=== PATIENT | female | born 1935 | race Caucasian/White ===

== ENCOUNTER 2016-06-20 13:16 | Outpatient (CLI) | payer MEDICARE, OTHER | END 2016-06-20 13:17 | disposition home or self-care (01) | DX: M35.3 Polymyalgia rheumatica (principal); E55.9 Vitamin D deficiency, unspecified; Z79.52 Long term (current) use of systemic steroids ==

== ENCOUNTER 2016-06-20 14:15 | Outpatient (CLI) | payer MEDICARE, OTHER | END 2016-06-20 23:59 | DX: N39.0 Urinary tract infection, site not specified (principal) ==

== ENCOUNTER 2016-06-21 16:12 | Emergency (ER) | payer MEDICARE, OTHER ==
[2016-06-21] MEDS ORDERED: SODIUM CHLORIDE 0.9% 1,000 ML IV ONE (16:48)
[2016-06-21] MEDS ORDERED: MORPHINE 2 MG/ML SYRINGE IVP STA (16:49)
[2016-06-21] MEDS ORDERED: ONDANSETRON 4 MG/2 ML VIAL IVP STA (16:51)
[2016-06-21] MEDS ORDERED: ONDANSETRON 4 MG/2 ML VIAL ONE (16:55)
[2016-06-21] MEDS ORDERED: MORPHINE 2 MG/ML SYRINGE ONE (16:55)
[2016-06-21] MEDS ORDERED: cefTRIAXone 1 GM in SODIUM CHLORIDE 0.9% MINIBAG 100 ML IV STA (17:58)
[2016-06-21] MEDS ORDERED: cefTRIAXone 1 GM VIAL ONE (18:02)
== END 2016-06-21 18:46 | disposition home or self-care (01) ==
DX: N30.00 Acute cystitis without hematuria (principal); I10 Essential (primary) hypertension; E78.00 Pure hypercholesterolemia, unspecified; I48.91 Unspecified atrial fibrillation; Z79.01 Long term (current) use of anticoagulants; K21.9 Gastro-esophageal reflux disease without esophagitis; Z86.73 Personal history of transient ischemic attack (TIA), and cerebral infarction without residual deficits

== ENCOUNTER 2016-06-23 07:17 | Emergency (ER) | payer MEDICARE, OTHER ==
[2016-06-23] MEDS ORDERED: ONDANSETRON 4 MG/2 ML VIAL IVP STA (07:49)
[2016-06-23] MEDS ORDERED: SODIUM CHLORIDE 0.9% 1,000 ML IV ONE ×2 (07:49→07:50)
[2016-06-23] MEDS ORDERED: MORPHINE 2 MG/ML SYRINGE IVP STA (07:49)
[2016-06-23] MEDS ORDERED: MORPHINE 2 MG/ML SYRINGE ONE (07:50)
[2016-06-23] MEDS ORDERED: ONDANSETRON 4 MG/2 ML VIAL ONE (07:50)
[2016-06-23] MEDS ORDERED: IOPAMIDOL-300 100 ML VIAL IVP ONE (08:42)
[2016-06-23] MEDS ORDERED: oxyCODONE 5 MG TABLET PO STA (10:35)
[2016-06-23] MEDS ORDERED: oxyCODONE 5 MG TABLET ONE (10:42)
[2016-06-23] MEDS ORDERED: POTASSIUM CHLORIDE 20 MEQ TABLET PO STA (11:07)
[2016-06-23] MEDS ORDERED: ONDANSETRON ODT 4 MG TABLET TL STA (11:09)
[2016-06-23] MEDS ORDERED: POTASSIUM CHLORIDE 20 MEQ TABLET PO ONE (11:11)
[2016-06-23] MEDS ORDERED: ONDANSETRON ODT 4 MG TABLET ONE (11:11)
== END 2016-06-23 12:03 | disposition home or self-care (01) ==
DX: N39.0 Urinary tract infection, site not specified (principal); R10.32 Left lower quadrant pain; I10 Essential (primary) hypertension; I48.91 Unspecified atrial fibrillation; Z79.01 Long term (current) use of anticoagulants; R94.31 Abnormal electrocardiogram [ECG] [EKG]; E78.00 Pure hypercholesterolemia, unspecified; G62.9 Polyneuropathy, unspecified; M79.1 Myalgia; D50.9 Iron deficiency anemia, unspecified; K21.9 Gastro-esophageal reflux disease without esophagitis; Z86.73 Personal history of transient ischemic attack (TIA), and cerebral infarction without residual deficits
CPT/HCPCS: 36415; 74174; 80053; 81001; 83690; 84484; 85025; 85610; 93005; 93010; 96361; 96374; 96375; 99284; 99285; A9270; Q0162; Q9967

== ENCOUNTER 2016-09-02 15:00 | Outpatient (CLI) | payer MEDICARE, OTHER | END 2016-09-02 15:01 | disposition home or self-care (01) | DX: N39.0 Urinary tract infection, site not specified (principal) ==

== ENCOUNTER 2016-09-19 20:15 | Outpatient (CLI) | payer MEDICARE, OTHER | END 2016-09-19 23:59 | disposition critical access hospital (66) | DX: R42 Dizziness and giddiness (principal); R53.1 Weakness | CPT/HCPCS: A0425; A0427 ==

== ENCOUNTER 2016-09-19 20:40 | Observation (INO) | payer MEDICARE, OTHER ==
[2016-09-19] MEDS ORDERED: ACETAMINOPHEN 325 MG TABLET PO PRN (22:10)
[2016-09-19] MEDS ORDERED: ONDANSETRON 4 MG/2 ML VIAL IVP PRN (22:10)
[2016-09-19] MEDS ORDERED: SODIUM CHLORIDE FLUSH 0.9% 10 ML SYRINGE IVP PRN (22:10)
[2016-09-19] MEDS ORDERED: ZOLPIDEM 5 MG TABLET PO PRN (22:10)
[2016-09-19] MEDS ORDERED: HYDROcod/ACETAM 10 MG/325 MG TABLET PO PRN (22:10)
[2016-09-19] MEDS ORDERED: WARFARIN 5 MG TABLET PO SCH (23:00)
[2016-09-20] MEDS: SODIUM CHLORIDE 0.9% 1,000 ML IV SCH ×3 (00:20→21:24)
[2016-09-20] MEDS: cefTRIAXone 1 GM in SODIUM CHLORIDE 0.9% MINIBAG 100 ML IV SCH (01:02)
[2016-09-20] MEDS: PANTOPRAZOLE 40 MG TABLET PO SCH (06:17)
[2016-09-20] MEDS: SODIUM CHLORIDE FLUSH 0.9% 10 ML SYRINGE IVP SCH ×2 (06:26→20:12)
[2016-09-20] MEDS ORDERED: predniSONE 1 MG TABLET PO SCH (09:00)
[2016-09-20] MEDS ORDERED: METOPROLOL TARTRATE 50 MG TABLET PO SCH ×3 (09:00→14:19)
[2016-09-20] MEDS ORDERED: LOSARTAN 50 MG TABLET PO SCH ×4 (09:00→14:15)
[2016-09-20] MEDS ORDERED: predniSONE 10 MG TABLET PO SCH ×2 (09:00→14:23)
[2016-09-20] MEDS ORDERED: GABAPENTIN 300 MG CAPSULE PO SCH (09:00)
[2016-09-20] MEDS ORDERED: MECLIZINE 12.5 MG TABLET PO PRN (11:14)
[2016-09-20] MEDS: POLYETHYLENE GLYCOL 3350 17 GM PACKET PO SCH (15:09)
[2016-09-20] MEDS ORDERED: SCOPOLAMINE PATCH TOP SCH (17:00)
[2016-09-20] MEDS: GABAPENTIN 300 MG CAPSULE PO SCH ×2 (20:12→20:21)
[2016-09-20] MEDS: WARFARIN 2.5 MG TABLET PO SCH ×2 (20:12→20:21)
[2016-09-20] MEDS ORDERED: METOPROLOL TARTRATE 25 MG TABLET PO SCH (21:00)
[2016-09-21] MEDS: cefTRIAXone 1 GM in SODIUM CHLORIDE 0.9% MINIBAG 100 ML IV SCH (00:27)
[2016-09-21] MEDS: SODIUM CHLORIDE FLUSH 0.9% 10 ML SYRINGE IVP SCH ×3 (00:27→13:42)
[2016-09-21] MEDS: PANTOPRAZOLE 40 MG TABLET PO SCH (06:30)
[2016-09-21] MEDS: SODIUM CHLORIDE 0.9% 1,000 ML IV SCH (06:31)
[2016-09-21] MEDS: POLYETHYLENE GLYCOL 3350 17 GM PACKET PO SCH (08:10)
[2016-09-21] MEDS ORDERED: WARFARIN 5 MG TABLET PO SCH (21:00)
== END 2016-09-21 14:22 | disposition short-term general hospital (02) ==
DX: R42 Dizziness and giddiness (principal); R55 Syncope and collapse; N39.0 Urinary tract infection, site not specified; I10 Essential (primary) hypertension; M31.6 Other giant cell arteritis; I48.91 Unspecified atrial fibrillation; M35.3 Polymyalgia rheumatica; Z86.73 Personal history of transient ischemic attack (TIA), and cerebral infarction without residual deficits; K21.9 Gastro-esophageal reflux disease without esophagitis; D50.9 Iron deficiency anemia, unspecified; Z79.01 Long term (current) use of anticoagulants; Z79.899 Other long term (current) drug therapy; Z79.52 Long term (current) use of systemic steroids
CPT/HCPCS: 36415; 70450; 70551; 80053; 81001; 83690; 83735; 83880; 84100; 84443; 84484; 85025; 85610; 85730; 87086; 93005; 93010; 93306; 93880; 96365; 96366; 99284; 99285; A9270; G0378; J3490

== ENCOUNTER 2016-10-28 11:16 | Outpatient (CLI) | payer MEDICARE, OTHER ==
[2016-10-28 18:04] LABS: BASOPHILS % (AUTO) 0.3 %; EOSINOPHILS % (AUTO) 0.1 %; HCT - HEMATOCRIT 38.4 % (37.0-47.0); HGB - HEMOGLOBIN 12.7 g/dL (12.0-16.0); LYMPHOCYTES # (AUTO) 0.7 10^3/uL (1.5-3.5); LYMPHOCYTES % (AUTO) 6.2 %; MEAN CORPUSCULAR HEMOGLOBIN 32.8 pg (27.0-31.0); MEAN CORPUSCULAR HGB CONC 33.2 g/dL (32.0-36.0); MEAN CORPUSCULAR VOLUME 98.8 fL (81.0-99.0); MEAN PLATELET VOLUME 8.7 fL (7.9-10.8); MONOCYTES # (AUTO) 0.5 10^3/uL (0.0-1.0); MONOCYTES % (AUTO) 4.3 %; NEUTROPHILS # (AUTO) 9.6 10^3/uL (1.5-6.6); NEUTROPHILS % (AUTO) 89.1 %; RED BLOOD COUNT 3.88 10^6/uL (4.20-5.40); RED CELL DISTRIBUTION WIDTH 14.5 % (12.0-15.0); UNCORRECTED WHITE BLOOD COUNT 10.8 x10^3/uL; WHITE BLOOD COUNT 10.8 x10^3/uL (4.8-10.8)
[2016-10-28 18:41] LABS: ALBUMIN/GLOBULIN RATIO 1.3 (1.0-2.2); BILIRUBIN,TOTAL 0.7 mg/dL (0.2-1.0); BUN - BLOOD UREA NITROGEN 18 mg/dL (6-20); CALCIUM 9.5 mg/dL (8.5-10.3); CARBON DIOXIDE - CO2 27 mmol/L (21-32); CHLORIDE 102 mmol/L (101-111); CREATININE 0.9 mg/dL (0.4-1.0); GFR - MDRD 60 (>89); GLUCOSE 90 mg/dL (70-100); POTASSIUM 3.7 mmol/L (3.5-5.0); SODIUM 137 mmol/L (135-145); TOTAL PROTEIN 7.1 g/dL (6.7-8.2)
== END 2016-10-28 11:17 | disposition home or self-care (01) ==
LOC: LAB.F 11:16
PROVIDERS: ATTEND Internal Medicine Rheumatology
DX: Z79.01 Long term (current) use of anticoagulants (principal); R42 Dizziness and giddiness; Z79.52 Long term (current) use of systemic steroids; G62.9 Polyneuropathy, unspecified; M35.3 Polymyalgia rheumatica
CPT/HCPCS: 36415; 80053; 85025; 85610; 85651; 86140

== ENCOUNTER 2016-11-01 05:46 | Emergency (ER) | payer MEDICARE, OTHER ==
[2016-11-01] MEDS ORDERED: LIDOCAINE 1%-EPI 1:100000 20 ML MDV ONE (05:55)
--- NOTE | 2016-11-01 07:00 | XRAY Preliminary Report ---
Exam: XR Chest 1 View IMPRESSION: No acute cardiopulmonary abnormality demonstrated. [facility] SITE ID: [id number]
--- NOTE | 2016-11-01 07:03 | XRAY Report ---
EXAM: CHEST RADIOGRAPHY EXAM DATE: 11/01/2016 06:45 AM. CLINICAL HISTORY: Fall, left anterior rib pain. COMPARISON: 01/26/2014 TECHNIQUE: 1 view. FINDINGS: Lungs/Pleura: No focal opacities evident. No pleural effusion. No pneumothorax. Mediastinum: Within exam limitations, cardiomediastinal contour is normal. Other: None. IMPRESSION: No acute cardiopulmonary abnormality demonstrated. [facility] Referring Provider Line: [phone] SITE ID: [id number]
--- NOTE | 2016-11-01 07:30 | ED Physician Documentation ---
PD HPI LOWER EXT INJURY - Stated complaint Stated Complaint: FALL,LAC ON LEG - Chief complaint Chief Complaint: Laceration - History obtained from History obtained from: Patient, Family - History of Present Illness PD HPI LOW EXT INJURY LOCATION: Left, Lower leg Type of injury: Laceration Where injury occurred: Home Timing - onset: How many minutes ago (30) Timing - details: Abrupt onset Worsened by: Moving, Palpating Contributing factors: Anticoagulated Similar symptoms before: Has not had sx before Recently seen: Clinic - Additional information Additional information: Patient is an 81 year old female presenting to the emergency department for a leg laceration. Patient states that she was getting out of bed she slipped and cut her leg on her walker. Patient denies any loc, headache, nausea, vomiting at this time. Review of Systems Constitutional: denies: Myalgias Eyes: denies: Loss of vision, Photophobia Ears: denies: Ear pain, Drainage/discharge Nose: denies: Epistaxis Throat: denies: Dental pain / toothache Cardiac: denies: Chest pain / pressure, Palpitations Respiratory: denies: Cough, Wheezing GI: denies: Nausea, Vomiting Skin: reports: Laceration (s) Musculoskeletal: reports: Extremity pain Neurologic: denies: Generalized weakness, Focal weakness, Numbness Immunocompromised: denies: Immunocompromised PD PAST MEDICAL HISTORY - Past Medical History Cardiovascular: Hypertension, High cholesterol, Atrial fibrillation, Other Respiratory: None Neuro: CVA, Other Endocrine/Autoimmune: Other GI: GERD, Other : Frequency HEENT: None Psych: None Musculoskeletal: Other Derm: None - Past Surgical History Past Surgical History: Yes General: Other Ortho: Other - Present Medications Home Medications: Ambulatory Orders Medication Instructions Recorded Confirmed Gabapentin 300 mg PO QPM 03/02/13 11/01/16 Losartan [Cozaar] 100 mg PO DAILY 03/02/13 11/01/16 Omeprazole [PriLOSEC] 20 mg PO BID 03/02/13 11/01/16 predniSONE [Deltasone] 10 mg PO DAILY 03/02/13 11/01/16 Metoprolol Tartrate 50 mg PO DAILY 12/27/14 11/01/16 Warfarin [Coumadin] 5 mg PO SUMOWESA@2100 12/27/14 11/01/16 Acetaminophen 650 mg PO Q6HR PRN 11/01/16 11/01/16 Meclizine HCl 1 tab PO TID PRN 11/01/16 11/01/16 - Allergies Allergies/Adverse Reactions: Allergies Allergy/AdvReac Type Severity Reaction Status Date / Time Penicillins Allergy Unknown UNKNOWN Verified 11/01/16 05:57 - Social History Does the pt smoke?: No Smoking Status: Never smoker Does the pt drink ETOH?: No Does the pt have substance abuse?: No - Immunizations Immunizations are current?: Yes - POLST Patient has POLST: No PD ED PE NORMAL - Vitals Vital signs reviewed: Yes - General General: Alert and oriented X 3, No acute distress, Well developed/nourished - HEENT HEENT: PERRL, Moist mucous membranes, Pharynx benign - Neck Neck: Supple, no meningeal sign, No bony TTP - Cardiac Cardiac: RRR, No murmur - Respiratory Respiratory: No respiratory distress, Clear bilaterally - Abdomen Abdomen: Soft, Non tender, Non distended - Neuro Neuro: Alert and oriented X 3, No motor deficit, No sensory deficit, Normal speech - Psych Psych: Normal mood, Normal affect PD ED PE EXPANDED - HEENT HEENT: Head injury (small area of ecchymosis on right chin) - Extremities Extremities: Left leg (10 cm laceration, avulsion and skin tear on left lower extremity, no active bleeding, irregular in shape, good peripheral perfusion) Results - Vitals Vitals: Vital Signs - 24 hr 11/01/16 11/01/16 11/01/16 05:53 07:02 07:51 Temperature 36.8 C Heart Rate 70 79 75 Respiratory 18 18 16 Rate Blood Pressure 200/96 H 177/113 H 179/84 H O2 Saturation 98 97 95 Oxygen O2 Source Room air - Rads (name of study) chest x-ray Radiology: Final report received (no acute fracture or dislocation) Procedures - Laceration (location) right leg Length in cm: 10 Wound type: Irregular, Flap, Into subcut fat Neurovascular status: Sensory intact, Vascular intact Anesthesia: Lidocaine 2% with epi Wound Preparation: Chlorhexadine, Irrigated copiously NS Deep layer closure: Chromic, size #-0 - enter number (4), # sutures - enter number (5) Skin layer closure: Nylon, Steri strips, Interrupted, Size #-0 - enter number (4 ), Sutures - enter # (20) Other: Patient tolerated well, Neurovascular intact, Dressing applied, Tetanus UTD Complexity: Complex PD MEDICAL DECISION MAKING - ED course Complexity details: reviewed old records, reviewed results, re-evaluated patient , considered differential, d/w patient, d/w family ED course: Patient was seen and examined at bedside. Patient had a large open wound on her lower leg, but was awake and alert. Patient's wound was described as above. patient tolerated the treatment well and was stable for discharge with close outpatient follow up. Departure - Departure Disposition: 01 Home, Self Care Clinical Impression: Laceration Condition: Good Instructions: ED Laceration All Follow-Up: Tanner Sheridan MD [Primary Care Provider] - Within 1 week (please follow up early next week for a wound check) Comments: You had a significant laceration to your lower leg. You can expect it to be more painful over the next couple of days. You should keep the dressing on for the next 48hours. After that you should keep the area clean and dry. You should follow up with your doctor on friday or friday for a wound check. You can take motrin or tylenol as needed for pain. You may return to the emergency department at any time for new, worsening or uncontrollable symptoms. Discharge Date/Time: 11/01/16 07:50
[2016-11-01 07:51] VITALS: BP 179/84
== END 2016-11-01 07:50 | disposition home or self-care (01) ==
LOC: ED 05:46
DX: S81.812A Laceration without foreign body, left lower leg, initial encounter (principal); S00.83XA Contusion of other part of head, initial encounter; W01.198A Fall on same level from slipping, tripping and stumbling with subsequent striking against other object, initial encounter; Y93.89 Activity, other specified; Y92.003 Bedroom of unspecified non-institutional (private) residence as the place of occurrence of the external cause; I10 Essential (primary) hypertension; I48.91 Unspecified atrial fibrillation; Z79.01 Long term (current) use of anticoagulants
CPT/HCPCS: 12034; 13121; 13122; 71010; 99283

== ENCOUNTER 2016-11-12 11:15 | Outpatient (CLI) | payer MEDICARE, OTHER | END 2016-11-12 11:16 | disposition home or self-care (01) | LOC: LAB.WCP 11:15 | PROVIDERS: ATTEND Family Medicine | DX: S81.822S Laceration with foreign body, left lower leg, sequela (principal); Z48.00 Encounter for change or removal of nonsurgical wound dressing | CPT/HCPCS: 87070; 87205 ==

== ENCOUNTER 2016-11-15 16:26 | Emergency (ER) | payer MEDICARE, OTHER ==
--- NOTE | 2016-11-15 16:51 | ED Physician Documentation ---
PD HPI WOUND RECHECK - Stated complaint Stated Complaint: LT LE INFECTION - Chief complaint Chief Complaint: Ext Problem - Histroy obtained from History obtained from: Patient, Family - History of Present Illness Location: Left Lower Extremity Timing - onset: How many weeks ago (2) Pain level max: 4 Pain level now: 4 Associated symptoms: Redness, Swelling, Drainage. No: Fever Similar symptoms before: Diagnosis (cellulitis) Recently seen: Other (sent from wound care for possible infection) Review of Systems Constitutional: denies: Fever, Chills Cardiac: denies: Chest pain / pressure Respiratory: denies: Cough GI: denies: Abdominal Pain, Nausea, Vomiting, Diarrhea Skin: denies: Rash Musculoskeletal: denies: Neck pain, Back pain Neurologic: denies: Focal weakness, Numbness, Headache PD PAST MEDICAL HISTORY - Past Medical History Past Medical History: Yes Cardiovascular: Hypertension, High cholesterol, Atrial fibrillation, Other Respiratory: None Neuro: CVA, Motion sickness, Other Endocrine/Autoimmune: Other GI: GERD, Other : Frequency HEENT: None Psych: None Musculoskeletal: Other Derm: None - Past Surgical History Past Surgical History: Yes General: Other Ortho: Other - Present Medications Home Medications: Ambulatory Orders Medication Instructions Recorded Confirmed Gabapentin 300 mg PO QPM 03/02/13 11/15/16 Losartan [Cozaar] 25 mg PO DAILY 03/02/13 11/15/16 Omeprazole [PriLOSEC] 20 mg PO DAILY 03/02/13 11/15/16 predniSONE [Deltasone] 20 mg PO DAILY 03/02/13 11/15/16 Warfarin [Coumadin] 5 mg PO [place]A@2100 12/27/14 11/15/16 Acetaminophen 650 mg PO Q6HR PRN 11/01/16 11/15/16 Clindamycin HCl 300 mg PO Q6H 7 Days 11/15/16 Metoprolol Succinate 25 mg PO DAILY 11/15/16 11/15/16 - Allergies Allergies/Adverse Reactions: Allergies Allergy/AdvReac Type Severity Reaction Status Date / Time Penicillins Allergy Unknown UNKNOWN Verified 11/15/16 16:44 - Social History Does the pt smoke?: No Smoking Status: Never smoker Does the pt drink ETOH?: No Does the pt have substance abuse?: No - Immunizations Immunizations are current?: Yes - POLST Patient has POLST: No PD ED PE NORMAL - Vitals Vital signs reviewed: Yes - General General: Alert and oriented X 3, No acute distress - HEENT HEENT: Moist mucous membranes - Neck Neck: Supple, no meningeal sign - Cardiac Cardiac: RRR - Respiratory Respiratory: No respiratory distress, Clear bilaterally - Derm Derm: Warm and dry - Extremities Extremities: Other (LLE 5cm, open wound, granulation tissue present. 2cm surrounding erythema and drainage. NVI. ) - Neuro Neuro: Alert and oriented X 3 - Psych Psych: Normal mood, Normal affect Results - Vitals Vitals: Vital Signs - 24 hr 11/15/16 11/15/16 16:39 18:12 Temperature 36.3 C L 36.5 C Heart Rate 66 56 L Respiratory 16 15 Rate Blood Pressure 153/65 H 161/90 H O2 Saturation 98 97 Oxygen O2 Source Room air - Labs Labs: Laboratory Tests 11/15/16 11/15/16 11/15/16 16:53 16:53 16:53 WBC 7.8 RBC 3.82 L Hgb 12.3 Hct 37.0 MCV 97.0 MCH 32.1 H MCHC 33.1 RDW 13.9 Plt Count 232 MPV 8.0 Neut # 6.8 H Lymph # 0.7 L [place] # 0.2 Eos # 0.0 Baso # 0.0 Absolute Nucleated RBC 0.00 Nucleated RBCs 0.0 ESR 65 H Whole Blood INR Sodium 137 Potassium 4.1 Chloride 101 Carbon Dioxide 26 Anion Gap 10.0 BUN 19 Creatinine 0.9 Estimated GFR (MDRD) 60 L Glucose 128 H Calcium 9.2 C-Reactive Protein < 1.0 11/15/16 17:42 WBC RBC Hgb Hct MCV MCH MCHC RDW Plt Count MPV Neut # Lymph # [place] # Eos # Baso # Absolute Nucleated RBC Nucleated RBCs ESR Whole Blood INR 3.4 H Sodium Potassium Chloride Carbon Dioxide Anion Gap BUN Creatinine Estimated GFR (MDRD) Glucose Calcium C-Reactive Protein - Rads (name of study) L tib/fib xray Radiology: Prelim report reviewed, EMP read contemporaneously, See rad report ( Normal tibia/fibula radiography. ) PD MEDICAL DECISION MAKING - ED course Complexity details: reviewed old records, reviewed results, re-evaluated patient , considered differential, d/w patient, d/w family ED course: Patient is an 81-year-old female who presents to the emergency department with an apparent infection of her left lower extremity laceration that she sustained 2 weeks ago. Wound culture performed. Will start on antibiotics. She is well- appearing, nontoxic. Afebrile. No evidence of osteomyelitis or fracture on x- ray. Wound was cleansed and bandaged. We will have her follow-up closely with her primary care provider and wound care. Patient counseled regarding signs and symptoms for which I believe and urgent re-evaluation would be necessary. Patient with good understanding of and agreement to plan and is comfortable going home at this time This document was made in part using voice recognition software. While efforts are made to proofread this document, sound alike and grammatical errors may occur. Departure - Departure Disposition: Home, Self Care Clinical Impression: Cellulitis Qualifiers: Site of cellulitis: extremity Site of cellulitis of extremity: lower extremity Laterality: left Qualified Code(s): L03.116 - Cellulitis of left lower limb Condition: Good Instructions: ED Infec Skin Cellulitis Follow-Up: Paola Long MD [Primary Care Provider] - Within 3 Days (for wound check) Prescriptions: Clindamycin HCl 300 mg PO Q6H 7 Days Comments: Take all antibiotics until gone. You should notice improvement in the next 24 hours. Return if you worsen. Keep the wound clean and dry Discharge Date/Time: 11/15/16 18:38
[2016-11-15 17:01] LABS: BASOPHILS % (AUTO) 0.5 %; EOSINOPHILS % (AUTO) 0.1 %; HGB - HEMOGLOBIN 12.3 g/dL (12.0-16.0); LYMPHOCYTES # (AUTO) 0.7 10^3/uL (1.5-3.5); LYMPHOCYTES % (AUTO) 9.4 %; MEAN CORPUSCULAR HEMOGLOBIN 32.1 pg (27.0-31.0); MEAN CORPUSCULAR HGB CONC 33.1 g/dL (32.0-36.0); MONOCYTES # (AUTO) 0.2 10^3/uL (0.0-1.0); MONOCYTES % (AUTO) 2.8 %; NEUTROPHILS # (AUTO) 6.8 10^3/uL (1.5-6.6); NEUTROPHILS % (AUTO) 87.2 %; RED BLOOD COUNT 3.82 10^6/uL (4.20-5.40); RED CELL DISTRIBUTION WIDTH 13.9 % (12.0-15.0); UNCORRECTED WHITE BLOOD COUNT 7.8 x10^3/uL; WHITE BLOOD COUNT 7.8 x10^3/uL (4.8-10.8)
[2016-11-15 17:18] LABS: BUN - BLOOD UREA NITROGEN 19 mg/dL (6-20); CALCIUM 9.2 mg/dL (8.5-10.3); CARBON DIOXIDE - CO2 26 mmol/L (21-32); CHLORIDE 101 mmol/L (101-111); CREATININE 0.9 mg/dL (0.4-1.0); GFR - MDRD 60 (>89); GLUCOSE 128 mg/dL (70-100); POTASSIUM 4.1 mmol/L (3.5-5.0); SODIUM 137 mmol/L (135-145)
[2016-11-15] MEDS ORDERED: CLINDAMYCIN 150 MG CAPSULE PO STA (17:30)
[2016-11-15] MEDS ORDERED: CLINDAMYCIN 150 MG CAPSULE PO ONE (17:39)
--- NOTE | 2016-11-15 18:05 | XRAY Preliminary Report ---
Exam: XR Tib/Fib LT IMPRESSION: Normal tibia/fibula radiography. [facility] SITE ID: [id number]
--- NOTE | 2016-11-15 18:07 | XRAY Report ---
EXAM: LEFT TIBIA/FIBULA RADIOGRAPHY EXAM DATE: 11/15/2016 05:17 PM. CLINICAL HISTORY: Left tib/fib pain after a fall. COMPARISON: None. TECHNIQUE: 2 views. FINDINGS: Bones: Normal. No fracture or bone lesion. Joints: The visualized knee and ankle joints are normal. No effusions. Soft Tissues: Normal. No soft tissue swelling. IMPRESSION: Normal tibia/fibula radiography. [facility] Referring Provider Line: [phone] SITE ID: [id number]
[2016-11-15 18:12] VITALS: BP 161/90
== END 2016-11-15 18:38 | disposition home or self-care (01) ==
LOC: ED 16:26
DX: L03.116 Cellulitis of left lower limb (principal); I10 Essential (primary) hypertension; I48.91 Unspecified atrial fibrillation; Z79.01 Long term (current) use of anticoagulants
CPT/HCPCS: 36415; 73590; 80048; 85025; 85610; 85651; 86140; 87070; 87077; 87181; 87205; 99283; 99284; A9270; 99211

== ENCOUNTER 2016-11-23 15:59 | Emergency (ER) | payer MEDICARE, OTHER ==
[2016-11-23 16:19] VITALS: BP 168/80
[2016-11-23] MEDS ORDERED: cefTRIAXone 1 GM VIAL IM STA (16:32)
--- NOTE | 2016-11-23 16:35 | ED Physician Documentation ---
PD HPI WOUND RECHECK - Stated complaint Stated Complaint: LT LE WOUND - Chief complaint Chief Complaint: Wound - Histroy obtained from History obtained from: Patient, Family - History of Present Illness Location: Right Lower Extremity Timing - onset: How many weeks ago (3) Associated symptoms: Redness, Pain Similar symptoms before: Diagnosis (wound infection) Recently seen: Emergency Dept - Additional information Additional information: 78-year-old female with a history of atrial fibrillation on Coumadin has a laceration to her right anterior calf that was sutured about 3 weeks ago. This was a deep wound and required deep closure as well as superficial closure and the wound has become infected. She has been on clindamycin for the past week and the wound was doing better and then this morning there is more pain and redness is extending at the base of the wound.She has been into see people at the wound clinic and she recently had a dressing applied which she has now removed.In addition she has been on clindamycin for the past week and has now developed diarrhea about 3 times per day. Review of Systems Constitutional: reports: Fatigue. denies: Fever Eyes: denies: Decreased vision Ears: denies: Ear pain Nose: denies: Reviewed and negative Respiratory: denies: Dyspnea, Cough GI: reports: Diarrhea. denies: Abdominal Pain, Nausea, Vomiting : denies: Dysuria, Frequency Musculoskeletal: reports: Extremity pain. denies: Neck pain, Back pain Neurologic: denies: Generalized weakness, Focal weakness, Numbness PD PAST MEDICAL HISTORY - Past Medical History Cardiovascular: Hypertension, High cholesterol, Atrial fibrillation, Other Respiratory: None Neuro: CVA, Motion sickness, Other Endocrine/Autoimmune: Other GI: GERD, Other : Frequency HEENT: None Psych: None Musculoskeletal: Other Derm: None - Past Surgical History Past Surgical History: Yes General: Other Ortho: Other - Present Medications Home Medications: Ambulatory Orders Medication Instructions Recorded Confirmed Gabapentin 300 mg PO QPM 03/02/13 11/20/16 Losartan [Cozaar] 25 mg PO DAILY 03/02/13 11/20/16 Omeprazole [PriLOSEC] 20 mg PO DAILY 03/02/13 11/20/16 predniSONE [Deltasone] 20 mg PO DAILY 03/02/13 11/20/16 Warfarin [Coumadin] 5 mg PO SUM[place]ESA@2100 12/27/14 11/20/16 Acetaminophen 650 mg PO Q6HR PRN 11/01/16 11/20/16 Clindamycin HCl 300 mg PO Q6H 7 Days 11/15/16 11/20/16 Metoprolol Succinate 25 mg PO DAILY 11/15/16 11/20/16 Cephalexin [Keflex] 500 mg PO QID #20 capsule 11/23/16 HYDROcod/ACETAM 5/325 [[place] 5/325] 1 - 2 ea PO Q6H PRN #15 tablet 11/23/16 Sulfamethoxazole/Trimethoprim 1 each PO BID #14 tablet 11/23/16 [Sulfamethoxazole-Tmp Ds Tablet] - Allergies Allergies/Adverse Reactions: Allergies Allergy/AdvReac Type Severity Reaction Status Date / Time Penicillins Allergy Unknown UNKNOWN Verified 11/15/16 16:44 - Social History Does the pt smoke?: No Smoking Status: Never smoker Does the pt drink ETOH?: No Does the pt have substance abuse?: No - Immunizations Immunizations are current?: Yes - POLST Patient has POLST: No PD ED PE NORMAL - Vitals Vital signs reviewed: Yes (hypertensive ) - General General: Alert and oriented X 3, No acute distress, Well developed/nourished - HEENT HEENT: Atraumatic, PERRL - Respiratory Respiratory: No respiratory distress - Derm Derm: Normal color, Warm and dry, No rash - Extremities Extremities: Other (over the right anterior calf is a 10cm wound that is healing and there is evidence of infection to the medial inferior aspect of the wound. The distal N/V is intact. ) - Neuro Neuro: Alert and oriented X 3, No motor deficit, No sensory deficit, Normal speech - Psych Psych: Normal mood, Normal affect Results - Vitals Vitals: Vital Signs - 24 hr 11/23/16 16:00 Temperature 37 C Heart Rate 100 Respiratory 18 Rate Blood Pressure 168/80 H O2 Saturation 97 Oxygen O2 Source Room air - Labs Labs: Laboratory Tests 11/23/16 16:44 PT 48.0 H INR 4.2 H PD MEDICAL DECISION MAKING - ED course Complexity details: reviewed old records, reviewed results, re-evaluated patient , considered differential, d/w patient, d/w family ED course: 81 y/o female with a slowly healing anterior calf wound with infection has been on clindamycin and the wound has a segment of increased infection despite the clinda and she has developed diarrhea. We will take her off of the clinda and start keflex and septra and she will follow up with Dr. Sheridan on Friday as planned. INR was received after the patient left the hospital and I called the patient at her home and she will not take her coumadin tonight and she will follow up with Dr. Sheridan on Friday. Departure - Departure Disposition: Home, Self Care Clinical Impression: Infected wound Condition: Stable Instructions: ED Staph Infec Abx Tx Only, ED Wound Care Follow-Up: JUANIS SHERIDAN MD [Physician No Access] - Prescriptions: Cephalexin [Keflex] 500 mg PO QID #20 capsule HYDROcod/ACETAM 5/325 [[place] 5/325] 1 - 2 ea PO Q6H PRN #15 tablet PRN Reason: Pain Sulfamethoxazole/Trimethoprim [Sulfamethoxazole-Tmp Ds Tablet] 1 each PO BID # 14 tablet Discharge Date/Time: 11/23/16 17:05
[2016-11-23] MEDS ORDERED: cefTRIAXone 1 GM VIAL ONE (16:41)
[2016-11-23 17:34] LABS: INR 4.2 (0.8-1.2)
== END 2016-11-23 17:05 | disposition home or self-care (01) ==
LOC: ED 15:59
DX: S81.811A Laceration without foreign body, right lower leg, initial encounter (principal); L08.9 Local infection of the skin and subcutaneous tissue, unspecified; X58.XXXA Exposure to other specified factors, initial encounter; I48.91 Unspecified atrial fibrillation; I10 Essential (primary) hypertension; Z79.01 Long term (current) use of anticoagulants; Z86.73 Personal history of transient ischemic attack (TIA), and cerebral infarction without residual deficits
CPT/HCPCS: 36415; 85610; 96372; 99283; 99284

== ENCOUNTER 2016-12-06 08:00 | Outpatient (CLI) | payer MEDICARE, OTHER | END 2016-12-06 08:01 | disposition home or self-care (01) | LOC: LAB.F 08:00 | PROVIDERS: ATTEND Family Medicine | DX: R19.7 Diarrhea, unspecified (principal) | CPT/HCPCS: 87493 ==

== ENCOUNTER 2016-12-10 11:06 | Inpatient (IN) | payer MEDICARE, OTHER ==
[2016-12-10 11:38] LABS: BILIRUBIN,URINE NEGATIVE (NEGATIVE); PH,URINE 5.5 PH (5.0-7.5)
[2016-12-10 11:48] LABS: UA w/ MICROSCOPIC CHARGE YES
[2016-12-10 11:49] LABS: UR CULTURE IF IND INDICATED
[2016-12-10] MEDS ORDERED: ONDANSETRON 4 MG/2 ML VIAL IVP STA (13:20)
[2016-12-10] MEDS ORDERED: MORPHINE 2 MG/ML SYRINGE IVP STA (13:20)
--- NOTE | 2016-12-10 13:20 | ED Physician Documentation ---
PD HPI ABD PAIN - Stated complaint Stated Complaint: BACK PX - Chief complaint Chief Complaint: Back Pain - History obtained from History obtained from: Patient, Family - History of Present Illness Timing - onset: Other (81-year-old woman with history of atrial fibrillation on warfarin was sutured for skin tear on the left leg, developed a wound infection with Staphylococcus simulans and coag negative staph and most recently was on Keflex and Bactrim which she stopped. She has multiple complaints today including 3 weeks of increasing low back pain like a band across the back, urinary frequency, and redness around her wound. There is no associated fever.) Review of Systems Ten Systems: 10 systems reviewed and negative Constitutional: denies: Fever, Chills Respiratory: denies: Dyspnea, Cough GI: reports: Abdominal Pain, Diarrhea (A couple in the morning, , Then none throughout the day). denies: Nausea, Vomiting : reports: Dysuria, Frequency Musculoskeletal: reports: Back pain PD PAST MEDICAL HISTORY - Past Medical History Cardiovascular: Hypertension, High cholesterol, Atrial fibrillation, Other Respiratory: None Neuro: CVA, Motion sickness, Other Endocrine/Autoimmune: Other GI: GERD, Other : Frequency HEENT: None Psych: None Musculoskeletal: Other Derm: None Other Past Medical History: recent leg wound - was taking antibiotics but stopped recently - Past Surgical History Past Surgical History: Yes General: Other Ortho: Other - Present Medications Home Medications: Ambulatory Orders Medication Instructions Recorded Confirmed Gabapentin 300 mg PO QPM 03/02/13 12/10/16 Losartan [Cozaar] 25 mg PO DAILY 03/02/13 12/10/16 Omeprazole [PriLOSEC] 20 mg PO DAILY 03/02/13 12/10/16 predniSONE [Deltasone] 20 mg PO DAILY 03/02/13 12/10/16 Warfarin [Coumadin] 5 mg PO [place]A@2100 12/27/14 12/10/16 Acetaminophen 650 mg PO Q6HR PRN 11/01/16 12/10/16 Metoprolol Succinate 25 mg PO DAILY 11/15/16 12/10/16 - Allergies Allergies/Adverse Reactions: Allergies Allergy/AdvReac Type Severity Reaction Status Date / Time Penicillins Allergy Unknown UNKNOWN Verified 11/15/16 16:44 - Social History Does the pt smoke?: No Smoking Status: Never smoker Does the pt drink ETOH?: No Does the pt have substance abuse?: No - Family History Family history: reports: Non contributory - Immunizations Immunizations are current?: Yes - POLST Patient has POLST: No PD ED PE NORMAL - Vitals Vital signs reviewed: Yes - General General: Alert and oriented X 3, No acute distress - HEENT HEENT: PERRL, EOMI - Neck Neck: Supple, no meningeal sign, No bony TTP - Cardiac Cardiac: RRR, No murmur - Respiratory Respiratory: No respiratory distress, Clear bilaterally - Abdomen Abdomen: Soft, Other (Mild low abdominal tenderness) - Back Back: Other (Tenderness of the paralumbar musculature of the low back) - Derm Derm: Normal color, Warm and dry - Extremities Extremities: Other (Bandaged wound which she refused to let me look at, on the medial left calf, there is cellulitis distal to this.) - Neuro Neuro: Alert and oriented X 3, Normal speech - Psych Psych: Normal mood, Normal affect Results - Vitals Vitals: Vital Signs - 24 hr 12/10/16 12/10/16 12/10/16 11:12 13:39 14:30 Temperature 35.8 C L Heart Rate 111 H 97 73 Respiratory 18 18 18 Rate Blood Pressure 150/81 H 123/67 126/74 O2 Saturation 100 98 93 Oxygen O2 Source Room air - Labs Labs: Laboratory Tests 12/10/16 12/10/16 12/10/16 11:30 13:17 13:30 WBC 8.3 RBC 3.79 L Hgb 12.5 Hct 36.6 L MCV 96.4 MCH 33.1 H MCHC 34.3 RDW 14.6 Plt Count 258 MPV 8.1 Neut # 7.4 H Lymph # 0.5 L [place] # 0.3 Eos # 0.0 Baso # 0.0 Absolute Nucleated RBC 0.00 Nucleated RBCs 0.0 ESR PT INR Sodium Potassium Chloride Carbon Dioxide Anion Gap BUN Creatinine Estimated GFR (MDRD) Glucose Lactic Acid 2.1 Calcium Total Bilirubin AST ALT Alkaline Phosphatase C-Reactive Protein Total Protein Albumin Globulin Albumin/Globulin Ratio Lipase Urine Color YELLOW Urine Clarity SL. CLOUDY Urine pH 5.5 Ur Specific [place] 1.025 Urine Protein TRACE Urine Glucose (UA) NEGATIVE Urine Ketones NEGATIVE Urine Occult Blood SMALL H Urine Nitrite POSITIVE H Urine Bilirubin NEGATIVE Urine Urobilinogen 0.2 (NORMAL) Ur Leukocyte Esterase SMALL H Urine RBC 6-10 H Urine WBC 11-25 H Ur Squamous Epith Cells NONE SEEN Urine Bacteria Moderate H Ur Microscopic Review INDICATED Urine Culture Comments INDICATED 12/10/16 12/10/16 12/10/16 13:30 13:30 13:30 WBC RBC Hgb Hct MCV MCH MCHC RDW Plt Count MPV Neut # Lymph # [place] # Eos # Baso # Absolute Nucleated RBC Nucleated RBCs ESR 62 H PT 13.6 H INR 1.2 Sodium 137 Potassium 3.9 Chloride 103 Carbon Dioxide 27 Anion Gap 7.0 BUN 13 Creatinine 0.9 Estimated GFR (MDRD) 60 L Glucose 164 H Lactic Acid Calcium 9.2 Total Bilirubin 0.7 AST 19 ALT 16 Alkaline Phosphatase 65 C-Reactive Protein 1.2 H Total Protein 6.9 Albumin 3.7 Globulin 3.2 Albumin/Globulin Ratio 1.2 Lipase 19 L Urine Color Urine Clarity Urine pH Ur Specific [place] Urine Protein Urine Glucose (UA) Urine Ketones Urine Occult Blood Urine Nitrite Urine Bilirubin Urine Urobilinogen Ur Leukocyte Esterase Urine RBC Urine WBC Ur Squamous Epith Cells Urine Bacteria Ur Microscopic Review Urine Culture Comments - Rads (name of study) Ct A/P Radiology: EMP read contemporaneously (New T12 and L3 compression fractures) PD MEDICAL DECISION MAKING - ED course ED course: 81-year-old woman presents with multiple complaints, including but not limited to cellulitis on the left leg due to wound that has failed outpatient treatment , UTI, and back pain, found to have lumbar compression fractures requiring narcotic analgesia. Spoke with Dr. Ryan for admission at 3:45 PM, agreed on Ancef. Departure - Departure Disposition: [facility] DC/Xfer Clinical Impression: Compression fracture of body of thoracic vertebra, Dizziness, nonspecific Compression fx, lumbar spine Qualifiers: Encounter type: initial encounter Fracture type: closed Qualified Code(s): S32.000A - Wedge compression fracture of unspecified lumbar vertebra, initial encounter for closed fracture Urinary tract infection Qualifiers: Urinary tract infection type: site unspecified Hematuria presence: without hematuria Qualified Code(s): N39.0 - Urinary tract infection, site not specified Cellulitis Qualifiers: Site of cellulitis: extremity Site of cellulitis of extremity: lower extremity Laterality: left Qualified Code(s): L03.116 - Cellulitis of left lower limb Condition: Stable
[2016-12-10 13:41] LABS: BASOPHILS % (AUTO) 0.4 %; HCT - HEMATOCRIT 36.6 % (37.0-47.0); HGB - HEMOGLOBIN 12.5 g/dL (12.0-16.0); LYMPHOCYTES # (AUTO) 0.5 10^3/uL (1.5-3.5); LYMPHOCYTES % (AUTO) 6.2 %; MEAN CORPUSCULAR HEMOGLOBIN 33.1 pg (27.0-31.0); MEAN CORPUSCULAR HGB CONC 34.3 g/dL (32.0-36.0); MEAN CORPUSCULAR VOLUME 96.4 fL (81.0-99.0); MEAN PLATELET VOLUME 8.1 fL (7.9-10.8); MONOCYTES # (AUTO) 0.3 10^3/uL (0.0-1.0); MONOCYTES % (AUTO) 3.8 %; NEUTROPHILS # (AUTO) 7.4 10^3/uL (1.5-6.6); NEUTROPHILS % (AUTO) 89.6 %; RED BLOOD COUNT 3.79 10^6/uL (4.20-5.40); RED CELL DISTRIBUTION WIDTH 14.6 % (12.0-15.0); UNCORRECTED WHITE BLOOD COUNT 8.3 x10^3/uL; WHITE BLOOD COUNT 8.3 x10^3/uL (4.8-10.8)
[2016-12-10 13:54] LABS: INR 1.2 (0.8-1.2); PT - PROTHROMBIN TIME 13.6 secs (9.9-12.6)
[2016-12-10] MEDS ORDERED: MORPHINE 2 MG/ML SYRINGE ONE (13:55)
[2016-12-10] MEDS ORDERED: ONDANSETRON 4 MG/2 ML VIAL ONE (13:55)
[2016-12-10 14:17] LABS: ALBUMIN/GLOBULIN RATIO 1.2 (1.0-2.2); BILIRUBIN,TOTAL 0.7 mg/dL (0.2-1.0); CALCIUM 9.2 mg/dL (8.5-10.3); CREATININE 0.9 mg/dL (0.4-1.0); POTASSIUM 3.9 mmol/L (3.5-5.0); TOTAL PROTEIN 6.9 g/dL (6.7-8.2)
[2016-12-10] MEDS ORDERED: IOPAMIDOL-300 100 ML VIAL IVP ONE (15:23)
--- NOTE | 2016-12-10 15:40 | CT Preliminary Report ---
Exam: CT Abdomen/Pelvis W/ IMPRESSION: 1. Acute or early subacute mild compression fractures T12 and L3 without significant compromise of th e adjacent central spinal canal. 2. Colonic diverticulosis. 3. Appendix not visualized. 4. Chronic lung disease. RADIA The above findings were discussed with by Dr. Bernadette Vickers at 15:39 hrs on 12/10/16. SITE ID: [id number]
[2016-12-10] MEDS ORDERED: ceFAZolin 1 GM in SODIUM CHLORIDE 0.9% MINIBAG 100 ML IV ONE (15:44)
--- NOTE | 2016-12-10 15:55 | CT Report ---
EXAM: CT ABDOMEN AND PELVIS EXAM DATE: 12/10/2016 03:06 PM. CLINICAL HISTORY: Abdominal and back pain. COMPARISONS: 04/06/2011. TECHNIQUE: Routine helical CT imaging was performed through the abdomen and pelvis. IV contrast: 100 mL Isovue-300. Enteric contrast: No. Reconstructions: Coronal and sagittal. In accordance with CT protocol optimization, one or more of the following dose reduction techniques w ere utilized for this exam: automated exposure control, adjustment of mA and/or KV based on patient s ize, or use of iterative reconstructive technique. FINDINGS: Lung Bases: Chronic lung disease. Liver: Normal. No masses. Gallbladder/Bile Ducts: Unremarkable. Spleen: Normal. Pancreas: Normal. Adrenal Glands: Normal. Kidneys: Normal. No masses or hydronephrosis. Peritoneal Cavity/Bowel: Diverticula off the colon. No free fluid, free air or adenopathy. No masses or acute inflammatory process. Appendix not seen. Pelvic Organs: Normal. The bladder and visualized pelvic organs are within normal limits. Vasculature: No aneurysms or other significant abnormality. Bones: Acute or early subacute mild compression fracture involving the superior and inferior endplate s of T12 with slight posterior bulging of the T12 vertebral body cortex without significant compromis e of the central spinal canal. Small amount of adjacent edema. Acute or early subacute mild compression fracture of L3 involving the superior endplate. 4 mm retropu lsed bone fragment without significant compromise of the central spinal canal. Adjacent edema. Multilevel marked degenerative changes throughout the spine. Other: None. IMPRESSION: 1. Acute or early subacute mild compression fractures T12 and L3 without significant compromise of th e adjacent central spinal canal. 2. Colonic diverticulosis. 3. Appendix not visualized. 4. Chronic lung disease. RADIA The above findings were discussed with Dr. Everett by Dr. Bernadette Vickers at 15:39 hrs on 12/10/16. Referring Provider Line: [phone] SITE ID: [id number]
[2016-12-10] MEDS ORDERED: SODIUM CHLORIDE FLUSH 0.9% 10 ML SYRINGE IVP PRN (16:03)
[2016-12-10] MEDS ORDERED: ONDANSETRON 4 MG/2 ML VIAL IVP PRN (16:03)
[2016-12-10] MEDS: HYDROcod/ACETAM 5/325 MG TABLET PO PRN ×2 (17:56→22:14)
[2016-12-10] MEDS: SODIUM CHLORIDE 0.9% 1,000 ML IV SCH (17:57)
[2016-12-10] MEDS ORDERED: cefTRIAXone 2 GM in SODIUM CHLORIDE 0.9% MINIBAG 100 ML IV SCH (22:00)
[2016-12-10] MEDS: GABAPENTIN 300 MG CAPSULE PO SCH (22:14)
[2016-12-10] MEDS: SODIUM CHLORIDE FLUSH 0.9% 10 ML SYRINGE IVP SCH (23:00)
[2016-12-11] MEDS: PANTOPRAZOLE 40 MG TABLET PO SCH (06:19)
[2016-12-11] MEDS: SODIUM CHLORIDE FLUSH 0.9% 10 ML SYRINGE IVP SCH ×3 (07:03→12:48)
[2016-12-11] MEDS: SODIUM CHLORIDE 0.9% 1,000 ML IV SCH (08:00)
[2016-12-11] MEDS: cefTRIAXone 2 GM in SODIUM CHLORIDE 0.9% MINIBAG 100 ML IV SCH (08:36)
[2016-12-11] MEDS: LOSARTAN 50 MG TABLET PO SCH (08:39)
[2016-12-11] MEDS: METOPROLOL SUCCINATE 25 MG TABLET PO SCH (08:39)
[2016-12-11] MEDS: HYDROcod/ACETAM 5/325 MG TABLET PO PRN ×2 (08:39→17:05)
[2016-12-11] MEDS: POLYETHYLENE GLYCOL 3350 17 GM PACKET PO SCH (08:40)
[2016-12-11] MEDS: predniSONE 20 MG TABLET PO SCH (08:40)
[2016-12-11] MEDS: ACETAMINOPHEN 325 MG TABLET PO PRN (12:48)
[2016-12-11] MEDS: WARFARIN 5 MG TABLET PO SCH (13:47)
--- NOTE | 2016-12-11 17:35 | PROVIDER PROGRESS NOTE ---
Assessment/Plan - Problem List (1) Compression fx, lumbar spine Qualifiers: Encounter type: initial encounter Fracture type: closed Qualified Code(s) : S32.000A - Wedge compression fracture of unspecified lumbar vertebra, initial encounter for closed fracture Assessment/Plan: She had this three weeks ago. She says it is not any better She has T-3 frx also (2) Urinary tract infection Qualifiers: Urinary tract infection type: site unspecified Hematuria presence: without hematuria Qualified Code(s): N39.0 - Urinary tract infection, site not specified Assessment/Plan: She is growing Gm Neg. ID tomorrow. Will change antibx if needed. - Current Meds Current Meds: Current Medications Generic Name Dose Route Start Last Admin Trade Name Freq PRN Reason Stop Dose Admin Acetaminophen 650 mg 12/10/16 16:03 12/11/16 12:48 Tylenol PO 650 mg Q4HR PRN Administration Pain 1 to 4 Acetaminophen/Hydrocodone Bitart 1 tab 12/10/16 16:03 12/11/16 17:05 [place] 5/325 PO 1 tab Q4HR PRN Administration Pain 5 to 7 Gabapentin 300 mg 12/10/16 21:00 12/10/16 22:14 Neurontin PO 300 mg QPM CHARLEEN Administration Sodium Chloride 1,000 mls @ 70 mls/hr 12/10/16 17:00 12/11/16 08:00 Normal Saline 0.9% IV 70 mls/hr .[id number] CHARLEEN Administration Ceftriaxone Sodium 2 gm/ 100 mls @ 200 mls/hr 12/11/16 09:00 12/11/16 08:36 Sodium Chloride IV 200 mls/hr DAILY CHARLEEN Administration Losartan Potassium 25 mg 12/11/16 09:00 12/11/16 08:39 Cozaar PO 25 mg DAILY CHARLEEN Administration Metoprolol Succinate 25 mg 12/11/16 09:00 12/11/16 08:39 Toprol Xl PO 25 mg DAILY CHARLEEN Administration Pantoprazole Sodium 40 mg 12/11/16 07:00 12/11/16 06:19 Protonix PO 40 mg QDAC CHARLEEN Administration Polyethylene Glycol 17 gm 12/11/16 09:00 12/11/16 08:40 Miralax PO Not Given DAILY CHARLEEN Prednisone 20 mg 12/11/16 09:00 12/11/16 08:40 Deltasone PO 20 mg DAILY CHARLEEN Administration Sodium Chloride 10 ml 12/10/16 22:00 12/11/16 12:48 Normal Saline Flush 0.9% IVP 20 ml Q8HR CHARLEEN Administration Warfarin Sodium 5 mg 12/11/16 14:00 12/11/16 13:47 Coumadin PO 5 mg QDWARFARIN CHARLEEN Administration - Lab Result Fish Bone Diagrams: 12/10/16 13:30 12/10/16 13:30 - Additional Planning My Orders: My Active Orders 12/12/16 14:00 Warfarin [Coumadin] 2.5 mg PO [facility]@1400 Subjective - Subjective Patient Reports: Feeling Better, Resting Comfortably, Pain Nursing Reports: Pain Objective Vital Signs: Vital Signs - 24 hr 12/11/16 12/11/16 12/11/16 00:28 08:33 11:40 Temperature 36.6 C 36.4 C L Heart Rate [ 73 106 H Brachial] Heart Rate [ 69 Supine] Respiratory 17 18 Rate Blood Pressure 130/66 125/70 [Left Brachial artery] Blood Pressure 150/66 H [Supine] O2 Saturation 96 96 12/11/16 16:02 Temperature 36.7 C Heart Rate [ 60 Brachial] Heart Rate [ Supine] Respiratory 18 Rate Blood Pressure 122/66 [Left Brachial artery] Blood Pressure [Supine] O2 Saturation 97 Oxygen O2 Source Room air I&O (Last 24 Hrs): Intake and Output Totals x24h 12/09/16 12/10/16 12/11/16 23:59 23:59 23:59 Intake Total 790 2053 Output Total 150 Balance 790 1903 General: Alert, Cooperative HEENT: PERRLA, EOMI Neck: No JVD, No thyromegaly Neuro: Alert, Oriented Times 3 Cardiovascular: Regular rate, No murmurs Respiratory: Chest non-tender, No respiratory distress, Breath sounds nml Abdomen: Normal bowel sounds, Soft, No tenderness Skin: No rashes, No breakdown - Results Results: Laboratory Results WBC 8.3 x10^3/uL (4.8-10.8) 12/10/16 13:30 RBC 3.79 10^6/uL (4.20-5.40) L 12/10/16 13:30 Hgb 12.5 g/dL (12.0-16.0) 12/10/16 13:30 Hct 36.6 % (37.0-47.0) L 12/10/16 13:30 MCV 96.4 fL (81.0-99.0) 12/10/16 13:30 MCH 33.1 pg (27.0-31.0) H 12/10/16 13:30 MCHC 34.3 g/dL (32.0-36.0) 12/10/16 13:30 RDW 14.6 % (12.0-15.0) 12/10/16 13:30 Plt Count 258 10^3/uL (130-450) 12/10/16 13:30 MPV 8.1 fL (7.9-10.8) 12/10/16 13:30 Neut # 7.4 10^3/uL (1.5-6.6) H 12/10/16 13:30 Lymph # 0.5 10^3/uL (1.5-3.5) L 12/10/16 13:30 [place] # 0.3 10^3/uL (0.0-1.0) 12/10/16 13:30 Eos # 0.0 10^3/uL (0.0-0.7) 12/10/16 13:30 Baso # 0.0 10^3/uL (0.0-0.1) 12/10/16 13:30 Absolute Nucleated RBC 0.00 x10^3/uL 12/10/16 13:30 Nucleated RBCs 0.0 /100WBC 12/10/16 13:30 ESR 62 mm/Hr (0-30) H 12/10/16 13:30 PT 13.6 secs (9.9-12.6) H 12/10/16 13:30 INR 1.2 (0.8-1.2) 12/10/16 13:30 Sodium 137 mmol/L (135-145) 12/10/16 13:30 Potassium 3.9 mmol/L (3.5-5.0) 12/10/16 13:30 Chloride 103 mmol/L (101-111) 12/10/16 13:30 Carbon Dioxide 27 mmol/L (21-32) 12/10/16 13:30 Anion Gap 7.0 (6-13) 12/10/16 13:30 BUN 13 mg/dL (6-20) 12/10/16 13:30 Creatinine 0.9 mg/dL (0.4-1.0) 12/10/16 13:30 Estimated GFR (MDRD) 60 (>89) L 12/10/16 13:30 Glucose 164 mg/dL (70-100) H 12/10/16 13:30 Lactic Acid 2.1 mmol/L (0.5-2.2) 12/10/16 13:17 Calcium 9.2 mg/dL (8.5-10.3) 12/10/16 13:30 Total Bilirubin 0.7 mg/dL (0.2-1.0) 12/10/16 13:30 AST 19 IU/L (10-42) 12/10/16 13:30 ALT 16 IU/L (10-60) 12/10/16 13:30 Alkaline Phosphatase 65 IU/L (42-121) 12/10/16 13:30 C-Reactive Protein 1.2 mg/dL (0-1.0) H 12/10/16 13:30 Total Protein 6.9 g/dL (6.7-8.2) 12/10/16 13:30 Albumin 3.7 g/dL (3.2-5.5) 12/10/16 13:30 Globulin 3.2 g/dL (2.1-4.2) 12/10/16 13:30 Albumin/Globulin Ratio 1.2 (1.0-2.2) 12/10/16 13:30 Lipase 19 U/L (22-51) L 12/10/16 13:30 Urine Color YELLOW 12/10/16 11:30 Urine Clarity SL. CLOUDY (CLEAR) 12/10/16 11:30 Urine pH 5.5 PH (5.0-7.5) 12/10/16 11:30 Ur Specific [place] 1.025 (1.002-1.030) 12/10/16 11:30 Urine Protein TRACE mg/dL (NEGATIVE) 12/10/16 11:30 Urine Glucose (UA) NEGATIVE mg/dL (NEGATIVE) 12/10/16 11:30 Urine Ketones NEGATIVE mg/dL (NEGATIVE) 12/10/16 11:30 Urine Occult Blood SMALL (NEGATIVE) H 12/10/16 11:30 Urine Nitrite POSITIVE (NEGATIVE) H 12/10/16 11:30 Urine Bilirubin NEGATIVE (NEGATIVE) 12/10/16 11:30 Urine Urobilinogen 0.2 (NORMAL) E.U./dL (NORMAL) 12/10/16 11:30 Ur Leukocyte Esterase SMALL (NEGATIVE) H 12/10/16 11:30 Urine RBC 6-10 /HPF (0-5) H 12/10/16 11:30 Urine WBC 11-25 /HPF (0-5) H 12/10/16 11:30 Ur Squamous Epith Cells NONE SEEN (<= Few) 12/10/16 11:30 Urine Bacteria Moderate /HPF (None Seen) H 12/10/16 11:30 Ur Microscopic Review INDICATED 12/10/16 11:30 Urine Culture Comments INDICATED 12/10/16 11:30
[2016-12-11] MEDS: GABAPENTIN 300 MG CAPSULE PO SCH (21:10)
--- NOTE | 2016-12-11 22:14 | HISTORY & PHYSICAL EXAMINATION ---
DATE OF ADMISSION: 12/10/2016 PCP: Dr. Sheridan. CHIEF COMPLAINT: Pain in her back. IDENTIFYING INFORMATION: The patient is the primary source of history and appears cogent, consistent and thorough. Additional information is obtained in handoff from Dr. Everett the emergency department physician. I also personally reviewed his past medical records and data collected in this visit. All were used in addition to her examination in the evaluation of this person in preparation of this document. HISTORY OF PRESENT ILLNESS: The patient had fall and laceration. She developed infection in the left leg and has been on antibiotics. Grew out a type of staph non MRSA, been on oral antibiotics. She is seeing wound care for this. She had the back pain. She has been getting weaker, having difficulty. Saw her PCP who felt that it was from her not being active and lying around with this wound and subsequent infection. The patient, however, was seen in the emergency department and diagnosed with compression fractures in the lumbar spine. REVIEW OF SYSTEMS The patient denies any fever or chills. She has no urinary incontinence. She has had some nausea. There has been no vomiting, no diarrhea. The patient's rest of the complete review of systems is negative as queried. PAST MEDICAL HISTORY 1. CVA February 2010. 2. Atrial fibrillation on medications and Warfarin. 3. GERD. 4. Iron deficiency anemia. 5. Vertigo. 6. Polymyalgia rheumatica. 7. osteoarthritis. 8. Hypertension. 9. Colonic polyps. PAST SURGICAL HISTORY: 1. Hernia repair. 2. Torn meniscus in the right knee. ALLERGIES: PENICILLIN. MEDICATIONS: 1. Gabapentin 300 mg at night. 2. Losartan 25 mg a day. 3. Omeprazole 20 mg a day. 4. Prednisone 20 mg a day. 5. Coumadin 5 mg Friday, Friday, Friday, and Friday. 6. Tylenol 650 mg a day. 7. Metoprolol 25 mg once a day. PERSONAL SOCIAL HISTORY: The patient is , lives with her , lives in [facility] last 16 years. She has 4 children, 16 grandchildren, and 7 great grandchildren. The patient has never smoked, never drank alcohol, no illicit drugs. FAMILY HISTORY: Positive for aortic aneurysm and coronary artery disease. Mother had emphysema and was a smoker. There is no family history of diabetes or cancer. PHYSICAL EXAMINATION VITAL SIGNS: 35.8, 111, 18, 150/81, 100% oxygen saturation on room air. GENERAL: Patient elderly female appears stated age. EYES: EOMs within normal limits. PERRL. Nonicteric. ENT: The patient's mouth and throat with moist mucous membranes. No other pathology of mouth or pharynx. NECK: Supple. No lymphadenopathy, no thyromegaly, no tracheal deviation. No JVD and no bruits. CHEST: Chest wall nontender and symmetric. No breast exam done. HEART: Irregular irregular rhythm; no significant murmurs appreciated. LUNGS: Clear. Good air movement bilaterally. The patient has pain in the T spine and L spine. No andie CVA tenderness. ABDOMEN: Soft, nontender, normal bowel sounds, no hepatosplenomegaly. RECTAL: No rectal or genital exam done. EXTREMITIES: The patient's left leg has dressings from wound care and a stocking over that. The patient has quite a bit of tenderness. She has erythema around the wounds as well, the wounds that are dressed underneath the stockinette. The patient is unclear if this is new or not. LABORATORY DATA: She has a white count of 8.3, hemoglobin 12, hematocrit 36, platelet count 258. The patient's urine is cloudy, pH is 5.5, specific gravity 1.025. She has some positive nitrites and a small esterase. She has 6-10 RBCs, 11-25 WBCs, no squams seen. Urine moderate bacturia and cultures pending. The patient has an INR of 1.2. ESR of 62. The patient's sodium is 137, potassium 3.9 , chloride 103, CO2 of 27, BUN 13, creatinine 0.9, glucose 164, 9.2 is her calcium, and liver enzymes were normal. The patient's C reactive protein 1.2, alkaline phos is 65, albumin 3.7. The patient's radiology studies show new T12 and L3 compression fractures. SUMMARY: This is a very pleasant 81-year-old female with extensive past medical history including hypertension, CVA, atrial fibrillation on Coumadin and beta shashi as well as GERD, iron deficiency anemia, PMR and osteoarthritis on prednisone. She presented to the emergency department because of back pain yielding a diagnoses of UTI, compression fractures and infected left leg. DIAGNOSES: 1. Compression fractures of T spine and L spine. 2. Urinary tract infection. 3. Cellulitis and wound infection of left leg. 4. Polymyalgia rheumatica. 5. Hypertension. 6. Gastroesophageal reflux disease. DISCUSSION AND DECISION MAKIN. The compression fractures will be treated with pain relief. Will try lidocaine patch as well as Tylenol and for more severe pain hydrocodone. 2. Urinary tract infection. She has had the culture, which is processing and has been started on Ancef. 3. Cellulitis. Will continue wound care and dressing changes and reevaluation for possible interventions. The patient will be on the Ancef as noted above. No cultures sent at this time. 4. PMR. She will be continued on prednisone. Her sed rate is high for the amount of prednisone she is on. May need to be adjusted but probably as an outpatient. 5. Hypertension. Will be monitored and her usual medicines will be continued in the emergency department. 6. GERD. Will be treated with her home medication or equivalent. HOSPITAL ISSUES: 1. CODE STATUS, CONTINUED FULL CODE. 2. VTE. Her Coumadin will be continued but she also needs SCDs until she is therapeutic. 3. Diet, which will be a regular diet. 4. Activity, which will be as tolerated. Will consider PT as well. 5. Hospital status: given her multiple medical problems and advanced age with 2 serious infections will need 2 nights at least therapy of inpatient to determine if she is safe for discharge. 6.Expected length of stay 2 nights. 7..Disposition home with her who is also presently in the hospital. JOB #: [id number] EXT JOB #:[id number] BAR
[2016-12-12] MEDS: HYDROcod/ACETAM 5/325 MG TABLET PO PRN ×4 (00:28→21:42)
[2016-12-12] MEDS: SODIUM CHLORIDE 0.9% 1,000 ML IV SCH ×2 (00:28→13:36)
[2016-12-12] MEDS: PANTOPRAZOLE 40 MG TABLET PO SCH (06:31)
[2016-12-12] MEDS: SODIUM CHLORIDE FLUSH 0.9% 10 ML SYRINGE IVP SCH ×3 (06:58→21:43)
[2016-12-12] MEDS: POLYETHYLENE GLYCOL 3350 17 GM PACKET PO SCH (10:26)
[2016-12-12] MEDS: predniSONE 20 MG TABLET PO SCH (10:27)
[2016-12-12] MEDS: METOPROLOL SUCCINATE 25 MG TABLET PO SCH (10:27)
[2016-12-12] MEDS: cefTRIAXone 2 GM in SODIUM CHLORIDE 0.9% MINIBAG 100 ML IV SCH (10:28)
[2016-12-12] MEDS: LOSARTAN 50 MG TABLET PO SCH (10:28)
[2016-12-12] MEDS ORDERED: LIDOCAINE PATCH 5% TOP PRN (13:12)
--- NOTE | 2016-12-12 13:27 | PROVIDER PROGRESS NOTE ---
Assessment/Plan - Problem List (1) Compression fx, lumbar spine Qualifiers: Encounter type: initial encounter Fracture type: closed Qualified Code(s) : S32.000A - Wedge compression fracture of unspecified lumbar vertebra, initial encounter for closed fracture Assessment/Plan: still having a lot of pain. Will add Lidocaine topical (2) Urinary tract infection Qualifiers: Urinary tract infection type: site unspecified Hematuria presence: without hematuria Qualified Code(s): N39.0 - Urinary tract infection, site not specified Assessment/Plan: She has a gm (-) simone sens pending. Will continue antibx - Current Meds Current Meds: Current Medications Generic Name Dose Route Start Last Admin Trade Name Freq PRN Reason Stop Dose Admin Acetaminophen 650 mg 12/10/16 16:03 12/11/16 12:48 Tylenol PO 650 mg Q4HR PRN Administration Pain 1 to 4 Acetaminophen/Hydrocodone Bitart 1 tab 12/10/16 16:03 12/12/16 10:27 [place] 5/325 PO 1 tab Q4HR PRN Administration Pain 5 to 7 Gabapentin 300 mg 12/10/16 21:00 12/11/16 21:10 Neurontin PO 300 mg QPM CHARLEEN Administration Sodium Chloride 1,000 mls @ 70 mls/hr 12/10/16 17:00 12/12/16 00:28 Normal Saline 0.9% IV 70 mls/hr .[id number] CHARLEEN Administration Ceftriaxone Sodium 2 gm/ 100 mls @ 200 mls/hr 12/11/16 09:00 12/12/16 10:28 Sodium Chloride IV 200 mls/hr DAILY CHARLEEN Administration Losartan Potassium 25 mg 12/11/16 09:00 12/12/16 10:28 Cozaar PO 25 mg DAILY CHARLEEN Administration Metoprolol Succinate 25 mg 12/11/16 09:00 12/12/16 10:27 Toprol Xl PO 25 mg DAILY CHARLEEN Administration Pantoprazole Sodium 40 mg 12/11/16 07:00 12/12/16 06:31 Protonix PO 40 mg QDAC CHARLEEN Administration Polyethylene Glycol 17 gm 12/11/16 09:00 12/12/16 10:26 Miralax PO 17 gm DAILY CHARLEEN Administration Prednisone 20 mg 12/11/16 09:00 12/12/16 10:27 Deltasone PO 20 mg DAILY CHARLEEN Administration Sodium Chloride 10 ml 12/10/16 22:00 12/12/16 13:07 Normal Saline Flush 0.9% IVP Not Given Q8HR [facility] Warfarin Sodium 5 mg 12/11/16 14:00 12/11/16 13:47 Coumadin PO 5 mg QDWARFARIN [facility] Administration - Lab Result Fish Bone Diagrams: 12/10/16 13:30 12/10/16 13:30 - Additional Planning My Orders: My Active Orders 12/12/16 13:12 Lidocaine Patch 5% [Lidoderm Patch] 1 patch TOP DAILY PRN 12/12/16 14:00 Warfarin [Coumadin] 2.5 mg PO [facility]@1400 Warfarin [Coumadin] 7.5 mg PO TUTH Subjective - Subjective Patient Reports: Feeling Better, Back Pain Objective Vital Signs: Vital Signs - 24 hr 12/11/16 12/11/16 12/12/16 16:02 21:53 01:41 Temperature 36.7 C 36.4 C L 36.6 C Heart Rate [ 60 63 75 Brachial] Respiratory 18 18 18 Rate Blood Pressure 122/66 130/65 155/64 H [Left Brachial artery] O2 Saturation 97 98 100 12/12/16 08:20 Temperature 36.5 C Heart Rate [ 81 Brachial] Respiratory 16 Rate Blood Pressure 166/74 H [Left Brachial artery] O2 Saturation 98 Oxygen O2 Source Room air I&O (Last 24 Hrs): Intake and Output Totals x24h 12/10/16 12/11/16 12/12/16 23:59 23:59 23:59 Intake Total 790 2053 729 Output Total 150 Balance 790 1903 729 General: Alert, Oriented x3, Mild distress HEENT: PERRLA, EOMI Neck: No JVD, No thyromegaly Neuro: Alert, Non Focal Cardiovascular: Regular rate, Other Respiratory: Chest non-tender, Other Abdomen: Normal bowel sounds, Soft, No tenderness - Results Results: Laboratory Results WBC 8.3 x10^3/uL (4.8-10.8) 12/10/16 13:30 RBC 3.79 10^6/uL (4.20-5.40) L 12/10/16 13:30 Hgb 12.5 g/dL (12.0-16.0) 12/10/16 13:30 Hct 36.6 % (37.0-47.0) L 12/10/16 13:30 MCV 96.4 fL (81.0-99.0) 12/10/16 13:30 MCH 33.1 pg (27.0-31.0) H 12/10/16 13:30 MCHC 34.3 g/dL (32.0-36.0) 12/10/16 13:30 RDW 14.6 % (12.0-15.0) 12/10/16 13:30 Plt Count 258 10^3/uL (130-450) 12/10/16 13:30 MPV 8.1 fL (7.9-10.8) 12/10/16 13:30 Neut # 7.4 10^3/uL (1.5-6.6) H 12/10/16 13:30 Lymph # 0.5 10^3/uL (1.5-3.5) L 12/10/16 13:30 Clinch # 0.3 10^3/uL (0.0-1.0) 12/10/16 13:30 Eos # 0.0 10^3/uL (0.0-0.7) 12/10/16 13:30 Baso # 0.0 10^3/uL (0.0-0.1) 12/10/16 13:30 Absolute Nucleated RBC 0.00 x10^3/uL 12/10/16 13:30 Nucleated RBCs 0.0 /100WBC 12/10/16 13:30 ESR 62 mm/Hr (0-30) H 12/10/16 13:30 PT 13.6 secs (9.9-12.6) H 12/10/16 13:30 INR 1.2 (0.8-1.2) 12/10/16 13:30 Sodium 137 mmol/L (135-145) 12/10/16 13:30 Potassium 3.9 mmol/L (3.5-5.0) 12/10/16 13:30 Chloride 103 mmol/L (101-111) 12/10/16 13:30 Carbon Dioxide 27 mmol/L (21-32) 12/10/16 13:30 Anion Gap 7.0 (6-13) 12/10/16 13:30 BUN 13 mg/dL (6-20) 12/10/16 13:30 Creatinine 0.9 mg/dL (0.4-1.0) 12/10/16 13:30 Estimated GFR (MDRD) 60 (>89) L 12/10/16 13:30 Glucose 164 mg/dL (70-100) H 12/10/16 13:30 Lactic Acid 2.1 mmol/L (0.5-2.2) 12/10/16 13:17 Calcium 9.2 mg/dL (8.5-10.3) 12/10/16 13:30 Total Bilirubin 0.7 mg/dL (0.2-1.0) 12/10/16 13:30 AST 19 IU/L (10-42) 12/10/16 13:30 ALT 16 IU/L (10-60) 12/10/16 13:30 Alkaline Phosphatase 65 IU/L (42-121) 12/10/16 13:30 C-Reactive Protein 1.2 mg/dL (0-1.0) H 12/10/16 13:30 Total Protein 6.9 g/dL (6.7-8.2) 12/10/16 13:30 Albumin 3.7 g/dL (3.2-5.5) 12/10/16 13:30 Globulin 3.2 g/dL (2.1-4.2) 12/10/16 13:30 Albumin/Globulin Ratio 1.2 (1.0-2.2) 12/10/16 13:30 Lipase 19 U/L (22-51) L 12/10/16 13:30 Urine Color YELLOW 12/10/16 11:30 Urine Clarity SL. CLOUDY (CLEAR) 12/10/16 11:30 Urine pH 5.5 PH (5.0-7.5) 12/10/16 11:30 Ur Specific [place] 1.025 (1.002-1.030) 12/10/16 11:30 Urine Protein TRACE mg/dL (NEGATIVE) 12/10/16 11:30 Urine Glucose (UA) NEGATIVE mg/dL (NEGATIVE) 12/10/16 11:30 Urine Ketones NEGATIVE mg/dL (NEGATIVE) 12/10/16 11:30 Urine Occult Blood SMALL (NEGATIVE) H 12/10/16 11:30 Urine Nitrite POSITIVE (NEGATIVE) H 12/10/16 11:30 Urine Bilirubin NEGATIVE (NEGATIVE) 12/10/16 11:30 Urine Urobilinogen 0.2 (NORMAL) E.U./dL (NORMAL) 12/10/16 11:30 Ur Leukocyte Esterase SMALL (NEGATIVE) H 12/10/16 11:30 Urine RBC 6-10 /HPF (0-5) H 12/10/16 11:30 Urine WBC 11-25 /HPF (0-5) H 12/10/16 11:30 Ur Squamous Epith Cells NONE SEEN (<= Few) 12/10/16 11:30 Urine Bacteria Moderate /HPF (None Seen) H 12/10/16 11:30 Ur Microscopic Review INDICATED 12/10/16 11:30 Urine Culture Comments INDICATED 12/10/16 11:30
[2016-12-12] MEDS: WARFARIN 5 MG TABLET PO SCH (13:31)
[2016-12-12] MEDS ORDERED: WARFARIN 5 MG TABLET PO SCH (14:00)
[2016-12-12] MEDS ORDERED: WARFARIN 2.5 MG TABLET PO SCH (14:00)
[2016-12-12] MEDS: GABAPENTIN 300 MG CAPSULE PO SCH (21:42)
[2016-12-13] MEDS: SODIUM CHLORIDE 0.9% 1,000 ML IV SCH ×2 (02:07→12:21)
[2016-12-13] MEDS: SODIUM CHLORIDE FLUSH 0.9% 10 ML SYRINGE IVP SCH ×3 (06:20→20:43)
[2016-12-13] MEDS: PANTOPRAZOLE 40 MG TABLET PO SCH (06:30)
[2016-12-13] MEDS: HYDROcod/ACETAM 5/325 MG TABLET PO PRN ×2 (06:36→13:58)
[2016-12-13] MEDS: cefTRIAXone 2 GM in SODIUM CHLORIDE 0.9% MINIBAG 100 ML IV SCH (09:16)
[2016-12-13] MEDS: METOPROLOL SUCCINATE 25 MG TABLET PO SCH (09:16)
[2016-12-13] MEDS: predniSONE 20 MG TABLET PO SCH (09:16)
[2016-12-13] MEDS: LOSARTAN 50 MG TABLET PO SCH (09:17)
[2016-12-13] MEDS: POLYETHYLENE GLYCOL 3350 17 GM PACKET PO SCH (09:18)
[2016-12-13] MEDS: DOCUSATE SODIUM 250 MG CAPSULE PO SCH (09:18)
[2016-12-13] MEDS: SENNA 8.6 MG TABLET PO SCH (09:18)
--- NOTE | 2016-12-13 13:43 | PROVIDER PROGRESS NOTE ---
Assessment/Plan - Problem List (1) Compression fx, lumbar spine Qualifiers: Encounter type: initial encounter Fracture type: closed Qualified Code(s) : S32.000A - Wedge compression fracture of unspecified lumbar vertebra, initial encounter for closed fracture Assessment/Plan: She got relief with lidocaine patch. She still has pin with walking etc. will continue to encourage movement. (2) Urinary tract infection Qualifiers: Urinary tract infection type: site unspecified Hematuria presence: without hematuria Qualified Code(s): N39.0 - Urinary tract infection, site not specified Assessment/Plan: She is on Rocephin which covers the Klebsiella. She will be transitions to oral meds for total of 10 days Encouraged to drink more fluids - Current Meds Current Meds: Current Medications Generic Name Dose Route Start Last Admin Trade Name Freq PRN Reason Stop Dose Admin Acetaminophen 650 mg 12/10/16 16:03 12/11/16 12:48 Tylenol PO 650 mg Q4HR PRN Administration Pain 1 to 4 Acetaminophen/Hydrocodone Bitart 1 tab 12/10/16 16:03 12/13/16 06:36 [place] 5/325 PO 1 tab Q4HR PRN Administration Pain 5 to 7 Docusate Sodium 250 - 500 mg 12/13/16 09:00 12/13/16 09:18 Colace 250mg Capsule PO Not Given DAILY CHARLEEN Gabapentin 300 mg 12/10/16 21:00 12/12/16 21:42 Neurontin PO 300 mg QPM CHARLEEN Administration Sodium Chloride 1,000 mls @ 70 mls/hr 12/10/16 17:00 12/13/16 12:21 Normal Saline 0.9% IV 70 mls/hr .[id number] CHARLEEN Administration Ceftriaxone Sodium 2 gm/ 100 mls @ 200 mls/hr 12/11/16 09:00 12/13/16 09:16 Sodium Chloride IV 200 mls/hr DAILY CHARLEEN Administration Lidocaine 1 patch 12/12/16 13:12 12/12/16 13:28 Lidoderm Patch TOP 1 patch DAILY PRN Administration PAIN Losartan Potassium 25 mg 12/11/16 09:00 12/13/16 09:17 Cozaar PO 25 mg DAILY CHARLEEN Administration Metoprolol Succinate 25 mg 12/11/16 09:00 12/13/16 09:16 Toprol Xl PO 25 mg DAILY CHARLEEN Administration Pantoprazole Sodium 40 mg 12/11/16 07:00 12/13/16 06:30 Protonix PO 40 mg QDAC CHARLEEN Administration Polyethylene Glycol 17 gm 12/11/16 09:00 12/13/16 09:18 Miralax PO Not Given DAILY [facility] Prednisone 20 mg 12/11/16 09:00 12/13/16 09:16 Deltasone PO 20 mg DAILY CHARLEEN Administration Senna 8.6 - 17.2 mg 12/13/16 09:00 12/13/16 09:18 Senokot PO Not Given DAILY [facility] Sodium Chloride 10 ml 12/10/16 22:00 12/13/16 12:54 Normal Saline Flush 0.9% IVP Not Given Q8HR [facility] Warfarin Sodium 5 mg 12/11/16 14:00 12/12/16 13:31 Coumadin PO 5 mg QDWARFARIN [facility] Administration Warfarin Sodium 2.5 mg 12/12/16 14:00 12/12/16 13:31 Coumadin PO 2.5 mg TuTh@1400 [facility] Administration - Lab Result Fish Bone Diagrams: 12/10/16 13:30 12/10/16 13:30 - Additional Planning My Orders: My Active Orders 12/12/16 13:12 Lidocaine Patch 5% [Lidoderm Patch] 1 patch TOP DAILY PRN 12/12/16 14:00 Warfarin [Coumadin] 2.5 mg PO TuTh@1400 12/13/16 09:00 Docusate Sodium 250Mg Capsule [Colace 250Mg Capsule] 250 - 500 mg PO DAILY Senna [Senokot] 8.6 - 17.2 mg PO DAILY Subjective - Subjective Patient Reports: Resting Comfortably, Back Pain Nursing Reports: Pain Objective Vital Signs: Vital Signs - 24 hr 12/12/16 12/13/16 12/13/16 16:13 00:35 09:25 Temperature 36.2 C L 36.6 C 36.7 C Heart Rate [ 79 60 74 Brachial] Respiratory 18 16 16 Rate Blood Pressure 125/77 165/84 H 169/55 H [Left Brachial artery] O2 Saturation 96 98 96 Oxygen O2 Source Room air I&O (Last 24 Hrs): Intake and Output Totals x24h 12/11/16 12/12/16 12/13/16 23:59 23:59 23:59 Intake Total 2052 1988 79 Output Total 150 Balance 1902 1988 790 General: Alert, Oriented x3, Cooperative HEENT: PERRLA, EOMI Neck: No JVD, No thyromegaly Neuro: Alert, Oriented Times 3 Cardiovascular: Regular rate, No murmurs Respiratory: No respiratory distress, Breath sounds nml Abdomen: Normal bowel sounds, Soft Extremities: No clubbing, No cyanosis, No edema Skin: No rashes, No breakdown - Results Results: Laboratory Results WBC 8.3 x10^3/uL (4.8-10.8) 12/10/16 13:30 RBC 3.79 10^6/uL (4.20-5.40) L 12/10/16 13:30 Hgb 12.5 g/dL (12.0-16.0) 12/10/16 13:30 Hct 36.6 % (37.0-47.0) L 12/10/16 13:30 MCV 96.4 fL (81.0-99.0) 12/10/16 13:30 MCH 33.1 pg (27.0-31.0) H 12/10/16 13:30 MCHC 34.3 g/dL (32.0-36.0) 12/10/16 13:30 RDW 14.6 % (12.0-15.0) 12/10/16 13:30 Plt Count 258 10^3/uL (130-450) 12/10/16 13:30 MPV 8.1 fL (7.9-10.8) 12/10/16 13:30 Neut # 7.4 10^3/uL (1.5-6.6) H 12/10/16 13:30 Lymph # 0.5 10^3/uL (1.5-3.5) L 12/10/16 13:30 [place] # 0.3 10^3/uL (0.0-1.0) 12/10/16 13:30 Eos # 0.0 10^3/uL (0.0-0.7) 12/10/16 13:30 Baso # 0.0 10^3/uL (0.0-0.1) 12/10/16 13:30 Absolute Nucleated RBC 0.00 x10^3/uL 12/10/16 13:30 Nucleated RBCs 0.0 /100WBC 12/10/16 13:30 ESR 62 mm/Hr (0-30) H 12/10/16 13:30 PT 13.6 secs (9.9-12.6) H 12/10/16 13:30 INR 1.2 (0.8-1.2) 12/10/16 13:30 Sodium 137 mmol/L (135-145) 12/10/16 13:30 Potassium 3.9 mmol/L (3.5-5.0) 12/10/16 13:30 Chloride 103 mmol/L (101-111) 12/10/16 13:30 Carbon Dioxide 27 mmol/L (21-32) 12/10/16 13:30 Anion Gap 7.0 (6-13) 12/10/16 13:30 BUN 13 mg/dL (6-20) 12/10/16 13:30 Creatinine 0.9 mg/dL (0.4-1.0) 12/10/16 13:30 Estimated GFR (MDRD) 60 (>89) L 12/10/16 13:30 Glucose 164 mg/dL (70-100) H 12/10/16 13:30 Lactic Acid 2.1 mmol/L (0.5-2.2) 12/10/16 13:17 Calcium 9.2 mg/dL (8.5-10.3) 12/10/16 13:30 Total Bilirubin 0.7 mg/dL (0.2-1.0) 12/10/16 13:30 AST 19 IU/L (10-42) 12/10/16 13:30 ALT 16 IU/L (10-60) 12/10/16 13:30 Alkaline Phosphatase 65 IU/L (42-121) 12/10/16 13:30 C-Reactive Protein 1.2 mg/dL (0-1.0) H 12/10/16 13:30 Total Protein 6.9 g/dL (6.7-8.2) 12/10/16 13:30 Albumin 3.7 g/dL (3.2-5.5) 12/10/16 13:30 Globulin 3.2 g/dL (2.1-4.2) 12/10/16 13:30 Albumin/Globulin Ratio 1.2 (1.0-2.2) 12/10/16 13:30 Lipase 19 U/L (22-51) L 12/10/16 13:30 Urine Color YELLOW 12/10/16 11:30 Urine Clarity SL. CLOUDY (CLEAR) 12/10/16 11:30 Urine pH 5.5 PH (5.0-7.5) 12/10/16 11:30 Ur Specific [place] 1.025 (1.002-1.030) 12/10/16 11:30 Urine Protein TRACE mg/dL (NEGATIVE) 12/10/16 11:30 Urine Glucose (UA) NEGATIVE mg/dL (NEGATIVE) 12/10/16 11:30 Urine Ketones NEGATIVE mg/dL (NEGATIVE) 12/10/16 11:30 Urine Occult Blood SMALL (NEGATIVE) H 12/10/16 11:30 Urine Nitrite POSITIVE (NEGATIVE) H 12/10/16 11:30 Urine Bilirubin NEGATIVE (NEGATIVE) 12/10/16 11:30 Urine Urobilinogen 0.2 (NORMAL) E.U./dL (NORMAL) 12/10/16 11:30 Ur Leukocyte Esterase SMALL (NEGATIVE) H 12/10/16 11:30 Urine RBC 6-10 /HPF (0-5) H 12/10/16 11:30 Urine WBC 11-25 /HPF (0-5) H 12/10/16 11:30 Ur Squamous Epith Cells NONE SEEN (<= Few) 12/10/16 11:30 Urine Bacteria Moderate /HPF (None Seen) H 12/10/16 11:30 Ur Microscopic Review INDICATED 12/10/16 11:30 Urine Culture Comments INDICATED 12/10/16 11:30
[2016-12-13] MEDS: WARFARIN 5 MG TABLET PO SCH (13:58)
[2016-12-13] MEDS: GABAPENTIN 300 MG CAPSULE PO SCH (20:43)
[2016-12-13] MEDS: ACETAMINOPHEN 325 MG TABLET PO PRN (22:07)
[2016-12-14] MEDS: SODIUM CHLORIDE 0.9% 1,000 ML IV SCH (04:02)
[2016-12-14] MEDS: PANTOPRAZOLE 40 MG TABLET PO SCH (06:42)
[2016-12-14] MEDS: SODIUM CHLORIDE FLUSH 0.9% 10 ML SYRINGE IVP SCH ×2 (06:44→12:07)
[2016-12-14] MEDS: HYDROcod/ACETAM 5/325 MG TABLET PO PRN (06:57)
[2016-12-14 08:20] LABS: BASOPHILS % (AUTO) 0.5 %; EOSINOPHILS # (AUTO) 0.2 10^3/uL (0.0-0.7); EOSINOPHILS % (AUTO) 2.1 %; HCT - HEMATOCRIT 34.2 % (37.0-47.0); HGB - HEMOGLOBIN 11.5 g/dL (12.0-16.0); LYMPHOCYTES # (AUTO) 1.7 10^3/uL (1.5-3.5); LYMPHOCYTES % (AUTO) 22.5 %; MEAN CORPUSCULAR HEMOGLOBIN 32.7 pg (27.0-31.0); MEAN CORPUSCULAR HGB CONC 33.5 g/dL (32.0-36.0); MEAN CORPUSCULAR VOLUME 97.6 fL (81.0-99.0); MEAN PLATELET VOLUME 8.1 fL (7.9-10.8); MONOCYTES # (AUTO) 0.6 10^3/uL (0.0-1.0); MONOCYTES % (AUTO) 8.6 %; NEUTROPHILS % (AUTO) 66.3 %; RED BLOOD COUNT 3.51 10^6/uL (4.20-5.40); RED CELL DISTRIBUTION WIDTH 14.5 % (12.0-15.0); UNCORRECTED WHITE BLOOD COUNT 7.5 x10^3/uL; WHITE BLOOD COUNT 7.5 x10^3/uL (4.8-10.8)
[2016-12-14 08:28] LABS: ALBUMIN/GLOBULIN RATIO 1.1 (1.0-2.2); BILIRUBIN,TOTAL 0.4 mg/dL (0.2-1.0); CALCIUM 9.1 mg/dL (8.5-10.3); CREATININE 0.8 mg/dL (0.4-1.0); INR 1.6 (0.8-1.2); POTASSIUM 3.3 mmol/L (3.5-5.0); PT - PROTHROMBIN TIME 18.5 secs (9.9-12.6); TOTAL PROTEIN 6.4 g/dL (6.7-8.2)
[2016-12-14] MEDS: LOSARTAN 50 MG TABLET PO SCH (08:46)
[2016-12-14] MEDS: METOPROLOL SUCCINATE 25 MG TABLET PO SCH (08:46)
[2016-12-14] MEDS: predniSONE 20 MG TABLET PO SCH (08:46)
[2016-12-14] MEDS: SENNA 8.6 MG TABLET PO SCH (08:46)
[2016-12-14] MEDS: DOCUSATE SODIUM 250 MG CAPSULE PO SCH (08:46)
[2016-12-14] MEDS: POLYETHYLENE GLYCOL 3350 17 GM PACKET PO SCH (08:46)
[2016-12-14] MEDS: cefTRIAXone 2 GM in SODIUM CHLORIDE 0.9% MINIBAG 100 ML IV SCH (09:50)
--- NOTE | 2016-12-14 11:36 | Discharge Plan ---
Discharge Plan Disposition: Home, Self Care Condition: Good Prescriptions: HYDROcod/ACETAM 5/325 [[place] 5/325] 1 tab PO Q4HR PRN #10 tablet PRN Reason: Pain 5 to 7 Lidocaine Patch 5% [Lidoderm Patch] 1 patch TOP DAILY PRN #10 patch PRN Reason: Pain Activity Restrictions: Activity as Tolerated Shower Restrictions: No Driving Restrictions: Yes (no driving) Assistance Devices: Walker Weight Bearing: Full Weight Additional Instructions or Follow Up instructions: Make an appt to see Dr. Sheridan in 2 weeks. Try the lidoderm patch in the am and take off each night. Please continue your wound care appts. Thank you Dr. Connor Moreno Smoking: If you smoke, Please STOP! Call for help. Follow-up with: Tanner Sheridan MD [Primary Care Provider] - 2 Weeks
[2016-12-14 12:11] VITALS: BP 138/80
--- NOTE | 2017-01-11 20:49 | DISCHARGE SUMMARY ---
DATE OF ADMISSION: 12/10/2016 DATE OF DISCHARGE: 12/14/2016 PRIMARY CARE PHYSICIAN: Seth Sheridan M.D. ADMISSION DIAGNOSES: 1. Compression fracture of thoracic spine and lumbar spine. 2. Urinary tract infection. 3. Cellulitis and wound infection, left leg. 4. Polymyalgia rheumatica. 5. Hypertension. 6. Gastroesophageal reflux disease. DISCHARGE DIAGNOSES: 1. Compression fractures of thoracic and lumbosacral spine with improved pain control. 2. Urinary tract infection with Klebsiella pneumoniae, on appropriate antibiotic. 3. Cellulitis and wound infection, improved on antibiotic. 4. Polymyalgia rheumatica, on prednisone. 5. Hypertension with fair control. 6. Gastroesophageal reflux disease without severe symptomatology during hospital admission. HOSPITAL COURSE AND MANAGEMENT: Initial presentation, evaluation and hospitalist 's plan are well described in the history and physical, see copy of same. In summary, this is a very pleasant 81-year-old female with extensive past medical history including hypertension, CVA, atrial fibrillation - on Coumadin, beta shashi as well as diagnosis of GERD, iron deficiency anemia, PMR and osteoarthritis - on prednisone. The patient presented to the emergency department because of back pain and was diagnosed with a UTI, compression fractures and an infected left leg. The patient was placed on antibiotic, specifically ceftriaxone. There were no fevers subsequently and the patient had improvement in the erythema of the left leg. She was having difficulty with ambulation and pain. She had Physical Therapy evaluate and follow her with recommendations. Lidoderm patch was used effectively. The identity of the antibiotic which was a gram negative was determined the following day. The patient was rooming with her . The patient was feeling better with her back pain and she still had pain with walking, but movement was encouraged. The patient also needed to be encouraged to drink fluids. No fever subsequently and she was discharged home on the . PHYSICAL EXAMINATION VITAL SIGNS: 36.4, 80, 138/80, 18, 97% room air saturation. EYES: EOMs within normal limits. PERRL. Nonicteric. MOUTH AND THROAT: Moist mucous membranes. No other pathology noted. NECK: Supple. Nontender. No lymphadenopathy. No thyromegaly. CHEST WALL: Nontender, symmetric. No breast exam done. HEART: Sinus rhythm. No murmur, rubs, clicks appreciated. LUNGS: Clear, good air movement. No increased work of breathing. ABDOMEN: Soft, nontender. EXTREMITIES: Left lower leg has some residual erythema but is overall improved. NEUROLOGIC: Cranial nerves intact. Cognitive intact. Motor intact. GAIT: She is able to get out of bed, transfer with the help of a walker and standby guard. The patient and her engaged in 2 family conferences on separate days, one with her son and the second one without in which the clearly stated he did not want to go to a prison facility and she did not as well. The patient was discharged home. DISCHARGE MEDICATIONS: The patient is to take: 1. Warfarin 7.5 mg on Friday and , the other days she takes 5 mg. 2. Prednisone 10 mg daily. Further reduction under the care of her private physician, Dr. Sheridan. 3. Prilosec 20 mg a day. 4. Metoprolol 25 mg a day. 5. Losartan 25 mg a day. 6. Gabapentin 300 mg at bedtime. 7. Acetaminophen 650 q.6 hours as needed. 8. Hydrocodone/acetaminophen 5/325 one every 4 hours as needed for pain. 9. Lidocaine patch, 1 patch topically in the a.m. with removal at night. 10. Cipro 250 b.i.d. for 7 days, which was called in for her. The patient is to follow up with Dr. Sheridan as noted above and try to increase her activity slowly to regain some function and improvement in ADL performance. Time spent in family conference, collaboration with patient and Physical Therapy and Nursing was 40 minutes. JOB #: [id number] EXT JOB #:[id number] [facility]ASS[facility]T HOSPITALGabriela
== END 2016-12-14 12:58 | disposition home or self-care (01) | DRG 543 ==
LOC: ED 11:06 → MS 16:42
PROVIDERS: ADMIT Internal Medicine; ATTEND Internal Medicine
DX: M48.54XA Collapsed vertebra, not elsewhere classified, thoracic region, initial encounter for fracture (principal); M48.56XA Collapsed vertebra, not elsewhere classified, lumbar region, initial encounter for fracture; R42 Dizziness and giddiness; N39.0 Urinary tract infection, site not specified; L03.116 Cellulitis of left lower limb; B96.1 Klebsiella pneumoniae [K. pneumoniae] as the cause of diseases classified elsewhere; M48.57XA Collapsed vertebra, not elsewhere classified, lumbosacral region, initial encounter for fracture; S81.812A Laceration without foreign body, left lower leg, initial encounter; B95.8 Unspecified staphylococcus as the cause of diseases classified elsewhere; M35.3 Polymyalgia rheumatica; I10 Essential (primary) hypertension; X58.XXXA Exposure to other specified factors, initial encounter; K21.9 Gastro-esophageal reflux disease without esophagitis; I48.91 Unspecified atrial fibrillation; Z79.52 Long term (current) use of systemic steroids; Z86.73 Personal history of transient ischemic attack (TIA), and cerebral infarction without residual deficits; Z79.01 Long term (current) use of anticoagulants; Z91.81 History of falling
CPT/HCPCS: 36415; 74177; 80053; 81001; 81003; 83605; 83690; 85025; 85610; 85651; 86140; 87040; 87070; 87077; 87086; 87205; 96374; 96375; 97597; 99283; 99284; 99285

== ENCOUNTER 2016-12-27 10:52 | Outpatient (CLI) | payer MEDICARE, OTHER | END 2016-12-27 10:53 | disposition home or self-care (01) | LOC: LAB.F 10:52 | PROVIDERS: ATTEND Family Medicine | DX: I48.91 Unspecified atrial fibrillation (principal); Z79.01 Long term (current) use of anticoagulants; D64.9 Anemia, unspecified; R42 Dizziness and giddiness ==

== ENCOUNTER 2017-01-02 13:26 | Outpatient (CLI) | payer MEDICARE, OTHER | END 2017-01-02 13:27 | disposition home or self-care (01) | LOC: LAB.F 13:26 | PROVIDERS: ATTEND Family Medicine | DX: Z79.01 Long term (current) use of anticoagulants (principal); D64.9 Anemia, unspecified; R42 Dizziness and giddiness | CPT/HCPCS: 85610 ==

== ENCOUNTER 2017-01-10 10:44 | Outpatient (CLI) | payer MEDICARE, OTHER | END 2017-01-10 10:45 | disposition home or self-care (01) | LOC: LAB.F 10:44 | PROVIDERS: ATTEND Family Medicine | DX: Z79.01 Long term (current) use of anticoagulants (principal); R42 Dizziness and giddiness | CPT/HCPCS: 85610 ==

== ENCOUNTER 2017-01-16 13:46 | Outpatient (CLI) | payer MEDICARE, OTHER | END 2017-01-16 13:47 | disposition home or self-care (01) | LOC: LAB.F 13:46 | PROVIDERS: ATTEND Family Medicine | DX: Z79.01 Long term (current) use of anticoagulants (principal); R42 Dizziness and giddiness | CPT/HCPCS: 85610 ==

== ENCOUNTER 2017-01-20 08:00 | Outpatient (CLI) | payer MEDICARE, OTHER | END 2017-01-20 08:01 | disposition home or self-care (01) | LOC: LAB.F 08:00 | PROVIDERS: ATTEND Family Medicine | DX: Z79.01 Long term (current) use of anticoagulants (principal); I48.91 Unspecified atrial fibrillation | CPT/HCPCS: 85610 ==

== ENCOUNTER 2017-02-20 11:35 | Outpatient (CLI) | payer MEDICARE, OTHER | END 2017-02-20 11:36 | disposition home or self-care (01) | LOC: LAB 11:35 | PROVIDERS: ATTEND Family Medicine | DX: Z79.01 Long term (current) use of anticoagulants (principal); I48.91 Unspecified atrial fibrillation | CPT/HCPCS: 85610 ==

== ENCOUNTER 2017-02-27 10:48 | Outpatient (CLI) | payer MEDICARE, OTHER | END 2017-02-27 10:49 | disposition home or self-care (01) | LOC: LAB 10:48 | PROVIDERS: ATTEND Family Medicine | DX: Z79.01 Long term (current) use of anticoagulants (principal); I48.91 Unspecified atrial fibrillation | CPT/HCPCS: 85610 ==

== ENCOUNTER 2017-03-06 15:58 | Outpatient (CLI) | payer MEDICARE, OTHER ==
--- NOTE | 2017-03-07 08:30 | XRAY Report ---
RIGHT RIBS WITH FRONTAL CHEST: 03/06/2017 CLINICAL INDICATION: Pain. FINDINGS: Frontal and oblique views were obtained, with a marker at the site of maximal tenderness, as well as a frontal view of the chest. There is no evidence of a displaced rib fracture. The cardi ac silhouette is within normal limits. The lungs are clear. No effusion or pneumothorax. IMPRESSION: NO EVIDENCE OF ACUTE CARDIOPULMONARY DISEASE. NO EVIDENCE OF DISPLACED RIB FRACTURE. JOB #: [id number] EXT JOB #:[id number]
== END 2017-03-06 15:59 | disposition home or self-care (01) ==
LOC: DI.S 15:58
PROVIDERS: ATTEND Nurse Practitioner Family
DX: R07.81 Pleurodynia (principal)

== ENCOUNTER 2017-03-08 11:57 | Outpatient (CLI) | payer MEDICARE, OTHER | END 2017-03-08 11:58 | disposition critical access hospital (66) | LOC: EMS 11:57 | PROVIDERS: ATTEND Surgery | DX: R55 Syncope and collapse (principal); R42 Dizziness and giddiness | CPT/HCPCS: A0425; A0427 ==

== ENCOUNTER 2017-03-08 12:25 | Observation (INO) | payer MEDICARE, OTHER ==
--- NOTE | 2017-03-08 13:29 | ED Physician Documentation ---
PD HPI SYNCOPE - Stated complaint Stated Complaint: SYNCOPE - Chief complaint Chief Complaint: Abd Pain - History obtained from History obtained from: Patient - History of Present Illness Witnessed: Witnessed (her saw that she was weak and almost fainted. She felt that way with standing. Has some mild nausea. Has had several loose BMs today. No abd pain. No chest pain.) Timing - onset: Today Duration: Minutes Preceding symptoms: Light headed, Generalized weakness. 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 denies : Abdominal Pain, Nausea, Vomiting Skin: denies: Rash, Lesions Neurologic: reports: Generalized weakness, Near syncope. denies: Focal weakness , Numbness, Syncope, Altered mental status, Headache, Head injury Endocrine: reports: Easy bruising / bleeding. denies: Weight loss Immunocompromised: denies: Immunocompromised PD PAST MEDICAL HISTORY - Past Medical History Cardiovascular: Hypertension, High cholesterol, Atrial fibrillation, Other Respiratory: None Neuro: CVA, TIA, Motion sickness, Other Endocrine/Autoimmune: Other GI: GERD, Other : Frequency HEENT: None Psych: None Musculoskeletal: Other Derm: None - Past Surgical History Past Surgical History: Yes General: Other Ortho: Other - Present Medications Home Medications: Ambulatory Orders Medication Instructions Recorded Confirmed Gabapentin 300 mg PO QPM 03/02/13 03/08/17 Losartan [Cozaar] 25 mg PO DAILY 03/02/13 03/08/17 Omeprazole [PriLOSEC] 20 mg PO DAILY 03/02/13 03/08/17 predniSONE [Deltasone] 20 mg PO DAILY 03/02/13 03/08/17 Warfarin [Coumadin] 5 mg PO DAILY 12/27/14 03/08/17 Acetaminophen 1,000 mg PO Q6HR PRN 11/01/16 03/08/17 Metoprolol Succinate 25 mg PO DAILY 11/15/16 03/08/17 - Allergies Allergies/Adverse Reactions: Allergies Allergy/AdvReac Type Severity Reaction Status Date / Time Penicillins Allergy Unknown UNKNOWN Verified 11/15/16 16:44 - Social History Does the pt smoke?: No Smoking Status: Never smoker Does the pt drink ETOH?: No Does the pt have substance abuse?: No - Family History Family history: reports: Non contributory - Immunizations Immunizations are current?: Yes - POLST Patient has POLST: No PD ED PE NORMAL - Vitals Vital signs reviewed: Yes - General General: Alert and oriented X 3, No acute distress, Well developed/nourished - HEENT HEENT: Atraumatic, Moist mucous membranes, Pharynx benign - Neck Neck: Supple, no meningeal sign, No adenopathy, No JVD, No bruit - Cardiac Cardiac: RRR, No murmur - Respiratory Respiratory: No respiratory distress - Abdomen Abdomen: Normal bowel sounds, Soft, Non tender, Non distended, No organomegaly - Female Female : Deferred - Rectal Rectal: Other (no hemorrhoids. There is rust colored stool in vault which is guiac positive. ) - Back Back: No CVA TTP - Derm Derm: Normal color, Warm and dry, Other (left lower leg anteriorly with superficial skin lac, thin skin, and no bleeding nor FB. 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, No motor deficit, No sensory deficit, Normal speech - Psych Psych: Normal mood, Normal affect Results - Vitals Vitals: Vital Signs - 24 hr 03/08/17 03/08/17 03/08/17 12:30 14:04 16:09 Temperature 36.9 C Heart Rate 60 65 64 Respiratory 18 21 19 Rate Blood Pressure 185/79 H O2 Saturation 99 99 Oxygen O2 Source Room air - Labs Labs: Laboratory Tests 03/08/17 03/08/17 03/08/17 14:14 14:14 14:14 WBC 10.1 RBC 3.95 L Hgb 12.5 Hct 37.5 MCV 94.9 MCH 31.7 H MCHC 33.4 RDW 14.3 Plt Count 234 MPV 8.8 Neut # 9.0 H Lymph # 0.8 L [place] # 0.2 Eos # 0.0 Baso # 0.0 Absolute Nucleated RBC 0.00 Nucleated RBC % 0.0 PT INR Sodium 142 Potassium 3.8 Chloride 103 Carbon Dioxide 27 Anion Gap 12.0 BUN 14 Creatinine 0.9 Estimated GFR (MDRD) 60 L Glucose 115 H Calcium 9.5 Magnesium 2.3 Total Bilirubin 0.8 AST 18 ALT 14 Alkaline Phosphatase 66 Troponin I Total Protein 6.9 Albumin 3.8 Globulin 3.1 Albumin/Globulin Ratio 1.2 Lipase 27 Blood Type B POSITIVE Antibody Screen NEGATIVE 03/08/17 03/08/17 14:14 14:14 WBC RBC Hgb Hct MCV MCH MCHC RDW Plt Count MPV Neut # Lymph # [place] # Eos # Baso # Absolute Nucleated RBC Nucleated RBC % PT 27.1 H INR 2.4 H Sodium Potassium Chloride Carbon Dioxide Anion Gap BUN Creatinine Estimated GFR (MDRD) Glucose Calcium Magnesium Total Bilirubin AST ALT Alkaline Phosphatase Troponin I < 0.04 Total Protein Albumin Globulin Albumin/Globulin Ratio Lipase Blood Type Antibody Screen PD MEDICAL DECISION MAKING - ED course Complexity details: reviewed results, considered differential (near syncope, weakness. She has vertigo too, but this is lightheaded. She noted some diarrheal stools today, and on rectal it is guiac negative and rust/blood colored. She is on Coumadin. Gave Vit K but not yet FFP and is not unstable/ significant bleed, so also did not give Kcentra. Defer to Hospitalist. ), d/w patient, d/w outplacement consultant (Hospitalist) Departure - Departure Disposition: 66 [facility] DC/Xfer Clinical Impression: Pre-syncope, Anticoagulant long-term use, Vertigo GI bleed Qualifiers: GI bleed type/associated pathology: unspecified gastrointestinal hemorrhage type Qualified Code(s): K92.2 - Gastrointestinal hemorrhage, unspecified Laceration of left leg Qualifiers: Encounter type: initial encounter Qualified Code(s): S81.812A - Laceration without foreign body, left lower leg, initial encounter Condition: Stable Record reviewed to determine appropriate education?: Yes Discharge Date/Time: 03/08/17 17:20
[2017-03-08] MEDS ORDERED: MECLIZINE 12.5 MG TABLET PO STA (14:02)
[2017-03-08] MEDS ORDERED: SODIUM CHLORIDE 0.9% 500 ML IV ONE (14:02)
[2017-03-08] MEDS ORDERED: PHYTONADIONE 10 MG/ML AMP IVP STA (14:04)
[2017-03-08] MEDS ORDERED: FAMOTIDINE 20 MG/50 ML 50 ML IV ONE ×2 (14:04→14:54)
[2017-03-08 14:34] LABS: BASOPHILS % (AUTO) 0.2 %; HCT - HEMATOCRIT 37.5 % (37.0-47.0); HGB - HEMOGLOBIN 12.5 g/dL (12.0-16.0); LYMPHOCYTES # (AUTO) 0.8 10^3/uL (1.5-3.5); LYMPHOCYTES % (AUTO) 8.3 %; MEAN CORPUSCULAR HEMOGLOBIN 31.7 pg (27.0-31.0); MEAN CORPUSCULAR HGB CONC 33.4 g/dL (32.0-36.0); MEAN CORPUSCULAR VOLUME 94.9 fL (81.0-99.0); MEAN PLATELET VOLUME 8.8 fL (7.9-10.8); MONOCYTES # (AUTO) 0.2 10^3/uL (0.0-1.0); MONOCYTES % (AUTO) 1.9 %; NEUTROPHILS % (AUTO) 89.6 %; RED BLOOD COUNT 3.95 10^6/uL (4.20-5.40); RED CELL DISTRIBUTION WIDTH 14.3 % (12.0-15.0); UNCORRECTED WHITE BLOOD COUNT 10.1 x10^3/uL; WHITE BLOOD COUNT 10.1 x10^3/uL (4.8-10.8)
[2017-03-08] MEDS ORDERED: SODIUM CHLORIDE FLUSH 0.9% 10 ML SYRINGE IVP ONE (14:36)
[2017-03-08 14:42] LABS: ALBUMIN/GLOBULIN RATIO 1.2 (1.0-2.2); BILIRUBIN,TOTAL 0.8 mg/dL (0.2-1.0); CALCIUM 9.5 mg/dL (8.5-10.3); CREATININE 0.9 mg/dL (0.4-1.0); MAGNESIUM 2.3 mg/dL (1.7-2.8); POTASSIUM 3.8 mmol/L (3.5-5.0); TOTAL PROTEIN 6.9 g/dL (6.7-8.2)
[2017-03-08 14:51] LABS: INR 2.4 (0.8-1.2); PT - PROTHROMBIN TIME 27.1 secs (9.9-12.6)
[2017-03-08] MEDS ORDERED: MECLIZINE 12.5 MG TABLET PO ONE (14:54)
[2017-03-08] MEDS ORDERED: PHYTONADIONE 10 MG/ML AMP ONE (14:54)
[2017-03-08] MEDS ORDERED: SODIUM CHLORIDE FLUSH 0.9% 10 ML SYRINGE IVP PRN (16:22)
[2017-03-08] MEDS ORDERED: ONDANSETRON 4 MG/2 ML VIAL IVP PRN (16:22)
[2017-03-08] MEDS ORDERED: ACETAMINOPHEN 325 MG TABLET PO PRN (16:22)
[2017-03-08] MEDS ORDERED: cloNIDine 0.1 MG TABLET PO PRN (16:28)
--- NOTE | 2017-03-08 16:36 | HISTORY & PHYSICAL EXAMINATION ---
Chief Complaint - Chief Complaint Chief Complaint: pre-syncope, vertigo and GI bleeding History of Present Illness - Admitted From Admitted From:: ER - History Obtained From History obtained from: pt - History of Present Illness HPI Comment/Other: This is a 82-year-old female with a past medical history significance for Afib with Coumadin, vertigo, hx of CVA, HTN, HLP,iron deficiency anemia, polymyalgia rheumatica, osteoarthritis, compression fraction, infected left lower extremity, GERD, who present Er for evaluation of pre-syncope. Patient report in the today morning, she try to get up from the bed, she felt the room is spinning. She state she almost fall when she bent over. Patient report she had extensive study for her vertigo. She has been on [place] for this problem for 6 days. She had a neurologist in [facility] extensively to study for this problem. No significance was found per patient's statement. ER provider found pt had positive occult stool. Patient report she did have some of dark stool but no acute GI bleeding. Patient denies shortness of breathing, palpitation, chest pain. Patient's HGB is 12.5 today. Patient report she had twice CVA, fortunately her recovery for CVA was very well, so significant deficit from previous CVA. Patient denies any focal neurological deficits today. Patient denies abdominal pain, nausea, vomiting, diarrhea, dysuria, hematuria. Patient was given 5 mg Vitamin K at emergence department today. Pt's PT/INR is 27.1/2.4. Patient is admitted for evaluation and treatment of pre- syncope and GI bleeding. History - Past Medical History Cardiovascular: reports: Hypertension, High cholesterol, Atrial fibrillation, Other Respiratory: reports: None Neuro: reports: CVA, Motion sickness, Other Endocrine/Autoimmune: reports: Other GI: reports: GERD, Other : reports: Frequency HEENT: reports: None Psych: reports: None Musculoskeletal: reports: Other Derm: reports: None MRSA Hx?: No - Past Surgical History General: reports: Other Ortho: reports: Other - Family & Social History Family History Comment/Other: [place] her and family. Patient has four children Living arrangement: At home Living Situation: With spouse/s.o., With family - Substance History Use: Uses substance without health or social issues: NONE Abuse: Recurrent use of substance despite neg consequences: NONE Dependence: Experiences withdrawal or developed tolerances: NONE - POLST Patient has POLST: No POLST Status: DNR (pt state to me she choose DNR for her code status) Meds/Allgy - Home Medications Home Medications: Ambulatory Orders Medication Instructions Recorded Confirmed Gabapentin 300 mg PO QPM 03/02/13 03/08/17 Losartan [Cozaar] 25 mg PO DAILY 03/02/13 03/08/17 Omeprazole [PriLOSEC] 20 mg PO DAILY 03/02/13 03/08/17 predniSONE [Deltasone] 20 mg PO DAILY 03/02/13 03/08/17 Warfarin [Coumadin] 5 mg PO DAILY 12/27/14 03/08/17 Acetaminophen 1,000 mg PO Q6HR PRN 11/01/16 03/08/17 Metoprolol Succinate 25 mg PO DAILY 11/15/16 03/08/17 - Allergies Allergies/Adverse Reactions: Allergies Allergy/AdvReac Type Severity Reaction Status Date / Time Penicillins Allergy Unknown UNKNOWN Verified 11/15/16 16:44 Review of Systems - Constitutional Constitutional: denies: Fatigue, Fever, Chills, Malaise, Weakness, Poor appetite , Diaphoresis, Night sweats, Weight gain, Weight loss - Eyes Eyes: denies: Pain, Irritation, Amaurosis, Blurred vision, Spots in vision, Field loss, Vision loss, Dipolpia - Ears, Nose & Throat Ears, Nose & Throat: denies: Ear pain, Hearing loss, Hearing aids, Vertigo, Nasal pain, Nasal discharge, Nosebleeds, Postnasal drainage, Sore throat, Bleeding gums - Cardiovascular Cariovascular: reports: Syncope. denies: Irregular heart rate, Palpitations, Chest pain, Edema, Lightheadedness, Decr. exercise tolerance - Respiratory Respiratory: denies: Cough, Sputum production, Wheezing, Snoring, Hemoptysis, Orthopnea, SOB at rest, SOB with exertion, Apnea, Stridor, Pleuritic pain - Gastrointestinal Gastrointestinal: reports: Black stools. denies: Abdominal pain, Abdominal distention, Constipation, Diarrhea, Change in bowel habits, Rectal bleeding, Bloody stools, Nausea, Vomiting, Bile emesis, Lewis blood emesis, Coffee grounds emesis, Reflux/heartburn, Bloating, Poor appetite - Genitourinary Genitourinary: denies: Dysuria, Frequency, Urgency, Hematuria, Incontinence, Flank pain, Nocturia - Musculoskeletal Musculoskeletal: denies: Muscle pain, Back pain, Muscle aches, Stiffness, Limited range of motion, Muscle weakness, Gout, Joint pain - Integumentary Integumentary: denies: Rash, Pruritis, Lesions, Dryness, Acne, Pigment changes - Neurological Neurological: reports: Dizziness. denies: General weakness, Focal weakness, Headache, Numbness, Memory problems, Pre-existing deficit, Abnormal gait, Seizures, Incoordination, Slurred speech - Psychiatric Psychiatric: denies: Depression, Anxiety, Suicidal, Delusions, Hallucinations, Homicidal - Endocrine Endocrine: denies: Polyuria, Polydypsia, Polyphagia, Intolerance to cold - Hematologic/Lymphatic Hematologic/Lymphatic: denies: Anemia, Bruising, Petechiae, Blood clots, Lymphadenopathy, Bleeding tendencies, Recurrent infections Exam - Vital Signs Reviewed Vital Signs: Yes Vital Signs: Vital Signs x48h Temp Pulse Resp BP Pulse Ox 03/08/17 16:09 64 19 03/08/17 14:04 65 21 99 03/08/17 12:30 36.9 C 60 18 185/79 H 99 - Physical Exam General Appearance: positive: No acute distress, Alert. negative: Lethargic Eyes Bilateral: positive: Normal inspection, PERRL, EOMI, No lid inflammation, Conjunctivae nml ENT: positive: ENT inspection nml, Pharynx nml, No signs of dehydration. negative: Purulent nasal drainage, Pharyngeal erythema, Oral lesions Neck: positive: Nml inspection, Thyroid nml, No JVD, Trachea midline. negative : Thyromegaly, Lymphadenopathy (R), Lymphadenopathy (L), Stiff neck, Tracheal deviation Respiratory: positive: Chest non-tender, No respiratory distress, Breath sounds nml. negative: Wheezes, Rales, Rhonchi Cardiovascular: positive: Regular rate & rhythm, No murmur, No gallop. negative : Irregularly irregular, Extrasystoles, Tachycardia, Bradycardia, Systolic murmur, Diastolic murmur Peripheral Pulses: positive: 2+ Abdomen: positive: Non-tender, No organomegaly, Nml bowel sounds, No distention. negative: Tenderness, Guarding, Rebound, Abnml bowel sounds Back: positive: Nml inspection. negative: CVA tenderness (R), CVA tenderness (L ) Skin: positive: Color nml, No rash, Warm, Dry. negative: Cyanosis, Diaphoresis , Pallor, Skin rash Extremities: positive: Non-tender, Full ROM, Nml appearance. negative: Pedal edema, Calf tenderness, Joint swelling Neurologic/Psychiatric: positive: Oriented x3, Mood/affect nml. negative: Sensory loss, Facial droop, Slurred/abnml speech, Depressed mood/affect Conclusion/Plan - Problem List (1) Pre-syncope Conclusion/Plan: pt did not fall, did not loss of conscious, did not have any injury for this episode fall precaution ECHO study, followup tele, vital monitor daily lab monitor (2) GI bleed Conclusion/Plan: pt report she had some dark stool, Occult stool test positive in ER. Pt is on Coumadin for AFib and previous CVA hold Coumadin H&H NPO IVF consult with surgeon and called surgeon glucose check on NPO (3) Vertigo Conclusion/Plan: chronic vertigo. pt had neurologist to follow up Antivert PRN PT evaluation and treatment (4) HTN (hypertension) Conclusion/Plan: stable, resume of home meds vital monitor (5) Afib Conclusion/Plan: chronic, on Coumadin will hold Coumadin now because of GI bleeding PT/INR daily tele, vital monitor pt (6) History of CVA (cerebrovascular accident) Conclusion/Plan: pt report her recover very well from previous CVA. pt denies any new neurological focal deficits continue pt home meds tele, vital monitor (7) Polymyalgia rheumatica Conclusion/Plan: stable, resume home meds of prednisone (8) DVT prophylaxis Conclusion/Plan: SCD. Pt has GI bleeding , hold blood thinner now - Lab Results Fish Bones: 03/09/17 04:08 03/09/17 04:08 Issues/Core Measures - Anticipated LOS Anticipated Stay Length: Less than 2 midnights (expected less than two midnights )
[2017-03-08] MEDS ORDERED: MECLIZINE 12.5 MG TABLET PO PRN (16:53)
--- NOTE | 2017-03-08 17:32 | CT Preliminary Report ---
Exam: CT HEAD W/O IMPRESSION: Stable age-related cortical atrophic changes without evidence of acute intracranial abnor mality. [facility] SITE ID: [id number]
--- NOTE | 2017-03-08 17:35 | CT Report ---
EXAM: CT HEAD EXAM DATE: 03/08/2017 05:06 PM. CLINICAL HISTORY: Vertigo. COMPARISON: 09/19/2016. TECHNIQUE: Multiaxial CT images were obtained from the foramen magnum to the vertex. IV contrast: Non e. Reformats: Coronal. In accordance with CT protocol optimization, one or more of the following dose reduction techniques w ere utilized for this exam: automated exposure control, adjustment of mA and/or KV based on patient s ize, or use of iterative reconstructive technique. FINDINGS: Parenchyma: No intraparenchymal hemorrhage. No evidence of mass, midline shift, or CT findings of acu te infarction. Ames-white differentiation is distinct. Extraaxial Spaces: Normal for age. No subdural or epidural collections identified. Ventricles: The ventricles and cortical sulci are enlarged, consistent with age-related tissue loss. Sinuses and orbits: Imaged paranasal sinuses, orbits, and mastoids show no significant abnormality. Bones: No evidence of fracture or calvarial defect. Other: Stable chronic microangiopathic white matter changes are evident. IMPRESSION: Stable age-related cortical atrophic changes without evidence of acute intracranial abnor mality. [facility] Referring Provider Line: [phone] SITE ID: [id number]
--- NOTE | 2017-03-08 17:40 | XRAY Preliminary Report ---
Exam: XR CHEST 1 VIEW IMPRESSION: Normal single view chest. [facility] SITE ID: [id number]
--- NOTE | 2017-03-08 17:42 | XRAY Report ---
EXAM: CHEST RADIOGRAPHY EXAM DATE: 03/08/2017 05:11 PM. CLINICAL HISTORY: Right rib pain for 2 days. COMPARISON: 03/06/2017. TECHNIQUE: 1 view. FINDINGS: Lungs/Pleura: No focal opacities evident. No pleural effusion. No pneumothorax. Mediastinum: Normal heart size for technique. Stable tortuous aorta. Other: No bony abnormality identified. IMPRESSION: Normal single view chest. [facility] Referring Provider Line: [phone] SITE ID: [id number]
[2017-03-08] MEDS: SODIUM CHLORIDE 0.9% 1,000 ML IV SCH (18:37)
[2017-03-08] MEDS: LOSARTAN 50 MG TABLET PO SCH (18:50)
[2017-03-08] MEDS ORDERED: GABAPENTIN 300 MG CAPSULE PO SCH (21:00)
[2017-03-08 21:36] LABS: HCT - HEMATOCRIT 38.4 % (37.0-47.0); HGB - HEMOGLOBIN 12.6 g/dL (12.0-16.0)
[2017-03-08] MEDS: SODIUM CHLORIDE FLUSH 0.9% 10 ML SYRINGE IVP SCH (22:02)
[2017-03-09] MEDS: SODIUM CHLORIDE 0.9% 1,000 ML IV SCH ×2 (03:16→14:03)
[2017-03-09 04:23] LABS: BASOPHILS % (AUTO) 0.6 %; EOSINOPHILS # (AUTO) 0.1 10^3/uL (0.0-0.7); EOSINOPHILS % (AUTO) 0.7 %; HCT - HEMATOCRIT 35.6 % (37.0-47.0); HGB - HEMOGLOBIN 11.9 g/dL (12.0-16.0); LYMPHOCYTES # (AUTO) 1.5 10^3/uL (1.5-3.5); LYMPHOCYTES % (AUTO) 22.1 %; MEAN CORPUSCULAR HGB CONC 33.3 g/dL (32.0-36.0); MEAN CORPUSCULAR VOLUME 96.1 fL (81.0-99.0); MEAN PLATELET VOLUME 8.3 fL (7.9-10.8); MONOCYTES # (AUTO) 0.7 10^3/uL (0.0-1.0); MONOCYTES % (AUTO) 10.3 %; NEUTROPHILS # (AUTO) 4.6 10^3/uL (1.5-6.6); NEUTROPHILS % (AUTO) 66.3 %; NUCLEATED RED BLOOD CELLS AUTO 0.1 /100WBC; RED BLOOD COUNT 3.71 10^6/uL (4.20-5.40); RED CELL DISTRIBUTION WIDTH 14.4 % (12.0-15.0); UNCORRECTED WHITE BLOOD COUNT 6.9 x10^3/uL; WHITE BLOOD COUNT 6.9 x10^3/uL (4.8-10.8)
[2017-03-09 04:41] LABS: ALBUMIN/GLOBULIN RATIO 1.2 (1.0-2.2); CALCIUM 8.5 mg/dL (8.5-10.3); CREATININE 0.8 mg/dL (0.4-1.0); POTASSIUM 3.4 mmol/L (3.5-5.0); TOTAL PROTEIN 5.6 g/dL (6.7-8.2)
[2017-03-09 04:48] LABS: INR 1.3 (0.8-1.2); PT - PROTHROMBIN TIME 15.1 secs (9.9-12.6)
[2017-03-09] MEDS: SODIUM CHLORIDE FLUSH 0.9% 10 ML SYRINGE IVP SCH ×2 (05:34→14:02)
[2017-03-09] MEDS ORDERED: METOPROLOL SUCCINATE 25 MG TABLET PO SCH (09:00)
[2017-03-09] MEDS ORDERED: predniSONE 5 MG TABLET PO SCH (09:00)
[2017-03-09] MEDS ORDERED: POLYETHYLENE GLYCOL 3350 17 GM PACKET PO SCH (09:00)
[2017-03-09] MEDS ORDERED: FAMOTIDINE 20 MG TABLET PO SCH (09:00)
[2017-03-09] MEDS ORDERED: LOSARTAN 50 MG TABLET PO SCH (09:00)
[2017-03-09] MEDS: LOSARTAN 50 MG TABLET PO SCH (09:32)
[2017-03-09] MEDS: POTASSIUM CHLOR 10 MEQ/100 ML 10 MEQ/100 ML BAG IV SCH ×2 (09:38→10:55)
[2017-03-09] MEDS: SCOPOLAMINE PATCH TOP SCH ×2 (11:57→12:32)
[2017-03-09 13:08] LABS: HCT - HEMATOCRIT 39.2 % (37.0-47.0)
--- NOTE | 2017-03-09 13:21 | Discharge Plan ---
Discharge Plan Disposition: 01 Home, Self Care Condition: Stable Diet: Cardiac Activity Restrictions: Activity as Tolerated Shower Restrictions: No Weight Bearing: Full Weight Additional Instructions or Follow Up instructions: May see PCP in one week, see neurologist in the schedule. May see Dr. Hercules in one week. Hold Warfarin until see Dr. Hercules Follow-Up Care: [facility] - Cardiac, [facility] - Medical No Smoking: If you smoke, Please STOP! Call for help. Follow-up with: Tanner Sheridan MD [Primary Care Provider] -
--- NOTE | 2017-03-09 13:28 | DISCHARGE SUMMARY ---
"Discharge Summary Admit Date: 03/08/17 Discharge Date: 03/09/17 Discharging Provider: CARMEN Primary Care Provider: Jeanette Sheridan Condition at Discharge: Stable Discharge Disposition: 01 Home, Self Care Discharge Facility Name: home - DIAGNOSES Admission Diagnoses: (1) Pre-syncope (2) GI bleed (3) Vertigo (4) HTN (hypertension) (5) Afib (6) History of CVA (cerebrovascular accident) (7) Polymyalgia rheumatica Discharge Diagnoses with Status of Each Condition: (1) Pre-syncope No pre-syncope or syncope at medical floor, resolved. ECHO reveal unremarkable (2) GI bleed no acute bleeding, advised to follow up Dr. Hercules in one week (3) Vertigo great improved per pt's statement, may follow up PCP and her neurologist closely (4) HTN (hypertension) stable (5) Afib chronic, stable, continue home meds metoprolol. Hold Coumadin until see Dr. Hercules (6) History of CVA (cerebrovascular accident) stable,no focal neurological deficits (7) Polymyalgia rheumatica stable. - HPI History of Present Illness: Please reviewed my HPI from 03/08/17 as the following: This is a 82-year-old female with a past medical history significance for Afib with Coumadin, vertigo, hx of CVA, HTN, HLP,iron deficiency anemia, polymyalgia rheumatica, osteoarthritis, compression fraction, infected left lower extremity, GERD, who present Er for evaluation of pre-syncope. Patient report in the today morning, she try to get up from the bed, she felt the room is spinning. She state she almost fall when she bent over. Patient report she had extensive study for her vertigo. She has been on [place] for this problem for 6 days. She had a neurologist in [facility] extensively to study for this problem. No significance was found per patient's statement. ER provider found pt had positive occult stool. Patient report she did have some of dark stool but no acute GI bleeding. Patient denies shortness of breathing, palpitation, chest pain. Patient's HGB is 12.5 today. Patient report she had twice CVA, fortunately her recovery for CVA was very well, so significant deficit from previous CVA. Patient denies any focal neurological deficits today. Patient denies abdominal pain, nausea, vomiting, diarrhea, dysuria, hematuria. Patient was given 5 mg Vitamin K at emergence department today. Pt's PT/INR is 27.1/2.4. Patient is admitted for evaluation and treatment of pre- syncope and GI bleeding. - CONSULTS | PROCEDURES Consultations: Dr. Hercules - HOSPITAL COURSE Hospital Course: Pt was admitted for pre-syncope and GI bleeding. Image studies include CT of head, ECHO, CXR unremarkable. Pt did not have pre-syncope at hospital. Pt's chronic vertigo is great improved at hospital by treatment. Pt state she is ready to go to home. pt did not have acute GI bleeding at hospital. HGB is stable. Pt is advised to follow up for GI bleeding evaluation in one week. - ALLERGIES Allergies/Adverse Reactions: Allergies Allergy/AdvReac Type Severity Reaction Status Date / Time Penicillins Allergy Unknown UNKNOWN Verified 11/15/16 16:44 - MEDICATIONS Home Medications: Ambulatory Orders Medication Instructions Recorded Confirmed Gabapentin 300 mg PO QPM 03/02/13 03/08/17 Losartan [Cozaar] 25 mg PO DAILY 03/02/13 03/08/17 Omeprazole [PriLOSEC] 20 mg PO DAILY 03/02/13 03/08/17 predniSONE [Deltasone] 20 mg PO DAILY 03/02/13 03/08/17 Acetaminophen 1,000 mg PO Q6HR PRN 11/01/16 03/08/17 Metoprolol Succinate 25 mg PO DAILY 11/15/16 03/08/17 - PHYSICAL EXAM AT DISCHARGE General Appearance: positive: No acute distress, Alert. negative: Lethargic Eyes Bilateral: positive: Normal inspection, PERRL, EOMI, No lid inflammation, Conjunctivae nml ENT: positive: ENT inspection nml, Pharynx nml, No signs of dehydration. negative: Purulent nasal drainage, Pharyngeal erythema, Oral lesions Neck: positive: Nml inspection, Thyroid nml, Trachea midline. negative: Thyromegaly, Lymphadenopathy (R), Lymphadenopathy (L), Stiff neck, Carotid bruit , Swelling/bruising, Tracheal deviation Respiratory: positive: Chest non-tender, No respiratory distress, Breath sounds nml. negative: Wheezes, Rales, Rhonchi Cardiovascular: positive: Regular rate & rhythm, No murmur, No gallop. negative : Irregularly irregular, Extrasystoles, Tachycardia, Bradycardia, Systolic murmur, Diastolic murmur Peripheral Pulses: positive: 2+ Abdomen: positive: Non-tender, Nml bowel sounds, No distention. negative: Tenderness, Guarding, Rebound Back: positive: Nml inspection. negative: CVA tenderness (R), CVA tenderness (L ) Skin: positive: Color nml, No rash, Warm, Dry. negative: Cyanosis, Diaphoresis , Pallor, Skin rash Extremities: positive: Non-tender, Full ROM, Nml appearance. negative: Calf tenderness, Bill's sign/cords Neurologic/Psychiatric: positive: Oriented x3, Motor nml, Sensation nml, Mood/ affect nml. negative: Sensory loss, Facial droop, Slurred/abnml speech, Depressed mood/affect - LABS Result Diagrams: 03/09/17 13:01 03/09/17 04:08 - FOLLOW UP Follow Up: pt is advised to follow up PCP in one week, follow up her neurologist as the schedule. Pt is advised to follow up Dr. Hercules in one week for GI bleeding evaluation. Pt is advised to hold Coumadin until see Dr. Hercules."
[2017-03-09 16:27] VITALS: BP 138/73
--- NOTE | 2017-03-10 02:12 | CONSULTATION NOTE ---
DATE OF CONSULTATION: 03/09/2017 00:00:00 REASON FOR CONSULTATION: Gastrointestinal bleed. HISTORY OF PRESENT ILLNESS: This is an 82-year-old female who presented to the emergency department yesterday for a syncopal event. She states that for the past several months she has been feeling very dizzy. She has an appointment with a neurologist, but has not been able to see him yet because she has been dealing with a wound on her right lower extremity, which she sustained after a fall. Yesterday she was very dizzy and had a syncopal episode. She subsequently was brought to the emergency department and upon evaluation, her hemoglobin was noted to be 12.5, a stool for occult blood was sent, which was noted to be positive. On my evaluation of the patient, she is resting in bed comfortably, but states that she continues to feel dizzy. Additionally, upon evaluation in the emergency department, she was noted to be hemodynamically stable. The patient states that for the past several months she has noticed some bright red blood after bowel movements when she wipes on the toilet paper, but has not noted any dark or melanotic stools and additionally, she has not seen any blood within her stools. She had a colonoscopy performed with [facility] "several years ago." She is unsure of the exact year. She does state that she is due for another colonoscopy. She also has a history of gastric reflux and takes omeprazole 20 mg once daily. She does continue to have some burning in her esophagus despite medications but this is relatively well controlled. She denies any intake of aspirin or ibuprofen. She does take Coumadin for atrial fibrillation and on evaluation in the emergency department her INR was noted to be 2.4. PAST MEDICAL HISTORY: High blood pressure, hypercholesterolemia, atrial fibrillation, history of a CVA, history of vertigo and dizziness. PAST SURGICAL HISTORY: None reported. SOCIAL HISTORY: The patient lives with her and [place] 4 [place] She has several grandchildren and great grandchildren. Her primary care physician is Dr. Sheridan. HOME MEDICATIONS: 1. Gabapentin 300 mg every day. 2. Losartan 25 mg every day. 3. Omeprazole 20 mg p.o every day. 4. Prednisone 20 mg p.o every day. 5. Coumadin 5 mg daily. 6. Tylenol 1000 mg q.6h. p.r.n. pain. ALLERGIES TO MEDICATIONS: PENICILLIN. PHYSICAL EXAMINATION: VITAL SIGNS: Temperature is 36.4, blood pressure 153/65, heart rate of 84, respiratory rate 20, O2 saturation is 93% on room air. GENERAL: The patient is awake, alert, oriented x3, in no acute distress. She is of average build or slightly obese. CARDIOVASCULAR: Regular rate and rhythm. CHEST: Clear to auscultation bilaterally with no rhonchi or wheezing. ABDOMEN: Soft, nondistended, nontender to palpation. EXTREMITIES: Well perfused. LABORATORY VALUES: White blood cell count 6.9, hemoglobin on admission 12.5, repeated at 6 hours 12.6 and repeated this a.m. 11.9, hematocrit 37.5, repeated at 6 hours 38.4, repeated this a.m. 35.6, platelets are 208. INR on admission 2.4, today is 1.3. Sodium 139, potassium 3.4, chloride 108, bicarbonate 24, BUN 12, creatinine 0.8. ASSESSMENT: This is an 82-year-old female who presents with a syncopal episode of unknown etiology, anemia and GI bleed presenting as occult positive blood. PLAN: The patient has remained hemodynamically stable with a stable H and H. Her anemia and occult blood positivity should be worked up as an outpatient. She will require both an upper and lower endoscopy. I do recommend that she holds her Coumadin for the time being given her dizziness, syncopal episodes and falls in addition to her anemia and occult positive stools. She will followup with her primary care physician, Dr. Sheridan, next week to discuss the risks and benefits of Coumadin at this time. She will also followup with me next week to schedule EGD and colonoscopy. All this was conveyed to the patient and to the patient's hospitalist, JUSTICE Sierra. JOB #: [id number] EXT JOB #:[id number] BAR
== END 2017-03-09 14:15 | disposition home or self-care (01) ==
LOC: ED 12:25 → EDUNIT# 12:25 → OBS 16:22
PROVIDERS: ADMIT Nurse Practitioner Gerontology; ATTEND Nurse Practitioner Gerontology
DX: R55 Syncope and collapse (principal); K92.2 Gastrointestinal hemorrhage, unspecified; R42 Dizziness and giddiness; I10 Essential (primary) hypertension; I48.2 Chronic atrial fibrillation; Z86.73 Personal history of transient ischemic attack (TIA), and cerebral infarction without residual deficits; M35.3 Polymyalgia rheumatica; E78.5 Hyperlipidemia, unspecified; D50.9 Iron deficiency anemia, unspecified; M19.90 Unspecified osteoarthritis, unspecified site; Z87.311 Personal history of (healed) other pathological fracture; K21.9 Gastro-esophageal reflux disease without esophagitis; Z79.01 Long term (current) use of anticoagulants; Z79.52 Long term (current) use of systemic steroids; Z79.899 Other long term (current) drug therapy; S81.812D Laceration without foreign body, left lower leg, subsequent encounter; W19.XXXD Unspecified fall, subsequent encounter; Z91.81 History of falling
CPT/HCPCS: 36415; 70450; 71010; 80053; 83690; 83735; 84484; 85014; 85018; 85025; 85610; 86850; 86900; 86901; 93005; 93306; 96361; 96365; 96366; 96375; 97163; 99284; A9270; G0378; G8978; G8979; G8980; J3490; J7512; 99283

== ENCOUNTER 2017-05-16 12:27 | Outpatient (CLI) | payer MEDICARE, OTHER ==
--- NOTE | 2017-05-16 14:20 | XRAY Report ---
EXAM; TWO VIEW LEFT LOWER LEG 05/16/2017 CLINICAL INDICATION: Pain. COMPARISON: 11/15/2016 FINDINGS: Frontal and lateral portable views of the left lower leg demonstrate no evidence of fracture. No foreign body is seen in the soft tissues. IMPRESSION: NORMAL LEFT LOWER LEG, UNCHANGED. TD: 05/16/2017 14:04 [facility]
--- NOTE | 2017-05-16 14:23 | XRAY Report ---
DATE OF SERVICE: 05/16/2017 EXAM; TWO VIEW LEFT LOWER LEG 05/16/2017 CLINICAL INDICATION: PAIN COMPARISON: 11/15/2016. FINDINGS: Frontal and lateral views of the left lower leg demonstrate no evidence of fracture. No foreign body is seen in the soft tissues. IMPRESSION: NORMAL LEFT LOWER LEG. NO SIGNIFICANT INTERVAL CHANGE. TD: 05/16/2017 15:04 [facility]
== END 2017-05-16 12:28 | disposition home or self-care (01) ==
LOC: DI 12:27
PROVIDERS: ATTEND Family Medicine
DX: M79.605 Pain in left leg (principal)

== ENCOUNTER 2017-05-30 10:47 | Outpatient (CLI) | payer MEDICARE, OTHER | END 2017-05-30 10:48 | disposition home or self-care (01) | LOC: LAB.F 10:47 | PROVIDERS: ATTEND Family Medicine | DX: Z79.01 Long term (current) use of anticoagulants (principal); I48.91 Unspecified atrial fibrillation | CPT/HCPCS: 85610 ==

== ENCOUNTER 2017-06-11 10:52 | Outpatient (CLI) | payer MEDICARE, OTHER | END 2017-06-11 10:53 | disposition home or self-care (01) | LOC: LAB 10:52 | PROVIDERS: ATTEND Family Medicine | DX: Z79.01 Long term (current) use of anticoagulants (principal); I48.91 Unspecified atrial fibrillation | CPT/HCPCS: 85610 ==

== ENCOUNTER 2017-06-18 15:30 | Outpatient (CLI) | payer MEDICARE, OTHER | END 2017-06-18 15:31 | disposition critical access hospital (66) | LOC: EMS 15:30 | PROVIDERS: ATTEND Surgery | DX: R53.1 Weakness (principal); R42 Dizziness and giddiness; W18.39XA Other fall on same level, initial encounter; Y92.039 Unspecified place in apartment as the place of occurrence of the external cause | CPT/HCPCS: A0425; A0429 ==

== ENCOUNTER 2017-06-18 15:58 | Emergency (ER) | payer MEDICARE, OTHER ==
[2017-06-18] MEDS ORDERED: SODIUM CHLORIDE 0.9% 1,000 ML IV ONE ×2 (16:17→19:34)
[2017-06-18] MEDS ORDERED: MECLIZINE 12.5 MG TABLET PO STA (16:27)
--- NOTE | 2017-06-18 16:53 | CT Report ---
EXAM: CT HEAD EXAM DATE: 06/18/2017 04:38 PM. CLINICAL HISTORY: Vertigo. COMPARISON: 03/08/2017. TECHNIQUE: Multiaxial CT images were obtained from the foramen magnum to the vertex. Reformats: Coron al. IV contrast: None. In accordance with CT protocol optimization, one or more of the following dose reduction techniques w ere utilized for this exam: automated exposure control, adjustment of mA and/or KV based on patient s ize, or use of iterative reconstructive technique. FINDINGS: Parenchyma: No intraparenchymal hemorrhage. No evidence of mass, midline shift, or CT findings of acu te infarction. Ames-white differentiation is distinct. Diffuse chronic microangiopathic white matter changes. Extraaxial Spaces: Normal for age. No subdural or epidural collections. Ventricles: The ventricles and cortical sulci are enlarged, consistent with age-related tissue loss. Sinuses and orbits: Imaged paranasal sinuses, orbits, and mastoids show no significant abnormality. Bones: Unremarkable. Other: Calcifications of intracranial carotid and vertebral arteries. IMPRESSION: Generalized age-related cortical atrophic changes without evidence of acute intracranial abnormality. [facility] Referring Provider Line: [phone] SITE ID: [id number]
[2017-06-18 16:57] LABS: BASOPHILS % (AUTO) 0.3 %; EOSINOPHILS # (AUTO) 0.1 10^3/uL (0.0-0.7); EOSINOPHILS % (AUTO) 0.9 %; HGB - HEMOGLOBIN 11.9 g/dL (12.0-16.0); LYMPHOCYTES # (AUTO) 0.6 10^3/uL (1.5-3.5); LYMPHOCYTES % (AUTO) 8.5 %; MEAN CORPUSCULAR HEMOGLOBIN 31.3 pg (27.0-31.0); MEAN CORPUSCULAR HGB CONC 34.1 g/dL (32.0-36.0); MEAN CORPUSCULAR VOLUME 91.8 fL (81.0-99.0); MEAN PLATELET VOLUME 8.7 fL (7.9-10.8); MONOCYTES % (AUTO) 15.4 %; NEUTROPHILS % (AUTO) 74.9 %; PLT - PLATELET COUNT 193 10^3/uL (130-450); RED BLOOD COUNT 3.78 10^6/uL (4.20-5.40); RED CELL DISTRIBUTION WIDTH 14.4 % (12.0-15.0); WHITE BLOOD COUNT 6.6 x10^3/uL (4.8-10.8)
[2017-06-18 17:04] LABS: INR 1.8 (0.8-1.2); PT - PROTHROMBIN TIME 20.2 secs (9.9-12.6)
[2017-06-18 17:11] LABS: CREATININE 0.9 mg/dL (0.4-1.0)
[2017-06-18] MEDS ORDERED: ACETAMINOPHEN 325 MG TABLET PO STA (18:11)
[2017-06-18 18:23] LABS: BILIRUBIN,URINE NEGATIVE (NEGATIVE); GLUCOSE, URINE (UA) NEGATIVE (NEGATIVE); KETONES,URINE (UA) NEGATIVE (NEGATIVE); LEUKOCYTE ESTERASE, URINE NEGATIVE (NEGATIVE); NITRITE,URINE POSITIVE (NEGATIVE); OCCULT BLOOD,URINE MODERATE (NEGATIVE); PH,URINE 6.5 PH (5.0-7.5); PROTEIN,URINE TRACE mg/dL (NEGATIVE); UROBILINOGEN,URINE 0.2 (NORMAL) E.U./dL (NORMAL)
[2017-06-18 18:25] LABS: CLARITY,URINE CLEAR (CLEAR)
[2017-06-18 18:29] LABS: BACTERIA,URINE Many /HPF (None Seen); RBC,URINE 0-5 /HPF (0-5); SQUAMOUS EPITHELIAL CELL,UR MOD Squamous (<= Few); WBC CLUMPS,URINE PRESENT
--- NOTE | 2017-06-18 19:11 | XRAY Report ---
EXAM: CHEST RADIOGRAPHY EXAM DATE: 06/18/2017 06:45 PM. CLINICAL HISTORY: Fever . COMPARISON: 03/08/2017. TECHNIQUE: 2 views. FINDINGS: Lungs/Pleura: No evidence of lobar infiltrate. Lung volumes are within normal limits. No pleural effu ryan. No pneumothorax. Mediastinum: There is cardiomegaly with thoracic aortic tortuosity. Other: Bones are osteopenic. There are mid and lower thoracic spine compression fractures. IMPRESSION: 1. There is cardiomegaly with thoracic aortic tortuosity. 2. There is no evidence of lobar infiltrate or pneumothorax. [facility] Referring Provider Line: [phone] SITE ID: [id number]
[2017-06-18] MEDS ORDERED: OSELTAMIVIR 75 MG CAPSULE PO STA (19:26)
[2017-06-18] MEDS ORDERED: cefTRIAXone 1 GM VIAL IV STA (19:26)
--- NOTE | 2017-06-18 22:25 | ED Physician Documentation ---
History of Present Illness - Stated complaint Stated Complaint: GLF - Chief complaint Chief Complaint: General - History obtained from History obtained from: Patient (Reports from family and pt state that for the past couple days the pt has not been feeling well and today she was so weak that she could not get out of bed.), Family Review of Systems Constitutional: reports: Myalgias, Fatigue. denies: Fever, Chills Throat: denies: Sore throat Cardiac: denies: Chest pain / pressure Respiratory: denies: Dyspnea, Cough, Hemoptysis, Wheezing GI: denies: Abdominal Pain, Nausea, Vomiting, Diarrhea : denies: Dysuria, Frequency, Hesitancy Skin: denies: Rash Musculoskeletal: denies: Neck pain, Back pain, Extremity pain Neurologic: reports: Generalized weakness, Focal weakness (bilateral legs) PD PAST MEDICAL HISTORY - Past Medical History Past Medical History: Yes Cardiovascular: Hypertension, High cholesterol, Atrial fibrillation, Other Respiratory: None Neuro: CVA, Motion sickness, Other Endocrine/Autoimmune: Other GI: GERD, Other : Frequency HEENT: None Psych: None Musculoskeletal: Other Derm: None - Past Surgical History Past Surgical History: Yes General: Other Ortho: Other - Present Medications Home Medications: Ambulatory Orders Medication Instructions Recorded Confirmed Gabapentin 300 mg PO QPM 03/02/13 06/18/17 Losartan [Cozaar] 25 mg PO DAILY 03/02/13 06/18/17 Omeprazole [PriLOSEC] 20 mg PO DAILY 03/02/13 06/18/17 predniSONE [Deltasone] 10 mg PO DAILY 03/02/13 06/18/17 Acetaminophen 1,000 mg PO Q6HR PRN 11/01/16 06/18/17 Metoprolol Succinate 25 mg PO DAILY 11/15/16 06/18/17 - Allergies Allergies/Adverse Reactions: Allergies Allergy/AdvReac Type Severity Reaction Status Date / Time Penicillins Allergy Unknown UNKNOWN Verified 11/15/16 16:44 - Social History Does the pt smoke?: No Smoking Status: Never smoker Does the pt drink ETOH?: No Does the pt have substance abuse?: No - Immunizations Immunizations are current?: Yes - POLST Patient has POLST: No POLST Status: DNR PD ED PE NORMAL - Vitals Vital signs reviewed: Yes - General General: No acute distress - HEENT HEENT: Atraumatic, Ears normal. No: Moist mucous membranes (dry MM) - Neck Neck: No bony TTP - Cardiac Cardiac: No murmur. No: RRR (tachycardic but regular) - Respiratory Respiratory: No respiratory distress, Clear bilaterally - Abdomen Abdomen: Normal bowel sounds, Soft - Derm Derm: Normal color, No rash - Extremities Extremities: No deformity - Neuro Neuro: education and training coordinator 2-12 intact. No: No motor deficit (pt unable to lift bilateral legs off the bed) Eye Opening: Spontaneous Motor: Obeys Commands Verbal: Oriented GCS Score: 15 - Psych Psych: Normal mood, Normal affect Results - Vitals Vitals: Vital Signs - 24 hr 06/18/17 06/18/17 06/18/17 15:59 16:48 18:09 Temperature 37.4 C 39.0 C H Heart Rate 112 H 105 H 109 H Respiratory 17 18 22 Rate Blood Pressure 149/73 H 166/74 H 161/75 H O2 Saturation 96 94 94 06/18/17 06/18/17 06/18/17 19:00 19:14 20:39 Temperature 38.2 C H 38.3 C H Heart Rate 110 H 107 H 121 H Respiratory 22 28 H 17 Rate Blood Pressure 166/79 H 166/79 H 108/52 L O2 Saturation 93 88 L 98 06/18/17 21:26 Temperature 37.7 C H Heart Rate 106 H Respiratory 23 Rate Blood Pressure 120/51 L O2 Saturation 98 Oxygen O2 Source [Without Activity] Room air O2 Source Nasal cannula Oxygen Flow Rate 3 - EKG (time done) 1637 Rate: Rate (enter#) Rhythm: Sinus tachycardia [place]: Normal Intervals: QRS normal QRS: Normal Ischemia: Normal ST segments Computer interpretation: Disagree with computer - Labs Labs: Laboratory Tests 06/18/17 06/18/17 06/18/17 16:48 16:48 16:48 WBC 6.6 RBC 3.78 L Hgb 11.9 L Hct 34.7 L MCV 91.8 MCH 31.3 H MCHC 34.1 RDW 14.4 Plt Count 193 MPV 8.7 Neut # 5.0 Lymph # 0.6 L [place] # 1.0 Eos # 0.1 Baso # 0.0 Absolute Nucleated RBC 0.00 Nucleated RBC % 0.0 PT 20.2 H INR 1.8 H APTT 29.2 Sodium 133 L Potassium 3.6 Chloride 98 L Carbon Dioxide 23 Anion Gap 12.0 BUN 16 Creatinine 0.9 Estimated GFR (MDRD) 60 L Glucose 93 Lactic Acid Calcium 9.0 Total Creatine Kinase 92 B-Natriuretic Peptide Urine Color Urine Clarity Urine pH Ur Specific [place] Urine Protein Urine Glucose (UA) Urine Ketones Urine Occult Blood Urine Nitrite Urine Bilirubin Urine Urobilinogen Ur Leukocyte Esterase Urine RBC Urine WBC Urine WBC Clumps Ur Squamous Epith Cells Urine Bacteria Ur Microscopic Review Urine Culture Comments Influenza A (Rapid) Influenza B (Rapid) Influenza Types A,B Ag 06/18/17 06/18/17 06/18/17 16:48 17:30 18:05 WBC RBC Hgb Hct MCV MCH MCHC RDW Plt Count MPV Neut # Lymph # [place] # Eos # Baso # Absolute Nucleated RBC Nucleated RBC % PT INR APTT Sodium Potassium Chloride Carbon Dioxide Anion Gap BUN Creatinine Estimated GFR (MDRD) Glucose Lactic Acid Calcium Total Creatine Kinase B-Natriuretic Peptide 247 H Urine Color YELLOW Urine Clarity CLEAR Urine pH 6.5 Ur Specific [place] 1.020 Urine Protein TRACE Urine Glucose (UA) NEGATIVE Urine Ketones NEGATIVE Urine Occult Blood MODERATE H Urine Nitrite POSITIVE H Urine Bilirubin NEGATIVE Urine Urobilinogen 0.2 (NORMAL) Ur Leukocyte Esterase NEGATIVE Urine RBC 0-5 Urine WBC 11-25 H Urine WBC Clumps PRESENT Ur Squamous Epith Cells MOD Squamous H Urine Bacteria Many H Ur Microscopic Review INDICATED Urine Culture Comments NOT INDICATED Influenza A (Rapid) POSITIVE H Influenza B (Rapid) Negative Influenza Types A,B Ag + H 06/18/17 20:42 WBC RBC Hgb Hct MCV MCH MCHC RDW Plt Count MPV Neut # Lymph # [place] # Eos # Baso # Absolute Nucleated RBC Nucleated RBC % PT INR APTT Sodium Potassium Chloride Carbon Dioxide Anion Gap BUN Creatinine Estimated GFR (MDRD) Glucose Lactic Acid 0.8 Calcium Total Creatine Kinase B-Natriuretic Peptide Urine Color Urine Clarity Urine pH Ur Specific [place] Urine Protein Urine Glucose (UA) Urine Ketones Urine Occult Blood Urine Nitrite Urine Bilirubin Urine Urobilinogen Ur Leukocyte Esterase Urine RBC Urine WBC Urine WBC Clumps Ur Squamous Epith Cells Urine Bacteria Ur Microscopic Review Urine Culture Comments Influenza A (Rapid) Influenza B (Rapid) Influenza Types A,B Ag - Rads (name of study) Head CT Radiology: Final report received (IMPRESSION: Generalized age-related cortical atrophic changes without evidence of acute ), EMP read contemporaneously CXR Radiology: Final report received (IMPRESSION: ), EMP read contemporaneously PD MEDICAL DECISION MAKING - ED course Complexity details: reviewed results, re-evaluated patient, considered differential, d/w patient, d/w jd edwards consultant ED course: Pt tachycardic and became febrile in the ER. Her UA has positive nitrites. Her flu is also positive. Her hx and PE is not C/W a CVA. I suspect her weakness is from dehydration and the UTI and the flu. she was given rocephin in the ER. lactate 0.8. Tamiflu also administered. We are unable to admit to this hospital because of bed status. pt required admission. Discussed case with Dr Zelaya at [facility] who will accept. will transport. Departure - Departure Disposition: 02 Transfer Acute Care Hosp Clinical Impression: Flu, Urinary tract infection Condition: Stable
[2017-06-18 22:31] VITALS: BP 130/74
== END 2017-06-18 23:06 | disposition short-term general hospital (02) ==
LOC: EDUNIT# → ED 15:58
DX: J11.1 Influenza due to unidentified influenza virus with other respiratory manifestations (principal); N39.0 Urinary tract infection, site not specified; I10 Essential (primary) hypertension; I48.91 Unspecified atrial fibrillation; E78.5 Hyperlipidemia, unspecified
CPT/HCPCS: 36415; 70450; 71046; 80048; 81001; 82550; 83605; 83880; 85025; 85610; 85730; 87275; 87276; 93005; 96361; 96365; 96366; 99285; A9270; 81003; 87086

== ENCOUNTER 2017-06-18 23:09 | Outpatient (CLI) | payer MEDICARE, OTHER | END 2017-06-18 23:10 | disposition short-term general hospital (02) | LOC: EMS 23:09 | PROVIDERS: ATTEND Surgery | DX: J11.1 Influenza due to unidentified influenza virus with other respiratory manifestations (principal) | CPT/HCPCS: A0425; A0426 ==

== ENCOUNTER 2017-07-11 11:54 | Emergency (ER) | payer MEDICARE, OTHER ==
[2017-07-11 12:40] LABS: BILIRUBIN,URINE NEGATIVE (NEGATIVE); GLUCOSE, URINE (UA) NEGATIVE (NEGATIVE); KETONES,URINE (UA) NEGATIVE (NEGATIVE); LEUKOCYTE ESTERASE, URINE NEGATIVE (NEGATIVE); NITRITE,URINE NEGATIVE (NEGATIVE); OCCULT BLOOD,URINE TRACE-LYSE (NEGATIVE); PH,URINE 5.5 PH (5.0-7.5); PROTEIN,URINE NEGATIVE (NEGATIVE); UROBILINOGEN,URINE 0.2 (NORMAL) E.U./dL (NORMAL)
[2017-07-11 12:42] LABS: CLARITY,URINE CLEAR (CLEAR)
[2017-07-11 12:58] LABS: BACTERIA,URINE Few /HPF (None Seen); RBC,URINE None Seen /HPF (0-5); SQUAMOUS EPITHELIAL CELL,UR FEW Squamous (<= Few)
--- NOTE | 2017-07-11 13:00 | ED Physician Documentation ---
History of Present Illness - Stated complaint Stated Complaint: DIZZY - Chief complaint Chief Complaint: Neuro - History obtained from History obtained from: Patient - History of Present Illness Timing: Yesterday - Additonal information Additional information: Patient is a pleasant 82-year-old female who presents with dizziness that is worse today than usual. She has chronic dizziness since CVA about 10 years ago. Yesterday she had an episode of diaphoresis and loss of consciousness. She sat down into an easy chair and denies any injury. She is uncertain how brief the loss of consciousness was. When she regained consciousness her vision seemed blurry. Those symptoms have resolved, but her dizziness has remained. She also complains of soreness on the right side of her neck for the past 2 days. In addition to CVA she has a history of atrial fibrillation for which she is on Coumadin. 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 Review of Systems Constitutional: denies: Fever, Myalgias Eyes: reports: Photophobia. denies: Decreased vision Ears: denies: Ear pain Nose: denies: Congestion Throat: reports: Other (Soreness on the right side of her neck.). denies: Sore throat Cardiac: denies: Chest pain / pressure, Palpitations Respiratory: denies: Dyspnea, Cough GI: denies: Abdominal Pain, Nausea, Vomiting : reports: Incontinent (Chronically). denies: Dysuria Skin: denies: Rash Musculoskeletal: reports: Neck pain (Right anterolateral.), Other (Healing of a chronic left leg wound for which she undergoes care at the wound care clinic.). denies: Extremity pain Neurologic: reports: Focal weakness (Chronic right facial weakness due to Davila' s palsy.), Syncope (Yesterday.). denies: Numbness, Altered mental status, Headache, Head injury PD PAST MEDICAL HISTORY - Past Medical History Cardiovascular: Hypertension, High cholesterol, Atrial fibrillation, Other Respiratory: None Neuro: CVA, Motion sickness, Other Endocrine/Autoimmune: Other GI: GERD, Other : Frequency HEENT: None Psych: None Musculoskeletal: Other Derm: None Other Past Medical History: [place] - Past Surgical History Past Surgical History: Yes General: Other Ortho: Other - Present Medications Home Medications: Ambulatory Orders Medication Instructions Recorded Confirmed Gabapentin 300 mg PO QPM 03/02/06/18/17 Losartan [Cozaar] 25 mg PO DAILY 03/02/13 06/18/17 Omeprazole [PriLOSEC] 20 mg PO DAILY 03/02/13 06/18/17 predniSONE [Deltasone] 10 mg PO DAILY 03/02/13 06/18/17 Acetaminophen 1,000 mg PO Q6HR PRN 11/01/16 06/18/17 Metoprolol Succinate 25 mg PO DAILY 11/15/16 06/18/17 Cyanocobalamin (Vitamin B-12) 1,000 mcg PO 07/11/17 [Vitamin B-12] Meclizine HCl [Motion Sickness 25 mg PO TID PRN #20 tablet 07/11/17 Relief] Meclizine [Antivert] 25 mg PO Q6H 07/11/17 07/11/17 Warfarin [Coumadin] 5 mg PO DAILY 07/11/17 07/11/17 - Allergies Allergies/Adverse Reactions: Allergies Allergy/AdvReac Type Severity Reaction Status Date / Time Penicillins Allergy Unknown UNKNOWN Verified 07/11/17 12:12 - Social History Does the pt smoke?: No Smoking Status: Never smoker Does the pt drink ETOH?: No Does the pt have substance abuse?: No - Immunizations Immunizations are current?: Yes - POLST Patient has POLST: No POLST Status: DNR PD ED PE NORMAL - Vitals Vital signs reviewed: Yes (Systolic hypertension initially.) - General General: Alert and oriented X 3, Well developed/nourished - HEENT HEENT: Atraumatic, PERRL, EOMI, Ears normal, Moist mucous membranes, Pharynx benign, Other (Left conjunctival injection.) - Neck Neck: Supple, no meningeal sign, No bony TTP, No adenopathy, No JVD - Cardiac Cardiac: No murmur, Other (Regular rate, irregularly irregular rhythm.) - Respiratory Respiratory: No respiratory distress, Clear bilaterally - Abdomen Abdomen: Soft, Non tender - Back Back: No CVA TTP, No spinal TTP - Derm Derm: No rash - Extremities Extremities: No edema, No calf tenderness / cord, Other (Healing wound, left lower leg.) - Neuro Neuro: Alert and oriented X 3, No sensory deficit, Normal speech, Other (Right facial palsy (chronic).) Motor: Obeys Commands Verbal: Oriented Results - Vitals Vitals: Oxygen O2 Source [] Room air O2 Source Room air - EKG (time done) 12:05 Rate: Rate (enter#) (88) Rhythm: Other (Sinus arrhythmia) [place]: LAD Ischemia: Normal ST segments, Q waves (in lead III.) Compare to prior EKG: Unchanged from prior EKG Computer interpretation: Agree with computer - Labs Labs: Laboratory Tests 07/11/17 07/11/17 07/11/17 12:20 13:12 13:12 WBC 7.7 RBC 4.07 L Hgb 12.5 Hct 37.0 MCV 90.9 MCH 30.7 MCHC 33.8 RDW 14.4 Plt Count 251 MPV 8.6 Neut # 7.0 H Lymph # 0.4 L [place] # 0.2 Eos # 0.0 Baso # 0.0 Absolute Nucleated RBC 0.00 Nucleated RBC % 0.0 PT 22.4 H INR 2.0 H Sodium Potassium Chloride Carbon Dioxide Anion Gap BUN Creatinine Estimated GFR (MDRD) Glucose Calcium Total Bilirubin AST ALT Alkaline Phosphatase Troponin I Total Protein Albumin Globulin Albumin/Globulin Ratio Lipase Urine Color YELLOW Urine Clarity CLEAR Urine pH 5.5 Ur Specific [place] 1.010 Urine Protein NEGATIVE Urine Glucose (UA) NEGATIVE Urine Ketones NEGATIVE Urine Occult Blood TRACE-LYSE Urine Nitrite NEGATIVE Urine Bilirubin NEGATIVE Urine Urobilinogen 0.2 (NORMAL) Ur Leukocyte Esterase NEGATIVE Urine RBC None Seen Urine WBC 0-3 Ur Squamous Epith Cells FEW Squamous Urine Bacteria Few Urine Culture Comments NOT INDICATED 07/11/17 07/11/17 13:12 13:12 WBC RBC Hgb Hct MCV MCH MCHC RDW Plt Count MPV Neut # Lymph # [place] # Eos # Baso # Absolute Nucleated RBC Nucleated RBC % PT INR Sodium 138 Potassium 3.8 Chloride 100 L Carbon Dioxide 25 Anion Gap 13.0 BUN 14 Creatinine 0.8 Estimated GFR (MDRD) 68 L Glucose 114 H Calcium 9.6 Total Bilirubin 1.2 H AST 18 ALT 12 Alkaline Phosphatase 57 Troponin I < 0.04 Total Protein 7.0 Albumin 3.8 Globulin 3.2 Albumin/Globulin Ratio 1.2 Lipase 17 L Urine Color Urine Clarity Urine pH Ur Specific [place] Urine Protein Urine Glucose (UA) Urine Ketones Urine Occult Blood Urine Nitrite Urine Bilirubin Urine Urobilinogen Ur Leukocyte Esterase Urine RBC Urine WBC Ur Squamous Epith Cells Urine Bacteria Urine Culture Comments - Rads (name of study) Carotid duplex scan Radiology: Prelim report reviewed, EMP read contemporaneously, See rad report ( No significant stenosis, no significant change from 09/09. Irregular rhythm.) head CT Radiology: Prelim report reviewed, EMP read contemporaneously, See rad report ( Generalized volume loss and nonfocal white matter disease is unchanged. No acute intracranial abnormality.) PD MEDICAL DECISION MAKING - ED course Complexity details: reviewed old records, reviewed results, re-evaluated patient , considered differential, d/w patient ED course: The patient's presentation is significant for generalized dizziness of uncertain etiology. She has chronic dizziness, but her symptoms have recently become worse, with a brief episode of syncope or near syncope yesterday. There is no acute neurologic deficit detected on physical examination. Given her complaint of right-sided neck discomfort the possibility of carotid dissection was considered. CT scan of the head revealed no acute intracranial abnormality , and carotid duplex scan revealed no evidence of dissection or significant stenosis. CBC and chemistry panel are unremarkable. Urinalysis is negative. Troponin is normal, and INR is therapeutic at 2.0. Treatment in the emergency department included administration of meclizine 10 mg orally. This did seem to improve the patient's symptoms. She demonstrated ability to ambulate using her walker. She is being discharged with prescription for meclizine. I discussed with her the results of her workup, symptomatic treatment and outpatient follow-up, as well as potentially worrisome signs or symptoms that should prompt reevaluation in the emergency department. Departure - Departure Disposition: 01 Home, Self Care Clinical Impression: Dizziness Condition: Stable Instructions: ED Dizziness UKO, ED Fainting Unkn Cause Follow-Up: JUANIS METZGER MD [Physician No Access] - Prescriptions: Meclizine HCl [Motion Sickness Relief] 25 mg PO TID PRN #20 tablet PRN Reason: Dizziness Comments: Drink plenty of fluids. You can use meclizine as prescribed if needed for dizziness. Follow up with your primary physician within 1 week. Call to schedule an appointment. Return to the emergency department if you develop increasing dizziness, recurrent lightheadedness or passing out, or otherwise worsening symptoms. Discharge Date/Time: 07/11/17 15:10
[2017-07-11 13:25] LABS: BASOPHILS % (AUTO) 0.2 %; EOSINOPHILS % (AUTO) 0.1 %; HGB - HEMOGLOBIN 12.5 g/dL (12.0-16.0); LYMPHOCYTES # (AUTO) 0.4 10^3/uL (1.5-3.5); LYMPHOCYTES % (AUTO) 5.8 %; MEAN CORPUSCULAR HEMOGLOBIN 30.7 pg (27.0-31.0); MEAN CORPUSCULAR HGB CONC 33.8 g/dL (32.0-36.0); MEAN CORPUSCULAR VOLUME 90.9 fL (81.0-99.0); MEAN PLATELET VOLUME 8.6 fL (7.9-10.8); MONOCYTES # (AUTO) 0.2 10^3/uL (0.0-1.0); MONOCYTES % (AUTO) 2.4 %; NEUTROPHILS % (AUTO) 91.5 %; PLT - PLATELET COUNT 251 10^3/uL (130-450); RED BLOOD COUNT 4.07 10^6/uL (4.20-5.40); RED CELL DISTRIBUTION WIDTH 14.4 % (12.0-15.0); WHITE BLOOD COUNT 7.7 x10^3/uL (4.8-10.8)
[2017-07-11 13:31] LABS: ALBUMIN 3.8 g/dL (3.2-5.5); ALBUMIN/GLOBULIN RATIO 1.2 (1.0-2.2); BILIRUBIN,TOTAL 1.2 mg/dL (0.2-1.0); CALCIUM 9.6 mg/dL (8.5-10.3); CREATININE 0.8 mg/dL (0.4-1.0)
[2017-07-11 13:33] LABS: PT - PROTHROMBIN TIME 22.4 secs (9.9-12.6)
--- NOTE | 2017-07-11 14:00 | CT Preliminary Report ---
Exam: CT HEAD W/O IMPRESSION: 1. Generalized volume loss and nonfocal white matter disease is unchanged. No acute intracranial abno rmality. [facility] SITE ID: [id number]
--- NOTE | 2017-07-11 14:00 | CT Report ---
EXAM: CT HEAD EXAM DATE: 07/11/2017 01:26 PM. CLINICAL HISTORY: Dizziness. COMPARISON: None. TECHNIQUE: Multiaxial CT images were obtained from the foramen magnum to the vertex. Reformats: Coron al. IV contrast: None. In accordance with CT protocol optimization, one or more of the following dose reduction techniques w ere utilized for this exam: automated exposure control, adjustment of mA and/or KV based on patient s ize, or use of iterative reconstructive technique. FINDINGS: Parenchyma: There is mild periventricular white matter hypodensity. No midline shift or mass effect. No interval change. Negative for acute intracranial hemorrhage. Extraaxial Spaces: No subdural or epidural collections identified. Ventricles: Ventricles appear enlarged and symmetric. No interval change. Sinuses and Orbits: Imaged paranasal sinuses, orbits, and mastoids show no significant abnormality. Bones: No evidence of fracture or calvarial defect. Other: None. IMPRESSION: 1. Generalized volume loss and nonfocal white matter disease is unchanged. No acute intracranial abno rmality. [facility] Referring Provider Line: [phone] SITE ID: [id number]
[2017-07-11] MEDS ORDERED: MECLIZINE 12.5 MG TABLET PO STA (16:01)
[2017-07-11 16:31] VITALS: BP 133/73
--- NOTE | 2017-07-14 10:20 | Ultrasound Report ---
CAROTID DUPLEX: 07/11/2017 CLINICAL INDICATION: Right-sided neck pain, syncopal episode. COMPARISON: 09/19/2016. TECHNIQUE: Real-time sonographic vascular imaging was performed by the coding file clerk through the carotid arteries utilizing both color-flow and Doppler spectral analysis. Multiple sales training representative static images were saved for review. RIGHT Vessel PSV cm/sec EDV cm/sec ICA/CCA RSV Ratio Degree of Stenosis Plaque Estimate % RCCA Prox 55 -- -- RCCA Dist 48 14 -- RECA 327 -- -- RT BULB 45 14 0.93 DYLLAN Prox 63 20 1.31 DYLLAN Mid 87 33 1.81 DYLLAN Dist 87 32 1.81 RVA 42 -- -- RVA flow direction: Antegrade LEFT Vessel PSV cm/sec EDV cm/sec ICA/CCA RSV Ratio Degree of Stenosis Plaque Estimate % LCCA Prox 75 -- -- LCCA Dist 59 15 -- LECA 79 -- -- LFT BULB 49 15 0.83 LICA Prox 58 22 1.15 LICA Mid 73 30 1.23 LICA Dist 79 26 1.33 LVA 30 -- -- LVA flow direction: Antegrade Velocity criteria are extrapolated from diameter data as defined by the Society of Radiologists in Ultrasound Consensus Conference Radiology 2003; 229; 340-346. Degree of Stenosis % ICA PSV cm/sec ICA EDV cm/sec ICA/CCA RSV Ratio Plaque Estimate % Normal < 125 < 40 < 2.0 None <50 < 125 < 40 < 2.0 < 50 50-69 125-130 40-100 2.0-4.0 >/=50 >/=70 but less than near occlusion > 230 > 100 > 4.0 >/=50 Near occlusion High, low, or undetectable Variable Variable Visible Total occlusion Undetectable Not applicable Not applicable No detectable lumen FINDINGS RIGHT: There is calcified plaquing in the right carotid bifurcation, without evidence of a focal hemodynamically significant internal carotid stenosis. LEFT: There is calcified plaquing in the left carotid bifurcation, without evidence of a focal hemodynamically significant internal carotid stenosis. The vertebral arteries demonstrate antegrade flow bilaterally. Note is made of an irregular heart rhythm. IMPRESSION: NO EVIDENCE OF A HEMODYNAMICALLY SIGNIFICANT INTERNAL CAROTID STENOSIS. NO SIGNIFICANT INTERVAL CHANGE FROM 09/19/2016. TD: 07/11/2017 16:09 [facility]
== END 2017-07-11 15:10 | disposition home or self-care (01) ==
LOC: ED 11:54
DX: R42 Dizziness and giddiness (principal); I10 Essential (primary) hypertension; E78.00 Pure hypercholesterolemia, unspecified; I48.91 Unspecified atrial fibrillation; Z79.01 Long term (current) use of anticoagulants; Z86.73 Personal history of transient ischemic attack (TIA), and cerebral infarction without residual deficits
CPT/HCPCS: 36415; 70450; 80053; 81001; 83690; 84484; 85025; 85610; 93005; 93880; 99284; 99285; A9270; 87086

== ENCOUNTER 2017-08-13 14:00 | Outpatient (CLI) | payer MEDICARE, OTHER ==
[2017-08-13 17:23] LABS: BILIRUBIN,URINE NEGATIVE (NEGATIVE); CLARITY,URINE HAZY (CLEAR); GLUCOSE, URINE (UA) NEGATIVE (NEGATIVE); KETONES,URINE (UA) NEGATIVE (NEGATIVE); LEUKOCYTE ESTERASE, URINE SMALL (NEGATIVE); NITRITE,URINE NEGATIVE (NEGATIVE); OCCULT BLOOD,URINE TRACE-LYSE (NEGATIVE); PH,URINE 5.5 PH (5.0-7.5); PROTEIN,URINE NEGATIVE (NEGATIVE); UROBILINOGEN,URINE 0.2 (NORMAL) E.U./dL (NORMAL)
[2017-08-13 17:30] LABS: BACTERIA,URINE Rare /HPF (None Seen); EPITHELIAL CELLS,UR RARE Transitional /HPF (<= Few); RBC,URINE 0-5 /HPF (0-5); SQUAMOUS EPITHELIAL CELL,UR RARE Squamous (<= Few); WBC CLUMPS,URINE PRESENT
== END 2017-08-13 14:01 | disposition home or self-care (01) ==
LOC: LAB.R 14:00
PROVIDERS: ATTEND Nurse Practitioner Family
DX: N39.0 Urinary tract infection, site not specified (principal)
CPT/HCPCS: 81001; 87086

== ENCOUNTER 2017-08-15 16:28 | Emergency (ER) | payer MEDICARE, OTHER ==
[2017-08-15] MEDS ORDERED: ONDANSETRON 4 MG/2 ML VIAL IVP STA (16:53)
[2017-08-15] MEDS ORDERED: cefTRIAXone 1 GM in SODIUM CHLORIDE 0.9% MINIBAG 100 ML IV STA (16:53)
[2017-08-15] MEDS ORDERED: SODIUM CHLORIDE 0.9% 1,000 ML IV ONE (16:53)
--- NOTE | 2017-08-15 16:55 | ED Physician Documentation ---
History of Present Illness - Stated complaint Stated Complaint: FEMALE - Chief complaint Chief Complaint: Abd Pain - History obtained from History obtained from: Patient, Family (Son) - History of Present Illness Timing: Other (82-year-old woman with history of A. fib on warfarin was seen in the office 2 days ago and diagnosed with a UTI and placed on Macrobid. Culture grew pansensitive E. coli although intermediate to cephalothin. She felt like she was getting worse and developed diarrhea and chills and thought was a side effect of the medication and stopped taking it. Today she had a fever of 100.4 at home and dry heaves. She has not been drinking much water.) Review of Systems Ten Systems: 10 systems reviewed and negative Constitutional: reports: Fever, Chills, Fatigue Cardiac: denies: Chest pain / pressure, Palpitations Respiratory: denies: Dyspnea, Cough GI: reports: Nausea. denies: Abdominal Pain, Vomiting, Diarrhea PD PAST MEDICAL HISTORY - Past Medical History Cardiovascular: Hypertension, High cholesterol, Atrial fibrillation, Other Respiratory: None Neuro: CVA, Motion sickness, Other Endocrine/Autoimmune: Other GI: GERD, Other : Frequency HEENT: None Psych: None Musculoskeletal: Other Derm: None - Past Surgical History Past Surgical History: Yes General: Other Ortho: Other - Present Medications Home Medications: Ambulatory Orders Medication Instructions Recorded Confirmed Gabapentin 300 mg PO QPM 03/02/13 06/18/17 Losartan [Cozaar] 25 mg PO DAILY 03/02/13 06/18/17 Omeprazole [PriLOSEC] 20 mg PO DAILY 03/02/13 06/18/17 predniSONE [Deltasone] 10 mg PO DAILY 03/02/13 06/18/17 Acetaminophen 1,000 mg PO Q6HR PRN 11/01/16 06/18/17 Metoprolol Succinate 25 mg PO DAILY 11/15/16 06/18/17 Cyanocobalamin (Vitamin B-12) 1,000 mcg PO 07/11/17 [Vitamin B-12] Meclizine HCl [Motion Sickness 25 mg PO TID PRN #20 tablet 07/11/17 Relief] Meclizine [Antivert] 25 mg PO Q6H 07/11/17 07/11/17 Warfarin [Coumadin] 5 mg PO DAILY 07/11/17 07/11/17 Ciprofloxacin HCl [Cipro] 500 mg PO BID #14 tablet 08/15/17 - Allergies Allergies/Adverse Reactions: Allergies Allergy/AdvReac Type Severity Reaction Status Date / Time Penicillins Allergy Unknown UNKNOWN Verified 07/11/17 12:12 - Social History Does the pt smoke?: No Smoking Status: Never smoker Does the pt drink ETOH?: No Does the pt have substance abuse?: No - Family History Family history: reports: Non contributory - Immunizations Immunizations are current?: Yes - POLST Patient has POLST: No POLST Status: DNR PD ED PE NORMAL - Vitals Vital signs reviewed: Yes - General General: Alert and oriented X 3, No acute distress - HEENT HEENT: PERRL, EOMI - Neck Neck: Supple, no meningeal sign, No bony TTP - Cardiac Cardiac: RRR, Other (Subtle systolic murmur) - Respiratory Respiratory: No respiratory distress, Clear bilaterally - Abdomen Abdomen: Normal bowel sounds, Soft, Non tender - Back Back: No CVA TTP, No spinal TTP - Derm Derm: Normal color, Warm and dry - Extremities Extremities: No edema, No calf tenderness / cord - Neuro Neuro: Alert and oriented X 3, Normal speech - Psych Psych: Normal mood, Normal affect Results - Vitals Vitals: Vital Signs - 24 hr 08/15/17 08/15/17 16:36 18:10 Temperature 36.8 C 38.3 C H Heart Rate 97 84 Respiratory 20 16 Rate Blood Pressure 121/52 L 129/56 L O2 Saturation 97 95 Oxygen O2 Source [Without Activity] Room air O2 Source Room air - Labs Labs: Laboratory Tests 08/15/17 08/15/17 08/15/17 16:58 16:58 16:58 WBC 13.7 H RBC 4.02 L Hgb 11.8 L Hct 36.3 L MCV 90.1 MCH 29.3 MCHC 32.5 RDW 14.9 Plt Count 249 MPV 8.3 Neut # 11.6 H Lymph # 0.8 L [place] # 1.1 H Eos # 0.2 Baso # 0.1 Absolute Nucleated RBC 0.01 Nucleated RBC % 0.0 PT INR Sodium 136 Potassium 3.9 Chloride 100 L Carbon Dioxide 26 Anion Gap 10.0 BUN 14 Creatinine 0.9 Estimated GFR (MDRD) 60 L Glucose 101 H Lactic Acid 1.1 Calcium 9.4 Total Bilirubin 1.1 H AST 18 ALT 14 Alkaline Phosphatase 55 Total Protein 7.4 Albumin 3.9 Globulin 3.5 Albumin/Globulin Ratio 1.1 Lipase 22 08/15/17 17:07 WBC RBC Hgb Hct MCV MCH MCHC RDW Plt Count MPV Neut # Lymph # [place] # Eos # Baso # Absolute Nucleated RBC Nucleated RBC % PT 20.0 H INR 1.8 H Sodium Potassium Chloride Carbon Dioxide Anion Gap BUN Creatinine Estimated GFR (MDRD) Glucose Lactic Acid Calcium Total Bilirubin AST ALT Alkaline Phosphatase Total Protein Albumin Globulin Albumin/Globulin Ratio Lipase PD MEDICAL DECISION MAKING - ED course ED course: 82-year-old woman with known UTI with pansensitive E. coli presents with worsening symptoms and medical noncompliance. She was administered Rocephin IV and IV fluids here with improvement in her symptoms. Modest leukocytosis. She very much wanted to go home and promises to take the new antibiotic. Departure - Departure Disposition: Home, Self Care Clinical Impression: Anticoagulant long-term use Urinary tract infection Qualifiers: Urinary tract infection type: site unspecified Hematuria presence: without hematuria Qualified Code(s): N39.0 - Urinary tract infection, site not specified Condition: Good Record reviewed to determine appropriate education?: Yes Instructions: ED UTI Cystitis Female Prescriptions: Ciprofloxacin HCl [Cipro] 500 mg PO BID #14 tablet Comments: Often times when you start antibiotics while you are taking anticoagulants such as Coumadin or warfarin, your INR will go up. You need to have your INR checked frequently while on the antibiotics. Have it checked in 3 days, again in 6 days, and at least weekly while you are on antibiotics. Dose adjustments of your anticoagulants may be necessary. Call your doctor to arrange a follow-up appointment, make the next available appointment. In the interim, return anytime if worse or if new symptoms develop. Discharge Date/Time: 08/15/17 18:24
[2017-08-15 17:04] LABS: BASOPHILS # (AUTO) 0.1 10^3/uL (0.0-0.1); BASOPHILS % (AUTO) 0.4 %; EOSINOPHILS # (AUTO) 0.2 10^3/uL (0.0-0.7); EOSINOPHILS % (AUTO) 1.2 %; HGB - HEMOGLOBIN 11.8 g/dL (12.0-16.0); LYMPHOCYTES # (AUTO) 0.8 10^3/uL (1.5-3.5); LYMPHOCYTES % (AUTO) 5.6 %; MEAN CORPUSCULAR HEMOGLOBIN 29.3 pg (27.0-31.0); MEAN CORPUSCULAR HGB CONC 32.5 g/dL (32.0-36.0); MEAN CORPUSCULAR VOLUME 90.1 fL (81.0-99.0); MEAN PLATELET VOLUME 8.3 fL (7.9-10.8); MONOCYTES # (AUTO) 1.1 10^3/uL (0.0-1.0); MONOCYTES % (AUTO) 8.2 %; NEUTROPHILS # (AUTO) 11.6 10^3/uL (1.5-6.6); NEUTROPHILS % (AUTO) 84.6 %; PLT - PLATELET COUNT 249 10^3/uL (130-450); RED BLOOD COUNT 4.02 10^6/uL (4.20-5.40); RED CELL DISTRIBUTION WIDTH 14.9 % (12.0-15.0); WHITE BLOOD COUNT 13.7 x10^3/uL (4.8-10.8)
[2017-08-15 17:15] LABS: ALBUMIN 3.9 g/dL (3.2-5.5); ALBUMIN/GLOBULIN RATIO 1.1 (1.0-2.2); BILIRUBIN,TOTAL 1.1 mg/dL (0.2-1.0); CALCIUM 9.4 mg/dL (8.5-10.3); CREATININE 0.9 mg/dL (0.4-1.0); TOTAL PROTEIN 7.4 g/dL (6.7-8.2)
[2017-08-15 17:31] LABS: INR 1.8 (0.8-1.2)
[2017-08-15 18:11] VITALS: BP 129/56
== END 2017-08-15 18:24 | disposition home or self-care (01) ==
LOC: ED 16:28
DX: N39.0 Urinary tract infection, site not specified (principal); I48.91 Unspecified atrial fibrillation; Z79.01 Long term (current) use of anticoagulants; I10 Essential (primary) hypertension; E78.00 Pure hypercholesterolemia, unspecified; Z86.73 Personal history of transient ischemic attack (TIA), and cerebral infarction without residual deficits
CPT/HCPCS: 36415; 80053; 83605; 83690; 85025; 85610; 87040; 96374; 96375; 99283; 99284

== ENCOUNTER 2017-08-18 12:29 | Outpatient (CLI) | payer MEDICARE, OTHER | END 2017-08-18 12:30 | disposition home or self-care (01) | LOC: LAB.S 12:29 | PROVIDERS: ATTEND Family Medicine | DX: Z79.01 Long term (current) use of anticoagulants (principal); I48.91 Unspecified atrial fibrillation | CPT/HCPCS: 85610 ==

== ENCOUNTER 2017-09-02 12:49 | Outpatient (CLI) | payer MEDICARE ==
[2017-09-02] MEDS ORDERED: GADOBUTROL 7.5 MMOL/7.5 ML VIAL ONE (13:09)
[2017-09-02] MEDS ORDERED: GADOBUTROL 7.5 MMOL/7.5 ML VIAL IVP ONE (13:45)
--- NOTE | 2017-09-02 18:21 | MRI Report ---
EXAM: LEFT CALF/TIBIA MRI WITHOUT AND WITH CONTRAST EXAM DATE: 09/02/2017 01:48 PM. CLINICAL HISTORY: Lower leg pain. Anterior left lower leg wound. COMPARISON: None. TECHNIQUE: Multiplanar, multisequence T1-weighted and fluid-sensitive sequences of the calf/tibia bef ore and after administration of intravenous contrast. IV contrast: 7 mL Gadavist given IV, no reactio n. Other: None. FINDINGS: Bones: No fractures or subluxations. No marrow edema or abnormal enhancement. No bone lesions. Joint Spaces: Visualized portions of the knee show a small amount of arthritic change. Ankle not incl uded. Tendons: Where visualized, the Achilles and plantaris tendons are intact. Musculature: No edema, enhancement, or fatty atrophy. Other: Focal area of concern over the anterior mid to lower leg is marked with an MRI marker. In this region, there is some low signal on T1, intermediate signal on T2 and heterogeneous enhancement. No fluid collections or drainable abscesses. No involvement of periosteum or cortical bone. IMPRESSION: 1. Superficial and subcutaneous inflammatory process and ulceration seen over the anterior lower leg. No evidence for drainable fluid collection, periostitis or osteomyelitis. No abscess or fluid collec tions. 2. No other worrisome imaging features. [facility] MUSCULOSKELETAL RADIOLOGY SECTION Referring Provider Line: [phone] SITE ID: [id number]
== END 2017-09-02 12:50 | disposition home or self-care (01) ==
LOC: DI 12:49
PROVIDERS: ATTEND Family Medicine
DX: L97.929 Non-pressure chronic ulcer of unspecified part of left lower leg with unspecified severity (principal)
CPT/HCPCS: 73720; A9585

== ENCOUNTER 2017-10-01 13:36 | Outpatient (CLI) | payer MEDICARE | END 2017-10-01 13:37 | disposition home or self-care (01) | LOC: LAB.F 13:36 | PROVIDERS: ATTEND Family Medicine | DX: I48.91 Unspecified atrial fibrillation (principal); Z79.01 Long term (current) use of anticoagulants | CPT/HCPCS: 85610 ==

== ENCOUNTER 2017-10-16 12:37 | Outpatient (CLI) | payer MEDICARE | END 2017-10-16 12:38 | disposition home or self-care (01) | LOC: LAB.F 12:37 | PROVIDERS: ATTEND Family Medicine | DX: I48.91 Unspecified atrial fibrillation (principal); Z79.01 Long term (current) use of anticoagulants | CPT/HCPCS: 85610 ==

== ENCOUNTER 2017-10-28 10:44 | Outpatient (CLI) | payer MEDICARE, OTHER | END 2017-10-28 10:45 | disposition home or self-care (01) | LOC: LAB.F 10:44 | PROVIDERS: ATTEND Family Medicine | DX: I48.91 Unspecified atrial fibrillation (principal); Z79.01 Long term (current) use of anticoagulants | CPT/HCPCS: 85610 ==

== ENCOUNTER 2017-11-05 10:57 | Outpatient (CLI) | payer MEDICARE, OTHER | END 2017-11-05 10:58 | disposition home or self-care (01) | LOC: LAB.F 10:57 | PROVIDERS: ATTEND Family Medicine | DX: Z79.01 Long term (current) use of anticoagulants (principal); I48.91 Unspecified atrial fibrillation | CPT/HCPCS: 85610 ==

== ENCOUNTER 2017-11-10 10:45 | Outpatient (CLI) | payer MEDICARE, OTHER | END 2017-11-10 10:46 | disposition home or self-care (01) | LOC: LAB.R 10:45 | PROVIDERS: ATTEND Family Medicine | DX: N39.0 Urinary tract infection, site not specified (principal) | CPT/HCPCS: 87077; 87086; 87181 ==

== ENCOUNTER 2017-11-17 14:14 | Outpatient (CLI) | END 2017-11-17 14:15 | disposition home or self-care (01) ==

== ENCOUNTER 2017-12-11 11:09 | Outpatient (CLI) | payer MEDICARE | END 2017-12-11 11:10 | disposition home or self-care (01) | LOC: LAB.F 11:09 | PROVIDERS: ATTEND Family Medicine | DX: Z79.01 Long term (current) use of anticoagulants (principal); I48.91 Unspecified atrial fibrillation | CPT/HCPCS: 85610 ==

== ENCOUNTER 2017-12-23 15:31 | Emergency (ER) | payer MEDICARE, OTHER ==
--- NOTE | 2017-12-23 16:03 | ED Physician Documentation ---
History of Present Illness - Stated complaint Stated Complaint: RHB - Chief complaint Chief Complaint: Cardiac - Additonal information Additional information: hx from pt and EMR 82 f pmhx HTN HLD afib CVA GIB on couamdin today about 11 developed palpitations she checked her VS on her home monitor and HR was 107 and BP was 104/77 she had no CP no SOA just very weak no recent change of meds no OTC meds no inc caffeine no new leg pain or swelling has a healed L pretibial wound sx lasted several hr better now Review of Systems Constitutional: denies: Fever, Chills Cardiac: reports: Palpitations. denies: Chest pain / pressure Respiratory: denies: Dyspnea GI: denies: Abdominal Pain, Vomiting, Diarrhea Neurologic: reports: Generalized weakness. denies: Syncope Endocrine: denies: Easy bruising / bleeding Immunocompromised: denies: Immunocompromised PD PAST MEDICAL HISTORY - Past Medical History Cardiovascular: Hypertension, High cholesterol, Atrial fibrillation, Other Respiratory: None Endocrine/Autoimmune: Other GI: GERD, Other : Frequency HEENT: None Psych: None Musculoskeletal: Other Derm: None - Past Surgical History Past Surgical History: Yes General: Other Ortho: Other - Present Medications Home Medications: Ambulatory Orders Medication Instructions Recorded Confirmed Gabapentin 300 mg PO QPM 03/02/13 12/16/17 Losartan [Cozaar] 25 mg PO DAILY 03/02/13 12/16/17 Omeprazole [PriLOSEC] 20 mg PO DAILY 03/02/13 12/16/17 predniSONE [Deltasone] 10 mg PO DAILY 03/02/13 12/16/17 Acetaminophen 1,000 mg PO Q6HR PRN 11/01/16 12/16/17 Metoprolol Succinate 25 mg PO BID 11/15/16 12/16/17 Cyanocobalamin (Vitamin B-12) 1,000 mcg PO DAILY 07/11/17 12/16/17 [Vitamin B-12] Meclizine HCl [Motion Sickness 25 mg PO TID PRN #20 tablet 07/11/17 12/16/17 Relief] Meclizine [Antivert] 25 mg PO Q6H 07/11/17 12/16/17 Warfarin [Coumadin] 5 mg PO DAILY 07/11/17 12/16/17 - Allergies Allergies/Adverse Reactions: Allergies Allergy/AdvReac Type Severity Reaction Status Date / Time Penicillins Allergy Unknown UNKNOWN Verified 07/11/17 12:12 - Social History Does the pt smoke?: No Smoking Status: Never smoker Does the pt drink ETOH?: No Does the pt have substance abuse?: No - Immunizations Immunizations are current?: Yes - POLST Patient has POLST: No POLST Status: DNR PD ED PE NORMAL - Vitals Vital signs reviewed: Yes - Cardiac Cardiac: RRR - Respiratory Respiratory: No respiratory distress, Clear bilaterally - Abdomen Abdomen: Soft, Non tender - Extremities Extremities: No edema, No calf tenderness / cord - Neuro Neuro: Alert and oriented X 3 Eye Opening: Spontaneous Results - Vitals Vitals: Vital Signs - 24 hr 12/23/17 12/23/17 15:43 16:52 Temperature 36.6 C Heart Rate 99 84 Respiratory 18 20 Rate Blood Pressure 145/93 H 139/85 H O2 Saturation 99 98 Oxygen O2 Source [] Room air O2 Source Room air - EKG (time done) 1547 Rate: Rate (enter#) (137) Rhythm: Atrial fibrillation Ischemia: Non specific changes (likely rate related) 1654 Rate: Rate (enter#) (68) Rhythm: NSR [place]: Normal Intervals: Normal [place] QRS: Normal Ischemia: Normal ST segments - Labs Labs: Laboratory Tests 12/23/17 12/23/17 12/23/17 16:55 16:55 16:55 WBC 6.2 RBC 3.98 L Hgb 12.9 Hct 38.6 MCV 96.9 MCH 32.3 H MCHC 33.3 RDW 16.4 H Plt Count 251 MPV 8.7 Neut # (Auto) 5.1 Lymph # (Auto) 0.7 L [place] # (Auto) 0.3 Eos # (Auto) 0.0 Baso # (Auto) 0.0 Absolute Nucleated RBC 0.00 Nucleated RBC % 0.0 PT 25.4 H INR 2.3 H Sodium 142 Potassium 4.1 Chloride 106 Carbon Dioxide 27 Anion Gap 9.0 BUN 15 Creatinine 0.8 Estimated GFR (MDRD) 68 L Glucose 111 H Calcium 9.4 Troponin I 12/23/17 16:55 WBC RBC Hgb Hct MCV MCH MCHC RDW Plt Count MPV Neut # (Auto) Lymph # (Auto) [place] # (Auto) Eos # (Auto) Baso # (Auto) Absolute Nucleated RBC Nucleated RBC % PT INR Sodium Potassium Chloride Carbon Dioxide Anion Gap BUN Creatinine Estimated GFR (MDRD) Glucose Calcium Troponin I < 0.04 PD MEDICAL DECISION MAKING - ED course ED course: pt was in a fib spont converted hx of same trop neg approx 6 hr after onset of sx nl lytes already on coumadin will dc - Sepsis Event Vital Signs: Vital Signs - 24 hr 12/23/17 12/23/17 15:43 16:52 Temperature 36.6 C Heart Rate 99 84 Respiratory 18 20 Rate Blood Pressure 145/93 H 139/85 H O2 Saturation 99 98 Oxygen O2 Source [] Room air O2 Source Room air Departure - Departure Disposition: Home, Self Care Clinical Impression: Afib Qualifiers: Atrial fibrillation type: paroxysmal Qualified Code(s): I48.0 - Paroxysmal atrial fibrillation Condition: Good Instructions: ED Afib Comments: You were in an irregular rhythm called atrial fibrillation You converted out of that into a normal rhythm on your own Your labs are fine. You are already on coumadin to prevent clots forming in your heart chambers. And this is not the first time you have had a fib So that means it is OK for you to go home. Please continue all your usual medications Follow up with your PMD for a recheck this week. Return if worse
[2017-12-23] MEDS ORDERED: SODIUM CHLORIDE 0.9% 500 ML IV ONE (16:04)
[2017-12-23 17:00] LABS: MONOCYTES # (AUTO) 0.3 10^3/uL (0.0-1.0)
[2017-12-23 17:05] LABS: BASOPHILS % (AUTO) 0.3 %; EOSINOPHILS % (AUTO) 0.1 %; HGB - HEMOGLOBIN 12.9 g/dL (12.0-16.0); LYMPHOCYTES # (AUTO) 0.7 10^3/uL (1.5-3.5); LYMPHOCYTES % (AUTO) 11.9 %; MEAN CORPUSCULAR HEMOGLOBIN 32.3 pg (27.0-31.0); MEAN CORPUSCULAR HGB CONC 33.3 g/dL (32.0-36.0); MEAN CORPUSCULAR VOLUME 96.9 fL (81.0-99.0); MEAN PLATELET VOLUME 8.7 fL (7.9-10.8); MONOCYTES % (AUTO) 4.8 %; NEUTROPHILS # (AUTO) 5.1 10^3/uL (1.5-6.6); NEUTROPHILS % (AUTO) 82.9 %; PLT - PLATELET COUNT 251 10^3/uL (130-450); RED BLOOD COUNT 3.98 10^6/uL (4.20-5.40); RED CELL DISTRIBUTION WIDTH 16.4 % (12.0-15.0); WHITE BLOOD COUNT 6.2 x10^3/uL (4.8-10.8)
[2017-12-23 17:08] LABS: CALCIUM 9.4 mg/dL (8.5-10.3); CREATININE 0.8 mg/dL (0.4-1.0)
[2017-12-23 17:14] LABS: INR 2.3 (0.8-1.2); PT - PROTHROMBIN TIME 25.4 secs (9.9-12.6)
[2017-12-23 18:00] VITALS: BP 128/76
== END 2017-12-23 18:00 | disposition home or self-care (01) ==
LOC: ED 15:31
DX: I48.0 Paroxysmal atrial fibrillation (principal); I10 Essential (primary) hypertension; E78.00 Pure hypercholesterolemia, unspecified; Z86.73 Personal history of transient ischemic attack (TIA), and cerebral infarction without residual deficits; Z79.01 Long term (current) use of anticoagulants
CPT/HCPCS: 36415; 80048; 84484; 85025; 85610; 93005; 99283; 99284

== ENCOUNTER 2018-01-12 10:58 | Outpatient (CLI) | payer MEDICARE, OTHER | END 2018-01-12 10:59 | disposition home or self-care (01) | LOC: LAB.F 10:58 | PROVIDERS: ATTEND Family Medicine | DX: Z79.01 Long term (current) use of anticoagulants (principal); I48.91 Unspecified atrial fibrillation | CPT/HCPCS: 85610 ==

== ENCOUNTER 2018-02-17 10:04 | Outpatient (CLI) | payer MEDICARE, OTHER ==
--- NOTE | 2018-02-17 15:03 | DEXA Report ---
Reason: OSTEOPOROSIS Procedure Date: 02/17/2018 Accession Number: [id number] / [id number] Procedure: DEX - Dexa Spine and/or Hip CPT Code: FULL RESULT: EXAM: Dexa Spine and/or Hip DATE: 02/17/2018 11:22 AM CLINICAL HISTORY: OSTEOPOROSIS TECHNIQUE: Dual energy x-ray absorptiometry (DXA) was performed on a FND System. Regions measured are the AP Spine, femoral neck, and if needed forearm. COMPARISON: None. In accordance with the International Society for Clinical Densitometry (ISCD) guidelines, data from previous exams may be reanalyzed using current recommendations and techniques. This is done to allow a more accurate basis for comparison with the current study. FINDINGS: The data for the lumbar spine is as follows: BMD (g/cm/cm) T-SCORE Z-SCORE REGION L1 0.979 -1.3 0.6 L2 1.169 -0.3 1.6 L3 1.091 -0.9 0.9 L4 0.860 -2.8 -1.0 TOTAL 1.030 -1.2 0.6 NOTE: All evaluable vertebrae are used for classification The data for the hip is as follows: BMD (g/cm/cm) T-SCORE Z-SCORE REGION Neck 0.673 -2.6 -0.3 TOTAL 0.716 -2.3 -0.1 NOTE: The femoral neck or total proximal femur, whichever is lowest, is used for classification. IMPRESSION: THE WHO CLASSIFICATION BASED ON THE INTERNATIONAL REFERENCE STANDARD IS OSTEOPOROSIS. THE FRACTURE RISK IS HIGH. RECOMMENDATION: Patients with diagnosis of osteoporosis or osteopenia should have regular bone mineral density assessment. For those eligible for Medicare, routine testing is allowed once every 2 years. Testing frequency can be increased for patients who have rapidly progressing disease or for those who are receiving medical therapy to restore bone mass. COMMENT: World Health Organization (WHO) definitions for osteoporosis and osteopenia: NORMAL BMD: T-score at -1.0 or higher, fracture risk is low OSTEOPENIA BMD: T-score between -1.0 and -2.5, fracture risk is increased. OSTEOPOROSIS BMD: T-score at -2.5 or lower, fracture risk is high. National Osteoporosis Foundation recommends: 1. Obtain adequate dietary calcium (at least 1200 mg per day) and vitamin D (400-800 international units per day). 2. Participate, as appropriate, in regular weightbearing and muscle-strengthening exercise. 3. Avoid tobacco use and reduce alcohol and caffeine intake. 4. For more detailed information see the website at www.NOF.org.
== END 2018-02-17 10:05 | disposition home or self-care (01) ==
LOC: DI 10:04
PROVIDERS: ATTEND Internal Medicine Rheumatology
DX: M81.0 Age-related osteoporosis without current pathological fracture (principal); I48.91 Unspecified atrial fibrillation; M85.89 Other specified disorders of bone density and structure, multiple sites
CPT/HCPCS: 77080; 85610

== ENCOUNTER 2018-02-24 13:24 | Outpatient (CLI) | payer MEDICARE, OTHER | END 2018-02-24 13:25 | disposition home or self-care (01) | LOC: LAB.F 13:24 | PROVIDERS: ATTEND Nurse Practitioner Family | DX: I48.91 Unspecified atrial fibrillation (principal) | CPT/HCPCS: 85610 ==

== ENCOUNTER 2018-03-03 11:31 | Outpatient (CLI) | payer MEDICARE, OTHER | END 2018-03-03 11:32 | disposition home or self-care (01) | LOC: LAB.F 11:31 | PROVIDERS: ATTEND Nurse Practitioner Family | DX: I48.91 Unspecified atrial fibrillation (principal) | CPT/HCPCS: 85610 ==

== ENCOUNTER 2018-03-05 13:34 | Outpatient (CLI) | payer MEDICARE, OTHER ==
--- NOTE | 2018-03-06 11:20 | Mammography Report ---
Reason: SCREENING MAMMO Procedure Date: 03/05/2018 Accession Number: [id number] / [id number] Procedure: RYAN - Screening Mammo Dig Bilat CPT Code: FULL RESULT: EXAM: Screening Mammo Dig Bilat DATE: 03/05/2018 2:19 PM CLINICAL HISTORY: 83-year-old female for screening. TECHNIQUE: Bilateral CC and MLO views were obtained. COMPARISON: 10/13/2014, 03/31/2012, 11/07/2009, 02/21/2009. FINDINGS: The breasts demonstrate scattered fibroglandular densities bilaterally. Typically benign vascular calcifications are again seen. No suspicious masses, clustered microcalcifications, or regions of architectural distortion are identified. IMPRESSION: Benign findings RECOMMENDATION: Routine annual screening unless otherwise clinically indicated. BIRADS CATEGORY 2: Benign findings STANDARD QUALIFYING STATEMENTS: 1. This examination was not reviewed with the aid of Computer-Aided Detection (CAD). 2. A negative or benign imaging report should not delay biopsy if clinically suspicious findings are present. Consider surgical consultation if warrented. More than 5% of cancers are not identified by imaging. 3. Dense breasts may obscure an underlying neoplasm. 4. This examination was reviewed without the aid of 3D breast imaging (tomosynthesis).
== END 2018-03-05 13:35 | disposition home or self-care (01) ==
LOC: DI 13:34
DX: Z12.31 Encounter for screening mammogram for malignant neoplasm of breast (principal)
CPT/HCPCS: 77067

== ENCOUNTER 2018-03-17 11:29 | Outpatient (CLI) | payer MEDICARE, OTHER | END 2018-03-17 11:30 | disposition home or self-care (01) | LOC: LAB.F 11:29 | PROVIDERS: ATTEND Nurse Practitioner Family | DX: I48.91 Unspecified atrial fibrillation (principal) | CPT/HCPCS: 85610 ==

== ENCOUNTER 2018-04-01 13:32 | Outpatient (CLI) | payer MEDICARE, OTHER | END 2018-04-01 13:33 | disposition home or self-care (01) | LOC: LAB.F 13:32 | PROVIDERS: ATTEND Nurse Practitioner Family | DX: I48.91 Unspecified atrial fibrillation (principal) | CPT/HCPCS: 85610 ==

== ENCOUNTER 2018-04-10 11:42 | Outpatient (CLI) | payer MEDICARE, OTHER | END 2018-04-10 11:43 | disposition home or self-care (01) | LOC: LAB.F 11:42 | PROVIDERS: ATTEND Nurse Practitioner Family | DX: I48.91 Unspecified atrial fibrillation (principal) | CPT/HCPCS: 85610 ==

== ENCOUNTER 2018-05-07 15:39 | Emergency (ER) | payer MEDICARE, OTHER ==
--- NOTE | 2018-05-07 16:01 | ED Physician Documentation ---
PD HPI CHEST PAIN - Stated complaint Stated Complaint: BP SPIKE - Chief complaint Chief Complaint: Cardiac - History obtained from History obtained from: Patient - History of Present Illness Timing - onset: Today (83-year-old woman with history of atrial fibrillation hypertension felt like her heart was pounding but regular earlier in the day and checked her blood pressure several times and it was high. She is asymptomatic now.) Review of Systems Constitutional: denies: Fever, Chills Cardiac: reports: Palpitations. denies: Chest pain / pressure, Pedal edema, Calf pain Respiratory: denies: Dyspnea, Cough GI: denies: Abdominal Pain PD PAST MEDICAL HISTORY - Past Medical History Cardiovascular: Hypertension, High cholesterol, Atrial fibrillation, Other Respiratory: None Endocrine/Autoimmune: Other GI: GERD, Other : Frequency HEENT: None Psych: None Musculoskeletal: Other Derm: None - Past Surgical History Past Surgical History: Yes General: Other Ortho: Other - Present Medications Home Medications: Ambulatory Orders Medication Instructions Recorded Confirmed Gabapentin 300 mg PO QPM 03/02/13 12/16/17 Losartan [Cozaar] 25 mg PO DAILY 03/02/13 12/16/17 Omeprazole [PriLOSEC] 20 mg PO DAILY 03/02/13 12/16/17 predniSONE [Deltasone] 10 mg PO DAILY 03/02/13 12/16/17 Acetaminophen 1,000 mg PO Q6HR PRN 11/01/16 12/16/17 Metoprolol Succinate 25 mg PO BID 11/15/16 12/16/17 Cyanocobalamin (Vitamin B-12) 1,000 mcg PO DAILY 07/11/17 12/16/17 [Vitamin B-12] Meclizine HCl [Motion Sickness 25 mg PO TID PRN #20 tablet 07/11/17 12/16/17 Relief] Meclizine [Antivert] 25 mg PO Q6H PRN 07/11/17 12/16/17 Warfarin [Coumadin] 5 mg PO DAILY 07/11/17 12/16/17 - Allergies Allergies/Adverse Reactions: Allergies Allergy/AdvReac Type Severity Reaction Status Date / Time Penicillins Allergy Unknown UNKNOWN Verified 05/07/18 15:49 - Social History Does the pt smoke?: No Smoking Status: Never smoker Does the pt drink ETOH?: No Does the pt have substance abuse?: No - Immunizations Immunizations are current?: Yes - POLST Patient has POLST: No POLST Status: DNR PD ED PE NORMAL - Vitals Vital signs reviewed: Yes - General General: Alert and oriented X 3, No acute distress - Cardiac Cardiac: RRR, No murmur - Respiratory Respiratory: No respiratory distress, Clear bilaterally - Abdomen Abdomen: Non tender - Neuro Neuro: Alert and oriented X 3, Normal speech Results - Vitals Vitals: Vital Signs - 24 hr 05/07/18 15:46 Temperature 36 C L Heart Rate 84 Respiratory 18 Rate Blood Pressure 166/92 H O2 Saturation 100 Oxygen O2 Source [] Room air O2 Source Room air - EKG (time done) 1602 Rate: Rate (enter#) (78) Rhythm: NSR [place]: LAD Intervals: Normal [place] QRS: Normal Ischemia: Normal ST segments Computer interpretation: Agree with computer - Labs Labs: Laboratory Tests 05/07/18 05/07/18 05/07/18 16:07 16:07 16:07 WBC 5.5 RBC 3.89 L Hgb 12.4 Hct 37.8 MCV 97.1 MCH 31.8 H MCHC 32.8 RDW 14.1 Plt Count 247 MPV 8.5 Neut # (Auto) 4.6 Lymph # (Auto) 0.6 L [place] # (Auto) 0.2 Eos # (Auto) 0.0 Baso # (Auto) 0.0 Absolute Nucleated RBC 0.00 Nucleated RBC % 0.1 PT 22.7 H INR 2.0 H Sodium 138 Potassium 3.7 Chloride 103 Carbon Dioxide 26 Anion Gap 9.0 BUN 13 Creatinine 0.8 Estimated GFR (MDRD) 68 L Glucose 110 H Calcium 9.0 Troponin I 05/07/18 16:07 WBC RBC Hgb Hct MCV MCH MCHC RDW Plt Count MPV Neut # (Auto) Lymph # (Auto) [place] # (Auto) Eos # (Auto) Baso # (Auto) Absolute Nucleated RBC Nucleated RBC % PT INR Sodium Potassium Chloride Carbon Dioxide Anion Gap BUN Creatinine Estimated GFR (MDRD) Glucose Calcium Troponin I < 0.04 PD MEDICAL DECISION MAKING - ED course ED course: 83-year-old woman with palpitations and anxiety at home but a normal exam here and her blood pressure drifted down to 130/70 without specific intervention. Departure - Departure Disposition: 01 Home, Self Care Clinical Impression: Palpitation, Anticoagulant long-term use HTN (hypertension) Qualifiers: Hypertension type: essential hypertension Qualified Code(s): I10 - Essential (primary) hypertension Condition: Good Record reviewed to determine appropriate education?: Yes Instructions: Blood Pressure Dc Comments: Call your doctor to arrange a follow-up appointment, make the next available appointment. In the interim, return anytime if worse or if new symptoms develop.
[2018-05-07 16:12] LABS: BASOPHILS % (AUTO) 0.2 %; EOSINOPHILS % (AUTO) 0.2 %; HGB - HEMOGLOBIN 12.4 g/dL (12.0-16.0); LYMPHOCYTES # (AUTO) 0.6 10^3/uL (1.5-3.5); LYMPHOCYTES % (AUTO) 10.6 %; MEAN CORPUSCULAR HEMOGLOBIN 31.8 pg (27.0-31.0); MEAN CORPUSCULAR HGB CONC 32.8 g/dL (32.0-36.0); MEAN CORPUSCULAR VOLUME 97.1 fL (81.0-99.0); MEAN PLATELET VOLUME 8.5 fL (7.9-10.8); MONOCYTES # (AUTO) 0.2 10^3/uL (0.0-1.0); MONOCYTES % (AUTO) 4.4 %; NEUTROPHILS # (AUTO) 4.6 10^3/uL (1.5-6.6); NEUTROPHILS % (AUTO) 84.6 %; PLT - PLATELET COUNT 247 10^3/uL (130-450); RED BLOOD COUNT 3.89 10^6/uL (4.20-5.40); RED CELL DISTRIBUTION WIDTH 14.1 % (12.0-15.0); WHITE BLOOD COUNT 5.5 x10^3/uL (4.8-10.8)
[2018-05-07 16:19] LABS: PT - PROTHROMBIN TIME 22.7 secs (9.9-12.6)
[2018-05-07 16:20] LABS: CREATININE 0.8 mg/dL (0.4-1.0)
[2018-05-07 16:43] VITALS: BP 130/72
== END 2018-05-07 16:47 | disposition home or self-care (01) ==
LOC: ED 15:39
DX: R00.2 Palpitations (principal); I10 Essential (primary) hypertension; I48.91 Unspecified atrial fibrillation; E78.00 Pure hypercholesterolemia, unspecified; Z79.01 Long term (current) use of anticoagulants
CPT/HCPCS: 36415; 80048; 84484; 85025; 85610; 93005; 99282; 99283

== ENCOUNTER 2018-05-22 07:35 | Outpatient (CLI) | payer MEDICARE | END 2018-05-22 07:36 | disposition critical access hospital (66) | LOC: EMS 07:35 | PROVIDERS: ATTEND Surgery | DX: R42 Dizziness and giddiness (principal) | CPT/HCPCS: A0425; A0427 ==

== ENCOUNTER 2018-05-22 07:59 | Inpatient (IN) | payer MEDICARE, OTHER ==
[2018-05-22 09:01] LABS: BASOPHILS % (AUTO) 0.7 %; EOSINOPHILS # (AUTO) 0.1 10^3/uL (0.0-0.7); EOSINOPHILS % (AUTO) 1.5 %; HGB - HEMOGLOBIN 11.6 g/dL (12.0-16.0); LYMPHOCYTES # (AUTO) 1.3 10^3/uL (1.5-3.5); LYMPHOCYTES % (AUTO) 27.9 %; MEAN CORPUSCULAR HEMOGLOBIN 31.8 pg (27.0-31.0); MEAN CORPUSCULAR HGB CONC 33.8 g/dL (32.0-36.0); MEAN CORPUSCULAR VOLUME 94.2 fL (81.0-99.0); MEAN PLATELET VOLUME 8.6 fL (7.9-10.8); MONOCYTES # (AUTO) 0.6 10^3/uL (0.0-1.0); NEUTROPHILS # (AUTO) 2.8 10^3/uL (1.5-6.6); NEUTROPHILS % (AUTO) 57.9 %; PLT - PLATELET COUNT 224 10^3/uL (130-450); RED BLOOD COUNT 3.64 10^6/uL (4.20-5.40); RED CELL DISTRIBUTION WIDTH 13.8 % (12.0-15.0); WHITE BLOOD COUNT 4.8 x10^3/uL (4.8-10.8)
[2018-05-22 09:07] LABS: INR 2.3 (0.8-1.2); PT - PROTHROMBIN TIME 25.9 secs (9.9-12.6)
[2018-05-22 09:13] LABS: ALBUMIN 3.6 g/dL (3.2-5.5); ALBUMIN/GLOBULIN RATIO 1.2 (1.0-2.2); BILIRUBIN,TOTAL 0.8 mg/dL (0.2-1.0); CALCIUM 9.2 mg/dL (8.5-10.3); CREATININE 0.9 mg/dL (0.4-1.0); TOTAL PROTEIN 6.5 g/dL (6.7-8.2)
[2018-05-22] MEDS ORDERED: MECLIZINE 12.5 MG TABLET PO STA (09:44)
--- NOTE | 2018-05-22 09:44 | ED Physician Documentation ---
History of Present Illness - Stated complaint Stated Complaint: DIZZINESS - Chief complaint Chief Complaint: Neuro - History obtained from History obtained from: Patient, Family - History of Present Illness Timing: Prior to arrival Pain level max: 0 Pain level now: 0 - Additonal information Additional information: 83-year-old female with history of CVA and TIA 10 years ago and being treated for vestibular disorder here with complaint of waking up feeling room spinning as she was walking to the bathroom this morning. Patient states it is worse when she turns her head a certain way and when she lays down. Denies any associated headache, nausea, vomiting or weakness. Patient denies any recent trauma, travel or recent illness. Per son patient had seen a neurologist and ENT for this problem. He also stated that she is supposed to go to vestibular physical therapy which she did once but they had postponed the physical therapy because she has been busy moving. Review of Systems Ten Systems: 10 systems reviewed and negative Constitutional: denies: Fever, Chills, Myalgias Eyes: denies: Loss of vision, Decreased vision Ears: reports: Tinnitus/ringing (chronic). denies: Loss of hearing, Ear pain Nose: denies: Rhinorrhea / runny nose Cardiac: denies: Chest pain / pressure Respiratory: denies: Dyspnea GI: denies: Abdominal Pain, Nausea, Vomiting Musculoskeletal: denies: Neck pain, Back pain Neurologic: denies: Generalized weakness, Focal weakness, Numbness, Difficulty speaking, Near syncope, Syncope, Seizure, Confused, Altered mental status, Headache, Head injury, LOC PD PAST MEDICAL HISTORY - Past Medical History Cardiovascular: Hypertension, High cholesterol, Atrial fibrillation, Other Respiratory: None Endocrine/Autoimmune: Other GI: GERD, Other : Frequency HEENT: None Psych: None Musculoskeletal: Other Derm: None - Past Surgical History Past Surgical History: Yes General: Other Ortho: Other - Present Medications Home Medications: Ambulatory Orders Medication Instructions Recorded Confirmed RX: Gabapentin 300 mg PO QPM 03/02/13 05/22/18 RX: Losartan [Cozaar] 25 mg PO BID 03/02/13 05/22/18 RX: Omeprazole [PriLOSEC] 20 mg PO DAILY 03/02/13 05/22/18 RX: predniSONE [Deltasone] 10 mg PO DAILY 03/02/13 05/22/18 RX: Acetaminophen 1,000 mg PO Q6HR PRN 11/01/16 05/22/18 RX: Metoprolol Succinate 25 mg PO BID 11/15/16 05/22/18 RX: Warfarin [Coumadin] 5 mg PO QPM 07/11/17 05/22/18 Cholecalciferol (Vitamin D3) 1,000 units PO DAILY 05/22/18 05/22/18 [Vitamin D3] - Allergies Allergies/Adverse Reactions: Allergies Allergy/AdvReac Type Severity Reaction Status Date / Time Penicillins Allergy Unknown UNKNOWN Verified 05/22/18 08:05 - Social History Does the pt smoke?: No Smoking Status: Never smoker Does the pt drink ETOH?: No Does the pt have substance abuse?: No - Immunizations Immunizations are current?: Yes - POLST Patient has POLST: No POLST Status: DNR PD ED PE NORMAL - Vitals Vital signs reviewed: Yes - General General: Alert and oriented X 3, No acute distress, Well developed/nourished - HEENT HEENT: PERRL, EOMI, Moist mucous membranes, Pharynx benign, Other (No nystagmus) - Neck Neck: Supple, no meningeal sign - Cardiac Cardiac: No murmur, Strong equal pulses, Other (Irregular heart rhythm) - Respiratory Respiratory: No respiratory distress, Clear bilaterally - Abdomen Abdomen: Normal bowel sounds, Soft, Non tender, Non distended - Back Back: No CVA TTP, No spinal TTP - Derm Derm: Normal color, Warm and dry - Extremities Extremities: No deformity - Neuro Neuro: Alert and oriented X 3, 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, No motor deficit, No sensory deficit, Normal speech - Psych Psych: Normal mood, Normal affect Results - Vitals Vitals: Vital Signs - 24 hr 05/22/18 05/22/18 05/22/18 08:01 10:09 11:05 Temperature 36.1 C L Heart Rate 60 52 L 53 L Heart Rate [ Sitting] Heart Rate [ Standing] Heart Rate [ Supine] Respiratory 16 14 15 Rate Blood Pressure 161/108 H 164/67 H 140/68 H Blood Pressure [Sitting] Blood Pressure [Standing] Blood Pressure [Supine] O2 Saturation 98 97 99 05/22/18 05/22/18 13:20 13:38 Temperature 36.7 C Heart Rate 62 Heart Rate [ 87 Sitting] Heart Rate [ 93 Standing] Heart Rate [ 56 L Supine] Respiratory 17 Rate Blood Pressure 162/80 H Blood Pressure 173/89 H [Sitting] Blood Pressure 183/99 H [Standing] Blood Pressure 156/68 H [Supine] O2 Saturation 97 Oxygen O2 Source [Without Activity] Room air O2 Source Room air - EKG (time done) 0808 Rate: Rate (enter#) (55) Rhythm: Sinus bradycardia [place]: LAD Intervals: Normal MD QRS: Normal Ischemia: Normal ST segments - Labs Labs: Laboratory Tests 05/22/18 05/22/18 05/22/18 08:53 08:53 08:53 WBC 4.8 RBC 3.64 L Hgb 11.6 L Hct 34.3 L MCV 94.2 MCH 31.8 H MCHC 33.8 RDW 13.8 Plt Count 224 MPV 8.6 Neut # (Auto) 2.8 Lymph # (Auto) 1.3 L [place] # (Auto) 0.6 Eos # (Auto) 0.1 Baso # (Auto) 0.0 Absolute Nucleated RBC 0.00 Nucleated RBC % 0.0 PT 25.9 H INR 2.3 H Sodium 138 Potassium 3.5 Chloride 104 Carbon Dioxide 27 Anion Gap 7.0 BUN 16 Creatinine 0.9 Estimated GFR (MDRD) 60 L Glucose 109 H Calcium 9.2 Total Bilirubin 0.8 AST 18 ALT 11 Alkaline Phosphatase 43 Troponin I Total Protein 6.5 L Albumin 3.6 Globulin 2.9 Albumin/Globulin Ratio 1.2 Lipase 36 Urine Color Urine Clarity Urine pH Ur Specific [place] Urine Protein Urine Glucose (UA) Urine Ketones Urine Occult Blood Urine Nitrite Urine Bilirubin Urine Urobilinogen Ur Leukocyte Esterase Urine RBC Urine WBC Ur Squamous Epith Cells Urine Bacteria Ur Microscopic Review Urine Culture Comments 05/22/18 05/22/18 08:53 14:10 WBC RBC Hgb Hct MCV MCH MCHC RDW Plt Count MPV Neut # (Auto) Lymph # (Auto) [place] # (Auto) Eos # (Auto) Baso # (Auto) Absolute Nucleated RBC Nucleated RBC % PT INR Sodium Potassium Chloride Carbon Dioxide Anion Gap BUN Creatinine Estimated GFR (MDRD) Glucose Calcium Total Bilirubin AST ALT Alkaline Phosphatase Troponin I < 0.04 Total Protein Albumin Globulin Albumin/Globulin Ratio Lipase Urine Color YELLOW Urine Clarity CLEAR Urine pH 6.0 Ur Specific [place] 1.025 Urine Protein NEGATIVE Urine Glucose (UA) NEGATIVE Urine Ketones NEGATIVE Urine Occult Blood SMALL H Urine Nitrite NEGATIVE Urine Bilirubin NEGATIVE Urine Urobilinogen 0.2 (NORMAL) Ur Leukocyte Esterase NEGATIVE Urine RBC 0-5 Urine WBC 0-3 Ur Squamous Epith Cells RARE Squamous Urine Bacteria Rare Ur Microscopic Review INDICATED Urine Culture Comments NOT INDICATED PD MEDICAL DECISION MAKING - ED course Complexity details: reviewed results, re-evaluated patient, considered differential (Vestibular disease, arrhythmia, electrolyte imbalance, intracranial bleed), d/w patient, d/w family, d/w PMD ED course: 1124 patient informed of test results. She states meclizine does not usually work for her. 1210 patient feels she is not any better and is not able to go home. Per nurse she was refusing orthostatic. 1330 nurse was able to do orthostatic and patient became tachycardic and hypertensive with complaint of dizziness. Hospitalist Dr. Nolasco called and case was discussed in details. He will admit the patient in observation. Departure - Departure Disposition: ED Place in Observation Clinical Impression: Dizziness Vestibular nerve disease Qualifiers: Laterality: unspecified laterality Qualified Code(s): H93.3X9 - Disorders of unspecified acoustic nerve Condition: Stable Discharge Date/Time: 05/22/18 16:09
--- NOTE | 2018-05-22 11:07 | CT Report ---
Reason: dizziness Procedure Date: 05/22/2018 Accession Number: [id number] / [id number] Procedure: CT - Head W/O CPT Code: FULL RESULT: EXAM: CT HEAD EXAM DATE: 05/22/2018 10:43 AM. CLINICAL HISTORY: Dizziness. COMPARISON: None. TECHNIQUE: Multiaxial CT images were obtained from the foramen magnum to the vertex. Reformats: Sagittal and coronal. IV contrast: None. In accordance with CT protocol optimization, one or more of the following dose reduction techniques were utilized for this exam: automated exposure control, adjustment of mA and/or KV based on patient size, or use of iterative reconstructive technique. FINDINGS: Parenchyma: Subcortical and periventricular white matter changes consistent with small vessel ischemic disease in the appropriate clinical setting. No intraparenchymal hemorrhage. No evidence of mass, midline shift, or CT findings of infarction. [place]-white differentiation is distinct. Extraaxial Spaces: Normal for age. No subdural or epidural collections identified. Ventricles: Normal in size and position. Sinuses and Orbits: Imaged paranasal sinuses, orbits, and mastoids show no significant abnormality. Bones: No evidence of fracture or calvarial defect. Other: None. IMPRESSION: 1. No acute intracranial abnormality. 2. Small vessel ischemic disease in the appropriate clinical setting. RADIA
[2018-05-22 14:17] LABS: BILIRUBIN,URINE NEGATIVE (NEGATIVE); GLUCOSE, URINE (UA) NEGATIVE (NEGATIVE); KETONES,URINE (UA) NEGATIVE (NEGATIVE); LEUKOCYTE ESTERASE, URINE NEGATIVE (NEGATIVE); NITRITE,URINE NEGATIVE (NEGATIVE); OCCULT BLOOD,URINE SMALL (NEGATIVE); PROTEIN,URINE NEGATIVE (NEGATIVE); UROBILINOGEN,URINE 0.2 (NORMAL) E.U./dL (NORMAL)
[2018-05-22 14:20] LABS: CLARITY,URINE CLEAR (CLEAR)
[2018-05-22 14:30] LABS: BACTERIA,URINE Rare /HPF (None Seen); RBC,URINE 0-5 /HPF (0-5); SQUAMOUS EPITHELIAL CELL,UR RARE Squamous (<= Few)
[2018-05-22] MEDS ORDERED: ZOLPIDEM 5 MG TABLET PO PRN (14:54)
[2018-05-22] MEDS ORDERED: ONDANSETRON 4 MG/2 ML VIAL IVP PRN (14:54)
[2018-05-22] MEDS ORDERED: ACETAMINOPHEN 325 MG TABLET PO PRN (14:54)
[2018-05-22] MEDS ORDERED: PROCHLORPERAZINE 10 MG/2 ML VIAL IVP PRN (14:54)
[2018-05-22] MEDS ORDERED: SODIUM CHLORIDE FLUSH 0.9% 10 ML SYRINGE IVP PRN (14:54)
[2018-05-22] MEDS ORDERED: SODIUM CHLORIDE 0.9% 1,000 ML IV SCH (15:00)
--- NOTE | 2018-05-22 15:48 | HISTORY & PHYSICAL EXAMINATION ---
Chief Complaint - Chief Complaint Chief Complaint: vertigo History of Present Illness - History of Present Illness HPI Comment/Other: Ms Valle is a 82-year-old female with a past medical history significance for Afib with Coumadin, vertigo, hx of CVA, HTN, HLP,iron deficiency anemia,polymyalgia rheumatica, osteoarthritis, compression fraction, infected left lower extremity, GERD, who present Er for complaint of vertigo. Patient report in the today morning, she try to get up from the bed, she felt the room is spinning.she also reports feeling dizzy this am, she states "her head is going to fall off". She state she almost fall when she bent over. Patient report she had extensive study before for her vertigo. Per son patient had seen a neurologist and ENT for this problem. She has been on [employer] for this problem for 6 days. She had a neurologist in [facility] extensively to study for this problem. No significance was found per patient's statement. Patient states it is worse when she turns her head a certain way and when she lays down. she denies chest pain, fever, chill, cough, shortness of breath, headache, nausea, vomiting or weakness. she also denies any recent trauma, travel or recent illness. pt's son report she is supposed to go to vestibular physical therapy which she did once at home but they postponed the physical therapy because she has been busy moving. pt report she had a lot of stress. She and her tried to sell their house and move to [facility]. Pt also report she had prescription for meclizine, but states she isn't using it as it is not working to her. CT of brain is unremarkable. Lab test is unremarkable. Pt is admitted in observation unit for evaluation and elsie atment of Vertigo. History - Past Medical History Cardiovascular: reports: Hypertension, High cholesterol, Atrial fibrillation, Other Respiratory: reports: None Endocrine/Autoimmune: reports: Other GI: reports: GERD, Other : reports: Frequency HEENT: reports: None Psych: reports: None Musculoskeletal: reports: Other Derm: reports: None MRSA Hx?: No - Past Surgical History General: reports: Other Ortho: reports: Other - Family & Social History Family History: Mother: , Father: Social History Notes: pt denies cigarett smoking, alcohol and drug issues. - Substance History Use: Uses substance without health or social issues: NONE - POLST Patient has POLST: No POLST Status: DNR Meds/Allgy - Home Medications Home Medications: Ambulatory Orders Medication Instructions Recorded Confirmed Gabapentin 300 mg PO QPM 03/02/13 05/22/18 Losartan [Cozaar] 25 mg PO BID 03/02/13 05/22/18 Omeprazole [PriLOSEC] 20 mg PO DAILY 03/02/13 05/22/18 predniSONE [Deltasone] 10 mg PO DAILY 03/02/13 05/22/18 Acetaminophen 1,000 mg PO Q6HR PRN 11/01/16 05/22/18 Metoprolol Succinate 25 mg PO BID 11/15/16 05/22/18 Warfarin [Coumadin] 5 mg PO QPM 07/11/17 05/22/18 Cholecalciferol (Vitamin D3) 1,000 units PO DAILY 05/22/18 05/22/18 [Vitamin D3] - Allergies Allergies/Adverse Reactions: Allergies Allergy/AdvReac Type Severity Reaction Status Date / Time Penicillins Allergy Unknown UNKNOWN Verified 05/22/18 08:05 Review of Systems - Constitutional Constitutional: denies: Fatigue, Fever, Chills, Malaise, Weakness, Poor appetite, Diaphoresis, Night sweats - Eyes Eyes: denies: Pain, Irritation, Amaurosis, Blurred vision, Spots in vision, Field loss, Vision loss, Dipolpia - Ears, Nose & Throat Ears, Nose & Throat: denies: Ear pain, Hearing loss, Hearing aids, Tinnitus, Vertigo, Nasal pain, Nasal discharge, Nosebleeds, Nasal obstruction, Nasal congestion, Postnasal drainage, Dentures, Sore throat, Hoarseness - Cardiovascular Cariovascular: denies: Irregular heart rate, Palpitations, Chest pain, Edema, Lightheadedness, Syncope, Exertional dyspnea, Decr. exercise tolerance - Respiratory Respiratory: denies: Cough, Sputum production, Wheezing, Snoring, Hemoptysis, Orthopnea, SOB at rest, SOB with exertion - Gastrointestinal Gastrointestinal: denies: Abdominal pain, Abdominal distention, Constipation, Diarrhea, Change in bowel habits, Rectal bleeding, Black stools, Bloody stools, Nausea, Vomiting, Bile emesis, Lewis blood emesis - Genitourinary Genitourinary: denies: Dysuria, Frequency, Urgency, Hematuria, Incontinence, Flank pain, Nocturia, Urethral discharge - Musculoskeletal Musculoskeletal: denies: Muscle pain, Back pain, Muscle aches, Stiffness, Limited range of motion, Muscle weakness, Gout, Joint pain - Integumentary Integumentary: denies: Rash, Pruritis, Lesions, Dryness, Lumps, Acne, Pigment changes, Nail changes - Neurological Neurological: reports: General weakness, Dizziness. denies: Focal weakness, Headache, Numbness, Memory problems, Pre-existing deficit, Abnormal gait, S eizures, Incoordination, Slurred speech - Psychiatric Psychiatric: denies: Depression, Anxiety, Suicidal, Delusions, Hallucinations, Homicidal - Hematologic/Lymphatic Hematologic/Lymphatic: denies: Anemia, Bruising, Petechiae, Blood clots, Lymphadenopathy, Bleeding tendencies Prior Level of Functionality: independent Exam - Vital Signs Reviewed Vital Signs: Yes Vital Signs: Vital Signs x48h Temp Pulse Pulse Pulse Pulse Resp BP 05/22/18 13:38 36.7 C 62 17 162/80 H 05/22/18 13:20 87 93 56 L 05/22/18 11:05 53 L 15 140/68 H 05/22/18 10:09 52 L 14 164/67 H 05/22/18 08:01 36.1 C L 60 16 161/108 H BP BP BP Pulse Ox 05/22/18 13:38 97 05/22/18 13:20 173/89 H 183/99 H 156/68 H 05/22/18 11:05 99 05/22/18 10:09 97 05/22/18 08:01 98 - Physical Exam General Appearance: positive: No acute distress, Alert. negative: Lethargic Eyes Bilateral: positive: Normal inspection, PERRL, No lid inflammation, Conjunctivae nml ENT: positive: ENT inspection nml, Pharynx nml, No signs of dehydration. n egative: Purulent nasal drainage, Pharyngeal erythema, Oral lesions Neck: positive: Nml inspection, Thyroid nml, No JVD, Trachea midline. negative: Thyromegaly, Lymphadenopathy (R), Lymphadenopathy (L), Stiff neck, Swelling/bruising, Tracheal deviation Respiratory: positive: Chest non-tender, No respiratory distress, Breath sounds nml. negative: Wheezes, Rales Cardiovascular: positive: Regular rate & rhythm, No murmur, No gallop. negative: Irregularly irregular, Extrasystoles, Tachycardia, Bradycardia, JVD present, Systolic murmur, Diastolic murmur Peripheral Pulses: positive: 2+ Abdomen: positive: Non-tender, No organomegaly, Nml bowel sounds, No distention. negative: Tenderness, Guarding, Rebound Back: positive: Nml inspection. negative: CVA tenderness (R), CVA tenderness (L) Skin: positive: Color nml, No rash, Warm, Dry. negative: Cyanosis, Diaphoresis, Pallor Extremities: positive: Non-tender, Full ROM, Nml appearance. negative: Calf tenderness, Joint swelling, Bill's sign/cords Neurologic/Psychiatric: positive: Oriented x3, Sensation nml, Mood/affect nml. negative: Weakness, Sensory loss, Facial droop, Slurred/abnml speech, Depressed mood/affect Sepsis Event Note (H) - Evaluation Current Stage of Sepsis: Ruled out Conclusion/Plan - Problem List (1) Vertigo Conclusion/Plan: acute on chronic vertigo, it can be triggered by distress, dehydration, insomnia. pt had neurologist to follow up. CT of head reveals unremarkable Antivert PRN PT evaluation and treatment neuro check (2) HTN (hypertension) Conclusion/Plan: stable, resume of home meds vital monitor (3) Afib Conclusion/Plan: chronic, on Coumadin PT/INR daily tele, vital monitor pt (4) History of CVA (cerebrovascular accident) Conclusion/Plan: pt report her recover very well from previous CVA. pt denies any new neurological focal deficits continue pt home meds tele, vital monitor (5) Polymyalgia rheumatica Conclusion/Plan: stable, resume home meds of prednisone (6) orthostatic hypotension pt is positive for orthostatic hypotension continue monitor fall precaution educate pt prevention of fall and orthostatic hypotension (8) code status pt request full code - Lab Results Fish Bones: 05/22/18 08:53 05/22/18 08:53 Core Measures - Anticipated LOS I expect patient to be DC'd or transferred within 96 hours.: Yes - DVT/VTE - Prophylaxis VTE/DVT Device ordered at admit?: Yes VTE/DVT Prophylaxis med ordered at admit?: Yes
[2018-05-22] MEDS: MECLIZINE 12.5 MG TABLET PO PRN ×2 (16:14→20:53)
[2018-05-22] MEDS: SODIUM CHLORIDE FLUSH 0.9% 10 ML SYRINGE IVP SCH ×2 (16:14→23:23)
[2018-05-22] MEDS: SODIUM CHLORIDE 0.9% 1,000 ML IV SCH (16:14)
[2018-05-22] MEDS: hydroCHLOROthiazide 12.5 MG CAPSULE PO SCH (16:16)
[2018-05-22] MEDS: LOSARTAN 50 MG TABLET PO SCH (20:53)
[2018-05-22] MEDS: WARFARIN 5 MG TABLET PO SCH (20:56)
[2018-05-22] MEDS: FAMOTIDINE 20 MG TABLET PO SCH (20:56)
[2018-05-22] MEDS: METOPROLOL SUCCINATE 25 MG TABLET PO SCH (20:56)
[2018-05-22] MEDS: GABAPENTIN 300 MG CAPSULE PO SCH (20:56)
[2018-05-23] MEDS: SODIUM CHLORIDE 0.9% 1,000 ML IV SCH (03:52)
[2018-05-23] MEDS: MECLIZINE 12.5 MG TABLET PO PRN (04:35)
[2018-05-23 06:44] LABS: BASOPHILS % (AUTO) 0.6 %; EOSINOPHILS # (AUTO) 0.1 10^3/uL (0.0-0.7); EOSINOPHILS % (AUTO) 2.3 %; HGB - HEMOGLOBIN 11.7 g/dL (12.0-16.0); LYMPHOCYTES # (AUTO) 0.8 10^3/uL (1.5-3.5); LYMPHOCYTES % (AUTO) 17.3 %; MEAN CORPUSCULAR HEMOGLOBIN 31.8 pg (27.0-31.0); MEAN CORPUSCULAR VOLUME 96.2 fL (81.0-99.0); MEAN PLATELET VOLUME 8.9 fL (7.9-10.8); MONOCYTES # (AUTO) 0.5 10^3/uL (0.0-1.0); MONOCYTES % (AUTO) 10.1 %; NEUTROPHILS # (AUTO) 3.3 10^3/uL (1.5-6.6); NEUTROPHILS % (AUTO) 69.7 %; PLT - PLATELET COUNT 222 10^3/uL (130-450); RED CELL DISTRIBUTION WIDTH 14.2 % (12.0-15.0); WHITE BLOOD COUNT 4.7 x10^3/uL (4.8-10.8)
[2018-05-23 06:47] LABS: INR 2.1 (0.8-1.2); PT - PROTHROMBIN TIME 24.1 secs (9.9-12.6)
[2018-05-23 06:55] LABS: ALBUMIN 3.2 g/dL (3.2-5.5); ALBUMIN/GLOBULIN RATIO 1.2 (1.0-2.2); CALCIUM 8.6 mg/dL (8.5-10.3); CREATININE 0.7 mg/dL (0.4-1.0); MAGNESIUM 1.9 mg/dL (1.7-2.8); TOTAL PROTEIN 5.9 g/dL (6.7-8.2)
[2018-05-23] MEDS ORDERED: POTASSIUM CHLORIDE 20 MEQ TABLET PO ONE (08:44)
[2018-05-23] MEDS: LOSARTAN 50 MG TABLET PO SCH ×2 (08:50→20:36)
[2018-05-23] MEDS: FAMOTIDINE 20 MG TABLET PO SCH ×2 (08:51→20:35)
[2018-05-23] MEDS ORDERED: ENOXAPARIN 40 MG/0.4 ML SYRINGE SUBQ SCH (09:00)
[2018-05-23] MEDS: predniSONE 5 MG TABLET PO SCH (09:01)
[2018-05-23] MEDS: SODIUM CHLORIDE FLUSH 0.9% 10 ML SYRINGE IVP SCH ×3 (09:06→23:58)
[2018-05-23] MEDS: POLYETHYLENE GLYCOL 3350 17 GM PACKET PO SCH (09:11)
[2018-05-23] MEDS: hydroCHLOROthiazide 12.5 MG CAPSULE PO SCH ×3 (09:43→17:06)
[2018-05-23] MEDS: METOPROLOL SUCCINATE 25 MG TABLET PO SCH ×2 (10:15→20:37)
--- NOTE | 2018-05-23 13:59 | PROVIDER PROGRESS NOTE ---
Subjective - Prog Note Date Prog Note Date: 05/23/18 - Subjective Pt reports feeling: No change Subjective: pt report she still feel spinning, and vertigo. pt denies other focal neurological deficit, chest pain, fever, chill, SOB. But pt decline to take some prescribed medications. Current Medications - Current Medications Current Medications: Active Medications Acetaminophen (Tylenol) 650 mg PO Q4HR PRN PRN Reason: Pain 1 to 4 Last Admin: 05/23/18 13:22 Dose: 650 mg Famotidine (Pepcid) 20 mg PO BID [facility] Last Admin: 05/23/18 08:51 Dose: 20 mg Gabapentin (Neurontin) 300 mg PO QPM [facility] Last Admin: 05/22/18 20:56 Dose: 300 mg Hydrochlorothiazide (Hydrodiuril) 12.5 mg PO DAILY [facility] Last Admin: 05/23/18 09:47 Dose: Not Given Sodium Chloride (Normal Saline 0.9%) 1,000 mls @ 85 mls/hr IV .[id number] [facility] Stop: 05/23/18 15:20 Last Admin: 05/23/18 03:52 Dose: 85 mls/hr Lorazepam (Ativan) 0.5 mg PO Q6H PRN PRN Reason: Anxiety Losartan Potassium (Cozaar) 25 mg PO BID [facility] Last Admin: 05/23/18 08:50 Dose: 25 mg Meclizine HCl (Antivert) 12.5 mg PO Q6HR PRN PRN Reason: Dizziness Last Admin: 05/23/18 04:35 Dose: 12.5 mg Metoprolol Succinate (Toprol Xl) 25 mg PO BID [facility] Last Admin: 05/23/18 10:15 Dose: 25 mg Ondansetron HCl (Zofran Inj) 4 mg IVP Q6HR PRN PRN Reason: Nausea / Vomiting Last Admin: 05/23/18 06:00 Dose: 4 mg Polyethylene Glycol (Miralax) 17 gm PO DAILY [facility] Last Admin: 05/23/18 09:11 Dose: Not Given Prednisone (Deltasone) 10 mg PO DAILY [facility] Last Admin: 05/23/18 09:01 Dose: 10 mg Prochlorperazine Edisylate (Compazine Inj) 10 mg IVP Q6HR PRN PRN Reason: Nausea / Vomiting Sodium Chloride (Normal Saline Flush 0.9%) 10 ml IVP PRN PRN PRN Reason: NEEDED PER PROVIDER ORDERS Sodium Chloride (Normal Saline Flush 0.9%) 10 ml IVP 0100,0900,1700 [facility] Last Admin: 05/23/18 09:06 Dose: Not Given Warfarin Sodium (Coumadin) 5 mg PO QPM [facility] Last Admin: 05/22/18 20:56 Dose: 5 mg Zolpidem Tartrate (Ambien) 5 mg PO QPM PRN PRN Reason: Insomnia Gabapentin 300 mg PO QPM 03/02/13 Losartan [Cozaar] 25 mg PO BID 03/02/13 Omeprazole [PriLOSEC] 20 mg PO DAILY 03/02/13 predniSONE [Deltasone] 10 mg PO DAILY 03/02/13 Acetaminophen 1,000 mg PO Q6HR PRN 11/01/16 Metoprolol Succinate 25 mg PO BID 11/15/16 Warfarin [Coumadin] 5 mg PO QPM 07/11/17 Cholecalciferol (Vitamin D3) [Vitamin D3] 1,000 units PO DAILY 05/22/18 Objective - Vital Signs/Intake & Output Reviewed Vital Signs: Yes Vital Signs: Vital Signs x48h Temp Pulse Pulse Pulse Pulse Resp BP 05/23/18 11:56 68 18 116/81 H 05/23/18 11:41 36.6 C 62 17 91/62 05/23/18 09:19 80 100 70 05/23/18 07:26 37.1 C 68 18 133/79 H BP BP BP Pulse Ox 05/23/18 11:56 100 05/23/18 11:41 100 05/23/18 09:19 114/78 134/96 H 113/54 L 05/23/18 07:26 96 Intake & Output: Intake & Output 05/20/18 05/21/18 05/22/18 05/23/18 23:59 23:59 23:59 23:59 Intake Total 300 1228.833 Output Total 200 Balance 300 1028.833 - Objective General Appearance: positive: No acute distress, Alert. negative: Lethargic Eyes Bilateral: positive: Normal inspection, PERRL, No lid inflammation, Co njunctivae nml ENT: positive: ENT inspection nml, Pharynx nml, No signs of dehydration. negative: Purulent nasal drainage, Pharyngeal erythema, Oral lesions Neck: positive: Nml inspection, Thyroid nml, No JVD, Trachea midline. negative: Thyromegaly, Lymphadenopathy (R), Lymphadenopathy (L), Stiff neck, Swelling/bruising, Tracheal deviation Respiratory: positive: Chest non-tender, No respiratory distress, Breath sounds nml. negative: Wheezes, Rales, Rhonchi Cardiovascular: positive: Regular rate & rhythm, No murmur, No gallop. negative: Irregularly irregular, Extrasystoles, Tachycardia, Bradycardia, JVD present, Systolic murmur, Diastolic murmur Peripheral Pulses: 2+ Radial (R), 2+ Radial (L), 2+ Dorsalis pedis (R), 2+ Dorsalis pedis (L) Abdomen: positive: Non-tender, No organomegaly, Nml bowel sounds, No distention. negative: Tenderness, Guarding, Rebound Back: positive: Nml inspection. negative: CVA tenderness (R), CVA tenderness (L) Skin: positive: Color nml, No rash, Warm, Dry. negative: Cyanosis, Diaphoresis, Pallor Extremities: positive: Non-tender, Full ROM, Nml appearance. negative: Calf tenderness, Joint swelling, Bill's sign/cords Neurologic/Psychiatric: positive: Oriented x3, Motor nml, Sensation nml, Mood/affect nml. negative: Weakness, Sensory loss, Facial droop, Slurred/abnml speech, Depressed mood/affect - Lab Results Fish Bones: 05/24/18 05:45 05/24/18 05:45 Other Labs: Lab Results x24hrs 05/23/18 05/23/18 05/23/18 Range/Units 06:07 06:07 06:07 WBC 4.7 L (4.8-10.8) x10^3/uL RBC 3.70 L (4.20-5.40) 10^6/uL Hgb 11.7 L (12.0-16.0) g/dL Hct 35.6 L (37.0-47.0) % MCV 96.2 (81.0-99.0) fL MCH 31.8 H (27.0-31.0) pg MCHC 33.0 (32.0-36.0) g/dL RDW 14.2 (12.0-15.0) % Plt Count 222 (130-450) 10^3/uL MPV 8.9 (7.9-10.8) fL Neut # (Auto) 3.3 (1.5-6.6) 10^3/uL Lymph # (Auto) 0.8 L (1.5-3.5) 10^3/uL [place] # (Auto) 0.5 (0.0-1.0) 10^3/uL Eos # (Auto) 0.1 (0.0-0.7) 10^3/uL Baso # (Auto) 0.0 (0.0-0.1) 10^3/uL Absolute Nucleated RBC 0.00 x10^3/uL Nucleated RBC % 0.0 /100WBC PT 24.1 H (9.9-12.6) secs INR 2.1 H (0.8-1.2) Sodium 135 (135-145) mmol/L Potassium 3.1 L (3.5-5.0) mmol/L Chloride 103 (101-111) mmol/L Carbon Dioxide 26 (21-32) mmol/L Anion Gap 6.0 (6-13) BUN 12 (6-20) mg/dL Creatinine 0.7 (0.4-1.0) mg/dL Estimated GFR (MDRD) 80 L (>89) Glucose 118 H (70-100) mg/dL Calcium 8.6 (8.5-10.3) mg/dL Magnesium 1.9 (1.7-2.8) mg/dL Total Bilirubin 1.0 (0.2-1.0) mg/dL AST 16 (10-42) IU/L ALT 12 (10-60) IU/L Alkaline Phosphatase 38 L (42-121) IU/L Total Protein 5.9 L (6.7-8.2) g/dL Albumin 3.2 (3.2-5.5) g/dL Globulin 2.7 (2.1-4.2) g/dL Albumin/Globulin Ratio 1.2 (1.0-2.2) Urine Color Urine Clarity (CLEAR) Urine pH (5.0-7.5) PH Ur Specific [place] (1.002-1.030) Urine Protein (NEGATIVE) mg/dL Urine Glucose (UA) (NEGATIVE) mg/dL Urine Ketones (NEGATIVE) mg/dL Urine Occult Blood (NEGATIVE) Urine Nitrite (NEGATIVE) Urine Bilirubin (NEGATIVE) Urine Urobilinogen (NORMAL) E.U./dL Ur Leukocyte Esterase (NEGATIVE) Urine RBC (0-5) /HPF Urine WBC (0-5) /HPF Ur Squamous Epith Cells (<= Few) Urine Bacteria (None Seen) /HPF Ur Microscopic Review Urine Culture Comments 05/22/18 Range/Units 14:10 WBC (4.8-10.8) x10^3/uL RBC (4.20-5.40) 10^6/uL Hgb (12.0-16.0) g/dL Hct (37.0-47.0) % MCV (81.0-99.0) fL MCH (27.0-31.0) pg MCHC (32.0-36.0) g/dL RDW (12.0-15.0) % Plt Count (130-450) 10^3/uL MPV (7.9-10.8) fL Neut # (Auto) (1.5-6.6) 10^3/uL Lymph # (Auto) (1.5-3.5) 10^3/uL [place] # (Auto) (0.0-1.0) 10^3/uL Eos # (Auto) (0.0-0.7) 10^3/uL Baso # (Auto) (0.0-0.1) 10^3/uL Absolute Nucleated RBC x10^3/uL Nucleated RBC % /100WBC PT (9.9-12.6) secs INR (0.8-1.2) Sodium (135-145) mmol/L Potassium (3.5-5.0) mmol/L Chloride (101-111) mmol/L Carbon Dioxide (21-32) mmol/L Anion Gap (6-13) BUN (6-20) mg/dL Creatinine (0.4-1.0) mg/dL Estimated GFR (MDRD) (>89) Glucose (70-100) mg/dL Calcium (8.5-10.3) mg/dL Magnesium (1.7-2.8) mg/dL Total Bilirubin (0.2-1.0) mg/dL AST (10-42) IU/L ALT (10-60) IU/L Alkaline Phosphatase (42-121) IU/L Total Protein (6.7-8.2) g/dL Albumin (3.2-5.5) g/dL Globulin (2.1-4.2) g/dL Albumin/Globulin Ratio (1.0-2.2) Urine Color YELLOW Urine Clarity CLEAR (CLEAR) Urine pH 6.0 (5.0-7.5) PH Ur Specific [place] 1.025 (1.002-1.030) Urine Protein NEGATIVE (NEGATIVE) mg/dL Urine Glucose (UA) NEGATIVE (NEGATIVE) mg/dL Urine Ketones NEGATIVE (NEGATIVE) mg/dL Urine Occult Blood SMALL H (NEGATIVE) Urine Nitrite NEGATIVE (NEGATIVE) Urine Bilirubin NEGATIVE (NEGATIVE) Urine Urobilinogen 0.2 (NORMAL) (NORMAL) E.U./dL Ur Leukocyte Esterase NEGATIVE (NEGATIVE) Urine RBC 0-5 (0-5) /HPF Urine WBC 0-3 (0-5) /HPF Ur Squamous Epith Cells RARE Squamous (<= Few) Urine Bacteria Rare (None Seen) /HPF Ur Microscopic Review INDICATED Urine Culture Comments NOT INDICATED ABX Reporting Has patient been on IV antibiotics over the past 48 hours?: No Sepsis Event Note (H) - Evaluation Current Stage of Sepsis: Ruled out Assessment/Plan - Problem List (1) Vertigo Impression: 05/23 pt still complain vertigo, no better. pt report she had lots of anxiety, and could not sleep well prescribed Ativan PRN for her anxiety continue PT evaluation and treatment neuro check nurse support, pt rest acute on chronic vertigo, it can be triggered by distress, dehydration, insomnia. pt had neurologist to follow up. CT of head reveals unremarkable Antivert PRN PT evaluation and treatment neuro check (2) HTN (hypertension) Conclusion/Plan: stable, resume of home meds vital monitor (3) Afib Conclusion/Plan: 05/23 HR is controlled, stable chronic, on Coumadin PT/INR daily tele, vital monitor pt (4) History of CVA (cerebrovascular accident) Conclusion/Plan: pt report her recover very well from previous CVA. pt denies any new neurological focal deficits continue pt home meds tele, vital monitor (5) Polymyalgia rheumatica Conclusion/Plan: stable, resume home meds of prednisone (6) orthostatic hypotension 05/23 improved, educate and advise pt for prevention of orthostatic hypotension, and prevention of fall. pt is positive for orthostatic hypotension continue monitor fall precaution educate pt prevention of fall and orthostatic hypotension
[2018-05-23] MEDS: GABAPENTIN 300 MG CAPSULE PO SCH (20:37)
[2018-05-23] MEDS: WARFARIN 5 MG TABLET PO SCH (20:37)
[2018-05-24 06:22] LABS: BASOPHILS % (AUTO) 0.6 %; EOSINOPHILS # (AUTO) 0.1 10^3/uL (0.0-0.7); EOSINOPHILS % (AUTO) 2.4 %; HGB - HEMOGLOBIN 12.1 g/dL (12.0-16.0); LYMPHOCYTES # (AUTO) 1.1 10^3/uL (1.5-3.5); LYMPHOCYTES % (AUTO) 26.5 %; MEAN CORPUSCULAR HEMOGLOBIN 31.8 pg (27.0-31.0); MEAN CORPUSCULAR HGB CONC 33.2 g/dL (32.0-36.0); MEAN CORPUSCULAR VOLUME 95.9 fL (81.0-99.0); MEAN PLATELET VOLUME 8.9 fL (7.9-10.8); MONOCYTES # (AUTO) 0.6 10^3/uL (0.0-1.0); MONOCYTES % (AUTO) 13.3 %; NEUTROPHILS # (AUTO) 2.4 10^3/uL (1.5-6.6); NEUTROPHILS % (AUTO) 57.2 %; PLT - PLATELET COUNT 227 10^3/uL (130-450); RED CELL DISTRIBUTION WIDTH 13.8 % (12.0-15.0); WHITE BLOOD COUNT 4.3 x10^3/uL (4.8-10.8)
[2018-05-24 06:34] LABS: INR 2.2 (0.8-1.2); PT - PROTHROMBIN TIME 24.6 secs (9.9-12.6)
[2018-05-24 06:40] LABS: ALBUMIN 3.3 g/dL (3.2-5.5); ALBUMIN/GLOBULIN RATIO 1.1 (1.0-2.2); BILIRUBIN,TOTAL 0.8 mg/dL (0.2-1.0); CALCIUM 9.4 mg/dL (8.5-10.3); CREATININE 0.8 mg/dL (0.4-1.0); TOTAL PROTEIN 6.3 g/dL (6.7-8.2)
[2018-05-24] MEDS: SODIUM CHLORIDE 0.9% 1,000 ML IV SCH ×2 (09:20→20:09)
[2018-05-24] MEDS: METOPROLOL SUCCINATE 25 MG TABLET PO SCH ×2 (09:20→20:06)
[2018-05-24] MEDS: LOSARTAN 50 MG TABLET PO SCH ×2 (09:20→20:06)
[2018-05-24] MEDS: SODIUM CHLORIDE FLUSH 0.9% 10 ML SYRINGE IVP SCH ×2 (09:21→16:56)
[2018-05-24] MEDS: FAMOTIDINE 20 MG TABLET PO SCH ×2 (09:21→20:06)
[2018-05-24] MEDS: predniSONE 5 MG TABLET PO SCH (09:21)
[2018-05-24] MEDS: hydroCHLOROthiazide 12.5 MG CAPSULE PO SCH (09:27)
[2018-05-24] MEDS: POLYETHYLENE GLYCOL 3350 17 GM PACKET PO SCH (09:27)
--- NOTE | 2018-05-24 14:27 | PROVIDER PROGRESS NOTE ---
Subjective - Prog Note Date Prog Note Date: 05/24/18 - Subjective Pt reports feeling: Improved Subjective: pt report her vertigo is some improved today but still has profound spinning feeling and easily fall when she walks with her walker. She denies fever, chill, cough, chest pain, SOB Current Medications - Current Medications Current Medications: Active Medications Acetaminophen (Tylenol) 650 mg PO Q4HR PRN PRN Reason: Pain 1 to 4 Last Admin: 05/23/18 13:22 Dose: 650 mg Famotidine (Pepcid) 20 mg PO BID [facility] Last Admin: 05/24/18 09:21 Dose: 20 mg Gabapentin (Neurontin) 300 mg PO QPM [facility] Last Admin: 05/23/18 20:37 Dose: 300 mg Hydrochlorothiazide (Hydrodiuril) 12.5 mg PO DAILY [facility] Last Admin: 05/24/18 09:27 Dose: 12.5 mg Sodium Chloride (Normal Saline 0.9%) 1,000 mls @ 83.333 mls/hr IV .Q12H [facility] Last Admin: 05/24/18 09:20 Dose: 83.333 mls/hr Lorazepam (Ativan) 0.5 mg PO Q6H PRN PRN Reason: Anxiety Losartan Potassium (Cozaar) 25 mg PO BID [facility] Last Admin: 05/24/18 09:20 Dose: 25 mg Meclizine HCl (Antivert) 12.5 mg PO Q6HR PRN PRN Reason: Dizziness Last Admin: 05/23/18 04:35 Dose: 12.5 mg Metoprolol Succinate (Toprol Xl) 25 mg PO BID [facility] Last Admin: 05/24/18 09:20 Dose: 25 mg Ondansetron HCl (Zofran Inj) 4 mg IVP Q6HR PRN PRN Reason: Nausea / Vomiting Last Admin: 05/23/18 06:00 Dose: 4 mg Polyethylene Glycol (Miralax) 17 gm PO DAILY [facility] Last Admin: 05/24/18 09:27 Dose: Not Given Prednisone (Deltasone) 10 mg PO DAILY [facility] Last Admin: 05/24/18 09:21 Dose: 10 mg Prochlorperazine Edisylate (Compazine Inj) 10 mg IVP Q6HR PRN PRN Reason: Nausea / Vomiting Sodium Chloride (Normal Saline Flush 0.9%) 10 ml IVP PRN PRN PRN Reason: NEEDED PER PROVIDER ORDERS Sodium Chloride (Normal Saline Flush 0.9%) 10 ml IVP 0100,0900,1700 [facility] Last Admin: 05/24/18 09:21 Dose: 10 ml Warfarin Sodium (Coumadin) 5 mg PO QPM [facility] Last Admin: 05/23/18 20:37 Dose: 5 mg Zolpidem Tartrate (Ambien) 5 mg PO QPM PRN PRN Reason: Insomnia Gabapentin 300 mg PO QPM 03/02/13 Losartan [Cozaar] 25 mg PO BID 03/02/13 Omeprazole [PriLOSEC] 20 mg PO DAILY 03/02/13 predniSONE [Deltasone] 10 mg PO DAILY 03/02/13 Acetaminophen 1,000 mg PO Q6HR PRN 11/01/16 Metoprolol Succinate 25 mg PO BID 11/15/16 Warfarin [Coumadin] 5 mg PO QPM 07/11/17 Cholecalciferol (Vitamin D3) [Vitamin D3] 1,000 units PO DAILY 05/22/18 Objective - Vital Signs/Intake & Output Reviewed Vital Signs: Yes Vital Signs: Vital Signs x48h Temp Pulse Pulse Pulse Pulse Pulse Resp 05/24/18 10:30 56 L 55 L 05/24/18 10:00 36.5 C 56 L 67 75 62 15 05/24/18 08:16 36.5 C 56 L 15 BP BP BP BP BP Pulse Ox Pulse Ox 05/24/18 10:30 148/68 H 142/65 H 98 05/24/18 10:00 139/115 H 135/74 H 124/81 H 144/57 H 99 05/24/18 08:16 139/115 H 99 Intake & Output: Intake & Output 05/21/18 05/22/18 05/23/18 05/24/18 23:59 23:59 23:59 23:59 Intake Total 300 2714.833 550 Output Total 200 Balance 300 2514.833 550 - Objective General Appearance: positive: No acute distress, Alert. negative: Lethargic Eyes Bilateral: positive: Normal inspection, PERRL, No lid inflammation, Conjunctivae nml ENT: positive: ENT inspection nml, Pharynx nml, No signs of dehydration. negative: Purulent nasal drainage, Pharyngeal erythema, Oral lesions Neck: positive: Nml inspection, Thyroid nml, No JVD, Trachea midline. negative: Thyromegaly, Lymphadenopathy (R), Lymphadenopathy (L), Stiff neck, Swelling/bruising, Tracheal deviation Respiratory: positive: Chest non-tender, No respiratory distress, Breath sounds nml. negative: Wheezes, Rales, Rhonchi Cardiovascular: positive: Regular rate & rhythm, No murmur, No gallop. negative: Irregularly irregular, Extrasystoles, Tachycardia, Bradycardia, JVD present, Systolic murmur, Diastolic murmur Peripheral Pulses: 2+ Radial (R), 2+ Radial (L), 2+ Dorsalis pedis (R), 2+ Dorsalis pedis (L) Abdomen: positive: Non-tender, No organomegaly, Nml bowel sounds, No distention. negative: Tenderness, Guarding, Rebound Back: positive: Nml inspection. negative: CVA tenderness (R), CVA tenderness (L) Skin: positive: Color nml, No rash, Warm, Dry. negative: Cyanosis, Diaphoresis, Pallor Extremities: positive: Non-tender, Full ROM, Nml appearance. negative: Calf tenderness, Joint swelling, Bill's sign/cords Neurologic/Psychiatric: positive: Oriented x3, Motor nml, Sensation nml, Mood/affect nml. negative: Weakness, Sensory loss, Facial droop, Slurred/abnml speech, Depressed mood/affect - Lab Results Fish Bones: 05/24/18 05:45 05/24/18 05:45 Other Labs: Lab Results x24hrs 05/24/18 05/24/18 05/24/18 Range/Units 05:45 05:45 05:45 WBC 4.3 L (4.8-10.8) x10^3/uL RBC 3.80 L (4.20-5.40) 10^6/uL Hgb 12.1 (12.0-16.0) g/dL Hct 36.4 L (37.0-47.0) % MCV 95.9 (81.0-99.0) fL MCH 31.8 H (27.0-31.0) pg MCHC 33.2 (32.0-36.0) g/dL RDW 13.8 (12.0-15.0) % Plt Count 227 (130-450) 10^3/uL MPV 8.9 (7.9-10.8) fL Neut # (Auto) 2.4 (1.5-6.6) 10^3/uL Lymph # (Auto) 1.1 L (1.5-3.5) 10^3/uL [place] # (Auto) 0.6 (0.0-1.0) 10^3/uL Eos # (Auto) 0.1 (0.0-0.7) 10^3/uL Baso # (Auto) 0.0 (0.0-0.1) 10^3/uL Absolute Nucleated RBC 0.00 x10^3/uL Nucleated RBC % 0.1 /100WBC PT 24.6 H (9.9-12.6) secs INR 2.2 H (0.8-1.2) Sodium 137 (135-145) mmol/L Potassium 4.1 (3.5-5.0) mmol/L Chloride 102 (101-111) mmol/L Carbon Dioxide 29 (21-32) mmol/L Anion Gap 6.0 (6-13) BUN 9 (6-20) mg/dL Creatinine 0.8 (0.4-1.0) mg/dL Estimated GFR (MDRD) 68 L (>89) Glucose 92 (70-100) mg/dL Calcium 9.4 (8.5-10.3) mg/dL Total Bilirubin 0.8 (0.2-1.0) mg/dL AST 16 (10-42) IU/L ALT 10 (10-60) IU/L Alkaline Phosphatase 42 (42-121) IU/L Total Protein 6.3 L (6.7-8.2) g/dL Albumin 3.3 (3.2-5.5) g/dL Globulin 3.0 (2.1-4.2) g/dL Albumin/Globulin Ratio 1.1 (1.0-2.2) ABX Reporting Has patient been on IV antibiotics over the past 48 hours?: No Sepsis Event Note (H) - Evaluation Current Stage of Sepsis: Ruled out Assessment/Plan - Problem List (1) Vertigo Impression: 05/24 pt report her vertigo is better, she think PT evaluation and treatment do some help for her vertigo will continue PT/OT evaluation and treatment will continue orthostatic hypotension evaluation continue ativan PRN neuro check nurse support 05/23 pt still complain vertigo, no better. pt report she had lots of anxiety, and could not sleep well prescribed Ativan PRN for her anxiety continue PT evaluation and treatment neuro check nurse support, pt rest acute on chronic vertigo, it can be triggered by distress, dehydration, insomnia. pt had neurologist to follow up. CT of head reveals unremarkable Antivert PRN PT evaluation and treatment neuro check (2) HTN (hypertension) Conclusion/Plan: stable, resume of home meds vital monitor (3) Afib Conclusion/Plan: 05/23 HR is controlled, stable chronic, on Coumadin PT/INR daily tele, vital monitor pt (4) History of CVA (cerebrovascular accident) Conclusion/Plan: pt report her recover very well from previous CVA. pt denies any new neurological focal deficits continue pt home meds tele, vital monitor (5) Polymyalgia rheumatica Conclusion/Plan: stable, resume home meds of prednisone (6) orthostatic hypotension 05/24 educate pt about orthostatic hypotension and fall prevention 05/23 improved, educate and advise pt for prevention of orthostatic hypotension, and prevention of fall. pt is positive for orthostatic hypotension continue monitor fall precaution educate pt prevention of fall and orthostatic hypotension
[2018-05-24] MEDS: WARFARIN 5 MG TABLET PO SCH (20:06)
[2018-05-24] MEDS: GABAPENTIN 300 MG CAPSULE PO SCH (20:06)
[2018-05-25] MEDS: SODIUM CHLORIDE FLUSH 0.9% 10 ML SYRINGE IVP SCH ×3 (03:03→16:48)
[2018-05-25 05:17] LABS: BASOPHILS % (AUTO) 0.5 %; EOSINOPHILS # (AUTO) 0.1 10^3/uL (0.0-0.7); EOSINOPHILS % (AUTO) 2.3 %; HGB - HEMOGLOBIN 12.2 g/dL (12.0-16.0); LYMPHOCYTES # (AUTO) 1.3 10^3/uL (1.5-3.5); LYMPHOCYTES % (AUTO) 24.4 %; MEAN CORPUSCULAR HEMOGLOBIN 31.9 pg (27.0-31.0); MEAN CORPUSCULAR HGB CONC 33.1 g/dL (32.0-36.0); MEAN CORPUSCULAR VOLUME 96.3 fL (81.0-99.0); MEAN PLATELET VOLUME 8.9 fL (7.9-10.8); MONOCYTES # (AUTO) 0.7 10^3/uL (0.0-1.0); MONOCYTES % (AUTO) 13.2 %; NEUTROPHILS # (AUTO) 3.2 10^3/uL (1.5-6.6); NEUTROPHILS % (AUTO) 59.6 %; PLT - PLATELET COUNT 224 10^3/uL (130-450); RED BLOOD COUNT 3.81 10^6/uL (4.20-5.40); RED CELL DISTRIBUTION WIDTH 14.2 % (12.0-15.0); WHITE BLOOD COUNT 5.3 x10^3/uL (4.8-10.8)
[2018-05-25 05:19] LABS: INR 2.4 (0.8-1.2); PT - PROTHROMBIN TIME 27.3 secs (9.9-12.6)
[2018-05-25 05:28] LABS: ALBUMIN 3.2 g/dL (3.2-5.5); ALBUMIN/GLOBULIN RATIO 1.1 (1.0-2.2); BILIRUBIN,TOTAL 0.6 mg/dL (0.2-1.0); CALCIUM 8.9 mg/dL (8.5-10.3); CREATININE 0.8 mg/dL (0.4-1.0); TOTAL PROTEIN 6.2 g/dL (6.7-8.2)
[2018-05-25] MEDS: hydroCHLOROthiazide 12.5 MG CAPSULE PO SCH (08:55)
[2018-05-25] MEDS: METOPROLOL SUCCINATE 25 MG TABLET PO SCH ×2 (08:55→20:49)
[2018-05-25] MEDS: LOSARTAN 50 MG TABLET PO SCH ×2 (08:55→20:49)
[2018-05-25] MEDS: predniSONE 5 MG TABLET PO SCH (08:55)
[2018-05-25] MEDS: FAMOTIDINE 20 MG TABLET PO SCH ×2 (08:56→20:50)
[2018-05-25] MEDS: SODIUM CHLORIDE 0.9% 1,000 ML IV SCH (08:57)
[2018-05-25] MEDS: POLYETHYLENE GLYCOL 3350 17 GM PACKET PO SCH (08:57)
[2018-05-25] MEDS: LORazepam 0.5 MG TABLET PO PRN ×2 (11:02→16:47)
--- NOTE | 2018-05-25 12:40 | PROVIDER PROGRESS NOTE ---
Subjective - Prog Note Date Prog Note Date: 05/25/18 - Subjective Pt reports feeling: Worse Subjective: While assessing pt and preparing for her discharge, she state "my spinning come back," then We have to stop the conversation. Re-assessment pt again, pt state she did have lots of anxiety which could contribute to her vertigo , and she is willing to take anti-anxiety medication, will see the progress today. I also discussed with pt's son and for pt's care and discharge plan. Current Medications - Current Medications Current Medications: Active Medications Acetaminophen (Tylenol) 650 mg PO Q4HR PRN PRN Reason: Pain 1 to 4 Last Admin: 05/23/18 13:22 Dose: 650 mg Famotidine (Pepcid) 20 mg PO BID [facility] Last Admin: 05/25/18 08:56 Dose: 20 mg Gabapentin (Neurontin) 300 mg PO QPM [facility] Last Admin: 05/24/18 20:06 Dose: 300 mg Hydrochlorothiazide (Hydrodiuril) 12.5 mg PO DAILY [facility] Last Admin: 05/25/18 08:55 Dose: 12.5 mg Lorazepam (Ativan) 0.5 mg PO Q6H PRN PRN Reason: Anxiety Last Admin: 05/25/18 11:02 Dose: 0.5 mg Losartan Potassium (Cozaar) 25 mg PO BID [facility] Last Admin: 05/25/18 08:55 Dose: 25 mg Meclizine HCl (Antivert) 12.5 mg PO Q6HR PRN PRN Reason: Dizziness Last Admin: 05/23/18 04:35 Dose: 12.5 mg Metoprolol Succinate (Toprol Xl) 25 mg PO BID [facility] Last Admin: 05/25/18 08:55 Dose: 25 mg Ondansetron HCl (Zofran Inj) 4 mg IVP Q6HR PRN PRN Reason: Nausea / Vomiting Last Admin: 05/23/18 06:00 Dose: 4 mg Polyethylene Glycol (Miralax) 17 gm PO DAILY [facility] Last Admin: 05/25/18 08:57 Dose: Not Given Prednisone (Deltasone) 10 mg PO DAILY [facility] Last Admin: 05/25/18 08:55 Dose: 10 mg Prochlorperazine Edisylate (Compazine Inj) 10 mg IVP Q6HR PRN PRN Reason: Nausea / Vomiting Sodium Chloride (Normal Saline Flush 0.9%) 10 ml IVP PRN PRN PRN Reason: NEEDED PER PROVIDER ORDERS Sodium Chloride (Normal Saline Flush 0.9%) 10 ml IVP 0100,0900,1700 [facility] Last Admin: 05/25/18 08:56 Dose: Not Given Warfarin Sodium (Coumadin) 5 mg PO QPM [facility] Last Admin: 05/24/18 20:06 Dose: 5 mg Zolpidem Tartrate (Ambien) 5 mg PO QPM PRN PRN Reason: Insomnia Gabapentin 300 mg PO QPM 03/02/13 Losartan [Cozaar] 25 mg PO BID 03/02/13 Omeprazole [PriLOSEC] 20 mg PO DAILY 03/02/13 predniSONE [Deltasone] 10 mg PO DAILY 03/02/13 Acetaminophen 1,000 mg PO Q6HR PRN 11/01/16 Metoprolol Succinate 25 mg PO BID 11/15/16 Warfarin [Coumadin] 5 mg PO QPM 07/11/17 Cholecalciferol (Vitamin D3) [Vitamin D3] 1,000 units PO DAILY 05/22/18 Objective - Vital Signs/Intake & Output Reviewed Vital Signs: Yes Vital Signs: Vital Signs x48h Temp Pulse Resp BP Pulse Ox 05/25/18 08:07 36.5 C 59 L 15 167/85 H 100 Intake & Output: Intake & Output 05/22/18 05/23/18 05/24/18 05/25/18 23:59 23:59 23:59 23:59 Intake Total 300 2714.833 2073.385 1430 Output Total 200 Balance 300 2514.833 2073.385 1430 - Objective General Appearance: positive: No acute distress, Alert. negative: Lethargic Eyes Bilateral: positive: Normal inspection, PERRL, No lid inflammation, Conjunctivae nml ENT: positive: ENT inspection nml, Pharynx nml, No signs of dehydration. negative: Purulent nasal drainage, Pharyngeal erythema, Oral lesions Neck: positive: Nml inspection, Thyroid nml, No JVD, Trachea midline. negative: Thyromegaly, Lymphadenopathy (R), Lymphadenopathy (L), Stiff neck, Swelling/bruising, Tracheal deviation Respiratory: positive: Chest non-tender, No respiratory distress, Breath sounds nml. negative: Wheezes, Rales, Rhonchi Cardiovascular: positive: Regular rate & rhythm, No murmur, No gallop. negative : Irregularly irregular, Extrasystoles, Tachycardia, Bradycardia, JVD present, Systolic murmur, Diastolic murmur Peripheral Pulses: 2+ Radial (R), 2+ Radial (L), 2+ Dorsalis pedis (R), 2+ Dorsalis pedis (L) Abdomen: positive: Non-tender, No organomegaly, Nml bowel sounds, No distention. negative: Tenderness, Guarding, Rebound Back: positive: Nml inspection. negative: CVA tenderness (R), CVA tenderness (L) Skin: positive: Color nml, No rash, Warm, Dry. negative: Cyanosis, Diaphoresis, Pallor Extremities: positive: Non-tender, Full ROM, Nml appearance. negative: Calf tenderness, Joint swelling, Bill's sign/cords Neurologic/Psychiatric: positive: Oriented x3, Motor nml, Sensation nml, Mood/affect nml. negative: Weakness, Sensory loss, Facial droop, Slurred/abnml speech - Lab Results Fish Bones: 05/25/18 04:45 05/25/18 04:45 Other Labs: Lab Results x24hrs 05/25/18 05/25/18 05/25/18 Range/Units 04:45 04:45 04:45 WBC 5.3 (4.8-10.8) x10^3/uL RBC 3.81 L (4.20-5.40) 10^6/uL Hgb 12.2 (12.0-16.0) g/dL Hct 36.7 L (37.0-47.0) % MCV 96.3 (81.0-99.0) fL MCH 31.9 H (27.0-31.0) pg MCHC 33.1 (32.0-36.0) g/dL RDW 14.2 (12.0-15.0) % Plt Count 224 (130-450) 10^3/uL MPV 8.9 (7.9-10.8) fL Neut # (Auto) 3.2 (1.5-6.6) 10^3/uL Lymph # (Auto) 1.3 L (1.5-3.5) 10^3/uL Price # (Auto) 0.7 (0.0-1.0) 10^3/uL Eos # (Auto) 0.1 (0.0-0.7) 10^3/uL Baso # (Auto) 0.0 (0.0-0.1) 10^3/uL Absolute Nucleated RBC 0.01 x10^3/uL Nucleated RBC % 0.1 /100WBC PT 27.3 H (9.9-12.6) secs INR 2.4 H (0.8-1.2) Sodium 138 (135-145) mmol/L Potassium 3.5 (3.5-5.0) mmol/L Chloride 104 (101-111) mmol/L Carbon Dioxide 28 (21-32) mmol/L Anion Gap 6.0 (6-13) BUN 13 (6-20) mg/dL Creatinine 0.8 (0.4-1.0) mg/dL Estimated GFR (MDRD) 68 L (>89) Glucose 88 (70-100) mg/dL Calcium 8.9 (8.5-10.3) mg/dL Total Bilirubin 0.6 (0.2-1.0) mg/dL AST 17 (10-42) IU/L ALT 11 (10-60) IU/L Alkaline Phosphatase 42 (42-121) IU/L Total Protein 6.2 L (6.7-8.2) g/dL Albumin 3.2 (3.2-5.5) g/dL Globulin 3.0 (2.1-4.2) g/dL Albumin/Globulin Ratio 1.1 (1.0-2.2) ABX Reporting Has patient been on IV antibiotics over the past 48 hours?: No Sepsis Event Note (H) - Evaluation Current Stage of Sepsis: Ruled out Assessment/Plan - Problem List (1) Vertigo Impression: 05/25 pt still present vertigo, acute on chronic, pt's high distress for preparing her family removal and insomnia contribute to her vertigo pt is willing to take Ativan and Antivert now continue neuro check continue PT/OT evaluation and treatment, followup recommendation for preparing d/c 05/24 pt report her vertigo is better, she think PT evaluation and treatment do some help for her vertigo will continue PT/OT evaluation and treatment will continue orthostatic hypotension evaluation continue ativan PRN neuro check nurse support 05/23 pt still complain vertigo, no better. pt report she had lots of anxiety, and could not sleep well prescribed Ativan PRN for her anxiety continue PT evaluation and treatment neuro check nurse support, pt rest acute on chronic vertigo, it can be triggered by distress, dehydration, insomnia. pt had neurologist to follow up. CT of head reveals unremarkable Antivert PRN PT evaluation and treatment neuro check (2) HTN (hypertension) Conclusion/Plan: stable, resume of home meds vital monitor (3) Afib Conclusion/Plan: 05/23 HR is controlled, stable chronic, on Coumadin PT/INR daily tele, vital monitor pt (4) History of CVA (cerebrovascular accident) Conclusion/Plan: pt report her recover very well from previous CVA. pt denies any new n eurological focal deficits continue pt home meds tele, vital monitor (5) Polymyalgia rheumatica Conclusion/Plan: stable, resume home meds of prednisone (6) orthostatic hypotension 05/24 educate pt about orthostatic hypotension and fall prevention 05/23 improved, educate and advise pt for prevention of orthostatic hypotension, and prevention of fall. pt is positive for orthostatic hypotension continue monitor fall precaution educate pt prevention of fall and orthostatic hypotension
[2018-05-25] MEDS: MECLIZINE 12.5 MG TABLET PO PRN (16:48)
[2018-05-25] MEDS: WARFARIN 5 MG TABLET PO SCH (20:49)
[2018-05-25] MEDS: GABAPENTIN 300 MG CAPSULE PO SCH (20:50)
[2018-05-26] MEDS: SODIUM CHLORIDE FLUSH 0.9% 10 ML SYRINGE IVP SCH ×2 (00:30→08:34)
[2018-05-26 05:16] LABS: BASOPHILS % (AUTO) 0.5 %; EOSINOPHILS # (AUTO) 0.1 10^3/uL (0.0-0.7); EOSINOPHILS % (AUTO) 2.1 %; HGB - HEMOGLOBIN 12.6 g/dL (12.0-16.0); LYMPHOCYTES # (AUTO) 1.4 10^3/uL (1.5-3.5); LYMPHOCYTES % (AUTO) 27.7 %; MEAN CORPUSCULAR HEMOGLOBIN 31.8 pg (27.0-31.0); MEAN CORPUSCULAR HGB CONC 32.8 g/dL (32.0-36.0); MEAN CORPUSCULAR VOLUME 96.8 fL (81.0-99.0); MEAN PLATELET VOLUME 8.6 fL (7.9-10.8); MONOCYTES # (AUTO) 0.5 10^3/uL (0.0-1.0); MONOCYTES % (AUTO) 9.8 %; NEUTROPHILS # (AUTO) 3.1 10^3/uL (1.5-6.6); NEUTROPHILS % (AUTO) 59.9 %; PLT - PLATELET COUNT 234 10^3/uL (130-450); RED BLOOD COUNT 3.98 10^6/uL (4.20-5.40); RED CELL DISTRIBUTION WIDTH 14.1 % (12.0-15.0); WHITE BLOOD COUNT 5.1 x10^3/uL (4.8-10.8)
[2018-05-26 05:18] LABS: INR 2.3 (0.8-1.2); PT - PROTHROMBIN TIME 26.3 secs (9.9-12.6)
[2018-05-26 05:27] LABS: ALBUMIN 3.4 g/dL (3.2-5.5); BILIRUBIN,TOTAL 0.6 mg/dL (0.2-1.0); CALCIUM 8.9 mg/dL (8.5-10.3); CREATININE 0.7 mg/dL (0.4-1.0); TOTAL PROTEIN 6.7 g/dL (6.7-8.2)
[2018-05-26] MEDS: MECLIZINE 12.5 MG TABLET PO PRN (06:12)
[2018-05-26] MEDS: POLYETHYLENE GLYCOL 3350 17 GM PACKET PO SCH (08:33)
[2018-05-26] MEDS: FAMOTIDINE 20 MG TABLET PO SCH (08:34)
[2018-05-26] MEDS: METOPROLOL SUCCINATE 25 MG TABLET PO SCH (08:34)
[2018-05-26] MEDS: LOSARTAN 50 MG TABLET PO SCH (08:34)
[2018-05-26] MEDS: hydroCHLOROthiazide 12.5 MG CAPSULE PO SCH (08:34)
[2018-05-26] MEDS ORDERED: SENNA 8.6 MG TABLET PO SCH (09:00)
[2018-05-26] MEDS ORDERED: DOCUSATE SODIUM 250 MG CAPSULE PO SCH (09:00)
[2018-05-26 10:53] VITALS: BP 98/65
--- NOTE | 2018-05-26 11:49 | Discharge Plan ---
Discharge Plan Disposition: Home, Self Care Condition: Good Prescriptions: Quetiapine Fumarate [Seroquel] 25 mg PO DAILY PM #30 tablet Diet: Regular Activity Restrictions: Activity as Tolerated Shower Restrictions: No Assistance Devices: Walker Weight Bearing: Full Weight Additional Instructions or Follow Up instructions: You were admitted for dizziness, and weakness. You were evaluated by physical therapy who did not recommend skilled rehab. Information on respite care was provided. You were given a sedative to help with your symptoms that seemed to make things worse, so this will not be continued at home. If any new symptoms occur, please seek medical attention. Your last INR was 2.3, so please continue on all of your medications. Please see your PCP within one week. No Smoking: If you smoke, Please STOP! Call for help. Follow-up with: Anupama Issa ARNP [Primary Care Provider] -
--- NOTE | 2018-05-26 12:10 | DISCHARGE SUMMARY ---
Discharge Summary Admit Date: 05/22/18 Discharge Date: 05/26/18 Discharging Provider: ZAIDA Pratt Primary Care Provider: Anupama Issa Code Status: Attempt Resuscitation Condition at Discharge: Good Discharge Disposition: 01 Home, Self Care - DIAGNOSES Admission Diagnoses: Dizziness and giddiness (R42) Essential (primary) hypertension (I10) Unspecified atrial fibrillation (I48.91) Prsnl hx of TIA (TIA), and cereb infrc w/o resid deficits (Z86.73) Personal history of other diseases of the circulatory system (Z86.79) Polymyalgia rheumatica (M35.3) Discharge Diagnoses with Status of Each Condition: Vertigo (R42) chronic, unresolved, stable. Anxiety and depression (F41.9) new prescription for Seroquel was sent to the pharmacy to be taken daily PM. HTN (hypertension) (I10) chronic, stable. Afib (I48.91) chronic, stable. History of CVA (cerebrovascular accident) (Z86.73) chronic, stable. H/O orthostatic hypotension (Z86.79) chronic, stable. Polymyalgia rheumatica (M35.3)chronic, stable. Insomnia (G47.00)chronic, Seroquel was in part prescribed to treat this, stable. - HPI History of Present Illness: Chandra Valle is a 82-year-old female with a past medical history of atrial fibrillation-on Coumadin, vertigo, hx of CVA, HTN, hyperlipidemia, iron deficiency anemia, polymyalgia rheumatica, osteoarthritis, compression fractures, infected left lower extremity, and GERD, who presented to the ED with complaints of vertigo. The patient reports that this morning, she attempted to get up from the bed and felt as if the room was spinning, which caused her nearly fall as she bent over. She also reports dizziness and stated "her head was going to fall off". The patient reports that she has had an extensive work- up for her chronic vertigo. Per her son, his mother has seen a neurologist and ENT for this problem. She has been on [facility] for a 6-day hospital stay. She has seen a neurologist in the [facility], but no recent visits. Patient states it is worse when she turns her head a certain way and when she lays down. She denies chest pain, fevers, chills, cough, shortness of breath, headache, nausea, vomiting, weakness, any recent trauma, travel or recent illness. The patient's son reports she is supposed to go to vestibular physical therapy which she did once at home but they postponed the physical therapy because she has been busy getting ready to move. The patient admits to increased stress lately due to her upcoming life change (moving) as they are selling theirm home to move to assisted nursing facility. She said that her prescription for meclizine does not work for her dizziness. A brain CT is unremarkable. Lab tests were also unremarkable. She will be admitted for observation to evaluate and treat her symptoms and rule out any other causes. - HOSPITAL COURSE Hospital Course: The patient underwent minimal testing, but this dizziness was found to be a chronic problem for her for the past ~10 years. She was started on lorazepam, but after at least 3 doses the patient stated that she found it to make her dizziness worse and she felt generally more weak. She refused a home prescription. She was medically stable and transported home via private car. After her son brought her home, he called the hospital back to request a prescription for lorazepam as he claimed that his mother is resistant to any medication changes. This request was denied, as Lorazepam may cause respiratory depression, increase the chance of falls and will not overall help her mental state. He mentioned that she frequently becomes manic about certain topics, which she became this way on the car ride home as usual. I sent a low dose Seroquel to be started nightly which I explained this to maybe help with her manic behaviors, anxiety, and will also help her sleep, leading to more productive day time hours. He was encouraged to call us back in the next 48 hours with an update and see primary care by the end of the week. - ALLERGIES Allergies/Adverse Reactions: Allergies Allergy/AdvReac Type Severity Reaction Status Date / Time Penicillins Allergy Unknown UNKNOWN Verified 05/22/18 08:05 - MEDICATIONS Home Medications: Ambulatory Orders Medication Instructions Recorded Confirmed Gabapentin 300 mg PO QPM 03/02/13 05/22/18 Losartan [Cozaar] 25 mg PO BID 03/02/13 05/22/18 Omeprazole [PriLOSEC] 20 mg PO DAILY 03/02/13 05/22/18 predniSONE [Deltasone] 10 mg PO DAILY 03/02/13 05/22/18 Acetaminophen 1,000 mg PO Q6HR PRN 11/01/16 05/22/18 Metoprolol Succinate 25 mg PO BID 11/15/16 05/22/18 Warfarin [Coumadin] 5 mg PO QPM 07/11/17 05/22/18 Cholecalciferol (Vitamin D3) 1,000 units PO DAILY 05/22/18 05/22/18 [Vitamin D3] Quetiapine Fumarate [Seroquel] 25 mg PO DAILY PM #30 tablet 05/26/18 - PHYSICAL EXAM AT DISCHARGE General Appearance: positive: Alert, Anxious Eyes Bilateral: positive: PERRL ENT: positive: Pharynx nml, No signs of dehydration Neck: positive: Thyroid nml, No JVD Respiratory: positive: Chest non-tender, No respiratory distress, Breath sounds nml Cardiovascular: positive: Regular rate & rhythm, No gallop, Systolic murmur Peripheral Pulses: positive: 2+ Abdomen: positive: Non-tender, Nml bowel sounds, Other (rounded, soft) Back: positive: Nml inspection Skin: positive: No rash, Warm, Dry Extremities: positive: Non-tender, Full ROM, Nml appearance, No pedal edema Neurologic/Psychiatric: positive: Oriented x3, CN's nml (2-12), Motor nml, Sensation nml, Weakness, Depressed mood/affect Reflexes: Bicep (R): 3+, Bicep (L): 3+ - LABS Result Diagrams: 05/26/18 04:50 05/26/18 04:50 - DIAGNOSTIC IMAGING Diagnostic Imaging Results: Final report reviewed Diagnostic Imaging Results Comments: EXAM: CT HEAD EXAM DATE: 05/22/2018 10:43 AM. IMPRESSION: 1. No acute intracranial abnormality. 2. Small vessel ischemic disease in the appropriate clinical setting. - SEPSIS Current Stage of Sepsis: Ruled out - FOLLOW UP Follow Up: Disposition: Home Prescriptions: Quetiapine Fumarate [Seroquel] 25 mg PO DAILY PM #30 tablet Additional Instructions or Follow Up instructions: You were admitted for dizziness, and weakness. You were evaluated by physical therapy who did not recommend skilled rehab. Information on respite care was provided. You were given a sedative to help with your symptoms that seemed to make things worse, so this will not be continued at home. If any new symptoms occur, please seek medical attention. Your last INR was 2.3, so please continue on all of your medications. Please see your PCP within one week. I spoke with the patient's son after her discharge who requested a prescription for lorazepam, but instead a small dose of nightly seroquel was sent to [facility] as the lorazepam may have negative consequences which was discussed with her son who was grateful and in agreement. The patient stated prior to discharge that she had negative consequences after taking the lorazepam while in the hospital. - TIME SPENT Time Spent in Discharge (Minutes): 60
== END 2018-05-26 14:12 | disposition home or self-care (01) | DRG 149 ==
LOC: EDUNIT# → ED 07:59 → OBS 14:54 → MS2 15:37 → OBS 20:44 → OBSVTOIN 05-23 13:54 → MS3 05-23 14:38
PROVIDERS: ADMIT Nurse Practitioner Gerontology; ATTEND Nurse Practitioner
DX: R42 Dizziness and giddiness (principal); I48.2 Chronic atrial fibrillation; F41.9 Anxiety disorder, unspecified; I95.1 Orthostatic hypotension; D50.9 Iron deficiency anemia, unspecified; I10 Essential (primary) hypertension; M19.90 Unspecified osteoarthritis, unspecified site; M35.3 Polymyalgia rheumatica; K21.9 Gastro-esophageal reflux disease without esophagitis; G47.00 Insomnia, unspecified; E78.5 Hyperlipidemia, unspecified; Z79.52 Long term (current) use of systemic steroids; Z79.899 Other long term (current) drug therapy; Z79.01 Long term (current) use of anticoagulants; Z86.73 Personal history of transient ischemic attack (TIA), and cerebral infarction without residual deficits
CPT/HCPCS: 36415; 70450; 80053; 81001; 81003; 83690; 83735; 84484; 85025; 85610; 87086; 93005; 96361; 96374; 99284; 99285

== ENCOUNTER 2018-06-10 11:48 | Outpatient (CLI) | payer MEDICARE | END 2018-06-10 11:49 | disposition critical access hospital (66) | LOC: EMS 11:48 | PROVIDERS: ATTEND Surgery | DX: R07.9 Chest pain, unspecified (principal) | CPT/HCPCS: A0425; A0429 ==

== ENCOUNTER 2018-06-10 12:16 | Emergency (ER) | payer MEDICARE ==
--- NOTE | 2018-06-10 12:34 | ED Physician Documentation ---
PD HPI CHEST PAIN - Stated complaint Stated Complaint: CHEST PX - Chief complaint Chief Complaint: Cardiac - History obtained from History obtained from: Patient - History of Present Illness Timing - onset: Yesterday Timing - onset during: Rest, Light activity Timing - duration: Days (1) Timing - details: Abrupt onset (The patient noted onset of pain in her mid scapular area yesterday associated with movement and deep breathing. She states today it has enlarged to include the anterior chest. It still hurts with deep breathing. She denies any dyspnea nausea vomiting or lightheadedness. She states her blood pressure was elevated when she took it earlier and this concerned her as well. She denies abdominal pain per se.), Still present, Waxing and waning Quality: Aching, Sharp, Pain Location: Substernal Radiation: Back Improved by: Rest Worsened by: Inspiration, Movement Associated symptoms: Other (She states she is moving houses and has her children helping her. She states she has not been doing much lifting nor vigorous activity since she has problems with her rotator cuff left shoulder and vertigo. She denies any particular injury at the time of onset of the pain.). No: Shortness of air, Diaphoresis, Nausea, Vomiting, Feeling faint / dizzy Similar symptoms before: Has not had sx before Recently seen: Not recently seen Review of Systems Constitutional: denies: Fever, Chills Nose: denies: Rhinorrhea / runny nose, Congestion Throat: denies: Sore throat Cardiac: reports: Chest pain / pressure. denies: Palpitations Respiratory: denies: Dyspnea, Cough, Wheezing GI: denies: Abdominal Pain, Nausea, Vomiting, Diarrhea Skin: denies: Rash, Lesions Musculoskeletal: reports: Back pain PD PAST MEDICAL HISTORY - Past Medical History Cardiovascular: Hypertension, High cholesterol, Atrial fibrillation, Other Respiratory: None Neuro: Other Endocrine/Autoimmune: Other GI: GERD, Other : Frequency HEENT: None Psych: None Musculoskeletal: Other Derm: None - Past Surgical History Past Surgical History: Yes General: Other Ortho: Other - Present Medications Home Medications: Ambulatory Orders Medication Instructions Recorded Confirmed Gabapentin 300 mg PO QPM 03/02/13 06/10/18 Losartan [Cozaar] 25 mg PO BID 03/02/13 06/10/18 Omeprazole [PriLOSEC] 20 mg PO DAILY 03/02/13 06/10/18 predniSONE [Deltasone] 10 mg PO DAILY 03/02/13 06/10/18 Acetaminophen 1,000 mg PO Q6HR PRN 11/01/16 06/10/18 Metoprolol Succinate 25 mg PO BID 11/15/16 06/10/18 Warfarin [Coumadin] 5 mg PO QPM 07/11/17 06/10/18 Cholecalciferol (Vitamin D3) 1,000 units PO DAILY 05/22/18 06/10/18 [Vitamin D3] Quetiapine Fumarate [Seroquel] 25 mg PO DAILY PM #30 tablet 05/26/18 06/10/18 Naproxen 375 mg PO BID #20 tablet 06/10/18 - Allergies Allergies/Adverse Reactions: Allergies Allergy/AdvReac Type Severity Reaction Status Date / Time Penicillins Allergy Unknown UNKNOWN Verified 06/10/18 12:26 - Social History Does the pt smoke?: No Smoking Status: Never smoker Does the pt drink ETOH?: No Does the pt have substance abuse?: No - Immunizations Immunizations are current?: Yes - POLST Patient has POLST: No POLST Status: DNR PD ED PE NORMAL - Vitals Vital signs reviewed: Yes - General General: Alert and oriented X 3, No acute distress, Well developed/nourished - HEENT HEENT: Pharynx benign - Neck Neck: Supple, no meningeal sign, No adenopathy - Cardiac Cardiac: RRR, No murmur, No rub - Respiratory Respiratory: No respiratory distress, Clear bilaterally - Abdomen Abdomen: Normal bowel sounds, Soft, Non tender, Non distended, No organomegaly - Back Back: No CVA TTP - Derm Derm: Normal color, Warm and dry - Extremities Extremities: No deformity, No tenderness to palpate, Normal ROM s pain, No edema, No calf tenderness / cord - Neuro Neuro: Alert and oriented X 3, No motor deficit, Normal speech Eye Opening: Spontaneous Motor: Obeys Commands Verbal: Oriented GCS Score: 15 - Psych Psych: Normal mood Results - Vitals Vitals: Oxygen O2 Source [] Room air O2 Source Room air - EKG (time done) 12:26 Rate: Rate (enter#) (73) Rhythm: NSR Hooper: Normal Intervals: Normal FL QRS: Normal Ischemia: Normal ST segments. No: ST elevation c/w ischemia, ST depression - Labs Labs: Laboratory Tests 06/10/18 06/10/18 06/10/18 13:12 13:12 13:12 WBC 8.8 RBC 3.46 L Hgb 11.2 L Hct 32.5 L MCV 93.9 MCH 32.4 H MCHC 34.4 RDW 14.0 Plt Count 335 MPV 7.6 L Neut # (Auto) 8.0 H Lymph # (Auto) 0.4 L [place] # (Auto) 0.3 Eos # (Auto) 0.0 Baso # (Auto) 0.0 Absolute Nucleated RBC 0.00 Nucleated RBC % 0.0 Sodium 136 Potassium 3.8 Chloride 104 Carbon Dioxide 26 Anion Gap 6.0 BUN 17 Creatinine 0.9 Estimated GFR (MDRD) 60 L Glucose 109 H Calcium 8.9 Total Bilirubin 0.5 AST 18 ALT 13 Alkaline Phosphatase 49 Troponin I < 0.04 Total Protein 6.9 Albumin 3.5 Globulin 3.4 Albumin/Globulin Ratio 1.0 Lipase 42 PD MEDICAL DECISION MAKING - ED course Complexity details: considered differential (She is older with history of hypertension and on blood pressure medicines. Her blood pressures okay here but she says it was elevated at 170s over 150s earlier. I doubt this is an actual reading on the diastolic from her machine but the systolic may have been elevated. It is doing better here but still I would be concerned for vascular as well as cardiac events. Most likely by the character of the pain and its musculoskeletal but will evaluate with blood tests, EKG, chest CT.), d/w patient Departure - Departure Disposition: 01 Home, Self Care Clinical Impression: Musculoskeletal back pain Condition: Stable Record reviewed to determine appropriate education?: Yes Instructions: ED Chest Pain Atypical Unkn Cause Follow-Up: Anupama Issa ARNP [Primary Care Provider] - Prescriptions: Naproxen 375 mg PO BID #20 tablet Comments: You could use mild anti-inflammatories such as naproxen twice daily for the next for 5 days. Add Tylenol 500-650 mg 4 times a day as needed for pains. There is no obvious severe causes of the pain at this time. It seems musculoskeletal. Recheck if not improved over the next several days or so. Return if worsening symptoms. Discharge Date/Time: 06/10/18 16:31
[2018-06-10] MEDS ORDERED: MORPHINE 2 MG/ML CARPUJECT IVP STA (12:59)
[2018-06-10] MEDS ORDERED: SODIUM CHLORIDE 0.9% 1,000 ML IV ONE (13:03)
[2018-06-10] MEDS ORDERED: IOVERSOL 320 100 ML VIAL IVP ONE ×2 (13:07→14:47)
[2018-06-10 13:23] LABS: BASOPHILS % (AUTO) 0.3 %; EOSINOPHILS % (AUTO) 0.1 %; HGB - HEMOGLOBIN 11.2 g/dL (12.0-16.0); LYMPHOCYTES # (AUTO) 0.4 10^3/uL (1.5-3.5); LYMPHOCYTES % (AUTO) 5.1 %; MEAN CORPUSCULAR HEMOGLOBIN 32.4 pg (27.0-31.0); MEAN CORPUSCULAR HGB CONC 34.4 g/dL (32.0-36.0); MEAN CORPUSCULAR VOLUME 93.9 fL (81.0-99.0); MEAN PLATELET VOLUME 7.6 fL (7.9-10.8); MONOCYTES # (AUTO) 0.3 10^3/uL (0.0-1.0); MONOCYTES % (AUTO) 3.4 %; NEUTROPHILS % (AUTO) 91.1 %; PLT - PLATELET COUNT 335 10^3/uL (130-450); RED BLOOD COUNT 3.46 10^6/uL (4.20-5.40); WHITE BLOOD COUNT 8.8 x10^3/uL (4.8-10.8)
[2018-06-10 13:37] LABS: ALBUMIN 3.5 g/dL (3.2-5.5); BILIRUBIN,TOTAL 0.5 mg/dL (0.2-1.0); CALCIUM 8.9 mg/dL (8.5-10.3); CREATININE 0.9 mg/dL (0.4-1.0); TOTAL PROTEIN 6.9 g/dL (6.7-8.2)
[2018-06-10] MEDS ORDERED: ACETAMINOPHEN 1,000 MG/100 ML 100 ML IV STA (13:54)
--- NOTE | 2018-06-10 14:35 | CT Report ---
Reason: back into chest pain since yesterday Procedure Date: 06/10/2018 Accession Number: [id number] / [id number] Procedure: CT - Chest Angio (AORTA) CPT Code: FULL RESULT: EXAM: CT ANGIOGRAM CHEST EXAM DATE: 06/10/2018 02:13 PM. CLINICAL HISTORY: Back into chest pain since yesterday. COMPARISONS: None. TECHNIQUE: Routine axial helical CT angiographic imaging was performed through the chest. IV Contrast: 80 cc Optiray 320. Reconstructions: Coronal, sagittal, and 3D MIP reconstructions of the aorta. In accordance with CT protocol optimization, one or more of the following dose reduction techniques were utilized for this exam: automated exposure control, adjustment of mA and/or KV based on patient size, or use of iterative reconstructive technique. FINDINGS: Vascular Structures: Scattered vascular calcifications. At least 3 vessel coronary artery calcification. No aneurysm, dissection, or significant atherosclerotic disease of the thoracic aorta, abdominal aorta, or iliac arteries. The visualized pulmonary, mesenteric, and solid organ vascular structures are also within normal limits. Negative for pulmonary embolism. Lungs/Pleura: Mild bibasilar scarring or atelectasis. Bibasilar bronchiectasis, right more than left. No acute infiltrate, consolidation, effusion, or pneumothorax. Mediastinum: Normal overall heart size. Left ventricular wall thickening measuring about 17 mm. No pericardial effusion. No lymphadenopathy. Visualized upper abdomen: Unremarkable. Bones: Osteopenia. Mild anterior compressions of T8 and T12, probably old. Degenerative changes. Other: None. IMPRESSION: 1. Negative for aortic aneurysm or dissection. Negative for pulmonary medicine. 2. Left ventricular hypertrophy, coronary artery calcifications. 3. Bibasilar bronchiectasis and other chronic findings. 4. Mild anterior compressions of T8 and T12, probably old; if symptoms are localized to these levels, MR scan may be helpful. [facility]
[2018-06-10 16:31] VITALS: BP 156/75
== END 2018-06-10 16:31 | disposition home or self-care (01) ==
LOC: EDUNIT# → ED 12:16
DX: M54.9 Dorsalgia, unspecified (principal); I10 Essential (primary) hypertension; E78.00 Pure hypercholesterolemia, unspecified
CPT/HCPCS: 36415; 71275; 80053; 83690; 84484; 85025; 93005; 96361; 96365; 99283; 99284; J0131; Q9967

== ENCOUNTER 2018-06-18 12:36 | Outpatient (CLI) | payer MEDICARE | END 2018-06-18 12:37 | disposition home or self-care (01) | LOC: LAB.F 12:36 | PROVIDERS: ATTEND Nurse Practitioner Family | DX: I48.91 Unspecified atrial fibrillation (principal) | CPT/HCPCS: 85610 ==

== ENCOUNTER 2018-08-13 15:06 | Outpatient (CLI) | payer MEDICARE, OTHER ==
--- NOTE | 2018-08-13 16:27 | XRAY Report ---
Reason: PAIN IN LEFT SHOULDER Procedure Date: 08/13/2018 Accession Number: [id number] / [id number] Procedure: WCP - Shoulder 3 View LT CPT Code: FULL RESULT: EXAM: LEFT SHOULDER RADIOGRAPHY EXAM DATE: 08/13/2018 03:29 PM. CLINICAL HISTORY: Pain in left shoulder chronically. COMPARISON: None. TECHNIQUE: 3 views. FINDINGS: Bones: No fracture or bone lesion. Joints: There is moderate diminishment of the acromiohumeral space. The glenohumeral and acromioclavicular joints demonstrate a mild degenerative process. Soft tissues: The visualized hemithorax is unremarkable. No soft tissue swelling. 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 RADIA
== END 2018-08-13 15:07 | disposition home or self-care (01) ==
LOC: DI.WCP 15:06
PROVIDERS: ATTEND Family Medicine
DX: M19.012 Primary osteoarthritis, left shoulder (principal)

== ENCOUNTER 2018-08-20 14:35 | Outpatient (CLI) | payer MEDICARE, OTHER | END 2018-08-20 14:36 | disposition critical access hospital (66) | LOC: EMS 14:35 | PROVIDERS: ATTEND Surgery | DX: R53.1 Weakness (principal); R42 Dizziness and giddiness | CPT/HCPCS: A0425; A0427 ==

== ENCOUNTER 2018-08-20 15:01 | Emergency (ER) | payer MEDICARE, OTHER ==
[2018-08-20 15:25] LABS: BILIRUBIN,URINE NEGATIVE (NEGATIVE); CLARITY,URINE HAZY (CLEAR); GLUCOSE, URINE (UA) NEGATIVE (NEGATIVE); KETONES,URINE (UA) NEGATIVE (NEGATIVE); LEUKOCYTE ESTERASE, URINE LARGE (NEGATIVE); NITRITE,URINE POSITIVE (NEGATIVE); OCCULT BLOOD,URINE TRACE-LYSE (NEGATIVE); PH,URINE 6.5 PH (5.0-7.5); PROTEIN,URINE NEGATIVE (NEGATIVE); UROBILINOGEN,URINE 0.2 (NORMAL) E.U./dL (NORMAL)
[2018-08-20 15:33] LABS: BACTERIA,URINE Moderate /HPF (None Seen); RBC,URINE 0-5 /HPF (0-5); SQUAMOUS EPITHELIAL CELL,UR NONE SEEN (<= Few); WBC CLUMPS,URINE PRESENT
[2018-08-20] MEDS ORDERED: MECLIZINE 12.5 MG TABLET PO STA (15:39)
[2018-08-20] MEDS ORDERED: DOXYCYCLINE 100 MG TABLET PO STA (15:39)
--- NOTE | 2018-08-20 15:46 | ED Physician Documentation ---
PD HPI SYNCOPE - Stated complaint Stated Complaint: WEAKNESS - Chief complaint Chief Complaint: UTI - History obtained from History obtained from: Patient - History of Present Illness Timing - onset: Today (She states she was doing some activity at the house and bent over and stood up and felt abruptly dizzy and felt she might pass out though it actually sounded more like fall over. She does have a history of episodic vertigo. She states she is feeling this type of dizziness with head movement or sitting up at this time. She has had prior evaluations with head CT. She states she has not seen in ENT specialist as yet. She was actually in the office earlier this morning for dysuria and diagnosed with a UTI and had a prescription called to [facility]. The medicine and output delivered as yet so she has not taken the first dose yet. She did not have the vertigo at the time of the office visit.) Duration: Minutes (still has the vertigo with sitting up and head movement, though not as intense as on onset.) Preceding symptoms: No: Headache Associated symptoms: No: Headache, Chest pain, Palpitations Contributing factors: Just stood up Similar symptoms before: Diagnosis (vertigo, and has had PT for vertigo treatment with some slight improvement.) Recently seen: Clinic (today for dysuria) Review of Systems Constitutional: denies: Fever Ears: denies: Tinnitus/ringing Nose: denies: Rhinorrhea / runny nose, Congestion Throat: denies: Sore throat Respiratory: denies: Cough GI: reports: Nausea. denies: Vomiting Neurologic: denies: Altered mental status, Headache, Head injury PD PAST MEDICAL HISTORY - Past Medical History Cardiovascular: Hypertension, High cholesterol, Atrial fibrillation, Other Respiratory: None Neuro: Other Endocrine/Autoimmune: Other GI: GERD, Other : Incontinence, Chronic bladder infection, Frequency HEENT: None Psych: None Musculoskeletal: Other Derm: None, Psoriasis - Past Surgical History Past Surgical History: Yes General: Other Ortho: Other - Present Medications Home Medications: Ambulatory Orders Medication Instructions Recorded Confirmed Gabapentin 300 mg PO QPM 03/02/13 06/10/18 Losartan [Cozaar] 25 mg PO BID 03/02/13 06/10/18 Omeprazole [PriLOSEC] 20 mg PO DAILY 03/02/13 06/10/18 predniSONE [Deltasone] 10 mg PO DAILY 03/02/13 06/10/18 Acetaminophen 1,000 mg PO Q6HR PRN 11/01/16 06/10/18 Metoprolol Succinate 25 mg PO BID 11/15/16 06/10/18 Warfarin [Coumadin] 5 mg PO QPM 07/11/17 06/10/18 Quetiapine Fumarate [Seroquel] 25 mg PO DAILY PM #30 tablet 05/26/18 06/10/18 Naproxen 375 mg PO BID #20 tablet 06/10/18 Diazepam 2 mg PO TID PRN #15 tablet 08/20/18 Meclizine HCl [Motion Sickness 25 mg PO 08/20/18 08/20/18 Relief] Meclizine [Antivert] 25 mg PO Q6H PRN #30 tablet 08/20/18 - Allergies Allergies/Adverse Reactions: Allergies Allergy/AdvReac Type Severity Reaction Status Date / Time Penicillins Allergy Unknown UNKNOWN Verified 08/20/18 15:07 nitrofurantoin Allergy Unknown Verified 08/20/18 15:07 [From Macrobid] - Social History Does the pt smoke?: No Smoking Status: Never smoker Does the pt drink ETOH?: No Does the pt have substance abuse?: No - Immunizations Immunizations are current?: Yes - POLST Patient has POLST: No POLST Status: DNR PD ED PE NORMAL - Vitals Vital signs reviewed: Yes - General General: Alert and oriented X 3, No acute distress, Well developed/nourished - HEENT HEENT: PERRL, EOMI (with nystagmus to the left laterally), Pharynx benign - Neck Neck: Supple, no meningeal sign, No adenopathy, No bruit - Cardiac Cardiac: No murmur. 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, No motor deficit, No sensory deficit, Normal speech Eye Opening: Spontaneous Motor: Obeys Commands Verbal: Oriented GCS Score: 15 Results - Vitals Vitals: Oxygen O2 Source [Without Activity] Room air O2 Source Room air - Labs Labs: Microbiology 08/20/18 15:18 Urine Culture - Final Urine,Random Klebsiella Pneumoniae Laboratory Tests 08/20/18 08/20/18 15:18 18:37 WBC 6.2 RBC 3.56 L Hgb 10.6 L Hct 32.2 L MCV 90.3 MCH 29.6 MCHC 32.8 RDW 15.4 H Plt Count 311 MPV 8.2 Neut # (Auto) 4.1 Lymph # (Auto) 1.3 L [place] # (Auto) 0.7 Eos # (Auto) 0.1 Baso # (Auto) 0.1 Absolute Nucleated RBC 0.00 Nucleated RBC % 0.0 Urine Color YELLOW Urine Clarity HAZY Urine pH 6.5 Ur Specific [place] <=1.005 Urine Protein NEGATIVE Urine Glucose (UA) NEGATIVE Urine Ketones NEGATIVE Urine Occult Blood TRACE-LYSE Urine Nitrite POSITIVE H Urine Bilirubin NEGATIVE Urine Urobilinogen 0.2 (NORMAL) Ur Leukocyte Esterase LARGE H Urine RBC 0-5 Urine WBC >25 H Urine WBC Clumps PRESENT Ur Squamous Epith Cells NONE SEEN Urine Bacteria Moderate H Ur Microscopic Review INDICATED Urine Culture Comments INDICATED PD MEDICAL DECISION MAKING - ED course Complexity details: reviewed old records, considered differential (Recurrent vertigo in the past with mediocre response to meclizine. She had been referred to physical therapy for treatments and does have been a few times. She has a underlying history of atrial fibrillation. She does have recurrent UTIs. This sounds like vertigo and not true syncope. We will give her first dose of her antibiotic prescribed by Dr. Castellon and also give her some meclizine and see if there is improvement. If not well improved we could add diazepam to help with the vertigo as well.), d/w patient Departure - Departure Disposition: 01 Home, Self Care Clinical Impression: Cystitis Peripheral vertigo Qualifiers: Laterality: unspecified laterality Qualified Code(s): H81.399 - Other peripheral vertigo, unspecified ear Atrial fibrillation Qualifiers: Atrial fibrillation type: chronic Qualified Code(s): I48.2 - Chronic atrial fibrillation Condition: Stable Record reviewed to determine appropriate education?: Yes Instructions: ED Vertigo Unspecified Follow-Up: Paola Long MD [Primary Care Provider] - Prescriptions: Diazepam 2 mg PO TID PRN #15 tablet PRN Reason: Vertigo Meclizine [Antivert] 25 mg PO Q6H PRN #30 tablet PRN Reason: Vertigo Comments: Start the antibiotics prescribed by your primary care for the bladder infection. We gave your first dose here. Use meclizine every 6 hours if needed for vertigo/dizziness. Add Diazepam three times daily if needed for persistent vertigo despite the meclizine. Stay well-hydrated. Move slowly and change positions slowly. Recheck if not improving over the next few days. Your blood count is okay and you do not need transfusion (anemic but not too bad with Hgb 10.6). Discharge Date/Time: 08/20/18 19:05
[2018-08-20] MEDS ORDERED: ONDANSETRON ODT 4 MG TABLET TL STA (17:59)
[2018-08-20] MEDS ORDERED: diazePAM 5 MG TABLET PO STA (18:17)
[2018-08-20 18:45] LABS: BASOPHILS # (AUTO) 0.1 10^3/uL (0.0-0.1); BASOPHILS % (AUTO) 0.9 %; EOSINOPHILS # (AUTO) 0.1 10^3/uL (0.0-0.7); EOSINOPHILS % (AUTO) 1.4 %; HGB - HEMOGLOBIN 10.6 g/dL (12.0-16.0); LYMPHOCYTES # (AUTO) 1.3 10^3/uL (1.5-3.5); MEAN CORPUSCULAR HEMOGLOBIN 29.6 pg (27.0-31.0); MEAN CORPUSCULAR HGB CONC 32.8 g/dL (32.0-36.0); MEAN CORPUSCULAR VOLUME 90.3 fL (81.0-99.0); MEAN PLATELET VOLUME 8.2 fL (7.9-10.8); MONOCYTES # (AUTO) 0.7 10^3/uL (0.0-1.0); MONOCYTES % (AUTO) 10.9 %; NEUTROPHILS # (AUTO) 4.1 10^3/uL (1.5-6.6); NEUTROPHILS % (AUTO) 65.8 %; PLT - PLATELET COUNT 311 10^3/uL (130-450); RED BLOOD COUNT 3.56 10^6/uL (4.20-5.40); RED CELL DISTRIBUTION WIDTH 15.4 % (12.0-15.0); WHITE BLOOD COUNT 6.2 x10^3/uL (4.8-10.8)
[2018-08-20 18:49] VITALS: BP 118/84
== END 2018-08-20 19:05 | disposition home or self-care (01) ==
LOC: EDUNIT# → ED 15:01
DX: H81.399 Other peripheral vertigo, unspecified ear (principal); I48.2 Chronic atrial fibrillation; N30.90 Cystitis, unspecified without hematuria; I10 Essential (primary) hypertension; R53.83 Other fatigue; D64.9 Anemia, unspecified
CPT/HCPCS: 36415; 80053; 80061; 81001; 81002; 82728; 83540; 84466; 85025; 85610; 87077; 87086; 87181; 93005; 99283; 99284; A9270; Q0162; 81003

== ENCOUNTER 2018-09-02 10:00 | Outpatient (CLI) | payer MEDICARE, OTHER ==
--- NOTE | 2018-09-02 16:08 | CONSULTATION NOTE ---
Palliative Care Consultation - Referral Referring Provider: Dr. Jennifer Long Time of Visit: 10-11:15 Referral setting: Assisted living Referral Reason: Frailty/Dizzyness/Goals of Care - Information Sources Records reviewed: Previous records reviewed History/Review of Systems obtained from: Patient, Family ( Ruslan at visit; follow up with son Ar) Exam limitations: Clinical condition (mild STM) - History of Present Illness Brief History of Present Illness: This is an 83-year-old woman who has multiple comorbidities adding to her frailty. Her most pressing symptom is her severe dizziness, this is been a significant problem for her with her past medical history of left middle cerebral artery stroke in 2009 and 2011. She has had fluctuating severity, has had multiple different workups including neurology, and rheumatology, as well as acute workup through her PCP. She is due to have a follow-up carotid Doppler at the end of the month. Her neurology records show her having mild cognitive impairment, chronic dizziness, with recommendations of vestibular therapy 2 years ago, for which she has not followed through though she does have a referral which she says she is planning to call today. Patient also has known Monoclonal gammopathy of unknown significance, vitamin B deficiency, peripheral neuropathy in the setting of known spinal stenosis, hypertension, atrial fib on anti-coag, as well as polymyalgia rheumatica. 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 Patient presents with severe vertigo, upon standing she does have a minor orthostatic drop of 122/72-98/68. She is unable to tolerate the dizziness, and needs to sit down after 30-60 seconds. She is only been able to ambulate with her walker short distances in her apartment. She is feeling quite anxious and overwhelmed with the increased severity of the dizziness and the limits on her functional status. It does appear she has had multiple workups, multiple trials of medications including Depakote, high-dose prednisone, meclizine which she continues but does not find effective, and most likely cause has been attributed to her residual CVA symptoms of speech difficulty, facial numbness, and coordination and balance difficulty. Her greatest fear and anxiety is recurrent stroke, increased dependence, and that her current level of disability will continue. Palliative care is meeting with patient, secondary to her frailty and functional decline. Patient is not quite sure of what benefit will be served, though by end of visit we had discussed her anxiety, depression, med management, and counseling around advanced care planning. She does feel the extra layer of support will be beneficial to both her and her . Medical/Surgical History - Past Medical History Cardiovascular: reports: Hypertension, High cholesterol, Atrial fibrillation Respiratory: reports: None Neuro: reports: CVA, Peripheral neuropathy (setting of spinal stenosis), Motion sickness, Other (mild memory problems; severe dizzyness attributed to stroke) Endocrine/Autoimmune: reports: Other (polymyagia rheumatica) GI: reports: GERD, Chronic constipation, Other (AVM involving Colon) : reports: Incontinence, Chronic bladder infection, Frequency HEENT: reports: None, Other ([place]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) Psych: reports: Anxiety Musculoskeletal: reports: Scoliosis, Other (left rotator cuff syndrome) Derm: reports: Psoriasis MRSA Hx?: No - Past Surgical History General: reports: Colonoscopy (with removal of hyperplatic polyp), Other (inguinal hernia repair;) Ortho: reports: Other /DIGITAL MEDIA DESIGNER: reports: Dilation and currettage Neuro: reports: Other (negative rt/lt temporal artery biopsies) - Substance History Use: Uses substance without health or social issues: NONE Social History - Living Situation Living arrangement: Assisted living Living Situation: With spouse/s.o. Support System: Patient and moved recently end of May from 3500 square foot to small assisted living apartment. This is related to ongoing functional and health care issues. This is been a difficult transition for them, if still not been able to unpack to patient's satisfaction secondary to her dizziness. They do take meals in her room. There is son Ar does oversee appointments and sometimes has to just let them know what is happening, as he are quite resistant to any kind of change. He is concerned about making this a successful transition, his father is getting more forgetful, and his mother can be quite stubborn. 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 Has been rolls his eyes when he talks about they have several storage units yet to sort through. Family History - Family History Family History: Mother: , Father: , CAD (father of aneurysm) Medications/Allergies - Medications Home Medications: Ambulatory Orders Medication Instructions Recorded Confirmed Losartan [Cozaar] 25 mg PO DAILY 10/08/13 04/10/19 Omeprazole [PriLOSEC] 20 mg PO DAILY 03/02/13 09/02/18 predniSONE [Deltasone] 10 mg PO DAILY 03/02/13 09/02/18 Metoprolol Succinate 25 mg PO BID 11/15/16 09/02/18 Warfarin [Coumadin] 5 mg PO QPM 07/11/17 09/02/18 Meclizine [Antivert] 25 mg PO Q6H PRN #30 tablet 08/20/18 09/02/18 Naproxen 375 mg PO BID PRN 09/02/18 09/02/18 Nitroglycerin [Nitrostat] 0.4 mg PO Q5MIN PRN MDD 3 tabs 09/02/18 09/02/18 then call 911 - Allergies Allergies/Adverse Reactions: Allergies Allergy/AdvReac Type Severity Reaction Status Date / Time Penicillins Allergy Unknown UNKNOWN Verified 08/20/18 15:07 nitrofurantoin Allergy Unknown Verified 08/20/18 15:07 [From Macrobid] Review of Systems - Constitutional Constitutional: reports: Fatigue, Weight loss (06/22 147.2; 08/13 139.2) - Eyes Eyes: reports: Vision loss, Dipolpia (with [place] Palsy; difficulty watching TV) - Cardiovascular Cardiovascular: reports: Irregular heart rate, Decr. exercise tolerance - Respiratory Respiratory: denies: SOB at rest - Gastrointestinal Gastrointestinal: reports: Constipation, Early satiety. denies: Nausea, Reflux/heartburn - Genitourinary Genitourinary: reports: Incontinence. 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), Recurrent infections (UTIS most recently ED 08/20) - All Other Systems All Other Systems: reports: Reviewed and negative Physical Exam - Vital Signs Temperature: 97.5 C Pulse Rate: 88 Respiratory Rate: 18 O2 Saturation: 98 (ra @ rest) Blood Pressure: 122/72 - Physical Exam General Appearance: positive: Mild distress ENT: positive: No signs of dehydration Neck: positive: No JVD, Trachea midline Cardiovascular: positive: Irregular Respiratory: positive: No respiratory distress, Breath sounds nml Abdomen: positive: Non-tender, Soft, Nml bowel sounds Skin: positive: Pallor, Dryness Extremities: positive: No pedal edema Neurologic/Psychiatric: positive: Oriented x3, Mood/affect nml, Weakness, Facial droop (right side slight with [place] Palsy), Flat affect Palliative Care - POLST Patient has POLST: Yes POLST Status: DNR, Selective Treatment Pain: Location (left shoulder; worsens with movement or use) Tiredness/Fatigue: Severe (7-10) Drowsiness/Sedation: Mild (1-3) Nausea: None Depression: Moderate (4-6) Anxiety: Moderate (4-6) Dyspnea: None Anorexia: Mild (1-3), Weight loss Sleep: Variable sleep pattern (Difficulty falling asleep; very anxious) Constipation: Yes, Intermittent constipation Feelings of wellbeing/Perceived Quality of Life: Fair, Worsening Performance Status: Patient has had limited functionality, this is more related to her severe increase in dyspnea over the last few weeks. She does report it has improved over the the last few days. She is mostly chair bound, had been able to go up and down to get their meals. She did report she did bathe herself independently, with standby assist from her . I would put her at a PPS of 40%. - Palliative Care Discussion: Patient has only little insight into her frailty, the significance of her multiple comorbidities, advanced age, and her acute on chronic functional decline. She does report she does not "like to talk about hard things". We did though visit their advanced care planning, she had done a MIRTA ST with Dr. Hermosillo this last month, but in further conversation, patient goals are more aligned with DNA R/selective treatments not comfort treatment focused care. Patient at this point in time would still treat reversible conditions, be transported to the hospital, and weigh benefits and burdens of moving forward with treatments but "no heroic measures". Her threshold for low quality of life would be increased dependence, if she were to have a stroke that left her confused are "lost her marbles", or if there is no hope for her to return to her previous level of functioning she would not want to extend her life or her suffering. Her has a MIRTA ST as well, and both wanted to clarify their goals on the POLST. We agreed on was focus on quality of life, being independent as possible, treat reversible conditions, and no heroics at end of life. This seem to satisfy the summary of her conversation for the both of them. They did not know if there is son Ar had D POA, and clarifying conversation later with son, reports they are updating this, but they are D POA for each other, with Ar as follow-up. Counseling was provided regarding support for grief and loss of [place], including her community and friends. They have remain isolated and in their apartment, their daughter does come visit weekly, and son keeps in touch. They are feeling somewhat a drift and not settled. Results - Lab Results Lab results reviewed: Yes Impression and Recommendations - Palliative Care Impression: This is a 83-year-old woman who presents with frailty, advanced age, multiple comorbidities with most significant at this point in time acute on chronic dizziness. Patient and her have recently transitioned into assisted living, this is accompanied by many feelings of grief and loss. Palliative care to provide support and oversight for symptom management, addressing psychosocial issues, transition support as well as advanced care planning. Recommendations/Counseling Done: 1. Acute on chronic dizziness. In review of patient's records, this does appear to be a long-standing problem for the last couple years, with patient not following through on multiple recommendations. This is been much of a frustration for her son. She does have a referral for vestibular therapy, did recommend she follow through on this, now that she has moved and has more time to be able to give this an adequate trial. Patient is not been on gabapentin for 2 months, recommended not to resume, as patient is not had an exacerbation in her pain or peripheral neuropathy. Did discuss if patient were not to improve, would need to look at ways to accommodate her dizziness to decrease her isolation, did suggest possibly getting a transport chair. We will continue to evaluate. 2. Anxiety. Patient is able to express feelings of anxiety, feeling overwhelmed. This is multifactorial in origin. We will continue to explore, will introduce perhaps counseling and support through the medical palliative care social services aide or butadiene converter utility operator in the next couple visits. Patient was Hindu, but did go regularly to the [employer] [facility] with her son. Her and her are quite isolated, have not branched out and tried any of the activities at the facility yet. 3. Advanced care planning. Both patient and , admit to finding it difficult to talk about "hard things". They did allow me though to wait into conversations around advanced care planning, MIRTA ST review, and looking at thresholds of what is acceptable quality of life. This conversation was shared with her son Ar on a later call, as well as his concerns regarding their current care needs. He reports his mother is quite stubborn, and often has her own ideas about things, and can make it difficult and trying to follow through on her appointments and medical needs. 4. Medication adherence. Patient independently managing her meds occasions, we did go through the list, she has not been taking the gabapentin for over 2 months, nor the Seroquel at bedtime. She reports the losartan is 1 time a day, is currently reordering medications. She does get her protimes done at the facility, both facility and son would like to have this transitioned over to their med management program. Will update medication list with but patient currently taken, continue to monitor, and adjust accordingly. Will encourage transition is well, as this is my first visit to set up rapport. Time Spent: 75 minutes with greater than 50% of this spent on advanced care planning, counseling provided for normal grief and loss reaction, working on anxiety disorder, and anticipatory guidance.Plan will be to revisit in 2 weeks.
== END 2018-09-02 10:01 | disposition home or self-care (01) ==
LOC: PC 10:00
PROVIDERS: ATTEND Nurse Practitioner Adult Health
DX: Z51.5 Encounter for palliative care (principal); I69.398 Other sequelae of cerebral infarction; R42 Dizziness and giddiness; F41.9 Anxiety disorder, unspecified; I69.328 Other speech and language deficits following cerebral infarction; R20.0 Anesthesia of skin; R26.89 Other abnormalities of gait and mobility; I10 Essential (primary) hypertension; F32.9 Major depressive disorder, single episode, unspecified; Z79.899 Other long term (current) drug therapy; Z66 Do not resuscitate; Z63.79 Other stressful life events affecting family and household; Z91.19 Patient's noncompliance with other medical treatment and regimen; G62.9 Polyneuropathy, unspecified; M48.00 Spinal stenosis, site unspecified; I48.91 Unspecified atrial fibrillation; Z79.01 Long term (current) use of anticoagulants

== ENCOUNTER 2018-09-06 15:41 | Emergency (ER) | payer MEDICARE, OTHER ==
[2018-09-06] MEDS ORDERED: METOPROLOL 5 MG/5 ML VIAL IVP STA ×2 (16:10→16:56)
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
[2018-09-06 16:18] LABS: BASOPHILS % (AUTO) 0.7 %; EOSINOPHILS % (AUTO) 0.5 %; HGB - HEMOGLOBIN 10.5 g/dL (12.0-16.0); LYMPHOCYTES # (AUTO) 0.7 10^3/uL (1.5-3.5); LYMPHOCYTES % (AUTO) 13.6 %; MEAN CORPUSCULAR HEMOGLOBIN 28.7 pg (27.0-31.0); MEAN CORPUSCULAR HGB CONC 32.4 g/dL (32.0-36.0); MEAN CORPUSCULAR VOLUME 88.5 fL (81.0-99.0); MEAN PLATELET VOLUME 7.7 fL (7.9-10.8); MONOCYTES # (AUTO) 0.8 10^3/uL (0.0-1.0); MONOCYTES % (AUTO) 16.8 %; NEUTROPHILS # (AUTO) 3.3 10^3/uL (1.5-6.6); NEUTROPHILS % (AUTO) 68.4 %; PLT - PLATELET COUNT 290 10^3/uL (130-450); RED BLOOD COUNT 3.65 10^6/uL (4.20-5.40); RED CELL DISTRIBUTION WIDTH 15.7 % (12.0-15.0); WHITE BLOOD COUNT 4.9 x10^3/uL (4.8-10.8)
[2018-09-06 16:22] LABS: INR 2.6 (0.8-1.2); PT - PROTHROMBIN TIME 29.2 secs (9.9-12.6)
[2018-09-06 16:30] LABS: ALBUMIN 3.5 g/dL (3.2-5.5); ALBUMIN/GLOBULIN RATIO 0.9 (1.0-2.2); BILIRUBIN,TOTAL 0.5 mg/dL (0.2-1.0); CALCIUM 9.2 mg/dL (8.5-10.3); CREATININE 0.8 mg/dL (0.4-1.0); TOTAL PROTEIN 7.2 g/dL (6.7-8.2)
--- NOTE | 2018-09-06 16:41 | CT Report ---
Reason: vertigo Procedure Date: 09/06/2018 Accession Number: [id number] / [id number] Procedure: CT - HEAD WO CPT Code: FULL RESULT: EXAM: CT HEAD EXAM DATE: 09/06/2018 04:30 PM. CLINICAL HISTORY: Vertigo. COMPARISON: HEAD W/O 05/22/2018 10:33 AM. TECHNIQUE: Multiaxial CT images were obtained from the foramen magnum to the vertex. Reformats: Sagittal and coronal. IV contrast: None. In accordance with CT protocol optimization, one or more of the following dose reduction techniques were utilized for this exam: automated exposure control, adjustment of mA and/or KV based on patient size, or use of iterative reconstructive technique. FINDINGS: Parenchyma: No intraparenchymal hemorrhage. No evidence of mass, midline shift, or CT findings of infarction. Ames-white differentiation is distinct. Mild periventricular hypoattenuation seen. Extraaxial Spaces: Moderate atrophy is present. No subdural or epidural collections identified. Ventricles: Normal in size and position. Sinuses and Orbits: Imaged paranasal sinuses, orbits, and mastoids show no significant abnormality. Bones: No evidence of fracture or calvarial defect. Other: None. IMPRESSION: Mild to moderate senescent changes without CT evidence of acute intracranial disease. RADIA
--- NOTE | 2018-09-06 16:54 | XRAY Report ---
Reason: CHEST PAIN Procedure Date: 09/06/2018 Accession Number: [id number] / [id number] Procedure: XR - Chest 2 View X-Ray CPT Code: 86814 FULL RESULT: EXAM: CHEST RADIOGRAPHY EXAM DATE: 09/06/2018 04:38 PM. CLINICAL HISTORY: CHEST PAIN. COMPARISON: CHEST 2 VIEW 06/18/2017 6:22 PM CHEST ANGIO (AORTA) 06/10/2018 1:55 PM. TECHNIQUE: 2 views. FINDINGS: Lungs/Pleura: Mild central congestion seen, without gross consolidation. Mediastinum: Heart and mediastinal contours are unremarkable. Other: Prominent kyphosis noted, increased from previous exam. IMPRESSION: 1. Mild central congestion without gross consolidation. 2. Increasing kyphosis. RADIA
[2018-09-06] MEDS ORDERED: diltiaZEM INJ 5 MG/ML VIAL IVP STA (17:57)
[2018-09-06] MEDS ORDERED: MECLIZINE 12.5 MG TABLET PO STA (18:39)
[2018-09-06 19:55] VITALS: BP 131/77
== END 2018-09-06 20:34 | disposition home or self-care (01) ==
LOC: ED 15:41
DX: R07.9 Chest pain, unspecified (principal); H81.391 Other peripheral vertigo, right ear; I10 Essential (primary) hypertension; I48.91 Unspecified atrial fibrillation; Z79.01 Long term (current) use of anticoagulants; Z86.73 Personal history of transient ischemic attack (TIA), and cerebral infarction without residual deficits
CPT/HCPCS: 36415; 70450; 71046; 80053; 83690; 84484; 85025; 85610; 93005; 96374; 96375; 99284; 99285; A9270

== ENCOUNTER 2018-10-22 12:28 | Outpatient (CLI) | payer MEDICARE, OTHER ==
--- NOTE | 2018-10-22 15:37 | Ultrasound Report ---
Reason: NECK PAIN,ATRIAL FIBRILLATION,DIZZ Procedure Date: 10/22/2018 Accession Number: [id number] / [id number] Procedure: US - Carotid Doppler Complete CPT Code: FULL RESULT: EXAM: BILATERAL CAROTID AND VERTEBRAL ARTERY DUPLEX DOPPLER ULTRASOUND: EXAM DATE: 10/22/2018 01:45 PM CLINICAL HISTORY: Neck pain, atrial fibrillation, dizziness. COMPARISON: 07/11/2017. TECHNIQUE: Grayscale imaging, color Doppler, and duplex spectral Doppler were used to evaluate the carotid and vertebral arteries bilaterally. Static images were obtained. FINDINGS: A small amount of calcified plaque is identified in the right and left carotid bulbs. Normal antegrade flow is present in bilateral vertebral arteries. VELOCITIES: Right CCA mid: PSV 38 cm/sec CCA dist: PSV 50 cm/sec ICA prox: PSV 46 cm/sec, EDV 21 cm/sec ICA mid: PSV 63 cm/sec, EDV 32 cm/sec ICA dist: PSV 49 cm/sec, EDV 24 cm/sec ECA: PSV 75 cm/sec Vert: PSV 33 cm/sec ICA/CCA: 1.3 Left CCA mid: PSV 54 cm/sec CCA dist: PSV 59 cm/sec ICA prox: PSV 73 cm/sec, EDV 31 cm/sec ICA mid: PSV 59 cm/sec, EDV 32 cm/sec ICA dist: PSV 54 cm/sec, EDV 28 cm/sec ECA: PSV 58 cm/sec Vert: PSV 26 cm/sec ICA/CCA: 1.2 ICA diameter stenosis: Right: <50% by velocity and <70% by NASCET criteria. Left: <50% by velocity and <70% by NASCET criteria. IMPRESSION: 1. Mild bilateral carotid artery plaquing. 2. In the right carotid artery there are no elevated carotid artery velocities to suggest hemodynamically significant stenosis. 3. In the left carotid artery there are no elevated carotid artery velocities to suggest hemodynamically significant stenosis. 4. Normal antegrade flow is present in bilateral vertebral arteries. General Recommendations: Stenosis =50% ICA - Follow-up ultrasound 6-12 months Stenosis <50% ICA - High Risk Patient with plaque - Follow-up ultrasound 1-2 years Normal Study but High Risk Patient - Follow-up ultrasound 3-5 years Management recommendations and diagnostic criteria are based on current IAC endorsed standards in Carotid Artery Stenosis: Grayscale and Doppler Ultrasound Diagnosis. Validated velocity measurements with angiographic measurements and velocity criteria are extrapolated from diameter data as defined by the Society of Radiologists in Ultrasound Consensus Conference Radiology 2003; 229;340-346. RADIA
== END 2018-10-22 12:29 | disposition home or self-care (01) ==
LOC: DI 12:28
PROVIDERS: ATTEND Family Medicine
DX: M54.2 Cervicalgia (principal); I48.91 Unspecified atrial fibrillation; R42 Dizziness and giddiness; I69.998 Other sequelae following unspecified cerebrovascular disease; G45.0 Vertebro-basilar artery syndrome
CPT/HCPCS: 93880

== ENCOUNTER 2018-11-06 12:20 | Outpatient (CLI) | payer MEDICARE, OTHER | END 2018-11-06 12:21 | disposition home or self-care (01) | LOC: DI 12:20 | PROVIDERS: ATTEND Family Medicine | DX: I48.91 Unspecified atrial fibrillation (principal); I10 Essential (primary) hypertension; R42 Dizziness and giddiness | CPT/HCPCS: 93306 ==

== ENCOUNTER 2018-11-27 11:22 | Outpatient (CLI) | payer MEDICARE, OTHER ==
[2018-11-27] MEDS ORDERED: IOTHALAMATE MEGLUMINE 50 ML VIAL ONE (11:52)
[2018-11-27] MEDS ORDERED: BUFFERED LIDOCAINE 10 ML SYRINGE ONE (12:29)
[2018-11-27] MEDS ORDERED: BUPIVACAINE 0.5% PF 10 ML VIAL SUBQ STA (13:00)
[2018-11-27] MEDS ORDERED: IOTHALAMATE MEGLUMINE 50 ML VIAL IVP ONE (13:00)
[2018-11-27] MEDS ORDERED: BUFFERED LIDOCAINE 10 ML SYRINGE IU ONE (13:00)
[2018-11-27] MEDS: TRIAMCINOLONE 40 MG/ML VIAL IM ONE (13:03)
--- NOTE | 2018-11-27 16:43 | XRAY Report ---
Reason: PAIN IN LEFT SHOULDER Procedure Date: 11/27/2018 Accession Number: [id number] / [id number] Procedure: FL - Inj/Aspiration Major Joint CPT Code: FULL RESULT: EXAM: LEFT SHOULDER PAIN INJECTION. DATE: 11/27/2018 12:45 PM CLINICAL HISTORY: PAIN IN LEFT SHOULDER. Chronic rotator cuff tear. COMPARISON: None. TECHNIQUE: The risks, benefits, and alternatives of the procedure were discussed with the patient. All questions were answered. Written and verbal consent were obtained. The left glenohumeral joint was marked under fluoroscopy and prepped and draped in a sterile manner. Local anesthesia was performed with 1% lidocaine. A 22-gauge needle was then inserted into the glenohumeral joint. A small amount of contrast material was then injected to confirm needle placement. 80 mg of Depo-Medrol and 6 cc of bupivacaine were then injected. The needle was removed without immediate complication. Other: None. Fluoroscopic exposure time: 50 seconds Number of fluoroscopic images: 1. FINDINGS: Bones and joints: Superior migration of the humeral head with respect to the glenoid consistent with a chronic rotator cuff tear. Injection: Fluoroscopic images demonstrate needle placement and contrast in the glenohumeral joint. Contrast extravasation outside of the glenohumeral joint is present consistent with rotator cuff disruption. IMPRESSION: Successful fluoroscopically guided pain injection of the left shoulder. RADIA
== END 2018-11-27 11:23 | disposition home or self-care (01) ==
LOC: DI 11:22
PROVIDERS: ATTEND Orthopaedic Surgery Sports Medicine
DX: M25.512 Pain in left shoulder (principal)
CPT/HCPCS: 20610; Q9961

== ENCOUNTER 2018-12-16 08:00 | Outpatient (CLI) | payer MEDICARE, OTHER ==
[2018-12-16 18:53] LABS: BASOPHILS % (AUTO) 0.6 %; EOSINOPHILS % (AUTO) 0.1 %; HGB - HEMOGLOBIN 10.7 g/dL (12.0-16.0); LYMPHOCYTES # (AUTO) 0.5 10^3/uL (1.5-3.5); LYMPHOCYTES % (AUTO) 7.2 %; MEAN CORPUSCULAR HGB CONC 30.5 g/dL (32.0-36.0); MEAN CORPUSCULAR VOLUME 91.9 fL (81.0-99.0); MEAN PLATELET VOLUME 11.2 fL (7.9-10.8); MONOCYTES # (AUTO) 0.5 10^3/uL (0.0-1.0); MONOCYTES % (AUTO) 7.3 %; NEUTROPHILS % (AUTO) 84.4 %; PLT - PLATELET COUNT 291 10^3/uL (130-450); RED BLOOD COUNT 3.82 10^6/uL (4.20-5.40); RED CELL DISTRIBUTION WIDTH 20.8 % (12.0-15.0); WHITE BLOOD COUNT 7.1 x10^3/uL (4.8-10.8)
[2018-12-16 19:06] LABS: PLATELET ESTIMATE, MANUAL NORMAL (130-450,000) (NORMAL); PLATELET MORPHOLOGY NORMAL APPEARANCE (NORMAL)
[2018-12-16 19:12] LABS: RHEUMATOID FACTOR NEGATIVE (Negative)
[2018-12-18 14:11] LABS: ANA SCREEN NEGATIVE (NEGATIVE)
== END 2018-12-16 23:59 | disposition home or self-care (01) ==
LOC: LAB.WCP 08:00
PROVIDERS: ATTEND Internal Medicine Rheumatology
DX: M35.3 Polymyalgia rheumatica (principal); R70.0 Elevated erythrocyte sedimentation rate; M25.50 Pain in unspecified joint
CPT/HCPCS: 36415; 81599; 84155; 84165; 85025; 85651; 86038; 86140; 86334; 86430

== ENCOUNTER 2019-01-05 16:49 | Outpatient (CLI) | payer MEDICARE, OTHER | END 2019-01-05 16:50 | disposition critical access hospital (66) | LOC: EMS 16:49 | PROVIDERS: ATTEND Surgery | DX: R42 Dizziness and giddiness (principal) | CPT/HCPCS: A0425; A0429 ==

== ENCOUNTER 2019-01-05 17:08 | Emergency (ER) | payer MEDICARE, OTHER ==
[2019-01-05] MEDS ORDERED: METOCLOPRAMIDE 10 MG TABLET PO STA (17:37)
--- NOTE | 2019-01-05 17:39 | ED Physician Documentation ---
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 She is been dealing with vertigo for the last 2 months. Its been almost constant. She got up today and was walking with her walker and became worse than normal. She was spinning. She also notes diplopia, but that also is not new. She notes double vision on rightward gaze, that is been going on for about 6 months. She is tried meclizine and lorazepam in the past which were either unhelpful or made her worse. She is in vestibular physical therapy. 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 : Incontinence, Chronic bladder infection, Frequency HEENT: None, Other Psych: Anxiety Musculoskeletal: Scoliosis, Other Derm: Psoriasis Other Past Medical History: vertigo - Past Surgical History Past Surgical History: Yes General: Colonoscopy, Other Ortho: 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 Neuro: Other - Present Medications Home Medications: Ambulatory Orders Medication Instructions Recorded Confirmed Losartan [Cozaar] 25 mg PO DAILY 03/02/13 01/05/19 Omeprazole [PriLOSEC] 20 mg PO DAILY 03/02/13 01/05/19 predniSONE [Deltasone] 10 mg PO DAILY 03/02/13 01/05/19 Metoprolol Succinate 25 mg PO BID 11/15/16 09/06/18 Warfarin [Coumadin] 5 mg PO QPM 07/11/17 01/05/19 Meclizine [Antivert] 25 mg PO Q6H PRN #30 tablet 08/20/18 01/05/19 Nitroglycerin [Nitrostat] 0.4 mg PO Q5MIN PRN MDD 3 tabs 09/02/18 01/05/19 then call 911 Metoclopramide HCl 5 mg PO TID PRN #15 tablet 01/05/19 - Allergies Allergies/Adverse Reactions: Allergies Allergy/AdvReac Type Severity Reaction Status Date / Time Penicillins Allergy Unknown UNKNOWN Verified 01/05/19 17:11 nitrofurantoin Allergy Unknown Verified 01/05/19 17:11 [From Macrobid] - Social History Does the pt smoke?: No Smoking Status: Never smoker Does the pt drink ETOH?: No Does the pt have substance abuse?: No - Family History Family history: reports: Non contributory - Immunizations Immunizations are current?: Yes - POLST Patient has POLST: Yes POLST Status: DNR PD ED PE NORMAL - Vitals Vital signs reviewed: Yes - General General: Alert and oriented X 3, No acute distress - HEENT HEENT: PERRL, EOMI - Neck Neck: Supple, no meningeal sign, No bony TTP - Cardiac Cardiac: No murmur, Other (irregular) - Respiratory Respiratory: No respiratory distress, Clear bilaterally - Abdomen Abdomen: Soft, Non tender - Back Back: No CVA TTP, No spinal TTP - Derm Derm: Normal color, Warm and dry - Neuro Neuro: Alert and oriented X 3, Other (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) Eye Opening: Spontaneous Motor: Obeys Commands Verbal: Oriented GCS Score: 15 - Psych Psych: Normal mood NIHSS - Time Time: 17:35 - Level of Consciousness Level of consciousness: (0) Alert, Keenly responsive LOC Questions: (0) Answers both Q's correct LOC Commands: (0) Performs both correctly - Gaze Best Gaze: (0) Normal - Visual Visual: (0) No loss - Facial Palsy Facial Palsy: (0) Normal, symmetrical movement - Motor Arms (both separate) Motor Arm (right): (0) No drift Motor Arm (left): (0) No drift - Motor Legs (both separate) Motor Leg (right): (0) No drift Motor Leg (left): (0) No drift - Limb Ataxia Limb Ataxia: (0) Absent - Sensory Sensory: (0) Normal - Best Language Best Language: (0) No aphasia - Dysarthria Dysarthria: (0) Normal - Extinction and Inattention (formally neg Extinction and inattention: (0) No abnormality - Total Score/Results Total Score/Result: 0 Results - Vitals Vitals: Vital Signs - 24 hr 01/05/19 01/05/19 17:11 19:12 Temperature 37.0 C Heart Rate 115 H 89 Respiratory 18 17 Rate Blood Pressure 152/92 H 148/84 H O2 Saturation 100 95 Oxygen O2 Source [Without Activity] Room air O2 Source Room air - Labs Labs: Laboratory Tests 01/05/19 01/05/19 01/05/19 18:35 18:35 18:35 WBC 5.0 RBC 3.82 L Hgb 10.9 L Hct 35.1 L MCV 91.9 MCH 28.5 MCHC 31.1 L RDW 21.2 H Plt Count 288 MPV 10.1 Neut # (Auto) 3.6 Lymph # (Auto) 1.0 L [place] # (Auto) 0.4 Eos # (Auto) 0.0 Baso # (Auto) 0.0 Absolute Nucleated RBC 0.00 Nucleated RBC % 0.0 PT 28.5 H INR 2.5 H Sodium 138 Potassium 3.8 Chloride 103 Carbon Dioxide 24 Anion Gap 11.0 BUN 13 Creatinine 0.8 Estimated GFR (MDRD) 68 L Glucose 103 H Calcium 9.4 Total Bilirubin 0.6 AST 19 ALT 13 Alkaline Phosphatase 43 Total Protein 6.8 Albumin 3.4 Globulin 3.4 Albumin/Globulin Ratio 1.0 Lipase 34 PD MEDICAL DECISION MAKING - ED course ED course: This is an 83-year-old woman with an exacerbation of chronic vertigo. She did have some relief with Reglan here and was relatively asymptomatic during a road test with her walker in the department. Departure - Departure Disposition: 01 Home, Self Care Clinical Impression: Vertigo, Adequate anticoagulation on anticoagulant therapy Condition: Good Record reviewed to determine appropriate education?: Yes Instructions: ED Vertigo Unspecified Prescriptions: Metoclopramide HCl 5 mg PO TID PRN #15 tablet PRN Reason: Dizziness Comments: You can take the metoclopramide/Reglan as needed for relief from your dizziness. As discussed you should continue vestibular physical therapy and follow-up with an ear nose and throat physician. Return for new or worsening symptoms.
--- NOTE | 2019-01-05 18:45 | CT Report ---
Reason: vertigo Procedure Date: 01/05/2019 Accession Number: [id number] / [id number] Procedure: CT - HEAD WO CPT Code: FULL RESULT: EXAM: CT HEAD EXAM DATE: 01/05/2019 06:00 PM. CLINICAL HISTORY: Vertigo. COMPARISON: HEAD W/O 09/06/2018 4:24 PM. TECHNIQUE: Multiaxial CT images were obtained from the foramen magnum to the vertex. Reformats: Sagittal and coronal. IV contrast: None. In accordance with CT protocol optimization, one or more of the following dose reduction techniques were utilized for this exam: automated exposure control, adjustment of mA and/or KV based on patient size, or use of iterative reconstructive technique. FINDINGS: Parenchyma: No intraparenchymal hemorrhage. No evidence of mass, midline shift, or CT findings of acute infarction. Ames-white differentiation is distinct. Diffuse chronic microangiopathic white matter changes. Extraaxial Spaces: Normal for age. No subdural or epidural collections. Ventricles: The ventricles and cortical sulci are enlarged, consistent with age-related tissue loss. Sinuses and orbits: Imaged paranasal sinuses, orbits, and mastoids show no significant abnormality. Bones: Unremarkable. Other: None. IMPRESSION: Generalized age-related cortical atrophic changes without evidence of acute intracranial abnormality. RADIA
[2019-01-05 18:50] LABS: BASOPHILS % (AUTO) 0.4 %; EOSINOPHILS % (AUTO) 0.4 %; HGB - HEMOGLOBIN 10.9 g/dL (12.0-16.0); LYMPHOCYTES % (AUTO) 19.7 %; MEAN CORPUSCULAR HEMOGLOBIN 28.5 pg (27.0-31.0); MEAN CORPUSCULAR HGB CONC 31.1 g/dL (32.0-36.0); MEAN CORPUSCULAR VOLUME 91.9 fL (81.0-99.0); MEAN PLATELET VOLUME 10.1 fL (7.9-10.8); MONOCYTES # (AUTO) 0.4 10^3/uL (0.0-1.0); MONOCYTES % (AUTO) 8.6 %; NEUTROPHILS # (AUTO) 3.6 10^3/uL (1.5-6.6); NEUTROPHILS % (AUTO) 70.7 %; PLT - PLATELET COUNT 288 10^3/uL (130-450); RED BLOOD COUNT 3.82 10^6/uL (4.20-5.40); RED CELL DISTRIBUTION WIDTH 21.2 % (12.0-15.0)
[2019-01-05 19:10] LABS: ALBUMIN 3.4 g/dL (3.2-5.5); BILIRUBIN,TOTAL 0.6 mg/dL (0.2-1.0); CALCIUM 9.4 mg/dL (8.5-10.3); CREATININE 0.8 mg/dL (0.4-1.0); TOTAL PROTEIN 6.8 g/dL (6.7-8.2)
[2019-01-05 19:12] LABS: INR 2.5 (0.8-1.2); PT - PROTHROMBIN TIME 28.5 secs (9.9-12.6)
[2019-01-05 19:31] VITALS: BP 147/88
== END 2019-01-05 19:43 | disposition home or self-care (01) ==
LOC: ED 17:08
DX: R42 Dizziness and giddiness (principal); I10 Essential (primary) hypertension; Z79.01 Long term (current) use of anticoagulants; I48.91 Unspecified atrial fibrillation; Z86.73 Personal history of transient ischemic attack (TIA), and cerebral infarction without residual deficits; Z66 Do not resuscitate
CPT/HCPCS: 36415; 70450; 80053; 83690; 85025; 85610; 99284; A9270

== ENCOUNTER 2019-01-22 09:34 | Outpatient (CLI) | payer MEDICARE, OTHER ==
--- NOTE | 2019-01-26 04:57 | Ultrasound Report ---
Reason: ABDOMINAL PAIN Procedure Date: 01/22/2019 Accession Number: [id number] / [id number] Procedure: US - Abdomen Complete CPT Code: FULL RESULT: EXAM: ABDOMEN ULTRASOUND EXAM DATE: 01/22/2019 01:06 PM. CLINICAL HISTORY: ABDOMINAL PAIN. COMPARISON: ABDOMEN/PELVIS W/ 12/10/2016 3:00 PM. TECHNIQUE: Real-time scanning was performed with static images obtained. FINDINGS: Liver: Normal in size. Liver measures 13.8 cm. Mild heterogeneity of liver without evidence of focal mass on provided images. Main portal vein flow: Hepatopetal. Gallbladder: Normal. No stones, wall thickening, or sonographic Landin's sign. Gallbladder wall measures 1.3 mm. Biliary System: Common bile duct measures approximately 3 mm. No intrahepatic or extrahepatic ductal dilatation. Pancreas: Visualized portion is unremarkable. Kidneys: Right: Right kidney measures 11.2 cm longitudinally. Normal. No contour-deforming mass, stones, or hydronephrosis. Left: Left kidney measures 11.0 cm longitudinally. Normal. No contour-deforming mass, stones, or hydronephrosis. Spleen: Spleen measures 8.0 x 2.8 x 7.8 cm, volume 94.69 cc. Normal in size . Mildly heterogeneous spleen without evidence of focal mass on provided images. Aorta and Inferior Vena Cava: IVC appears unremarkable as visualized. Proximal aortic diameter is 1.87 cm, mid aortic diameter is 1.69 cm and distal aortic diameter is 1.57 cm. No abdominal aortic aneurysm visualized. IMPRESSION: Unremarkable abdomen ultrasound. RADIA
== END 2019-01-22 09:35 | disposition home or self-care (01) ==
LOC: DI 09:34
PROVIDERS: ATTEND Family Medicine
DX: R10.9 Unspecified abdominal pain (principal)
CPT/HCPCS: 76700

== ENCOUNTER 2019-02-17 11:20 | Outpatient (CLI) | payer MEDICARE, OTHER ==
--- NOTE | 2019-02-18 08:45 | DEXA Report ---
Reason: OSTEOPOROSIS Procedure Date: 02/17/2019 Accession Number: [id number] / [id number] Procedure: DEX - Dexa Spine and/or Hip CPT Code: FULL RESULT: EXAM: Dexa Spine and/or Hip, Dexa Forearm DATE: 02/17/2019 12:06 PM CLINICAL HISTORY: OSTEOPOROSIS TECHNIQUE: Dual energy x-ray absorptiometry (DXA) was performed on a Settle System. Regions measured are the AP Spine, femoral neck, and if needed forearm. COMPARISON: 02/17/2018 In accordance with the International Society for Clinical Densitometry (ISCD) guidelines, data from previous exams may be reanalyzed using current recommendations and techniques. This is done to allow a more accurate basis for comparison with the current study. FINDINGS: The data for the lumbar spine is as follows: BMD (g/cm/cm) T-SCORE Z-SCORE REGION L1 1.086 -0.4 1.8 L2 1.005 -1.6 0.5 L3 1.148 -0.4 1.7 L4 0.998 -1.7 0.5 TOTAL 1.060 -1.0 1.1 NOTE: All evaluable vertebrae are used for classification The data for the hip is as follows: BMD (g/cm/cm) T-SCORE Z-SCORE REGION Neck 0.659 -2.7 -0.2 TOTAL 0.669 -2.7 -0.2 NOTE: The femoral neck or total proximal femur, whichever is lowest, is used for classification. The data for the left forearm is as follows: BMD (g/cm/cm) T-SCORE Z-SCORE REGION 1/3 0.656 -2.5 0.7 NOTE: The 33% radius of the nondominant forearm is used for classification. DXA RESULTS SUMMARY: Spine SCAN DATE AGE BMD CHANGE VS CHANGE VS PREVIOUS PREVIOUS % 02/17/2019 [age] 1.060 0.030* 2.9* 02/17/2018 [age] 1.030 * Denotes significant change at the 95% confidence level. Denotes dissimilar scan types or analysis methods. DXA RESULTS SUMMARY: Hip SCAN DATE AGE BMD CHANGE VS CHANGE VS PREVIOUS PREVIOUS % 02/17/2019 84.0 0.669 -0.047* -6.6* 02/17/2018 83.0 0.716 * Denotes significant change at the 95% confidence level. Denotes dissimilar scan types or analysis methods. IMPRESSION: THE WHO CLASSIFICATION BASED ON THE INTERNATIONAL REFERENCE STANDARD IS OSTEOPOROSIS. THE FRACTURE RISK IS HIGH. RECOMMENDATION: Patients with diagnosis of osteoporosis or osteopenia should have regular bone mineral density assessment. For those eligible for Medicare, routine testing is allowed once every 2 years. Testing frequency can be increased for patients who have rapidly progressing disease or for those who are receiving medical therapy to restore bone mass. COMMENT: World Health Organization (WHO) definitions for osteoporosis and osteopenia: NORMAL BMD: T-score at -1.0 or higher, fracture risk is low OSTEOPENIA BMD: T-score between -1.0 and -2.5, fracture risk is increased. OSTEOPOROSIS BMD: T-score at -2.5 or lower, fracture risk is high. National Osteoporosis Foundation recommends: 1. Obtain adequate dietary calcium (at least 1200 mg per day) and vitamin D (400-800 international units per day). 2. Participate, as appropriate, in regular weightbearing and muscle-strengthening exercise. 3. Avoid tobacco use and reduce alcohol and caffeine intake. 4. For more detailed information see the website at www.NOF.org.
== END 2019-02-17 11:21 | disposition home or self-care (01) ==
LOC: DI 11:20
PROVIDERS: ATTEND Internal Medicine Rheumatology
DX: M81.0 Age-related osteoporosis without current pathological fracture (principal)
CPT/HCPCS: 77080; 77081

== ENCOUNTER 2019-03-05 09:39 | Outpatient (CLI) | payer MEDICARE ==
[2019-03-05] MEDS ORDERED: GADOBUTROL 10 MMOL/10 ML VIAL ONE (10:30)
[2019-03-05] MEDS ORDERED: GADOBUTROL 10 MMOL/10 ML VIAL IVP ONE (11:47)
--- NOTE | 2019-03-05 13:22 | MRI Report ---
Reason: AURAL VERTIGO, LT EAR TINNITIS Procedure Date: 03/05/2019 Accession Number: [id number] / [id number] Procedure: MRI - IACS W/WO CPT Code: FULL RESULT: EXAM: MRI BRAIN AND INTERNAL AUDITORY CANAL (IAC),WITHOUT AND WITH CONTRAST. EXAM DATE: 03/05/2019 10:25 AM. CLINICAL HISTORY: Aural vertigo, left ear tinnitus. COMPARISON: No prior MRI. TECHNIQUE: Multiplanar, multisequence T1-weighted and fluid-sensitive MRI sequences of the brain and IACs were performed before and after administration of intravenous contrast. Other: None. IV Contrast: Without and with 10 mL IV Gadavist. FINDINGS: Brain Volume: Mild to moderate diffuse atrophy. Parenchyma/Dura: Negative for an acute or recent ischemic infarct.Incidental right cerebellar developmental venous anomaly. No intracranial-enhancing or space-occupying mass. No midline shift or abnormal subdural fluid collection. Moderately prominent chronic-appearing cerebral white matter T2 hyperintense signal changes likely attributable to aging and fairly prominent chronic small vessel ischemic white matter disease of the cerebral hemispheres. 7 mm nodule with susceptibility artifact in the inferior right cerebellum, most consistent with a cavernous malformation. Internal Auditory Canals (IACs): Unremarkable contours of the canalicular and cisternal segments of the 7th and 8th cranial nerves. No evidence for dehiscence of the superior semicircular canals. No abnormal enhancement, mass or nodule, no evidence for tumor in the region of the internal auditory canals. Ventricles/Cisterns: Mild ventriculomegaly, more likely from atrophy than hydrocephalus. Orbits: Previous bilateral lens extractions. Sella Turcica: The pituitary gland, cavernous sinuses, suprasellar cistern and optic chiasm are unremarkable. Vasculature: Normal signal flow void is seen in the major arterial structures at the skull base. Contrast opacification of the major dural venous sinuses is present as expected. No evidence for stenosis or thrombus obstruction of the upper internal jugular veins, sigmoid sinuses, transverse sinuses or superior sagittal sinus. Sinuses: No evidence for acute sinus or mastoid disease. Bones: No focal pathologic-appearing marrow signal changes in the skull or clivus. Other: None. IMPRESSION: 1. No acute intracranial abnormality or enhancing mass. 2. Unremarkable findings in the regions of the internal auditory canals. 3. Prominent chronic senescent changes, including brain atrophy and extensive white matter disease likely from microangiopathy. 4. 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 RADIA
== END 2019-03-05 09:40 | disposition home or self-care (01) ==
LOC: DI 09:39
PROVIDERS: ATTEND Otolaryngology
DX: H81.313 Aural vertigo, bilateral (principal); H93.12 Tinnitus, left ear; Q04.8 Other specified congenital malformations of brain
CPT/HCPCS: 70543; A9585

== ENCOUNTER 2019-04-29 08:00 | Outpatient (CLI) | payer MEDICARE, MEDICAID | END 2019-04-30 23:59 | disposition home or self-care (01) | LOC: LAB.WCP 08:00 | PROVIDERS: ATTEND Family Medicine | DX: I48.91 Unspecified atrial fibrillation (principal) ==

== ENCOUNTER 2019-06-03 08:00 | Outpatient (CLI) | payer MEDICARE, MEDICAID | END 2019-06-03 23:59 | disposition home or self-care (01) | LOC: LAB.WCP 08:00 | PROVIDERS: ATTEND Family Medicine | DX: Z79.01 Long term (current) use of anticoagulants (principal); I48.91 Unspecified atrial fibrillation ==

== ENCOUNTER 2019-06-16 10:22 | Outpatient (CLI) | payer MEDICARE, MEDICAID | END 2019-06-16 23:59 | disposition home or self-care (01) | LOC: LAB.WCP 10:22 | PROVIDERS: ATTEND Internal Medicine Rheumatology | DX: M35.3 Polymyalgia rheumatica (principal) | CPT/HCPCS: 36415; 85651; 86140 ==

== ENCOUNTER 2019-07-01 08:00 | Outpatient (CLI) | payer MEDICARE, MEDICAID | END 2019-07-01 23:59 | disposition home or self-care (01) | LOC: LAB.WCP 08:00 | PROVIDERS: ATTEND Family Medicine | DX: Z79.01 Long term (current) use of anticoagulants (principal); I48.91 Unspecified atrial fibrillation ==

== ENCOUNTER 2020-03-31 15:00 | Outpatient (CLI) | payer MEDICARE, MEDICAID ==
[2020-03-31 15:49] LABS: ALBUMIN 3.7 g/dL (3.2-5.5); BILIRUBIN,TOTAL 0.6 mg/dL (0.2-1.0); CALCIUM 9.9 mg/dL (8.5-10.3); CREATININE 0.9 mg/dL (0.4-1.0); TOTAL PROTEIN 7.5 g/dL (6.7-8.2)
--- NOTE | 2020-03-31 16:58 | MRI Report ---
PROCEDURE: Angio Brain W/O (MRA) INDICATIONS: ANTICOAGULATION THERAPY, HX CVA TECHNIQUE: Noncontrast axial 3-D iopz-ex-fevllp MR angiogram, with 3-dimensional maximum intensity projection (M IP) reformats of the internal carotid arteries and posterior circulation then performed. COMPARISON: MRI brain 10/ FINDINGS: Image quality: Excellent. Anterior circulation: Intracranial internal carotid arteries demonstrate normal size and intralumina l flow signal. The flow within the paired anterior cerebral arteries is normal and symmetric. The f low within the middle cerebral arteries is normal and symmetric. The anterior communicating artery i s seen. No stenoses, occlusions, or aneurysms. Posterior circulation: Portions of the right vertebral artery appear patent. There is no increased si gnal identified within the distal portion of the left vertebral artery. No signal is identified withi n the vast majority of the basilar artery. Previous exam demonstrated poor enhancement of the basilar artery. The flow within the posterior cerebral arteries is normal and symmetric. No stenoses, occlu sions, or aneurysms. IMPRESSION: 1. Poor visualization of patency within the basilar artery as well as distal portions of the left domitila tebral artery. While this could be artifactual and portions appear unchanged from prior exam, further evaluation with CTA is recommended for additional characterization of potential basilar artery occlu ryan. Reviewed by: Lucila Monae MD on 03/31/2020 4:57 PM PST Approved by: Lucila Monae MD on 03/31/2020 4:57 PM [facility] Station ID: [id number]
[2020-03-31] MEDS ORDERED: GADOBUTROL 7.5 MMOL/7.5 ML VIAL ONE (17:01)
[2020-03-31] MEDS ORDERED: GADOBUTROL 7.5 MMOL/7.5 ML VIAL IVP ONE (17:28)
--- NOTE | 2020-03-31 17:53 | MRI Report ---
PROCEDURE: Brain W/WO INDICATIONS: ANTICOAGULATION THERAPY, HX CVA CONTRAST: IV CONTRAST: Gadavist ml: 6 TECHNIQUE: Noncontrast axial T1 spin echo, axial T2 fast spin echo, sagittal and axial FLAIR, coronal T2 fast sp in echo, axial gradient echo, axial diffusion and ADC through the brain. After the administration of contrast, axial and coronal T1 spin echo with fat saturation through the brain. COMPARISON: None. FINDINGS: Image quality: Excellent. CSF spaces: Basal cisterns are patent. No extra-axial fluid collections. Ventricles are normal in size and shape. Brain: No midline shift. No intracranial bleeds or masses. No abnormal intracranial enhancement. There is cerebral volume loss for age. There is periventricular white matter chronic small vessel is chemic change. The brainstem appears normal. Diffusion-weighted images demonstrate no acute ischemi c insults. No chronic ischemic insults. Normal intravascular flow voids are present. Skull and face: Calvarial marrow is normal in signal. Orbits appear normal. Sinuses: Sinuses and mastoids appear clear. IMPRESSION: No acute intracranial abnormality or abnormal enhancement. No evidence of acute ischemia . Diffuse, scattered nonspecific white matter signal changes, statistically represent chronic microvasc ular ischemic disease although differential includes neurodegenerative, infectious/inflammatory, demy elinating etiologies among other possibilities. Reviewed by: Rajiv Keith MD on 03/31/2020 5:52 PM PST Approved by: Rajiv Keith MD on 03/31/2020 5:52 PM PST Station ID: [id number]
== END 2020-03-31 15:01 | disposition home or self-care (01) ==
LOC: LAB 15:00 → DI 15:01
PROVIDERS: ATTEND Family Medicine
DX: R42 Dizziness and giddiness (principal); H93.19 Tinnitus, unspecified ear; Z86.73 Personal history of transient ischemic attack (TIA), and cerebral infarction without residual deficits; I48.0 Paroxysmal atrial fibrillation; Z79.01 Long term (current) use of anticoagulants
CPT/HCPCS: 36415; 70553; 80053; A9585; 70544

== ENCOUNTER 2020-04-21 11:36 | Outpatient (CLI) | payer MEDICARE, MEDICAID ==
[2020-04-21] MEDS ORDERED: IOVERSOL 320 100 ML VIAL IVP ONE ×2 (11:49→16:12)
--- NOTE | 2020-04-21 13:28 | CT Report ---
PROCEDURE: ANGIO HEAD W/WO INDICATIONS: HX OF CVA, TINNITUS, VERTIGO, ANTICOAGLUATION THER CONTRAST: IV CONTRAST: Optiray 320 ml: 80 PO CONTRAST: *NO PO CONTRAST TECHNIQUE: Precontrast 4.5 mm thick angled axial sections acquired from the foramen magnum to the vertex. Afte r the administration of intravenous contrast, 1 mm thick sections acquired through the [place] of [place] is. Postcontrast 4.5 mm thick sections then re-acquired from the foramen magnum to the vertex. 3-di mensional mvmchkt-lvtaosacm-ebtobgzzth (MIP) and/or volume rendering reformats were acquired of the c entral intracranial vasculature. For radiation dose reduction, the following was used: automated ex posure control, adjustment of mA and/or kV according to patient size. COMPARISON: MRI of the brain and MR angiogram of the brain on 03/31/2020. FINDINGS: Image quality: Excellent. Anterior circulation: The intracranial internal carotid arteries, primarily the cavernous segments smith ve severe calcified atherosclerotic disease causing severe stenosis bilaterally. The right and left [place] are patent with no significant stenosis. The right LISE is patent with no significant stenosis. Th e left LISE has narrowing proximally which is either congenital or related to atherosclerotic plaque. Posterior circulation: The vertebral arteries have severe calcified atherosclerotic disease in the f oramen magnum with no flow cephalad into the confluence with the basilar artery. The basilar artery i s not visualized. The posterior circulation and OPTICS TEST TECHNICIAN are not well visualized likely due to decreased f low. The posterior communicating arteries are patent and posterior circulation is primarily derived f rom the anterior circulation. CSF spaces: Basal cisterns are patent. No extra-axial fluid collections. Ventricles are enlarged d ue to underlying atrophy. Brain: No midline shift. No intracranial mass or hemorrhage. There is diffuse cerebral volume loss. There is periventricular white matter hypodensity consistent with microvascular ischemic disease. Th e brainstem appears normal. No chronic ischemic insults. Skull and face: Calvarial marrow is normal in signal. Orbits appear normal. Sinuses: Sinuses and mastoids appear clear. IMPRESSION: 1. 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 2. 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 The posterior circulation is poorly opacified with a miniscule OPTICS TEST TECHNICIAN and branches deriving f low from the anterior circulation via patent posterior communicating arteries. 3. The proximal left LISE has a smooth long segment narrowing, either congenital or related to atheros clerosis. 4. Diffuse atrophy and microvascular ischemic disease. Reviewed by: Golden Clayton on 04/21/2020 1:27 PM PST Approved by: Golden Clayton on 04/21/2020 1:27 PM PST Station ID: [id number]
== END 2020-04-21 11:37 | disposition home or self-care (01) ==
LOC: DI 11:36
PROVIDERS: ATTEND Family Medicine
DX: I65.23 Occlusion and stenosis of bilateral carotid arteries (principal); I65.1 Occlusion and stenosis of basilar artery; I99.8 Other disorder of circulatory system
CPT/HCPCS: 70496; Q9967

== ENCOUNTER 2020-07-02 09:03 | Outpatient (CLI) | payer MEDICARE, MEDICAID | END 2020-07-02 09:04 | disposition critical access hospital (66) | LOC: EMS 09:03 | PROVIDERS: ATTEND Emergency Medicine | DX: R51.9 Headache, unspecified (principal); M54.2 Cervicalgia; M25.532 Pain in left wrist | CPT/HCPCS: A0425; A0429 ==

== ENCOUNTER 2020-07-02 09:22 | Emergency (ER) | payer MEDICARE, MEDICAID ==
--- NOTE | 2020-07-02 09:46 | ED Physician Documentation ---
History of Present Illness - Stated complaint Stated Complaint: L ARM/HEAD PX - Chief complaint Chief Complaint: Ext Problem - History obtained from History obtained from: Patient - History of Present Illness Timing: How many days ago (2) Pain level max: 7 Pain level now: 5 - Additonal information Additional information: 85-year-old female presents to the emergency department complaining of left wrist pain for the past 2 days. Also has a occipital headache for the past 2 days. Worse with movement, better with rest. Denies any fall or trauma. No fevers. No chills. No cough. No congestion. No numbness or tingling. Has not taken anything for pain today. Review of Systems Constitutional: denies: Fever, Chills Respiratory: denies: Cough, Wheezing GI: denies: Vomiting : denies: Dysuria Skin: denies: Rash Musculoskeletal: denies: Neck pain, Back pain Neurologic: reports: Headache (gradual onset, intermittent. 10). denies: Focal weakness, Numbness, Seizure, Confused PD PAST MEDICAL HISTORY - Past Medical History Cardiovascular: Hypertension, High cholesterol, Atrial fibrillation Respiratory: None Neuro: Other Endocrine/Autoimmune: Other GI: GERD, Chronic constipation, Other ASTROCHEMIST: None : Incontinence, Chronic bladder infection, Frequency HEENT: None, Other Psych: Anxiety Musculoskeletal: Scoliosis, Other Derm: Psoriasis - Past Surgical History Past Surgical History: Yes General: Colonoscopy, Other Ortho: Other /ASTROCHEMIST: Dilation and currettage Neuro: Other - Present Medications Home Medications: Ambulatory Orders Medication Instructions Recorded Confirmed Losartan [Cozaar] 25 mg PO DAILY 03/02/13 04/13/19 Omeprazole [PriLOSEC] 20 mg PO DAILY 03/02/13 04/13/19 predniSONE [Deltasone] 3 mg PO DAILY 03/02/13 04/13/19 Metoprolol Succinate 25 mg PO BID 11/15/16 04/13/19 Warfarin [Coumadin] 5 mg PO QPM 07/11/17 04/13/19 Meclizine [Antivert] 25 mg PO Q6H PRN #30 tablet 08/20/18 04/13/19 Nitroglycerin [Nitrostat] 0.4 mg PO Q5MIN PRN MDD 3 tabs 09/02/18 04/13/19 then call 911 Metoclopramide HCl 5 mg PO TID PRN #15 tablet 01/05/19 04/13/19 Alendronate Sodium 70 mg PO PRN PRN 04/13/19 04/13/19 Folic Acid/B Complex C No.17 1 tab PO BID 04/13/19 04/13/19 [Dexifol Caplet] Naproxen 375 mg PO BID PRN 04/13/19 04/13/19 - Allergies Allergies/Adverse Reactions: Allergies Allergy/AdvReac Type Severity Reaction Status Date / Time Penicillins Allergy Unknown UNKNOWN Verified 07/02/20 09:41 nitrofurantoin Allergy Unknown Verified 07/02/20 09:41 [From Macrobid] - Social History Does the pt smoke?: No Smoking Status: Never smoker Does the pt drink ETOH?: No Does the pt have substance abuse?: No - Immunizations Immunizations are current?: Yes - POLST Patient has POLST: Yes POLST Status: DNR PD ED PE NORMAL - Vitals Vital signs reviewed: Yes - General General: Alert and oriented X 3, No acute distress - HEENT HEENT: Atraumatic (no hematoma, no palpable skull fractures), PERRL, Moist mucous membranes, Pharynx benign, Dentition benign - Neck Neck: Supple, no meningeal sign, No bony TTP, No JVD, No bruit - Cardiac Cardiac: Other (irregular) - Respiratory Respiratory: No respiratory distress, Clear bilaterally - Abdomen Abdomen: Soft, Non tender, Non distended - Derm Derm: Warm and dry - Extremities Extremities: Other (normal exam of the L elbow and shoulder. L wrist is swollen, erythematous, TTP. NVI. mild warmth) - Neuro Neuro: Alert and oriented X 3 Results - Vitals Vitals: Vital Signs - 24 hr 07/02/20 07/02/20 07/02/20 09:22 11:19 13:43 Temperature 37.4 C 37.0 C Heart Rate 119 H 117 H 90 Respiratory 27 H 20 18 Rate Blood Pressure 133/99 H 139/91 H 130/90 H O2 Saturation 98 98 Oxygen O2 Source [Without Activity] Room air O2 Source Room air - Labs Labs: Laboratory Tests 07/02/20 07/02/20 07/02/20 10:10 10:10 10:10 WBC 8.5 RBC 3.62 L Hgb 11.8 L Hct 35.9 L MCV 99.2 H MCH 32.6 H MCHC 32.9 RDW 13.4 Plt Count 272 MPV 10.1 Neut # (Auto) 6.4 Lymph # (Auto) 0.9 L [place] # (Auto) 1.2 H Eos # (Auto) 0.0 Baso # (Auto) 0.0 Absolute Nucleated RBC 0.00 Nucleated RBC % 0.0 ESR 120 H PT INR Sodium 136 Potassium 4.0 Chloride 97 L Carbon Dioxide 23 Anion Gap 16.0 H BUN 21 H Creatinine 1.0 Estimated GFR (MDRD) 52 L Glucose 83 Calcium 9.6 C-Reactive Protein 17.2 H 07/02/20 10:10 WBC RBC Hgb Hct MCV MCH MCHC RDW Plt Count MPV Neut # (Auto) Lymph # (Auto) [place] # (Auto) Eos # (Auto) Baso # (Auto) Absolute Nucleated RBC Nucleated RBC % ESR PT 29.7 H INR 2.8 H Sodium Potassium Chloride Carbon Dioxide Anion Gap BUN Creatinine Estimated GFR (MDRD) Glucose Calcium C-Reactive Protein - Rads (name of study) L wrist xray Radiology: Prelim report reviewed, EMP read contemporaneously, See rad report (IMPRESSION: Findings concerning for nondisplaced scaphoid waist fracture. Widening of the scapholunate interval concerning for ligamentous injury. Osteopenia. Syfo-oa-[id number] degenerative changes of the wrist and hand. ) head Ct Radiology: Prelim report reviewed, EMP read contemporaneously, See rad report (Senescent changes of microvascular ischemic changes and cerebral volume loss without evidence of an acute intracranial abnormality. These findings are stable from at least December 2018. ) Procedures - Splint (location) L wrist Splint applied by: Physician Type of splint: Fiberglass, Short arm, Thumb spica Other: Patient tolerated well, No complications, Neurovascular intact PD MEDICAL DECISION MAKING - ED course Complexity details: reviewed results, re-evaluated patient, considered differential, d/w patient ED course: 85-year-old female presents to the emergency department with swelling to the left hand. No known injury. Appears to have a scaphoid fracture on x-ray. Likely acute. Placed in a thumb spica. No acute findings on head CT. No other acute lab abnormalities. Neurovascularly intact. Patient does have an elevated sed rate and CRP, likely posttraumatic. No evidence of infection. Patient counseled regarding signs and symptoms for which I believe and urgent re- evaluation would be necessary. Patient with good understanding of and agreement to plan and is comfortable going home at this time This document was made in part using voice recognition software. While efforts are made to proofread this document, sound alike and grammatical errors may occur. Departure - Departure Disposition: 01 Home, Self Care Clinical Impression: Scaphoid fracture of wrist Qualifiers: Encounter type: initial encounter Scaphoid bone location: unspecified portion of scaphoid Fracture type: closed Fracture alignment: nondisplaced Laterality: left Qualified Code(s): S62.002A - Unspecified fracture of navicular [scaphoid] bone of left wrist, initial encounter for closed fracture Headache Qualifiers: Headache type: unspecified Headache chronicity pattern: unspecified pattern Intractability: not intractable Qualified Code(s): R51.9 - Headache, unspecified Condition: Good Instructions: ED Fx Wrist Navicular Conf Follow-Up: Kali Dukes DO [Primary Care Provider] - [facility] [Provider Group] - Within 1 week Comments: Keep the splint on until cleared by orthopedics. You can use motrin or tylenol as needed for pain. Return if you worsen. you should have your sed rate and CRP rechecked by your doctor next week as well, to ensure these are returning to normal after your trauma. MPRESSION: Findings concerning for nondisplaced scaphoid waist fracture. Widening of the scapholunate interval concerning for ligamentous injury. Osteopenia. [id number] degenerative changes of the wrist and hand. Discharge Date/Time: 07/02/20 13:00
[2020-07-02 10:26] LABS: BASOPHILS % (AUTO) 0.4 %; EOSINOPHILS % (AUTO) 0.1 %; HGB - HEMOGLOBIN 11.8 g/dL (12.0-16.0); LYMPHOCYTES # (AUTO) 0.9 10^3/uL (1.5-3.5); LYMPHOCYTES % (AUTO) 10.6 %; MEAN CORPUSCULAR HEMOGLOBIN 32.6 pg (27.0-31.0); MEAN CORPUSCULAR HGB CONC 32.9 g/dL (32.0-36.0); MEAN CORPUSCULAR VOLUME 99.2 fL (81.0-99.0); MEAN PLATELET VOLUME 10.1 fL (7.9-10.8); MONOCYTES # (AUTO) 1.2 10^3/uL (0.0-1.0); MONOCYTES % (AUTO) 13.9 %; NEUTROPHILS # (AUTO) 6.4 10^3/uL (1.5-6.6); NEUTROPHILS % (AUTO) 74.8 %; PLT - PLATELET COUNT 272 10^3/uL (130-450); RED BLOOD COUNT 3.62 10^6/uL (4.20-5.40); RED CELL DISTRIBUTION WIDTH 13.4 % (12.0-15.0); WHITE BLOOD COUNT 8.5 x10^3/uL (4.8-10.8)
[2020-07-02 10:39] LABS: INR 2.8 (0.8-1.2); PT - PROTHROMBIN TIME 29.7 secs (9.9-12.6)
[2020-07-02 10:48] LABS: CALCIUM 9.6 mg/dL (8.5-10.3); CRP - C-REACTIVE PROTEIN 17.2 mg/dL (0-1.0)
--- NOTE | 2020-07-02 10:57 | CT Report ---
PROCEDURE: HEAD WO INDICATIONS: headache TECHNIQUE: Noncontrast 4.5 mm thick angled axial sections acquired from the foramen magnum to the vertex. For r adiation dose reduction, the following was used: automated exposure control, adjustment of mA and/or kV according to patient size. COMPARISON: Head CT dated 01/05/2019; brain MRI dated 03/31/2020; CTA head dated 04/21/2020 FINDINGS: Image quality: Excellent. CSF spaces: The ventricles and extra-axial CSF spaces are prominent consistent with cerebral atrophy. No focal extra-axial fluid collection. Brain: Diffuse foci and confluent regions of white matter hypoattenuation. No acute intracranial hemo rrhage or evidence of an acute transcortical infarction. No mass effect or midline shift. Marked athe rosclerotic chest occasions within the proximal intracranial vasculature. Skull and face: Calvarium and visualized facial bones are intact, without suspicious lesions. Sinuses: Visualized sinuses and mastoids are clear. IMPRESSION: Senescent changes of microvascular ischemic changes and cerebral volume loss without evidence of an a cute intracranial abnormality. These findings are stable from at least December 2018. Reviewed by: Lane Bryant DO on 07/02/2020 9:56 AM [facility] Approved by: Lane Bryant DO on 07/02/2020 9:56 AM [facility] Station ID: [id number]
--- NOTE | 2020-07-02 11:05 | XRAY Report ---
PROCEDURE: Wrist 4 View LT INDICATIONS: L wrist pain TECHNIQUE: 4 views of the wrist were acquired. COMPARISON: None FINDINGS: Bones: Osseous structures are demineralized limiting evaluation. There is cortical irregularity and l ucency through the waist of the scaphoid suggestive of a nondisplaced fracture. There is widening of the scapholunate interval concerning for ligamentous injury. Mild degenerative changes of the wrist a t the triscaphe and first carpometacarpal joint. Moderate degenerative changes of the first metacarpo phalangeal joint. Soft tissues: Soft tissue swelling of the distal forearm and wrist. IMPRESSION: Findings concerning for nondisplaced scaphoid waist fracture. Widening of the scapholunate interval concerning for ligamentous injury. Osteopenia. Gvmv-qq-nyhbznqc degenerative changes of the wrist and hand. Reviewed by: Lane Bryant DO on 07/02/2020 10:03 AM [facility] Approved by: Lane Bryant DO on 07/02/2020 10:03 AM [facility] Station ID: [id number]
[2020-07-02] MEDS ORDERED: ACETAMINOPHEN 325 MG TABLET PO STA (11:07)
[2020-07-02 13:45] VITALS: BP 130/90
== END 2020-07-02 13:00 | disposition home or self-care (01) ==
LOC: EDUNIT# → ED 09:22
DX: S62.002A Unspecified fracture of navicular [scaphoid] bone of left wrist, initial encounter for closed fracture (principal); R51.9 Headache, unspecified; R70.0 Elevated erythrocyte sedimentation rate; R79.82 Elevated C-reactive protein (CRP); I48.91 Unspecified atrial fibrillation; Z79.01 Long term (current) use of anticoagulants; Z66 Do not resuscitate; X58.XXXA Exposure to other specified factors, initial encounter
CPT/HCPCS: 29125; 36415; 70450; 73110; 80048; 85025; 85610; 85651; 86140; 99284; A9270

== ENCOUNTER 2020-07-10 07:00 | Outpatient (CLI) | payer MEDICARE, MEDICAID ==
--- NOTE | 2020-07-10 17:42 | XRAY Report ---
PROCEDURE: Wrist 3 View BILAT INDICATIONS: WRIST PAIN TECHNIQUE: 3 views of the right and 3 views of the views of the wrist were acquired. COMPARISON: 07/02/2020, left wrist FINDINGS: Bones: Decreased mineralization. No visible right wrist fracture. Bone alignment is normal. Left wris t demonstrates scapholunate interval widening and the findings suggestive of the distal scaphoid pole longitudinal fracture. There is radius scaphoid joint space loss and proximal migration of the capit ate. Soft tissues: Heavy vascular calcification is seen in the right wrist. There is chondrocalcinosis at the scapholunate and lunotriquetral ligament regions, and mild/moderate right wrist vascular calcific ation. IMPRESSION: 1. Possible left scaphoid fracture. 2. Left scapholunate interval widening and proximal capitate migration. 3. Left wrist chondrocalcinosis. 4. Moderate to heavy vascular calcification. 5. Diffuse demineralization precludes good evaluation for fracture. Consider MRI for fracture confirm ation. Reviewed by: Isatu Denney MD on 07/10/2020 4:41 PM [facility] Approved by: Isatu Denney MD on 07/10/2020 4:41 PM [facility] Station ID: [id number]
== END 2020-07-10 23:59 | disposition home or self-care (01) ==
LOC: DI.N 07:00
PROVIDERS: ATTEND Physician Assistant
DX: M25.531 Pain in right wrist (principal); M25.832 Other specified joint disorders, left wrist; M11.232 Other chondrocalcinosis, left wrist

== ENCOUNTER 2020-07-30 11:31 | Outpatient (CLI) | payer MEDICARE, MEDICAID | END 2020-07-30 11:32 | disposition critical access hospital (66) | LOC: EMS 11:31 | PROVIDERS: ATTEND Emergency Medicine | DX: R22.41 Localized swelling, mass and lump, right lower limb (principal) | CPT/HCPCS: A0425; A0429 ==

== ENCOUNTER 2020-07-30 11:48 | Emergency (ER) | payer MEDICARE, MEDICAID ==
[2020-07-30] MEDS ORDERED: ACETAMINOPHEN 325 MG TABLET PO STA (12:01)
--- NOTE | 2020-07-30 12:39 | XRAY Report ---
PROCEDURE: Knee 3 View RT INDICATIONS: swelling/lump medial knee TECHNIQUE: 3 views of the right knee(s) were acquired. COMPARISON: None. FINDINGS: Bones: No fractures or dislocations. No suspicious bony lesions. Chondrocalcinosis. Mild osteophyt osis. Soft tissues: No joint effusion. No suspicious soft tissue calcifications. IMPRESSION: Degenerative change. No evidence acute bony abnormality of the right knee. Reviewed by: Brian Hill MD on 07/30/2020 11:38 AM [facility] Approved by: Brian Hill MD on 07/30/2020 11:38 AM [facility] Station ID: [id number]
--- NOTE | 2020-07-30 13:04 | ED Physician Documentation ---
PD HPI LOWER EXT INJURY - Stated complaint Stated Complaint: BUMP ON KNEE - Chief complaint Chief Complaint: Trauma Ext - History obtained from History obtained from: Patient, EMS - History of Present Illness PD HPI LOW EXT INJURY LOCATION: Right, Knee Type of injury: Other (no noted injury nor pain but noted a lump on medial side of knee. She says she just noted it today.). No: Fall, Twist Where injury occurred: Home Timing - onset: Today (she believes it just developed today.) Timing - details: Abrupt onset (she just noted it today) Worsened by: No: Moving, Palpating Associated symptoms: Swelling. No: Weakness, Numbness, Discolored Similar symptoms before: Has not had sx before Review of Systems Constitutional: denies: Fever, Chills Nose: denies: Rhinorrhea / runny nose, Congestion Throat: denies: Sore throat Respiratory: denies: Cough Skin: reports: Lesions (very tender spot on coccygeal area, she says from psoriasis patch. Has skin breakdown. 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: None : Incontinence, Chronic bladder infection, Frequency HEENT: None, Other Psych: Anxiety Musculoskeletal: Scoliosis, Other Derm: Psoriasis - Past Surgical History Past Surgical History: Yes General: Colonoscopy, Other Ortho: Other /WHITE WASHER: Dilation and currettage Neuro: Other - Present Medications Home Medications: Ambulatory Orders Medication Instructions Recorded Confirmed Losartan [Cozaar] 25 mg PO DAILY 03/02/13 04/13/19 Omeprazole [PriLOSEC] 20 mg PO DAILY 03/02/13 04/13/19 predniSONE [Deltasone] 3 mg PO DAILY 03/02/13 04/13/19 Metoprolol Succinate 25 mg PO BID 11/15/16 04/13/19 Warfarin [Coumadin] 5 mg PO QPM 07/11/17 04/13/19 Meclizine [Antivert] 25 mg PO Q6H PRN #30 tablet 08/20/18 04/13/19 Nitroglycerin [Nitrostat] 0.4 mg PO Q5MIN PRN MDD 3 tabs 09/02/18 04/13/19 then call 911 Metoclopramide HCl 5 mg PO TID PRN #15 tablet 01/05/19 04/13/19 Alendronate Sodium 70 mg PO PRN PRN 04/13/19 04/13/19 Folic Acid/B Complex C No.17 1 tab PO BID 04/13/19 04/13/19 [Dexifol Caplet] Naproxen 375 mg PO BID PRN 04/13/19 04/13/19 Hydrocolloid Dressing [Advanced 1 each TP Q2D #10 bandage 07/30/20 Healing Bandage] - Allergies Allergies/Adverse Reactions: Allergies Allergy/AdvReac Type Severity Reaction Status Date / Time Penicillins Allergy Unknown UNKNOWN Verified 07/30/20 12:04 nitrofurantoin Allergy Unknown Verified 07/30/20 12:04 [From Macrobid] - Social History Does the pt smoke?: No Smoking Status: Never smoker Does the pt drink ETOH?: No Does the pt have substance abuse?: No - Immunizations Immunizations are current?: Yes - POLST Patient has POLST: Yes POLST Status: DNR PD ED PE NORMAL - Vitals Vital signs reviewed: Yes - General General: Alert and oriented X 3, Well developed/nourished, Other (she is uncomfortable from sacral sore and not from her knee. ) - Cardiac Cardiac: RRR, No murmur - Respiratory Respiratory: Clear bilaterally - Abdomen Abdomen: Soft, Non tender - Derm Derm: Normal color, Warm and dry, Other (coccygeal area with 1 cm area of skin breakdown and tenderness, through skin. Does not expose fatty tissue. No drainage. No surrounding redness/swelling (does not look infected). ) - Extremities Extremities: Other (right knee without effusion, and has good ROM. Not tender. Medial aspect with soft tissue lump about 3-4 cm diameter, just subcut, freely moveable. Firm without redness nor fluctuance. Bedside U/S showed fatty tissue appearance c/w lipoma. ) - Neuro Neuro: Alert and oriented X 3, No motor deficit, Normal speech Results - Vitals Vitals: Vital Signs - 24 hr 07/30/20 07/30/20 11:48 14:00 Temperature 36.3 C L 36.8 C Heart Rate 95 90 Respiratory 16 18 Rate Blood Pressure 119/85 H 123/69 O2 Saturation 96 99 Oxygen O2 Source [Without Activity] Room air O2 Source Room air - Labs Labs: Laboratory Tests 07/30/20 12:38 Whole Blood INR 2.4 H - Rads (name of study) right knee Radiology: Prelim report reviewed (normal bony structure.), See rad report PD MEDICAL DECISION MAKING - ED course Complexity details: re-evaluated patient (her main issue is the sacral sore. Knee is just a lipoma. ), considered differential (the knee lump feels like a lipoma. Bedside U/S showed fatty tissue appearance. No redness nor signs of infection. No joint effusion nor decreased ROM. ), d/w patient Departure - Departure Disposition: 01 Home, Self Care Clinical Impression: Knee swelling Lipoma Qualifiers: Lipoma location: lower extremity Laterality: right Qualified Code(s): D17.23 - Benign lipomatous neoplasm of skin and subcutaneous tissue of right leg Skin ulcer Qualifiers: Non-pressure ulcer stage: limited to breakdown of skin Qualified Code(s): L98.491 - Non-pressure chronic ulcer of skin of other sites limited to breakdown of skin Condition: Stable Record reviewed to determine appropriate education?: Yes Instructions: ED Lipoma Follow-Up: Byron Francis PA [Primary Care Provider] - Prescriptions: Hydrocolloid Dressing [Advanced Healing Bandage] 1 each TP Q2D #10 bandage Comments: . Knee appears normal with just some mild arthritis. The lump on the side of the knee feels like a soft tissue inflammation called a lipoma. It does not look like an infection or abscess. There is typically is left alone unless it bothers you. For your sacral sore, I would suggest a hydrocolloid dressing over the area changed every other day to protect it and reduce the pain of it and promote healing. Discharge Date/Time: 07/30/20 14:44
[2020-07-30 14:01] VITALS: BP 123/69
== END 2020-07-30 14:44 | disposition home or self-care (01) ==
LOC: EDUNIT# → ED 11:48
DX: D17.23 Benign lipomatous neoplasm of skin and subcutaneous tissue of right leg (principal); L98.491 Non-pressure chronic ulcer of skin of other sites limited to breakdown of skin; M17.11 Unilateral primary osteoarthritis, right knee; M11.261 Other chondrocalcinosis, right knee; I10 Essential (primary) hypertension; I48.91 Unspecified atrial fibrillation; Z79.01 Long term (current) use of anticoagulants
CPT/HCPCS: 73562; 85610; 99284; A9270

== ENCOUNTER 2020-08-08 08:00 | Outpatient (CLI) | payer MEDICAID, MEDICARE ==
[2020-08-08 18:23] LABS: BASOPHILS % (AUTO) 0.4 %; EOSINOPHILS % (AUTO) 0.3 %; HCT - HEMATOCRIT 34.8 % (37.0-47.0); HGB - HEMOGLOBIN 11.2 g/dL (12.0-16.0); LYMPHOCYTES # (AUTO) 1.1 10^3/uL (1.5-3.5); LYMPHOCYTES % (AUTO) 14.9 %; MEAN CORPUSCULAR HEMOGLOBIN 31.9 pg (27.0-31.0); MEAN CORPUSCULAR HGB CONC 32.2 g/dL (32.0-36.0); MEAN CORPUSCULAR VOLUME 99.1 fL (81.0-99.0); MEAN PLATELET VOLUME 10.4 fL (7.9-10.8); MONOCYTES # (AUTO) 0.7 10^3/uL (0.0-1.0); MONOCYTES % (AUTO) 10.2 %; NEUTROPHILS # (AUTO) 5.2 10^3/uL (1.5-6.6); NEUTROPHILS % (AUTO) 73.8 %; PLT - PLATELET COUNT 351 10^3/uL (130-450); RED BLOOD COUNT 3.51 10^6/uL (4.20-5.40); RED CELL DISTRIBUTION WIDTH 14.3 % (12.0-15.0); WHITE BLOOD COUNT 7.1 x10^3/uL (4.8-10.8)
[2020-08-08 18:35] LABS: ALBUMIN 3.3 g/dL (3.2-5.5); ALBUMIN/GLOBULIN RATIO 0.8 (1.0-2.2); ALKALINE PHOSPHATASE 53 IU/L (42-121); ALT ALANINE AMINOTRANSFERASE 10 IU/L (10-60); AST ASPARTATE AMINOTRANSFERASE 17 IU/L (10-42); BILIRUBIN,TOTAL 0.4 mg/dL (0.2-1.0); BUN - BLOOD UREA NITROGEN 21 mg/dL (6-20); CALCIUM 9.4 mg/dL (8.5-10.3); CARBON DIOXIDE - CO2 23 mmol/L (21-32); CHLORIDE 97 mmol/L (101-111); CHOL/HDL RATIO 4.6 (<4.4); CHOLESTEROL 265 mg/dL; GFR - MDRD 52 (>89); GLUCOSE 100 mg/dL (70-100); HDL CHOLESTEROL 58 mg/dL; LDL CHOLESTEROL,CALCULATED 180 mg/dL; LDL/HDL RATIO 3.1 (<4.4); POTASSIUM 3.9 mmol/L (3.5-5.0); SODIUM 134 mmol/L (135-145); TOTAL PROTEIN 7.6 g/dL (6.7-8.2); TRIGLYCERIDES 135 mg/dL; URIC ACID 5.2 mg/dL (2.6-7.2); VLDL CHOLESTEROL 27 mg/dL
== END 2020-08-08 23:59 | disposition home or self-care (01) ==
LOC: LAB.WCP 08:00
PROVIDERS: ATTEND Family Medicine
DX: I10 Essential (primary) hypertension (principal); E78.5 Hyperlipidemia, unspecified; M25.461 Effusion, right knee; L40.9 Psoriasis, unspecified
CPT/HCPCS: 36415; 80053; 80061; 83721; 84550; 85025; 85027; 85651; 86140

== ENCOUNTER 2020-08-10 17:19 | Outpatient (CLI) | payer MEDICARE, MEDICAID ==
--- NOTE | 2020-08-10 16:30 | XRAY Report ---
PROCEDURE: Knee 4 View RT INDICATIONS: R KNEE JOINT EFFUSION TECHNIQUE: 4 views of the right knee(s) were acquired. COMPARISON: X-ray knee 08/03/2020 FINDINGS: Bones: Unchanged appearance of arthritic change. Chondrocalcinosis is present. No visualized fracture . No suspicious bony lesions. Soft tissues: No joint effusion. No suspicious soft tissue calcifications. IMPRESSION: Stable interval exam demonstrating no visualized fracture or effusion. If clinical zander rn persists, CT or MRI is recommended. Reviewed by: Lucila Monae MD on 08/10/2020 4:29 PM PDT Approved by: Lucila Monae MD on 08/10/2020 4:29 PM PDT Station ID: [id number]
--- NOTE | 2020-08-10 16:31 | XRAY Report ---
PROCEDURE: Wrist 3 View LT INDICATIONS: OTHER SPECIFIED JOINT DISORDERS, L WRIST TECHNIQUE: 3 views of the wrist were acquired. COMPARISON: X-ray wrist 07/10/2020, 07/31/2019 FINDINGS: Bones: No fractures or dislocations. No suspicious bony lesions. There are prominent radiocarpal a s well as first CMC degenerative narrowing. Scattered IP degenerative narrowing is present. Soft tissues: No suspicious soft tissue calcifications. IMPRESSION: Degenerative changes without visualized fracture. If concern persists, CT/MR is recommended. Reviewed by: Lucila Monae MD on 08/10/2020 4:30 PM PDT Approved by: Lucila oMnae MD on 08/10/2020 4:30 PM PDT Station ID: [id number]
== END 2020-08-10 23:59 | disposition home or self-care (01) ==
LOC: DI.N 17:19
PROVIDERS: ATTEND Physician Assistant
DX: M25.561 Pain in right knee (principal); M25.461 Effusion, right knee; M25.832 Other specified joint disorders, left wrist; M19.032 Primary osteoarthritis, left wrist

== ENCOUNTER 2020-09-08 07:27 | Outpatient (CLI) | payer MEDICARE, MEDICAID ==
--- NOTE | 2020-09-08 16:25 | XRAY Report ---
PROCEDURE: Shoulder 3 View LT INDICATIONS: ADHESIVE CAPSULITIS OF LT SHOULDER TECHNIQUE: 3 views of the shoulder were acquired. COMPARISON: None. FINDINGS: Bones: No fractures or dislocations. No suspicious bony lesions. Visualized ribs appear intact. Soft tissues: No suspicious soft tissue calcifications. IMPRESSION: Superior subluxation of the humeral head against the undersurface of the acromion is a r eliable radiographic sign of full thickness supraspinatus rotator cuff tear. No osseous injury is fou nd, but there is mild to moderate degeneration at the AC joint. Reviewed by: Reuben Wilkinson MD on 09/08/2020 4:24 PM PDT Approved by: Reuben Wilkinson MD on 09/08/2020 4:24 PM PDT Station ID: [id number]
== END 2020-09-08 23:59 | disposition home or self-care (01) ==
LOC: DI.N 07:27
PROVIDERS: ATTEND Physician Assistant
DX: M19.012 Primary osteoarthritis, left shoulder (principal); S43.002A Unspecified subluxation of left shoulder joint, initial encounter

== ENCOUNTER 2020-09-21 10:03 | Outpatient (CLI) | payer MEDICARE, MEDICAID | END 2020-09-21 10:04 | disposition critical access hospital (66) | LOC: EMS 10:03 | DX: R53.81 Other malaise (principal) | CPT/HCPCS: A0425; A0429 ==

== ENCOUNTER 2020-09-21 10:22 | Emergency (ER) | payer MEDICARE, MEDICAID ==
[2020-09-21 11:40] LABS: BASOPHILS % (AUTO) 0.1 %; EOSINOPHILS % (AUTO) 0.1 %; HCT - HEMATOCRIT 33.4 % (37.0-47.0); HGB - HEMOGLOBIN 10.5 g/dL (12.0-16.0); LYMPHOCYTES # (AUTO) 0.7 10^3/uL (1.5-3.5); LYMPHOCYTES % (AUTO) 4.8 %; MEAN CORPUSCULAR HEMOGLOBIN 29.9 pg (27.0-31.0); MEAN CORPUSCULAR HGB CONC 31.4 g/dL (32.0-36.0); MEAN CORPUSCULAR VOLUME 95.2 fL (81.0-99.0); MEAN PLATELET VOLUME 9.7 fL (7.9-10.8); MONOCYTES # (AUTO) 1.3 10^3/uL (0.0-1.0); MONOCYTES % (AUTO) 8.7 %; NEUTROPHILS % (AUTO) 85.8 %; PLT - PLATELET COUNT 424 10^3/uL (130-450); RED BLOOD COUNT 3.51 10^6/uL (4.20-5.40); RED CELL DISTRIBUTION WIDTH 15.2 % (12.0-15.0); WHITE BLOOD COUNT 15.2 x10^3/uL (4.8-10.8)
[2020-09-21] MEDS ORDERED: METOPROLOL TARTRATE 50 MG TABLET PO STA ×2 (11:43→16:08)
--- NOTE | 2020-09-21 11:46 | ED Physician Documentation ---
History of Present Illness - Stated complaint Stated Complaint: WEAKNESS - Chief complaint Chief Complaint: Abd Pain - Additonal information Additional information: 85-year-old female presents to the emergency department for evaluation of pr ogressive weakness inability to transition from bed to wheelchair, constipation and dysuria. She comes from [facility] living [facility]. She states that for much of the last month she has been having increasing weakness with difficulty making transitions. She is no longer ambulatory and uses the wheelchair to get around. She states that she has a history of urinary tract infection and for at least a few weeks it has been painful to urinate and she feels that she is urinating very little. She does have a history of atrial fibrillation on Coumadin. Rate controlled with metoprolol succinate. She denies cough, fevers or congestion. She thinks that she may have passed out last night when transitioning to the toilet but is unsure. Review of Systems Unable to obtain: Other (difficult to obtain; poor historian) Constitutional: denies: Fever, Chills Cardiac: denies: Chest pain / pressure, Palpitations Respiratory: denies: Dyspnea, Cough GI: reports: Abdominal Pain, Constipation. denies: Nausea, Vomiting : reports: Dysuria, Unable to Void Skin: reports: Reviewed and negative Musculoskeletal: reports: Other (Chronic back and leg pain.). denies: Extremity swelling Neurologic: reports: Generalized weakness PD PAST MEDICAL HISTORY - Past Medical History Cardiovascular: Hypertension, High cholesterol, Atrial fibrillation Respiratory: None Neuro: Other Endocrine/Autoimmune: Other GI: GERD, Chronic constipation, Other PROF[employer]: None : Incontinence, Chronic bladder infection, Frequency HEENT: None, Other Psych: Anxiety Musculoskeletal: Scoliosis, Other Derm: Psoriasis - Past Surgical History Past Surgical History: Yes General: Colonoscopy, Other Ortho: Other /PR[employer]: Dilation and currettage Neuro: Other - Present Medications Home Medications: Ambulatory Orders Medication Instructions Recorded Confirmed Losartan [Cozaar] 25 mg PO DAILY 03/02/13 04/13/19 Omeprazole [PriLOSEC] 20 mg PO DAILY 03/02/13 04/13/19 predniSONE [Deltasone] 3 mg PO DAILY 03/02/13 04/13/19 Metoprolol Succinate 25 mg PO BID 11/15/16 04/13/19 Warfarin [Coumadin] 5 mg PO QPM 07/11/17 04/13/19 Meclizine [Antivert] 25 mg PO Q6H PRN #30 tablet 08/20/18 04/13/19 Nitroglycerin [Nitrostat] 0.4 mg PO Q5MIN PRN MDD 3 tabs 09/02/18 04/13/19 then call 911 Metoclopramide HCl 5 mg PO TID PRN #15 tablet 01/05/19 04/13/19 Alendronate Sodium 70 mg PO PRN PRN 04/13/19 04/13/19 Folic Acid/B Complex C No.17 1 tab PO BID 04/13/19 04/13/19 [Dexifol Caplet] Naproxen 375 mg PO BID PRN 04/13/19 04/13/19 Hydrocolloid Dressing [Advanced 1 each TP Q2D #10 bandage 07/30/20 Healing Bandage] Saline Enema [Fleets Saline Enema] 133 ml RC DAILY PRN #7 09/21/20 cephALEXin [Keflex] 500 mg PO TID #21 09/21/20 polyethylene glycoL 3350 [Miralax] 17 gm PO DAILY PRN #1 bottle 09/21/20 - Allergies Allergies/Adverse Reactions: Allergies Allergy/AdvReac Type Severity Reaction Status Date / Time Penicillins Allergy Unknown UNKNOWN Verified 09/21/20 10:43 nitrofurantoin Allergy Unknown Verified 09/21/20 10:43 [From Macrobid] - Social History Does the pt smoke?: No Smoking Status: Never smoker Does the pt drink ETOH?: No Does the pt have substance abuse?: No - Immunizations Immunizations are current?: Yes - POLST Patient has POLST: Yes POLST Status: DNR PD ED PE EXPANDED - General General: Alert, No acute distress, Other (Aged geriatric patient appears chronically ill disheveled in bed.) - Neck Neck: Supple w/out meningeal sx. No: Adenopathy - Cardiac Cardiac: Tachy, Irregularly irregular, Murmur Present, Radial strong equal, Pedal strong equal, Cap refill < 2 sec - Respiratory Respiratory: Clear to ausultation yomi. No: Distress, Labored - Abdomen Abdomen: Normal Bowel sounds, Tender to palpation, Suprapubic (Suprapubic tenderness without guarding or rebound.) - Back Back: Soft tissue tenderness (Generalized tissue tenderness across the entire back without ecchymosis or erythema.) - Extremities Extremities: Pedal Pulses Present. No: Deformity, Tenderness, Pedal edema bilateral, Right calf TTP/cord, Left calf TTP/cord - Neuro Neuro: Alert and Oriented X 3, CNII-XII intact, Normal speech - GCS Eye Opening: Spontaneous Motor: Obeys Commands Verbal: Oriented Total: 15 Results - Vitals Vitals: Vital Signs - 24 hr 09/21/20 09/21/20 09/21/20 10:37 12:43 14:00 Temperature 36.5 C 36.5 C 36.8 C Heart Rate 136 H 111 H 100 Respiratory 16 19 18 Rate Blood Pressure 155/71 H 149/100 H 127/75 O2 Saturation 95 98 99 Oxygen O2 Source [] Room air O2 Source Room air - EKG (time done) 1041 Rate: Rate (enter#) (125) Rhythm: Atrial fibrillation [place]: LAD Intervals: Prolonged QT Ischemia: Non specific changes Compare to prior EKG: Unchanged from prior EKG Computer interpretation: Agree with computer - Labs Labs: Laboratory Tests 09/21/20 09/21/20 09/21/20 11:23 11:23 11:23 WBC 15.2 H RBC 3.51 L Hgb 10.5 L Hct 33.4 L MCV 95.2 MCH 29.9 MCHC 31.4 L RDW 15.2 H Plt Count 424 MPV 9.7 Neut # (Auto) 13.0 H Lymph # (Auto) 0.7 L [place] # (Auto) 1.3 H Eos # (Auto) 0.0 Baso # (Auto) 0.0 Absolute Nucleated RBC 0.00 Nucleated RBC % 0.0 PT 24.5 H INR 2.3 H Sodium 139 Potassium 3.4 L Chloride 99 L Carbon Dioxide 26 Anion Gap 14.0 H BUN 24 H Creatinine 1.0 Estimated GFR (MDRD) 52 L Glucose 112 H Lactic Acid Calcium 9.6 Total Bilirubin 0.7 AST 25 ALT 17 Alkaline Phosphatase 76 Total Protein 7.6 Albumin 3.0 L Globulin 4.6 H Albumin/Globulin Ratio 0.7 L Lipase 32 Urine Color Urine Clarity Urine pH Ur Specific [place] Urine Protein Urine Glucose (UA) Urine Ketones Urine Occult Blood Urine Nitrite Urine Bilirubin Urine Urobilinogen Ur Leukocyte Esterase Urine RBC Urine WBC Ur Squamous Epith Cells Urine Bacteria Urine Casts Ur Microscopic Review Urine Culture Comments 09/21/20 09/21/20 12:08 12:15 WBC RBC Hgb Hct MCV MCH MCHC RDW Plt Count MPV Neut # (Auto) Lymph # (Auto) [place] # (Auto) Eos # (Auto) Baso # (Auto) Absolute Nucleated RBC Nucleated RBC % PT INR Sodium Potassium Chloride Carbon Dioxide Anion Gap BUN Creatinine Estimated GFR (MDRD) Glucose Lactic Acid 2.2 Calcium Total Bilirubin AST ALT Alkaline Phosphatase Total Protein Albumin Globulin Albumin/Globulin Ratio Lipase Urine Color YELLOW Urine Clarity CLOUDY Urine pH 6.0 Ur Specific [place] 1.020 Urine Protein 100 H Urine Glucose (UA) NEGATIVE Urine Ketones NEGATIVE Urine Occult Blood TRACE-INTA Urine Nitrite NEGATIVE Urine Bilirubin NEGATIVE Urine Urobilinogen 1 (NORMAL) Ur Leukocyte Esterase MODERATE H Urine RBC Not Reportable Urine WBC >25 H Ur Squamous Epith Cells FEW Squamous Urine Bacteria Many H Urine Casts 0-2 Hyaline Casts Ur Microscopic Review INDICATED Urine Culture Comments INDICATED - Rads (name of study) CT abd Radiology: Final report received (Large amount of stool seen within the rectal vault, highly suspicious for fecal impaction and/or retention. Bilateral renal cortical atrophy and scaring cleared age-indeterminate T12 compression fracture.) PD MEDICAL DECISION MAKING - ED course Complexity details: reviewed results, re-evaluated patient, d/w patient ED course: 85-year-old female brought to the emergency department for evaluation of dysuria for 1 month as well as constipation. She reports that she has been generally weak but has not had fevers vomiting or abdominal pain. Screening labs do show a moderate leukocytosis but again no fever. Her lactate is normal. Blood cultures are pending. Her urine is consistent with a urinary tract infection. She does report that for much of the last month she has been having very painful dysuria. Given the findings of urinary tract infection a CT of the abdomen was completed to ensure that there was no findings of pyelonephrosis. She does not have pyelonephrosis but she is certainly quite obstipated with stool. I attempted manual disimpaction at the bedside but it was poorly tolerated by the patient. However she does not have findings of bowel obstruction. Given this she will be discharged back to [facility] without findings of sepsis. She will be written for cephalexin 3 times a day for 1 week. I will also prescribe mineral oil enemas as well as MiraLAX to help with her obstipation. Emergent return precautions were discussed. Departure - Departure Disposition: 01 Home, Self Care Clinical Impression: UTI (urinary tract infection) Qualifiers: Urinary tract infection type: acute cystitis Hematuria presence: without hematuria Qualified Code(s): N30.00 - Acute cystitis without hematuria Constipation Qualifiers: Constipation type: unspecified constipation type Qualified Code(s): K59.00 - Co nstipation, unspecified Condition: Stable Record reviewed to determine appropriate education?: Yes Instructions: ED Constipation Ch, ED UTI Cystitis Female Follow-Up: Kali Dukes DO [Primary Care Provider] - Prescriptions: Saline Enema [Fleets Saline Enema] 133 ml RC DAILY PRN #7 PRN Reason: Constipation cephALEXin [Keflex] 500 mg PO TID #21 polyethylene glycoL 3350 [Miralax] 17 gm PO DAILY PRN #1 bottle PRN Reason: Constipation Comments: Laila you have a urinary tract infection. Please fill the prescription for the Keflex and begin taking as directed for the next week. I would expect your painful urination to improve over the next few days. If you develop fevers chills or vomiting please return immediately to the emergency department. The CAT scan showed that you are significantly constipated. I would like you to begin taking MiraLAX daily until you have 3 or 4 watery bowel movements. Because most of the constipation is in your lower colon you would benefit from using an enema daily until you are able to fully evacuate your bowels. If at any point you fail to have adequate bowel movements, you develop fevers suddenly severe abdominal pain again please return to the emergency department.
[2020-09-21 11:48] LABS: ALBUMIN/GLOBULIN RATIO 0.7 (1.0-2.2); BILIRUBIN,TOTAL 0.7 mg/dL (0.2-1.0); CALCIUM 9.6 mg/dL (8.5-10.3); POTASSIUM 3.4 mmol/L (3.5-5.0); TOTAL PROTEIN 7.6 g/dL (6.7-8.2)
[2020-09-21 11:55] LABS: INR 2.3 (0.8-1.2); PT - PROTHROMBIN TIME 24.5 secs (9.9-12.6)
[2020-09-21 12:22] LABS: BILIRUBIN,URINE NEGATIVE (NEGATIVE); GLUCOSE, URINE (UA) NEGATIVE (NEGATIVE); KETONES,URINE (UA) NEGATIVE (NEGATIVE); LEUKOCYTE ESTERASE, URINE MODERATE (NEGATIVE); NITRITE,URINE NEGATIVE (NEGATIVE); OCCULT BLOOD,URINE TRACE-INTA (NEGATIVE); PROTEIN,URINE 100 mg/dL (NEGATIVE); UROBILINOGEN,URINE 1 (NORMAL) E.U./dL (NORMAL)
[2020-09-21 12:23] LABS: CLARITY,URINE CLOUDY (CLEAR)
--- NOTE | 2020-09-21 12:25 | XRAY Report ---
PROCEDURE: Chest 1 View X-Ray INDICATIONS: chest pain TECHNIQUE: One view of the chest was acquired. COMPARISON: 09/06/2018 FINDINGS: Surgical changes and devices: None. Lungs and pleura: No pleural effusions or pneumothorax. Lungs are clear. Central pulmonary vascular congestion with mild cephalization of pulmonary vasculature. Mediastinum: Mediastinal contours appear normal. Heart size is normal. Bones and chest wall: No suspicious bony lesions. Overlying soft tissues appear unremarkable. IMPRESSION: Mild central pulmonary vascular congestion is stable compared to prior exam. Reviewed by: Tessie Cunningham MD, PhD on 09/21/2020 12:23 PM PDT Approved by: Tessie Cunningham MD, PhD on 09/21/2020 12:23 PM PDT Station ID: [id number]
[2020-09-21 12:34] LABS: BACTERIA,URINE Many /HPF (None Seen); SQUAMOUS EPITHELIAL CELL,UR FEW Squamous (<= Few); WBC,URINE >25 /HPF (0-5)
[2020-09-21] MEDS ORDERED: cefTRIAXone 1 GM in SODIUM CHLORIDE 0.9% MINIBAG 100 ML IV STA (12:39)
[2020-09-21] MEDS ORDERED: IOPAMIDOL-300 100 ML VIAL ONE (13:46)
--- NOTE | 2020-09-21 13:52 | CT Report ---
PROCEDURE: Abdomen/Pelvis W INDICATIONS: lower abdominal pain, constipation, leukocytosis CONTRAST: IV CONTRAST: Isovue 300 ml: 100 PO CONTRAST: *NO PO CONTRAST TECHNIQUE: After the administration of IV contrast, 5 mm thick sections acquired from the diaphragms to the symp hysis. 5 mm thick coronal and sagittal reformats were acquired. For radiation dose reduction, the f ollowing was used: automated exposure control, adjustment of mA and/or kV according to patient size. COMPARISON: None. FINDINGS: ABDOMEN: Lung bases: Scattered subsegmental scarring/atelectasis. No acute consolidation. Heart:Normal. Coronary calcifications. Liver: Hepatic steatosis. Gallbladder: Negative Bile ducts: Normal Pancreas: Normal Spleen: Normal Adrenals: Normal. Kidneys: Bilateral renal cortical scarring and atrophy. No hydronephrosis. Stomach: Normal. Bowel: Normal. However large amount of stool seen within the rectal vault. Other: No free fluid or air. Abdominal nodes: Normal Aorta: Normal. IVC: Normal. Ventral wall: Normal. PELVIS: Bladder: Normal. Pelvic nodes: Normal. Inguinal: No hernia. Bones: Age-indeterminate T12 compression fracture with mild height loss, which is technically age ind eterminate. No suspicious bone lesion. Diffuse osteopenia. Spondylitic changes and facet arthropathy. IMPRESSION: Large amount of stool seen within the rectal vault, highly suspicious for fecal impaction and/or rete ntion. Bilateral renal cortical atrophy and scarring. Hepatic steatosis Coronary artery disease Age-indeterminate T12 compression fracture with [id number] height loss. Reviewed by: Rajiv Keith MD on 09/21/2020 1:51 PM PDT Approved by: Rajiv Keith MD on 09/21/2020 1:51 PM PDT Station ID: [id number]
[2020-09-21] MEDS ORDERED: SODIUM CHLORIDE 0.9% 1,000 ML IV STA (14:08)
[2020-09-21] MEDS ORDERED: MINERAL OIL ENEMA 133 ML BOTTLE RC STA (14:08)
[2020-09-21] MEDS ORDERED: IOPAMIDOL-300 100 ML VIAL IVP ONE (14:08)
[2020-09-21 17:06] VITALS: BP 137/89
== END 2020-09-21 17:06 | disposition home or self-care (01) ==
LOC: EDUNIT# → ED 10:22
DX: N30.00 Acute cystitis without hematuria (principal); K59.00 Constipation, unspecified; R53.1 Weakness; Z99.3 Dependence on wheelchair; I48.91 Unspecified atrial fibrillation; Z79.01 Long term (current) use of anticoagulants; I10 Essential (primary) hypertension; Z66 Do not resuscitate
CPT/HCPCS: 36415; 51701; 71045; 74177; 80053; 81001; 83605; 83690; 85025; 85610; 87040; 87077; 87086; 87181; 93005; 96365; 96366; 99284; A9270; Q9967; 81003

== ENCOUNTER 2020-10-06 12:49 | Outpatient (CLI) | payer MEDICARE, MEDICAID | END 2020-10-06 12:50 | disposition critical access hospital (66) | LOC: EMS 12:49 | DX: R42 Dizziness and giddiness (principal); R52 Pain, unspecified | CPT/HCPCS: A0425; A0429 ==

== ENCOUNTER 2020-10-06 13:08 | Emergency (ER) | payer MEDICARE, MEDICAID ==
[2020-10-06] MEDS ORDERED: METOCLOPRAMIDE 10 MG/2 ML VIAL IVP STA (13:23)
[2020-10-06] MEDS ORDERED: SODIUM CHLORIDE 0.9% 500 ML IV STA (13:23)
[2020-10-06] MEDS ORDERED: IOPAMIDOL-300 100 ML VIAL ONE (13:24)
--- NOTE | 2020-10-06 13:26 | ED Physician Documentation ---
PD HPI FOCAL NEURO - Stated complaint Stated Complaint: VERTIGO/DIZZINESS - Chief complaint Chief Complaint: Neuro - History obtained from History obtained from: Patient - Additional information Additional information: This is an 85-year-old woman who presents by ambulance for evaluation of vertigo and weakness. She is had vertigo in the past, it is a recurrent phenomenon. She states that pretty suddenly about a month ago she was seen here and evaluated for pretty abrupt loss of function. She states that relatively rapidly she describes weakness with difficulty transitioning and states that for basically the last month she has been almost bedbound. She states she can lift her head off the bed but really has no other functionality. She has had issues with bowel and bladder incontinence as well. She denies pain including headache or neck pain. She vacillates as to whether or not she has weakness. She has chronic diplopia but states it has been worse than normal. She gets dizzy when she looks to the left and has difficulty focusing when looking to the left and when looking at far off objects. She has a history of iron deficiency anemia, MGUS, PMR, A. fib on warfarin. Review of the chart shows that she had a MRI of the brain and MRA of the brain in March of last year, the MRI showed white matter signal changes, the MRA was nondiagnostic but concerning for vertebrobasilar insufficiency and this was followed by CT angiography of the brain in late March of last year showing severe stenosis of the bilateral intracranial internal carotid arteries primarily in the cavernous segments, occlusion of the vertebral arteries at the level of the foramen magnum with no flow into the basilar artery. The posterior circulation is poorly opacified with a minuscule ELECTROMEDICAL SERVICE ENGINEER branches deriving flow from the anterior circulation via patent biomedical electronics technician. The proximal left LISE has smooth long segment narrowing either congenital or related to atherosclerosis. Diffuse atrophy and microvascular ischemic changes. She has as needed orders for meclizine at the assisted living but is unsure if they have been giving it to her. She does not know when her last INR was checked. Review of Systems Ten Systems: 10 systems reviewed and negative Constitutional: denies: Fever, Chills Eyes: reports: Other (diploia) Nose: denies: Rhinorrhea / runny nose, Congestion Cardiac: denies: Chest pain / pressure, Palpitations Respiratory: denies: Dyspnea, Cough GI: denies: Abdominal Pain, Nausea, Vomiting, Diarrhea : reports: Incontinent Musculoskeletal: denies: Neck pain Neurologic: reports: Generalized weakness PD PAST MEDICAL HISTORY - Past Medical History Cardiovascular: Hypertension, High cholesterol, Atrial fibrillation Respiratory: None Neuro: Other Endocrine/Autoimmune: Other GI: GERD, Chronic constipation, Other AUTO PARTS PROFESSIONAL: None : Incontinence, Chronic bladder infection, Frequency HEENT: None, Other Psych: Anxiety Musculoskeletal: Scoliosis, Other Derm: Psoriasis - Past Surgical History Past Surgical History: Yes General: Colonoscopy, Other Ortho: Other /AUTO PARTS PROFESSIONAL: Dilation and currettage Neuro: Other - Present Medications Home Medications: Ambulatory Orders Medication Instructions Recorded Confirmed Omeprazole [PriLOSEC] 20 mg PO DAILY 03/02/13 10/06/20 predniSONE [Deltasone] 3 mg PO DAILY 03/02/13 10/06/20 Metoprolol Succinate 25 mg PO BID 11/15/16 10/06/20 Warfarin [Coumadin] 5 mg PO QPM 07/11/17 10/06/20 Meclizine [Antivert] 25 mg PO Q6H PRN #30 tablet 08/20/18 10/06/20 Nitroglycerin [Nitrostat] 0.4 mg PO Q5MIN PRN MDD 3 tabs 09/02/18 10/06/20 then call 911 Alendronate Sodium 70 mg PO PRN PRN 04/13/19 10/06/20 Naproxen 375 mg PO BID PRN 04/13/19 10/06/20 polyethylene glycoL 3350 [Miralax] 17 gm PO DAILY PRN #1 bottle 09/21/20 10/06/20 Levothyroxine Sodium [Synthroid] 75 mcg PO DAILY #30 tablet 10/06/20 Metoclopramide [Reglan] 10 mg PO Q6H PRN #20 tablet 10/06/20 - Allergies Allergies/Adverse Reactions: Allergies Allergy/AdvReac Type Severity Reaction Status Date / Time Penicillins Allergy Unknown UNKNOWN Verified 10/06/20 13:13 nitrofurantoin Allergy Unknown Verified 10/06/20 13:13 [From Macrobid] - Social History Does the pt smoke?: No Smoking Status: Never smoker Does the pt drink ETOH?: No Does the pt have substance abuse?: No - Immunizations Immunizations are current?: Yes - POLST Patient has POLST: Yes POLST Status: DNR PD ED PE NORMAL - Vitals Vital signs reviewed: Yes - General General: Alert and oriented X 3, No acute distress - HEENT HEENT: PERRL, Other (She seems to have difficulty abducting the right eye. There is a slight ptosis on the right.) - Neck Neck: Supple, no meningeal sign, No bony TTP - Cardiac Cardiac: Other (Irregularly irregular without murmur) - Respiratory Respiratory: No respiratory distress, Clear bilaterally - Abdomen Abdomen: Normal bowel sounds, Soft, Non tender - Back Back: No CVA TTP, No spinal TTP - Derm Derm: Normal color, Warm and dry - Extremities Extremities: No deformity, No tenderness to palpate, Other (Venous stasis changes of lower extremities especially right) - Neuro Neuro: Alert and oriented X 3, Normal speech, Other (see [facility] for exam) Eye Opening: Spontaneous Motor: Obeys Commands Verbal: Oriented GCS Score: 15 Results - Vitals Vitals: Vital Signs - 24 hr 10/06/20 10/06/20 10/06/20 13:13 13:48 13:51 Temperature 36.1 C L Heart Rate 115 H 114 H 118 H Respiratory 16 22 22 Rate Blood Pressure 113/85 H 90/71 98/70 O2 Saturation 97 94 94 10/06/20 10/06/20 10/06/20 14:00 14:44 15:00 Temperature Heart Rate 112 H 109 H 107 H Respiratory 18 23 24 Rate Blood Pressure 99/68 118/75 113/74 O2 Saturation 97 98 100 10/06/20 10/06/20 10/06/20 15:30 16:30 16:42 Temperature 36.3 C L Heart Rate 118 H 119 H Respiratory 19 22 Rate Blood Pressure 111/81 H 120/90 H O2 Saturation 98 97 Oxygen O2 Source [] Room air O2 Source Room air - EKG (time done) 1319 Rate: Rate (enter#) (126) Rhythm: Atrial fibrillation [place]: LAD Intervals: Normal LA, Prolonged QT Ischemia: Non specific changes Computer interpretation: Agree with computer - Labs Labs: Laboratory Tests 10/06/20 10/06/20 10/06/20 13:37 13:37 13:37 WBC 8.0 RBC 3.54 L Hgb 10.6 L Hct 33.5 L MCV 94.6 MCH 29.9 MCHC 31.6 L RDW 15.9 H Plt Count 356 MPV 10.0 Neut # (Auto) 6.4 Lymph # (Auto) 1.0 L [place] # (Auto) 0.5 Eos # (Auto) 0.0 Baso # (Auto) 0.0 Absolute Nucleated RBC 0.00 Nucleated RBC % 0.0 ESR PT INR Sodium 137 Potassium 3.8 Chloride 101 Carbon Dioxide 26 Anion Gap 10.0 BUN 19 Creatinine 0.8 Estimated GFR (MDRD) 68 L Glucose 126 H Calcium 9.2 Phosphorus 3.7 Magnesium 1.9 Total Bilirubin 0.5 AST 19 ALT 12 Alkaline Phosphatase 66 Total Creatine Kinase C-Reactive Protein Total Protein 7.3 Albumin 3.1 L Globulin 4.2 Albumin/Globulin Ratio 0.7 L TSH 15.82 H Free T4 10/06/20 10/06/20 10/06/20 13:37 13:37 13:37 WBC RBC Hgb Hct MCV MCH MCHC RDW Plt Count MPV Neut # (Auto) Lymph # (Auto) [place] # (Auto) Eos # (Auto) Baso # (Auto) Absolute Nucleated RBC Nucleated RBC % ESR PT 24.9 H INR 2.3 H Sodium Potassium Chloride Carbon Dioxide Anion Gap BUN Creatinine Estimated GFR (MDRD) Glucose Calcium Phosphorus Magnesium Total Bilirubin AST ALT Alkaline Phosphatase Total Creatine Kinase 24 C-Reactive Protein Total Protein Albumin Globulin Albumin/Globulin Ratio TSH Free T4 1.01 10/06/20 10/06/20 13:37 13:37 WBC RBC Hgb Hct MCV MCH MCHC RDW Plt Count MPV Neut # (Auto) Lymph # (Auto) [place] # (Auto) Eos # (Auto) Baso # (Auto) Absolute Nucleated RBC Nucleated RBC % ESR > 140 H PT INR Sodium Potassium Chloride Carbon Dioxide Anion Gap BUN Creatinine Estimated GFR (MDRD) Glucose Calcium Phosphorus Magnesium Total Bilirubin AST ALT Alkaline Phosphatase Total Creatine Kinase C-Reactive Protein 2.1 H Total Protein Albumin Globulin Albumin/Globulin Ratio TSH Free T4 PD MEDICAL DECISION MAKING - ED course ED course: neuro exam cont: When I asked her to lift her arms she can get the forearms off the bed but keeps the elbows supported. She is able to hold the forearms up for 5 seconds without drift. She has weak pharmacy technician assistant strength on the left but that is likely due to arthritis from prior fracture of the left wrist she states. She is equal sensation throughout upper and lower extremities. She has difficulty getting the left leg off the bed at all. She has drift in the right leg. She is all but areflexic in the lower extremities. 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 Tenuous diminutive flow within the anterior inferior and posterior inferior cerebellar arteries as described above. Finding is unchanged from the prior study. Unchanged overall severe bilateral intracranial carotid narrowing as described above and in prior report CTA Neck: No significant stenosis of the major extracranial arterial circulation. Complete occlusion of the V4 segment, unchanged and chronic, described in greater detail on a separately dictated report for CT angiogram of the head. The estimate of stenosis included in the report of the imaging study was calculated using the NASCET method. This is a rohit 85-year-old woman with known vertebrobasilar insufficiency/completely clotted off on prior CT who presents with worsening vertigo, generalized weakness, A. fib therapeutic on warfarin. I discussed the case by phone with Dr. Sexton, neurology in [place]. He agreed probably the bulk of her symptoms are due to vertebral basilar insufficiency which is not amenable to intervention. He recommended adding baby aspirin to her warfarin. Also treating her hypothyroidism. Dr. Sexton did not feel the presentation was consistent with CIDP which I was considering. He recommended checking a CK to make sure that he does not she does not have hypothyroid myopathy, the CK was normal. I discussed the case by phone also with her and daughter. Daughter wondered if she might have giant cell arteritis related to her PMR. Symptoms do not really seem referable to that, but I added on ESR and CRP. Departure - Departure Disposition: 01 Home, Self Care Clinical Impression: Weakness, Adequate anticoagulation on anticoagulant therapy, Vertebrobasilar artery syndrome, Vertigo Hypothyroidism Qualifiers: Hypothyroidism type: unspecified Qualified Code(s): E03.9 - Hypothyroidism, unspecified Condition: Good Record reviewed to determine appropriate education?: Yes Instructions: Hypothyroidism Myxedema Dc Prescriptions: Metoclopramide [Reglan] 10 mg PO Q6H PRN #20 tablet PRN Reason: nausea or headache Levothyroxine Sodium [Synthroid] 75 mcg PO DAILY #30 tablet Comments: You were seen today for weakness and vertigo. I think this is multifactorial due to chronically blocked arteries in the back of your brain and low thyroid. You should start aspirin 81 mg daily and we are starting thyroid supplementation. Followup with Dr Dukes next week as scheduled. Discharge Date/Time: 10/06/20 18:32
[2020-10-06 13:44] LABS: BASOPHILS % (AUTO) 0.5 %; EOSINOPHILS % (AUTO) 0.5 %; HCT - HEMATOCRIT 33.5 % (37.0-47.0); HGB - HEMOGLOBIN 10.6 g/dL (12.0-16.0); LYMPHOCYTES % (AUTO) 12.1 %; MEAN CORPUSCULAR HEMOGLOBIN 29.9 pg (27.0-31.0); MEAN CORPUSCULAR HGB CONC 31.6 g/dL (32.0-36.0); MEAN CORPUSCULAR VOLUME 94.6 fL (81.0-99.0); MONOCYTES # (AUTO) 0.5 10^3/uL (0.0-1.0); MONOCYTES % (AUTO) 6.7 %; NEUTROPHILS # (AUTO) 6.4 10^3/uL (1.5-6.6); NEUTROPHILS % (AUTO) 79.9 %; PLT - PLATELET COUNT 356 10^3/uL (130-450); RED BLOOD COUNT 3.54 10^6/uL (4.20-5.40); RED CELL DISTRIBUTION WIDTH 15.9 % (12.0-15.0)
[2020-10-06 13:58] LABS: ALBUMIN 3.1 g/dL (3.2-5.5); ALBUMIN/GLOBULIN RATIO 0.7 (1.0-2.2); BILIRUBIN,TOTAL 0.5 mg/dL (0.2-1.0); CALCIUM 9.2 mg/dL (8.5-10.3); CREATININE 0.8 mg/dL (0.4-1.0); MAGNESIUM 1.9 mg/dL (1.7-2.8); PHOSPHORUS 3.7 mg/dL (2.5-4.6); POTASSIUM 3.8 mmol/L (3.5-5.0); TOTAL PROTEIN 7.3 g/dL (6.7-8.2)
[2020-10-06 14:08] LABS: INR 2.3 (0.8-1.2); PT - PROTHROMBIN TIME 24.9 secs (9.9-12.6)
[2020-10-06] MEDS: METOPROLOL 5 MG/5 ML VIAL IVP STA (14:43)
--- NOTE | 2020-10-06 15:10 | CT Report ---
PROCEDURE: ANGIO HEAD W/WO INDICATIONS: Weakness, vertebrobasilar symptoms CONTRAST: IV CONTRAST: Isovue 300 ml: 80 PO CONTRAST: *NO PO CONTRAST TECHNIQUE: Precontrast 4.5 mm thick angled axial sections acquired from the foramen magnum to the vertex. Afte r the administration of intravenous contrast, 1 mm thick sections acquired through the [place] of [place]. Postcontrast 4.5 mm thick sections then re-acquired from the foramen magnum to the vertex. 3-di mensional [id number]-jcafeavmkn (MIP) and/or volume rendering reformats were acquired of the c entral intracranial vasculature. For radiation dose reduction, the following was used: automated ex posure control, adjustment of mA and/or kV according to patient size. COMPARISON: 04/21/2020 CT angiogram of the head; 03/31/2020 MR angiogram of the brain FINDINGS: Image quality: Excellent. Anterior circulation: Measuring degrees of moderate tandem stenosis along the course of the intracran ial internal carotid arteries, primarily within the carotid siphons and cavernous segments. Overall s evere stenosis bilaterally as a result of the tandem moderate stenoses is similar to the comparison s tudy. The middle cerebral arteries appears patent with no hemodynamically significant narrowing. The left LISE has long segment narrowing approximately which is likely due to intracranial atherosclerosis . The right anterior cervical artery is normal in appearance. Posterior circulation: Chronic complete occlusion of the bilateral distal V4 segments and basilar art ed, with distal reconstitution across the [place]. There is opacification of the basilar ti p, posterior cerebral arteries, and bilateral superior cerebellar arteries. The anterior inferior cer ebral arteries appear to arise from the V4 segments prior to their occlusion. There are short segment s of the posterior inferior cerebellar arteries which opacify with contrast, however no clear origin is seen from the occluded portions of the distal V4 segments, and there opacification is presumably r etrograde via collateralization. Small bilateral posterior communicator arteries supplying all of the circulation to the posterior cerebral arteries, basilar tip and superior cerebellar arteries. Spaces: Ventricles are normal in size and shape. Basal cisterns are patent. No extra-axial fluid c ollections. Brain: Chronic microvascular ischemic changes and global cerebral volume loss. No decreased ma-whi te matter differentiation to indicate CT evidence of acute large territory infarct. 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 Tenuous diminutive flow within the anterior inferior and posterior inferior cerebellar arteries as de scribed above. Finding is unchanged from the prior study. Unchanged overall severe bilateral intracranial carotid narrowing as described above and in prior rep ort Reviewed by: Javier Florian MD on 10/06/2020 3:09 PM PDT Approved by: Javier Florian MD on 10/06/2020 3:09 PM PDT Station ID: [id number]
--- NOTE | 2020-10-06 15:19 | CT Report ---
PROCEDURE: ANGIO NECK W INDICATIONS: Weakness, vertebrobasilar symptoms CONTRAST: IV CONTRAST: Isovue 300 ml: 80 PO CONTRAST: *NO PO CONTRAST TECHNIQUE: After the administration of intravenous contrast, 1.5 mm axial sections acquired from the aortic arch to the [place]. Coronal 3-D maximum intensity projection (MIP) and/or volume rendering ref ormats were then performed. For radiation dose reduction, the following was used: automated exposur e control, adjustment of mA and/or kV according to patient size. COMPARISON: None. FINDINGS: Standard three-vessel aortic arch anatomy. The arch branch vessel origins are tortuous with mild plaq ue and calcification but no dynamically significant stenosis. The common carotid arteries are widely patent until they're very distal segments with right greater t abad left mild narrowing due to atherosclerotic plaque and calcification. Likewise the carotid bifurca tions are mildly narrowed due to atherosclerotic plaque and calcification, also greater on the right. Mild right greater than left narrowing of the extracranial internal carotid artery origins. No hemod ynamically significant stenosis of the extracranial carotid systems. There is complete occlusion of the V4 segments, described in separately dictated report for CT angiog camilo of the head. Cervical portions of the vertebral arteries are widely patent. Mild emphysematous changes of the lung apices. No suspicious lytic or blastic osseous lesion. Parotid and 7 nuclear glands are normal. Orbital structures unremarkable. Mastoid air cells and paranasal si nuses are clear. No cervical lymphadenopathy or supraclavicular lymphadenopathy identified. IMPRESSION: No hematuria and significant stenosis of the major extracranial arterial circulation. Complete occlusion of the V4 segment, unchanged and chronic, described in greater detail on a [facility] dictated report for CT angiogram of the head. The estimate of stenosis included in the report of the imaging study was calculated using the NASCET method. Reviewed by: Javier Florian MD on 10/06/2020 3:17 PM PDT Approved by: Javier Florian MD on 10/06/2020 3:17 PM PDT Station ID: [id number]
[2020-10-06 16:41] VITALS: BP 120/90
[2020-10-06] MEDS ORDERED: IOPAMIDOL-300 100 ML VIAL IVP ONE (16:44)
== END 2020-10-06 18:32 | disposition home or self-care (01) ==
LOC: EDUNIT# → ED 13:08
DX: G45.0 Vertebro-basilar artery syndrome (principal); R53.1 Weakness; R42 Dizziness and giddiness; E03.9 Hypothyroidism, unspecified; I10 Essential (primary) hypertension; I48.91 Unspecified atrial fibrillation; Z79.01 Long term (current) use of anticoagulants
CPT/HCPCS: 36415; 70496; 70498; 80053; 82550; 83735; 84100; 84439; 84443; 85025; 85610; 85651; 86140; 93005; 96374; 96375; 99284; J2765; Q9967

== ENCOUNTER 2020-10-06 18:35 | Outpatient (CLI) | payer MEDICARE, MEDICAID | END 2020-10-06 18:36 | disposition home or self-care (01) | LOC: EMS 18:35 | PROVIDERS: ATTEND Emergency Medicine | DX: R53.1 Weakness (principal); G82.50 Quadriplegia, unspecified | CPT/HCPCS: A0425; A0428 ==

== ENCOUNTER 2020-10-20 13:00 | Outpatient (CLI) | payer MEDICARE, MEDICAID ==
[~2020-10-20 13:00] MED LIST: BUFFERED LIDOCAINE 10 ML SYRINGE ONE; ROPIVACAINE 0.5% PF 20 ML AMPULE ONE; TRIAMCINOLONE 40 MG/ML VIAL ONE
[2020-10-20] MEDS ORDERED: BUFFERED LIDOCAINE 10 ML SYRINGE IU ONE (14:45)
[2020-10-20] MEDS ORDERED: TRIAMCINOLONE 40 MG/ML VIAL IM ONE (14:46)
[2020-10-20] MEDS ORDERED: iohexoL-240 20 ML VIAL IVP ONE (14:46)
--- NOTE | 2020-10-20 14:46 | XRAY Report ---
PROCEDURE: Inj/Aspiration Major Joint INDICATIONS: DJD L SHLDR, ROTATOR CUFF ARTHROPATHY L SHLDR CONTRAST: CONTRAST: 2 ml FLUORO TIME: FLUORO TIME: .2 and NUMBER IMAGES: 2 TECHNIQUE: The indications, alternatives, benefits, risks, and complications of the procedure were explained to the patient. Written informed consent was obtained and placed in the chart. The patient was placed in an appropriate position on the fluoroscopy table, and a site was chosen for percutaneous access un tiny fluoroscopic guidance. Local anesthetic was administered using a 1% lidocaine solution. A hypod ermic or spinal needle was then used to access the symptomatic joint. Intra-articular location of th e needle tip was confirmed by injecting a small amount of contrast, followed by steroid administratio n. The needle was then withdrawn, and a bandage applied to the puncture site. FINDINGS: Joint injected: Left shoulder Medications injected: 4 mL of 40 mg/mL Kenalog and 0.5% Ropivacaine mixture. Complications: None. IMPRESSION: Successful fluoroscopically guided administration of steroid and anaesthetic solution into the left s houlder joint. Reviewed by: Kam Yi MD on 10/20/2020 2:45 PM PDT Approved by: Kam Yi MD on 10/20/2020 2:45 PM PDT Station ID: [id number]
[2020-10-20] MEDS ORDERED: ROPIVACAINE 0.5% PF 20 ML AMPULE IU ONE (14:48)
== END 2020-10-20 13:01 | disposition home or self-care (01) ==
LOC: DI 13:00
PROVIDERS: ATTEND Physician Assistant
DX: M19.012 Primary osteoarthritis, left shoulder (principal); M25.812 Other specified joint disorders, left shoulder
CPT/HCPCS: 20610; Q9966

== ENCOUNTER 2020-11-15 13:17 | Outpatient (CLI) | payer MEDICARE, MEDICAID | END 2020-11-15 13:18 | disposition critical access hospital (66) | LOC: EMS 13:17 | DX: L98.418 Non-pressure chronic ulcer of buttock with other specified severity (principal) | CPT/HCPCS: A0425; A0429 ==

== ENCOUNTER 2020-11-15 13:36 | Emergency (ER) | payer MEDICARE, MEDICAID ==
--- NOTE | 2020-11-15 14:45 | ED Physician Documentation ---
History of Present Illness - Stated complaint Stated Complaint: WOUND - Chief complaint Chief Complaint: Wound - Additonal information Additional information: 85-year-old female is sent to the emergency department from her care facility [facility] for evaluation of a right foot wound as well as a buttock wound. Pt reports that she developed these ulceration with her last hospitalization. Pt has become progressively weaker and now bed bound over the last few months. I spoke with the [facility] RN who stated that she is requiring total assistance for all her ADL's, she is unsafe when placed in wheel chairs and they feel she needs long term. Because of chronic pain and debilitation she is not able to assist in any of her care, she is not safe for transport in wheelchairs anymore and they feel that they cannot provide the care necessary in the assisted living setting Patient has a history of atrial fibrillation(anticoagulated on coumadin), chronic back pain, hypertension, hyperlipidemia, rheumatoid disease, basal arterial syndrome (severe carotid stenosis and vertebral artery occlusion, not amenable to surgical intervention.) She is bed bound and no longer able to ambulate. Review of Systems Constitutional: denies: Fever Eyes: reports: Reviewed and negative Ears: reports: Reviewed and negative Nose: reports: Reviewed and negative Throat: reports: Reviewed and negative Cardiac: reports: Reviewed and negative GI: reports: Abdominal Pain : reports: Incontinent. 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: None : Incontinence, Chronic bladder infection, Frequency HEENT: None, Other Psych: Anxiety Musculoskeletal: Scoliosis, Other Derm: Psoriasis - Past Surgical History Past Surgical History: Yes General: Colonoscopy, Other Ortho: Other /SENIOR BRANCH MANAGER: Dilation and currettage Neuro: Other - Present Medications Home Medications: Ambulatory Orders Medication Instructions Recorded Confirmed Omeprazole [PriLOSEC] 20 mg PO DAILY 03/02/13 10/06/20 Metoprolol Succinate 25 mg PO BID 11/15/16 10/06/20 Nitroglycerin [Nitrostat] 0.4 mg PO Q5MIN PRN MDD 3 tabs 09/02/18 10/06/20 then call 911 Alendronate Sodium 70 mg PO PRN PRN 04/13/19 10/06/20 Naproxen 375 mg PO BID PRN 04/13/19 10/06/20 polyethylene glycoL 3350 [Miralax] 17 gm PO DAILY PRN #1 bottle 09/21/20 10/06/20 Levothyroxine Sodium [Synthroid] 75 mcg PO DAILY #30 tablet 10/06/20 Mirtazapine 15 mg PO 11/15/20 Mupirocin 2% Oint [Bactroban 2% 2 appful 11/15/20 11/15/20 Oint] Warfarin [Coumadin] 2.5 mg PO 11/15/20 11/15/20 predniSONE [Deltasone] 1 mg PO 11/15/20 - Allergies Allergies/Adverse Reactions: Allergies Allergy/AdvReac Type Severity Reaction Status Date / Time Penicillins Allergy Unknown UNKNOWN Verified 11/15/20 13:51 nitrofurantoin Allergy Unknown Verified 11/15/20 13:51 [From Macrobid] - Social History Does the pt smoke?: No Smoking Status: Never smoker Does the pt drink ETOH?: No Does the pt have substance abuse?: No - Immunizations Immunizations are current?: Yes - POLST Patient has POLST: Yes POLST Status: DNR PD ED PE EXPANDED - General General: Other (Thin cachectic generally Chronically ill appearance) - HEENT HEENT: Atraumatic, PERRL, Left maxillary sinus TTP - Neck Neck: Supple w/out meningeal sx. No: Adenopathy - Cardiac Cardiac: Irregularly irregular, Murmur Present, Radial strong equal, Pedal strong equal, Cap refill < 2 sec - Respiratory Respiratory: Clear to ausultation yomi. No: Distress, Labored - Abdomen Abdomen: Normal Bowel sounds. No: Tender to palpation, Rebound, Guarding - Female Female : Normal external, Other (pt wearing briefs for incontinence) - Derm Derm: Decubitis ulcer (5 cm unstageable decubitus ulcer on the sacrum with a black eschar. Similar 5 cm unstageable decubitus ulcer on the right lateral heel) - Extremities Extremities: Pedal edema bilateral - Neuro Neuro: Alert and Oriented X 3, CNII-XII intact (mild baseline right-sided facial droop), Normal speech - GCS Eye Opening: Spontaneous Motor: Obeys Commands Verbal: Oriented Total: 15 Results - Vitals Vitals: Vital Signs - 24 hr 11/15/20 11/15/20 11/16/20 13:41 20:50 07:23 Temperature 36.7 C 37 C Heart Rate 98 99 97 Respiratory 14 18 16 Rate Blood Pressure 107/65 106/67 114/75 O2 Saturation 98 99 93 Oxygen O2 Source [Without Activity] Room air O2 Source Room air - Labs Labs: Laboratory Tests 11/15/20 11/15/20 16:08 16:08 WBC 7.6 RBC 3.58 L Hgb 10.6 L Hct 33.4 L MCV 93.3 MCH 29.6 MCHC 31.7 L RDW 17.3 H Plt Count 458 H MPV 9.3 Neut # (Auto) 5.6 Lymph # (Auto) 1.3 L [place] # (Auto) 0.6 Eos # (Auto) 0.1 Baso # (Auto) 0.0 Absolute Nucleated RBC 0.00 Nucleated RBC % 0.0 Sodium 134 L Potassium 3.7 Chloride 97 L Carbon Dioxide 25 Anion Gap 12.0 BUN 16 Creatinine 0.6 Estimated GFR (MDRD) 95 Glucose 113 H Calcium 8.7 Total Bilirubin 0.7 AST 18 ALT 14 Alkaline Phosphatase 69 Total Protein 6.8 Albumin 2.7 L Globulin 4.1 Albumin/Globulin Ratio 0.7 L Lipase 36 PD MEDICAL DECISION MAKING - ED course Complexity details: reviewed results, re-evaluated patient, d/w patient, d/w family ED course: 85-year-old female who has multiple co-morbidities and is chronically debilitated and now bedbound which has become progressive over the last number of months was sent to this emergency department from her assisted living facility as they feel that they can no longer help manage her care. They feel she needs long term placement. She does have a decubitus ulcer on her sacrum as well as on her right lateral heel that are unstageable. Due to her immobility they feel that she would benefit from a long term placement therefore she comes here today. Unfortunately due to the late hour the day soci al work is not able to attend to these issues today she will remain in the emergency department overnight in which screening labs will be obtained. Patient has no specific complaints other than the wounds. She has no fevers vomiting or abdominal pain. She will be placed in a hospital bed tonight. A Mepilex dressing was placed to both of her decubitus ulcers. Pt has genenralized pain in all her extremeties. She often refuses to allow staff to turn or client technical support associate her in the ED. Will not allow her HOB to be lowered. 1800: I have attempted to contact the patient's at his care facility but no answer was received. Unable to leave a voicemail. I also attempted to call the patient's son Devin and the phone went to voicemail. I left a voice message requesting return call back 1830: I ultimately received a phone call From her son Devin. He reports that the director of [facility] has told him that his mom does not need long term and that assisted living should be sufficient. However in my evaluation with the patient she is quite debilitated and seems to need nearly full assist with most of her activities. We discussed that due to the late hour the day his mom would remain in the ER overnight until she could be seen by social work in the morning. He reported to me that he is aware that may be necessary. [place]. 2215: at this time pt has remained very stable hemodynamically and without any changes to baseline neuro exam. screening labs without worrisome findings. I have requested pt be placed in a hospital bed to help with pressure off loading. Pt is requesting to remain in the ED [facility]. GIven then, I have spoken with the [facility] nurse and requested Q2 hours turn s for pressure off loading. pt signed out to my [facility] colleague Dr. Miles pending SW in am. PT is a DNR. Departure - Departure Clinical Impression: Debilitated patient Sacral pressure ulcer Qualifiers: Pressure injury stage: unspecified pressure injury stage Qualified Code(s): L89.159 - Pressure ulcer of sacral region, unspecified stage
[2020-11-15] MEDS ORDERED: ACETAMINOPHEN 325 MG TABLET PO STA (15:40)
[2020-11-15 16:14] LABS: BASOPHILS % (AUTO) 0.3 %; EOSINOPHILS # (AUTO) 0.1 10^3/uL (0.0-0.7); EOSINOPHILS % (AUTO) 0.7 %; HCT - HEMATOCRIT 33.4 % (37.0-47.0); HGB - HEMOGLOBIN 10.6 g/dL (12.0-16.0); LYMPHOCYTES # (AUTO) 1.3 10^3/uL (1.5-3.5); LYMPHOCYTES % (AUTO) 16.5 %; MEAN CORPUSCULAR HEMOGLOBIN 29.6 pg (27.0-31.0); MEAN CORPUSCULAR HGB CONC 31.7 g/dL (32.0-36.0); MEAN CORPUSCULAR VOLUME 93.3 fL (81.0-99.0); MEAN PLATELET VOLUME 9.3 fL (7.9-10.8); MONOCYTES # (AUTO) 0.6 10^3/uL (0.0-1.0); MONOCYTES % (AUTO) 7.4 %; NEUTROPHILS # (AUTO) 5.6 10^3/uL (1.5-6.6); NEUTROPHILS % (AUTO) 74.3 %; PLT - PLATELET COUNT 458 10^3/uL (130-450); RED BLOOD COUNT 3.58 10^6/uL (4.20-5.40); RED CELL DISTRIBUTION WIDTH 17.3 % (12.0-15.0); WHITE BLOOD COUNT 7.6 x10^3/uL (4.8-10.8)
[2020-11-15 16:27] LABS: ALBUMIN 2.7 g/dL (3.2-5.5); ALBUMIN/GLOBULIN RATIO 0.7 (1.0-2.2); BILIRUBIN,TOTAL 0.7 mg/dL (0.2-1.0); CALCIUM 8.7 mg/dL (8.5-10.3); CREATININE 0.6 mg/dL (0.4-1.0); POTASSIUM 3.7 mmol/L (3.5-5.0); TOTAL PROTEIN 6.8 g/dL (6.7-8.2)
--- NOTE | 2020-11-16 11:35 | ED Physician Documentation ---
ED Addendum - Addendum Addendum: 11/16/20 11:34 Patient has remained in the emergency department overnight. ash worker is evaluating for appropriateness of long term facility versus home health/PT OT. Wound care consult has been ordered. Pt has been seen by social work today. Unfortunately [facility]. We continue to look for long term placement. Pt remains stable in the ED. 11/16/20 19:14
[2020-11-16] MEDS ORDERED: predniSONE 5 MG TABLET PO STA (11:43)
[2020-11-16] MEDS ORDERED: WARFARIN 5 MG TABLET PO STA (11:43)
[2020-11-16] MEDS: METOPROLOL SUCCINATE 25 MG TABLET PO SCH ×2 (11:58→22:46)
[2020-11-16] MEDS ORDERED: LEVOTHYROXINE 75 MCG TABLET PO SCH (12:00)
[2020-11-16] MEDS ORDERED: METOPROLOL SUCCINATE 25 MG TABLET PO SCH (12:00)
[2020-11-16 12:26] LABS: INR 2.6 (0.8-1.2); PT - PROTHROMBIN TIME 27.3 secs (9.9-12.6)
[2020-11-16] MEDS ORDERED: ACETAMINOPHEN 325 MG TABLET PO STA (12:46)
[2020-11-17] MEDS: LEVOTHYROXINE 75 MCG TABLET PO SCH (07:33)
[2020-11-17] MEDS: predniSONE 5 MG TABLET PO SCH (08:41)
[2020-11-17] MEDS: METOPROLOL SUCCINATE 25 MG TABLET PO SCH ×2 (08:53→20:53)
--- NOTE | 2020-11-17 16:11 | ED Physician Documentation ---
ED Addendum - Addendum Addendum: 11/17/20 16:10 PT consult obtained they recommend prison. Patient was accepted to [facility]. Dr. Rowell came and wrote orders for the patient. Patient will be transferred to [facility]. This document was made in part using voice recognition software. While efforts are made to proofread this document, sound alike and grammatical errors may occur. Departure - Departure Disposition: 01 Home, Self Care Clinical Impression: Debilitated patient Sacral pressure ulcer Qualifiers: Pressure injury stage: unspecified pressure injury stage Qualified Code(s): L89.159 - Pressure ulcer of sacral region, unspecified stage Condition: Stable
[2020-11-17] MEDS ORDERED: WARFARIN 5 MG TABLET PO SCH (17:00)
[2020-11-18] MEDS: LEVOTHYROXINE 75 MCG TABLET PO SCH (06:35)
[2020-11-18 07:45] VITALS: BP 104/76
[2020-11-18] MEDS: predniSONE 5 MG TABLET PO SCH (08:54)
[2020-11-18] MEDS: METOPROLOL SUCCINATE 25 MG TABLET PO SCH (09:02)
== END 2020-11-18 09:04 | disposition home or self-care (01) ==
LOC: EDUNIT# → ED 13:36
DX: L89.610 Pressure ulcer of right heel, unstageable (principal); L89.150 Pressure ulcer of sacral region, unstageable; R54 Age-related physical debility; Z74.01 Bed confinement status; R32 Unspecified urinary incontinence; I10 Essential (primary) hypertension; I48.91 Unspecified atrial fibrillation; Z79.01 Long term (current) use of anticoagulants; E78.5 Hyperlipidemia, unspecified; M54.9 Dorsalgia, unspecified; G89.29 Other chronic pain; Z66 Do not resuscitate
CPT/HCPCS: 36415; 80053; 83690; 85025; 85610; 99283; A9270; J7512

== ENCOUNTER 2020-11-18 09:10 | Outpatient (CLI) | payer MEDICARE, MEDICAID | END 2020-11-18 09:11 | disposition home or self-care (01) | LOC: EMS 09:10 | PROVIDERS: ATTEND Emergency Medicine | DX: L89.159 Pressure ulcer of sacral region, unspecified stage (principal); I48.91 Unspecified atrial fibrillation; Z74.01 Bed confinement status | CPT/HCPCS: A0425; A0428 ==

== ENCOUNTER 2020-11-22 07:00 | Outpatient (CLI) | payer MEDICARE, MEDICAID ==
[2020-11-22 16:31] LABS: BASOPHILS % (AUTO) 0.2 %; EOSINOPHILS % (AUTO) 0.2 %; HCT - HEMATOCRIT 30.5 % (37.0-47.0); HGB - HEMOGLOBIN 9.8 g/dL (12.0-16.0); LYMPHOCYTES # (AUTO) 1.3 10^3/uL (1.5-3.5); LYMPHOCYTES % (AUTO) 13.8 %; MEAN CORPUSCULAR HEMOGLOBIN 29.6 pg (27.0-31.0); MEAN CORPUSCULAR HGB CONC 32.1 g/dL (32.0-36.0); MEAN CORPUSCULAR VOLUME 92.1 fL (81.0-99.0); MEAN PLATELET VOLUME 10.2 fL (7.9-10.8); MONOCYTES # (AUTO) 0.8 10^3/uL (0.0-1.0); MONOCYTES % (AUTO) 8.3 %; NEUTROPHILS # (AUTO) 7.1 10^3/uL (1.5-6.6); NEUTROPHILS % (AUTO) 77.2 %; PLT - PLATELET COUNT 308 10^3/uL (130-450); RED BLOOD COUNT 3.31 10^6/uL (4.20-5.40); RED CELL DISTRIBUTION WIDTH 17.5 % (12.0-15.0); WHITE BLOOD COUNT 9.2 x10^3/uL (4.8-10.8)
[2020-11-22 16:41] LABS: ALBUMIN 2.5 g/dL (3.2-5.5); ALBUMIN/GLOBULIN RATIO 0.6 (1.0-2.2); CALCIUM 8.7 mg/dL (8.5-10.3); CREATININE 0.5 mg/dL (0.4-1.0); POTASSIUM 3.7 mmol/L (3.5-5.0); TOTAL PROTEIN 6.4 g/dL (6.7-8.2)
[2020-11-22 16:56] LABS: THYROID STIMULATING HORMONE 1.64 uIU/mL (0.34-5.60)
[2020-11-22 17:00] LABS: FREE T4 (FREE THYROXINE) 1.88 ng/dL (0.58-1.64)
== END 2020-11-22 23:59 | disposition home or self-care (01) ==
LOC: LAB.R 07:00
DX: E78.5 Hyperlipidemia, unspecified (principal); G45.0 Vertebro-basilar artery syndrome; Z13.9 Encounter for screening, unspecified; R94.6 Abnormal results of thyroid function studies; D68.0 Von Willebrand disease; I48.20 Chronic atrial fibrillation, unspecified
CPT/HCPCS: 80053; 84439; 84443; 85025